=== PATIENT | male | born 1945 | race Caucasian/White ===

== ENCOUNTER → 2017-10-21 | Outpatient (CLI) | payer BC ==
[~2017-10-21] MED LIST: BUPR100T8 PO; CHOL1000 PO; CIPR-255 PO; MULT-506 PO
[2017-10-21 13:12] LABS: CHOLESTEROL/HDL RATIO 2.1
== END | disposition home or self-care (01) ==
LOC: C.LABPBG 09:06
DX: E78.5 Hyperlipidemia, unspecified (principal); R73.9 Hyperglycemia, unspecified

== ENCOUNTER 2025-07-09 19:57 | Observation (INO) ==
[2025-07-09 20:31] LABS: Hematocrit (blood only) 39.1 % (42.0-52.0); Hemoglobin 12.8 g/dl (14.0-18.0); Immature Granulocytes # (auto) 0.05 K/uL (0.01-0.20); Immature Granulocytes % (auto) 0.5 %; Mean Corpuscular Hemoglobin 27.5 pg (25.0-34.0); Mean Corpuscular Volume 83.9 fL (80.0-100.0); Platelet Count 288 K/uL (130-400); RDW Standard Deviation 43.9 fL (36.4-46.3); Red Blood Count 4.66 M/uL (4.70-6.10); White Blood Count 10.28 K/ul (4.8-10.8)
[2025-07-09 20:47] LABS: Alanine Aminotransferase 12.0 U/L (7-52); Albumin Globulin Ratio 1.1 (0.9-2); Alkaline Phosphatase 74.0 U/L (34-104); Anion Gap 8.0 (3-11); Bilirubin,Total 0.6 mg/dl (0.2-1.0); Blood Urea Nitrogen 21.0 mg/dl (6-23); Calcium 9.1 mg/dl (8.6-10.3); Carbon Dioxide 26.0 mmol/L (21-32); Chloride 105.0 mmol/L (98-107); Creatinine Clr Calc Pharmacy 82.6 ml/min; Globulin 2.9 gm/dl (2.5-4.0); Glucose 190.0 mg/dl (70-99(Fasting)); Magnesium 1.8 mg/dl (1.7-2.4); Potassium 4.5 mmol/L (3.5-5.1); Sodium 139.0 mmol/L (136-145); Total Protein 6.1 gm/dl (6.0-8.3)
[2025-07-09 22:01] LABS: Creatine Kinase 20.0 U/L (30-223)
[2025-07-09] MEDS: OPTIRAY 320 125ml IV ONE (22:04)
--- NOTE | 2025-07-09 23:06 | CT Scan Report ---
Exam(s): CT HEAD Without Contrast EXAM: CT Head Without Intravenous Contrast CLINICAL HISTORY: Reason for exam: syncope. TECHNIQUE: Axial computed tomography images of the head/brain without intravenous contrast. CTDI is 36.65 mGy and DLP is 702 mGy-cm. Automated exposure control was utilized for the study. A dose lowering technique was utilized adhering to the principles of ALARA. COMPARISON: No relevant prior studies available. FINDINGS: The study is limited secondary to motion artifact. Brain: Unremarkable. No hemorrhage. No significant white matter disease. No edema. Ventricles: Mild ventriculomegaly. Bones/joints: Unremarkable. No acute fracture. Soft tissues: Unremarkable. Sinuses: Unremarkable as visualized. No acute sinusitis. Mastoid air cells: Unremarkable as visualized. No mastoid effusion. IMPRESSION: No evidence of acute intracranial pathology. Electronically signed by: Fariba Peres MD 07/09/25 23:04 PM
--- NOTE | 2025-07-09 23:07 | CT Scan Report ---
Exam(s): CT C SPINE EXAM: CT Cervical Spine Without Intravenous Contrast CLINICAL HISTORY: Reason for exam: fall. TECHNIQUE: Axial computed tomography images of the cervical spine without intravenous contrast. CTDI is 24.57 mGy and DLP is 543 mGy-cm. Automated exposure control was utilized for the study. A dose lowering technique was utilized adhering to the principles of ALARA. COMPARISON: No relevant prior studies available. FINDINGS: Vertebrae: No acute fracture. There are hypertrophic degenerative changes. Discs/spinal canal/neural foramina: There are multilevel disc protrusions most pronounced at C2-3.. Soft tissues: Unremarkable. IMPRESSION: Hypertrophic degenerative changes. There are multilevel disc protrusions. If further evaluation is clinically necessary, consider correlation with MRI Electronically signed by: Chris Falcon MD 07/09/25 23:06 PM
--- NOTE | 2025-07-09 23:21 | CT Scan Report ---
Exam(s): CTA CHEST IV Amt: 118 cc opti 320 EXAM: CT Angiography Chest With Intravenous Contrast CLINICAL HISTORY: Reason for exam: PE. TECHNIQUE: Axial computed tomographic angiography images of the chest with intravenous contrast. CTDI is 20.8 mGy and DLP is 1108 mGy-cm. Automated exposure control was utilized for the study. A dose lowering technique was utilized adhering to the principles of ALARA. MIP reconstructed images were created and reviewed. COMPARISON: No relevant prior studies available. FINDINGS: Pulmonary arteries: No pulmonary embolism is seen. Aorta: There are atherosclerotic changes. There is a 4 cm aneurysm noted of the ascending aorta. No evidence of dissection.. Lungs: No mass. No consolidation. Pleural space: No significant effusion. No pneumothorax. Heart: Heart is normal in size.. Bones/joints: There are marked degenerative changes in the spine. Soft tissues: Unremarkable. Lymph nodes: No enlarged lymph nodes. IMPRESSION: No pulmonary embolism is seen. There is a 4 cm aneurysm noted of the ascending aorta. Electronically signed by: Chris Falcon MD 07/09/25 23:20 PM
--- NOTE | 2025-07-09 23:26 | CT Scan Report ---
Exam(s): CT ABDOMEN + PELVIS With Contrast IV Amt: 119cc opti 320 EXAM: CT Abdomen and Pelvis With Intravenous Contrast CLINICAL HISTORY: Reason for exam: syncope, right flank pain. TECHNIQUE: Axial computed tomography images of the abdomen and pelvis with intravenous contrast. CTDI is 21.57 mGy and DLP is 831.2 mGy-cm. Automated exposure control was utilized for the study. A dose lowering technique was utilized adhering to the principles of ALARA. CONTRAST: Patient received 119cc opti 320 of IV contrast COMPARISON: No relevant prior studies available. FINDINGS: ABDOMEN: Liver: No mass. Gallbladder and bile ducts: No calcified stones. No ductal dilation. Pancreas: No mass. No ductal dilation. Spleen: No splenomegaly. Adrenals: No mass. Kidneys and ureters: No hydronephrosis. There are rounded lucencies in both kidneys. Stomach and bowel: There is air and fluid within the stomach. There is air and stool noted in the colon. There are diverticula present on the colon. No inflammatory changes are noted. There appears to be thickening of the sigmoid colon wall. There are mildly distended loops of small bowel containing air and fluid.. PELVIS: Appendix: Unremarkable CT scan appearance noted the appendix.. Bladder: No calculi are noted within the bladder.. Reproductive: There are calcifications within the prostate gland.. ABDOMEN and PELVIS: Intraperitoneal space: No free air. No significant fluid collection. Bones/joints: There are degenerative changes in the spine and hips.. Soft tissues: Unremarkable. Vasculature: No abdominal aortic aneurysm. Lymph nodes: No enlarged lymph nodes. IMPRESSION: Diverticulosis. There appears to be thickening of the sigmoid colon wall. This may be due to under distention. Cannot exclude colitis. The overall bowel gas pattern may represent an ileus. There are possible bilateral renal cysts. Electronically signed by: Chris Falcon MD 07/09/25 23:25 PM
--- NOTE | 2025-07-09 23:41 | Emergency Department Note ---
History of Present Illness General Chief complaint: Syncope Stated complaint: SYNCOPE History of Present Illness Maximum Pain Intensity: 2 This 79-year-old male presents to the ER with his for evaluation of collapsing x 2 today. Patient states he was helping his with the door and just collapsed landing on his right flank. This happened again. Patient denies chest pain, dyspnea, headache, abdominal pain, numbness, tingling, localized weakness. He has had a chronic cough and congestion. He has been getting weaker and has difficulty with ambulation now. Home Medications Medication Instructions Recorded Confirmed Type quetiapine 25 mg tablet 25 mg PO HS 07/09/25 07/09/25 History Allergies Allergy/AdvReac Type Severity Reaction Status Date / Time prednisone AdvReac Intermediate DID NOT Verified 07/09/25 22:25 TOLERATE MED Past Med/Surg History Problem List (Updated 07/09/25 @ 23:41 by Kala Ospina PA-C) Weakness (Acute) Cough (Acute) Syncope (Acute) Neuropathy Gait disturbance Hyperlipidemia Renal calculi IGT (impaired glucose tolerance) Allergic rhinitis Dyspepsia Asthma RAD (reactive airway disease) Anxiety (Acute 12/11/12) Benign prostatic hyperplasia with urinary obstruction (Acute) Bladder calculus (Acute) Depression (Acute 12/11/12) Flank pain (Acute) Hematuria (Acute) Incontinence (Acute) Major depressive disorder (Acute 12/14/12) Skin cancer (melanoma) (Acute) UTI (urinary tract infection) (Acute) Surgical History S/P orchiopexy S/P TURP History of herniorrhaphy S/P colonoscopy Family History Family/Other Multiple sclerosis Anxiety Inflammatory bowel disease Social History Smoking Status: Never smoker Hx Alcohol Use: Yes Preferred Language: Chinese Feels Safe at Home: Yes Review of Systems A total of 10 systems reviewed and were otherwise negative Physical Exam Vital Signs Vital Signs - 24 hr 07/09/25 20:07 07/09/25 20:07 07/09/25 20:08 Temperature 36.6 C Temperature Source Oral Pulse Rate - Lying Pulse Rate - Sitting Pulse Rate - Standing Pulse Rate 81 Pulse Rhythm Regular Pulse Strength Normal Respiratory Rate 22 Respiratory Effort / Characteristics Non-Labored Spontaneous Respiratory Depth Normal Respiratory Pattern Regular Blood Pressure - Lying Blood Pressure - Sitting Blood Pressure- Standing Blood Pressure 116/77 Blood Pressure Mean 90 Blood Pressure Position Lying Pulse Oximetry 100 100 100 Oxygen Delivery Method Room Air Room Air Room Air Sepsis Recent Fever Within 48 Hours No Sepsis New/Unexplained Change in Mental Status No Sepsis Action Taken by Nursing No Action Required 07/09/25 20:08 07/09/25 21:30 07/09/25 21:32 Temperature Temperature Source Pulse Rate - Lying Pulse Rate - Sitting Pulse Rate - Standing Pulse Rate 77 78 Pulse Rhythm Pulse Strength Respiratory Rate 27 H Respiratory Effort / Characteristics Respiratory Depth Respiratory Pattern Blood Pressure - Lying Blood Pressure - Sitting Blood Pressure- Standing Blood Pressure 115/76 Blood Pressure Mean 90 Blood Pressure Position Pulse Oximetry 100 98 Oxygen Delivery Method Room Air Room Air Sepsis Recent Fever Within 48 Hours Sepsis New/Unexplained Change in Mental Status Sepsis Action Taken by Nursing 07/09/25 23:57 Temperature Temperature Source Pulse Rate - Lying 68 Pulse Rate - Sitting 80 Pulse Rate - Standing 91 H Pulse Rate Pulse Rhythm Pulse Strength Respiratory Rate Respiratory Effort / Characteristics Respiratory Depth Respiratory Pattern Blood Pressure - Lying 126/72 Blood Pressure - Sitting 125/73 Blood Pressure- Standing 110/74 Blood Pressure Blood Pressure Mean Blood Pressure Position Pulse Oximetry Oxygen Delivery Method Sepsis Recent Fever Within 48 Hours Sepsis New/Unexplained Change in Mental Status Sepsis Action Taken by Nursing VITALS: Vitals are noted on the nurse's note and reviewed by myself. Vital signs stable. GENERAL: Pleasant gentleman, in no acute distress, nondiaphoretic, well- developed well-nourished. SKIN: The skin was without rashes, erythema, edema, or bruising. There is no tenting of the skin. Capillary reflex less than 2 seconds. HEAD: Normocephalic atraumatic. EARS: External auditory canals clear EYES: Pupils equal round and reactive to light and accommodation. Conjunctivae without injection, sclerae without icterus. Extraocular movements intact. NOSE: Patent, no discharge. MOUTH: Mucous membranes moist. Pharynx without erythema or exudate. Uvula midline. Airway patent. Tongue does not deviate. NECK: Supple without nuchal rigidity. No lymphadenopathy. No thyromegaly. Cervical spine is nontender. No JVD. HEART: Regular rate and rhythm LUNGS: Clear to auscultation bilaterally without wheezes, rales or rhonchi. No retractions or accessory muscle use. ABDOMEN: Positive bowel sounds x 4. Normal tympanic percussion. Soft, nontender, without masses or organomegaly. Arora sign negative. No guarding or rebound tenderness. Right CVA tenderness MUSCULOSKELETAL: No muscle atrophy, erythema, or edema noted. No thoracic or lumbar tenderness. 5-5 strength throughout. NEURO: Patient was alert and oriented to person place and time. Normal sensation to light and sharp touch. No focal neurological deficits. Course Administered Medications Discontinued Medications Ioversol (Optiray 320 125ml) 118 ml IV ONCE ONE Stop: 07/09/25 22:05 Last Admin: 07/09/25 22:04 Dose: 118 ml Documented By: RAVIN Medical Decision Making Medical Records Attestation: I reviewed the patient's medical records. Home Medications Current Medication List: was personally reviewed by me Laboratory Data Attestation: I reviewed the patient's lab results. 07/09/25 20:10 07/09/25 20:10 Lab Results 07/09/25 Range/Units 20:10 WBC 10.28 (4.8-10.8) K/ul RBC 4.66 L (4.70-6.10) M/uL Hgb 12.8 L (14.0-18.0) g/dl Hct 39.1 L (42.0-52.0) % MCV 83.9 (80.0-100.0) fL MCH 27.5 (25.0-34.0) pg MCHC 32.7 (32.0-36.0) g/dL RDW Std Deviation 43.9 (36.4-46.3) fL RDW Coeff of Nii 14.5 (11.5-14.5) % Plt Count 288 (130-400) K/uL MPV 10.2 (9.4-12.4) fL Immature Gran % (Auto) 0.5 % Neut % (Auto) 72.1 % Lymph % (Auto) 16.2 % Sibley % (Auto) 9.8 % Eos % (Auto) 1.0 % Baso % (Auto) 0.4 % Neut # (Auto) 7.41 H (1.40-6.50) K/uL Lymph # (Auto) 1.67 (1.20-3.40) K/uL Sibley # (Auto) 1.01 H (0.11-0.59) K/uL Eos # (Auto) 0.10 (0.00-0.50) K/uL Baso # (Auto) 0.04 (0.00-0.20) K/uL Immature Gran # (Auto) 0.05 (0.01-0.20) K/uL Sodium 139 (136-145) mmol/L Potassium 4.5 (3.5-5.1) mmol/L Chloride 105 (98-107) mmol/L Carbon Dioxide 26 (21-32) mmol/L Anion Gap 8 (3-11) BUN 21 (6-23) mg/dl Creatinine 0.70 (0.6-1.4) mg/dl Est Cr Clr Drug Dosing 82.6 ml/min eGFR 94.90 BUN/Creatinine Ratio 30.0 H (10-20) Glucose 190 H (70-99(Fasting)) mg/dl Calcium 9.1 (8.6-10.3) mg/dl Magnesium 1.8 (1.7-2.4) mg/dl Total Bilirubin 0.6 (0.2-1.0) mg/dl AST 14 (13-39) U/L ALT 12 (7-52) U/L Alkaline Phosphatase 74 (34-104) U/L Total Creatine Kinase 20 L (30-223) U/L Troponin I High Sens 5.3 (0-20) pg/ml Total Protein 6.1 (6.0-8.3) gm/dl Albumin 3.2 L (3.4-5.0) gm/dl Globulin 2.9 (2.5-4.0) gm/dl Albumin/Globulin Ratio 1.1 (0.9-2) Imaging Data Attestation: I personally reviewed and interpreted this imaging study as follows: Radiologist's Impression: Abdomen/Pelvis CT 07/09/25 21:44 Exam(s): CT ABDOMEN + PELVIS With Contrast IV Amt: 119cc opti 320 EXAM: CT Abdomen and Pelvis With Intravenous Contrast CLINICAL HISTORY: Reason for exam: syncope, right flank pain. TECHNIQUE: Axial computed tomography images of the abdomen and pelvis with intravenous contrast. CTDI is 21.57 mGy and DLP is 831.2 mGy-cm. Automated exposure control was utilized for the study. A dose lowering technique was utilized adhering to the principles of ALARA. CONTRAST: Patient received 119cc opti 320 of IV contrast COMPARISON: No relevant prior studies available. FINDINGS: ABDOMEN: Liver: No mass. Gallbladder and bile ducts: No calcified stones. No ductal dilation. Pancreas: No mass. No ductal dilation. Spleen: No splenomegaly. Adrenals: No mass. Kidneys and ureters: No hydronephrosis. There are rounded lucencies in both kidneys. Stomach and bowel: There is air and fluid within the stomach. There is air and stool noted in the colon. There are diverticula present on the colon. No inflammatory changes are noted. There appears to be thickening of the sigmoid colon wall. There are mildly distended loops of small bowel containing air and fluid.. PELVIS: Appendix: Unremarkable CT scan appearance noted the appendix.. Bladder: No calculi are noted within the bladder.. Reproductive: There are calcifications within the prostate gland.. ABDOMEN and PELVIS: Intraperitoneal space: No free air. No significant fluid collection. Bones/joints: There are degenerative changes in the spine and hips.. Soft tissues: Unremarkable. Vasculature: No abdominal aortic aneurysm. Lymph nodes: No enlarged lymph nodes. IMPRESSION: Diverticulosis. There appears to be thickening of the sigmoid colon wall. This may be due to under distention. Cannot exclude colitis. The overall bowel gas pattern may represent an ileus. There are possible bilateral renal cysts. Electronically signed by: Chris Falcon MD 07/09/25 23:[address] 07/09/25 21:44 Exam(s): CT C SPINE EXAM: CT Cervical Spine Without Intravenous Contrast CLINICAL HISTORY: Reason for exam: fall. TECHNIQUE: Axial computed tomography images of the cervical spine without intravenous contrast. CTDI is 24.57 mGy and DLP is 543 mGy-cm. Automated exposure control was utilized for the study. A dose lowering technique was utilized adhering to the principles of ALARA. COMPARISON: No relevant prior studies available. FINDINGS: Vertebrae: No acute fracture. There are hypertrophic degenerative changes. Discs/spinal canal/neural foramina: There are multilevel disc protrusions most pronounced at C2-3.. Soft tissues: Unremarkable. IMPRESSION: Hypertrophic degenerative changes. There are multilevel disc protrusions. If further evaluation is clinically necessary, consider correlation with MRI Electronically signed by: Chris Falcon MD 07/09/25 23:06 PM Chest CTA 07/09/25 21:44 Exam(s): CTA CHEST IV Amt: 118 cc opti 320 EXAM: CT Angiography Chest With Intravenous Contrast CLINICAL HISTORY: Reason for exam: PE. TECHNIQUE: Axial computed tomographic angiography images of the chest with intravenous contrast. CTDI is 20.8 mGy and DLP is 1108 mGy-cm. Automated exposure control was utilized for the study. A dose lowering technique was utilized adhering to the principles of ALARA. MIP reconstructed images were created and reviewed. COMPARISON: No relevant prior studies available. FINDINGS: Pulmonary arteries: No pulmonary embolism is seen. Aorta: There are atherosclerotic changes. There is a 4 cm aneurysm noted of the ascending aorta. No evidence of dissection.. Lungs: No mass. No consolidation. Pleural space: No significant effusion. No pneumothorax. Heart: Heart is normal in size.. Bones/joints: There are marked degenerative changes in the spine. Soft tissues: Unremarkable. Lymph nodes: No enlarged lymph nodes. IMPRESSION: No pulmonary embolism is seen. There is a 4 cm aneurysm noted of the ascending aorta. Electronically signed by: Chris Falcon MD 07/09/25 23:[address] 07/09/25 21:44 Exam(s): CT HEAD Without Contrast EXAM: CT Head Without Intravenous Contrast CLINICAL HISTORY: Reason for exam: syncope. TECHNIQUE: Axial computed tomography images of the head/brain without intravenous contrast. CTDI is 36.65 mGy and DLP is 702 mGy-cm. Automated exposure control was utilized for the study. A dose lowering technique was utilized adhering to the principles of ALARA. COMPARISON: No relevant prior studies available. FINDINGS: The study is limited secondary to motion artifact. Brain: Unremarkable. No hemorrhage. No significant white matter disease. No edema. Ventricles: Mild ventriculomegaly. Bones/joints: Unremarkable. No acute fracture. Soft tissues: Unremarkable. Sinuses: Unremarkable as visualized. No acute sinusitis. Mastoid air cells: Unremarkable as visualized. No mastoid effusion. IMPRESSION: No evidence of acute intracranial pathology. Electronically signed by: Fariba Peres MD 07/09/25 23:04 PM [facility] Narrative Prior records/ancillary studies reviewed and summarized above. Nursing notes reviewed. Additional history obtained from family. The patient's history was concerning for syncope x 2 and increasing weakness. Differential diagnosis: Etiologies such as metabolic, infection, hypo/hyperglycemia, electrolyte abnormalities, cardiac sources, intracerebral event, toxicologic, neurologic, as well as others were entertained. Physical examination: As above. ER treatment provided: IV Lock An order was placed for continuous cardiac monitoring. The monitor shows a rate of 60-100 with a sinus rhythm per my interpretation. IV fluids were ordered On reassessment the patient felt better. Diagnostics interpretation by me: ECG: Ordered for syncope EKG: Normal sinus, no acute ST-T wave changes, poor baseline, rate of 75. Impression normal sinus rhythm poor baseline independently interpreted by myself The labs Independently Interpreted by myself revealed no worrisome leukocytosis, mild anemia Mild hyperglycemia that DKA. Negative troponin Imaging studies: Imaging has been reviewed and read by radiology Consultation: A consultation was placed with the hospitalist. The case was discussed and diagnostics were reviewed. The patient was evaluated in the ER for further treatment. Exam and history seem consistent with syncope x 2 with increasing weakness. Imaging with no traumatic injuries noted. Stable labs. Medicine was consulted case discussed. He will be evaluated for possible admission. Patient and are agreeable. By the evaluation outlined above emergent etiologies such as infection, electrolyte abnormalities, toxologic, abnormalities blood glucose, metabolic, as well as others were deemed relatively unlikely. The pt informed about the findings as listed above. All questions were answered and pleased with the treatment. The chart was completed utilizing [employer] Speech voice recognition software. Grammatical errors, random word insertions, pronoun errors, and incomplete sentences are an occassional consequence of this system due to software limitations, ambient noise, and hardware issues. Any formal questions or concerns about the content, text, or information contained within the body of this dictation should be directly addressed to the physician assistant to the ceo for clarification. Impression & Plan Syncope, Cough, Weakness Discharge Plan Visit Data Chief Complaint: Syncope Stated Complaint: SYNCOPE ED Provider: Mayi Bowles ED Midlevel Provider: Kala Ospina Discharge Problem: Syncope, Cough, Weakness Patient Disposition: Being Evaluated by Hospitalist Condition: Good Forms Stand Alone Forms: My [employer] Prescriptions Prescriptions: No Action quetiapine 25 mg tablet 25 mg PO HS Referrals Referrals: Nicolas Huang PA-C [Primary Care Provider] - Discharge Problem: Syncope Qualifiers: Syncope type: unspecified Qualified Code(s): R55 - Syncope and collapse
--- NOTE | 2025-07-09 23:45 | History & Physical Report ---
Date of Service July 09, 2025 Assessment & Plan (1) Syncope: (2) Weakness: (3) Abdominal aortic aneurysm: (4) Neuropathy: Plan Patient is a 79-year-old male with past medical history of HLD, BPH, depression, neuropathy. Presented via EMS after 2 syncopal episodes at home while trying to put up a 40 to 50 pound door with his . Diagnostic imaging negative for acute changes, laboratories WNL, troponin negative. He is being admitted for a syncopal workup. #Syncope/weakness - suspect vasovagal with exertion and poor fluid intake; [place] syncope risk score -3. Head CT, chest CTA, cervical spine CT, abdomen pelvis CT negative. Troponin 5.3, electrolytes stable, Hgb dropped from 14.0- 12.8 over 5 years. - patient reported poor PO intake today and then had pizza prior to episode, BSG 190 - repeat glucose ordered - EKG showed sinus rhythm with first-degree AV block however much artifact noted, repeat EKG ordered - continue Seroquel - can cause orthostatic hypotension, if becomes symptomatic again consider holding - UA ordered - LR @ 125 ml/hr x 1 L ordered - orthostatic vital signs ordered Echocardiogram ordered - PT/OT ordered Monitor on telemetry #Ascending aortic aneurysm 4 cm aneurysm of ascending aorta noted on chest CTA Follow-up in outpatient setting #Renal cyst AP CT noted concern for bilateral renal cysts. Renal function stable. Follow-up in outpatient setting #neuropathy - has BL hand procedure scheduled later this week, continue in outpatient setting. VTE ppx: SCDs, low risk Dispo: med/tele - anticipate dc home 07/10 Admission and Anticipated Discharge Date Admission Date: 07/09/25 History of Present Illness Chief Complaint: syncope Primary Care Provider: Nicolas Huang PA-C Patient is a 79-year-old male with past medical history of HLD, BPH, depression, neuropathy. Presented via EMS after 2 syncopal episodes at home while trying to put up a 40 to 50 pound door with his . Diagnostic imaging negative for acute changes, laboratories WNL, troponin negative. He is being admitted for a syncopal workup. Patient seen at bedside. He stated earlier today he felt lightheaded however did not recall exerting himself during this episode. He then was trying to put up a door with his that was approximately 45 to 50 pounds when he woke up on the floor, he denies any complete loss of consciousness or head strike. He then went to sit down and had a second episode. He felt short of breath on arrival however now denies any chest pain or shortness of breath. He did eat as usual today however feels as though he did not drink enough water. His only home medication is Seroquel which he takes at night before bed. He denies any current dizziness, lightheadedness, headaches, vision changes, chest pain, shortness of breath, abdominal pain. He denies nicotine or significant alcohol use. He denies any cardiac history. He wishes to be DNR/DNI. he also noted scratching his throat on pizza several months ago which has still been causing some discomfort, considering ENT in outpatient setting. Allergies Allergy/AdvReac Type Severity Reaction Status Date / Time prednisone AdvReac Intermediate DID NOT Verified 07/09/25 22:25 TOLERATE MED Home Medications Medication Instructions Recorded Confirmed Type quetiapine 25 mg tablet 25 mg PO HS 07/09/25 07/09/25 History Past Med/Surg History Problem List (Updated 07/10/25 @ 00:26 by Marissa Thomas PA-C) Abdominal aortic aneurysm Weakness (Acute) Cough (Acute) Syncope (Acute) Neuropathy Gait disturbance Hyperlipidemia Renal calculi IGT (impaired glucose tolerance) Allergic rhinitis Dyspepsia Asthma RAD (reactive airway disease) Anxiety (Acute 12/11/12) Benign prostatic hyperplasia with urinary obstruction (Acute) Bladder calculus (Acute) Depression (Acute 12/11/12) Flank pain (Acute) Hematuria (Acute) Incontinence (Acute) Major depressive disorder (Acute 12/14/12) Skin cancer (melanoma) (Acute) UTI (urinary tract infection) (Acute) Surgical History S/P orchiopexy S/P TURP History of herniorrhaphy S/P colonoscopy Family History Family/Other Multiple sclerosis Anxiety Inflammatory bowel disease Social History Smoking Status: Former smoker Second Hand Exposure: No; Do You Dip or Chew Tobacco: No; Hx Alcohol Use: No Hx Substance Use: No Preferred Language: Khmer Beliefs That Will Affect Care: None Current Living Situation: Spouse Other Information That Helps Us Care for You: No Feels Safe at Home: Yes Safety Concerns: Feels Safe At This Time Assistive Devices: Cane and Glasses Review of Systems Review of Systems: see HPI Physical Exam Physical Exam: The patient is awake, alert and oriented 3, well developed and well nourished, normocephalic and atraumatic, in no acute distress. Non-toxic appearing. HEENT- EOMI, mucous membranes moist. Hearing grossly intact. Heart-normal S1 and S2. No murmurs, rubs or gallops. Lungs-clear bilaterally, no respiratory distress, no accessory muscle use. Abdomen-normal bowel sounds and soft. No ascites noted. Non-tender. Extremities- no clubbing, cyanosis, or edema. Rheumatologic-normal range of motion. Psychiatric-normal affect. Results & Data Results & Data Vital Signs (Past 12 Hours) Vital Signs Temp Pulse Resp BP Pulse Ox O2 Del Method 07/09/25 21:32 78 07/09/25 21:30 77 27 H 115/76 98 Room Air 07/09/25 20:08 100 Room Air 07/09/25 20:08 100 Room Air 07/09/25 20:07 100 Room Air 07/09/25 20:07 36.6 C 81 22 116/77 100 Room Air Laboratory Results Lab Results 07/09/25 07/09/25 Range/Units 20:10 23:58 WBC 10.28 (4.8-10.8) K/ul RBC 4.66 L (4.70-6.10) M/uL Hgb 12.8 L (14.0-18.0) g/dl Hct 39.1 L (42.0-52.0) % MCV 83.9 (80.0-100.0) fL MCH 27.5 (25.0-34.0) pg MCHC 32.7 (32.0-36.0) g/dL RDW Std Deviation 43.9 (36.4-46.3) fL RDW Coeff of Nii 14.5 (11.5-14.5) % Plt Count 288 (130-400) K/uL MPV 10.2 (9.4-12.4) fL Immature Gran % (Auto) 0.5 % Neut % (Auto) 72.1 % Lymph % (Auto) 16.2 % [place] % (Auto) 9.8 % Eos % (Auto) 1.0 % Baso % (Auto) 0.4 % Neut # (Auto) 7.41 H (1.40-6.50) K/uL Lymph # (Auto) 1.67 (1.20-3.40) K/uL [place] # (Auto) 1.01 H (0.11-0.59) K/uL Eos # (Auto) 0.10 (0.00-0.50) K/uL Baso # (Auto) 0.04 (0.00-0.20) K/uL Immature Gran # (Auto) 0.05 (0.01-0.20) K/uL Sodium 139 (136-145) mmol/L Potassium 4.5 (3.5-5.1) mmol/L Chloride 105 (98-107) mmol/L Carbon Dioxide 26 (21-32) mmol/L Anion Gap 8 (3-11) BUN 21 (6-23) mg/dl Creatinine 0.70 (0.6-1.4) mg/dl Est Cr Clr Drug Dosing 82.6 ml/min eGFR 94.90 BUN/Creatinine Ratio 30.0 H (10-20) Glucose 190 H (70-99(Fasting)) mg/dl Calcium 9.1 (8.6-10.3) mg/dl Magnesium 1.8 (1.7-2.4) mg/dl Total Bilirubin 0.6 (0.2-1.0) mg/dl AST 14 (13-39) U/L ALT 12 (7-52) U/L Alkaline Phosphatase 74 (34-104) U/L Total Creatine Kinase 20 L (30-223) U/L Troponin I High Sens 5.3 (0-20) pg/ml Total Protein 6.1 (6.0-8.3) gm/dl Albumin 3.2 L (3.4-5.0) gm/dl Globulin 2.9 (2.5-4.0) gm/dl Albumin/Globulin Ratio 1.1 (0.9-2) Urine Color Yellow Urine Appearance Clear (Clear) Urine pH 8.5 H (4.5-7.5) Ur Specific [place] 1.015 (1.000-1.030) Urine Protein Negative (Negative) Urine Glucose (UA) Negative (Negative) Urine Ketones Negative (Negative) Urine Blood Trace-intact H (Negative) Urine Nitrite Positive A (Negative) Urine Bilirubin Negative (Negative) Urine Urobilinogen Negative (Negative) Ur Leukocyte Esterase Negative (Negative) Urine Comment Diagnostic Findings reviewed head CT, chest CTA, cervical spine CT, abdomen pelvis CT Medications Administered EDnone ECG Additional Comments: sinus rhythm with first-degree AV block however much artifact noted Rate 75 QTc 435 Repeat ordered Code Status & VTE Plan Code Status dnr/dni VTE Prophylaxis Plan VTE Prophylaxis will be ordered: Yes Supervising Physician Co-Signing Physician Notes Attending addendum: I have physically seen this patient, have supervised the BARTOLO's activities, and agree with the H&P unless as otherwise noted. Assessment and Plan: The patient is a 79-year-old male with past medical history including hyperlipidemia, BPH, depression, impaired glucose tolerance, asthma, neuropathy, and urinary tract infection. He presents to the emergency department via EMS after syncopal episodes x 2 while at home trying to put up a 50 pound door with his assisting. At the time of this examination, the patient primarily reports feeling generally weak. Syncope/weakness- Differential including but not limited to: vasovagal, carbohydrate dysregulation, overall poor caloric intake, decreased fluid intake, medication side effect Workup included negative CT of head, CT cervical spine, CT abdomen Duonebs every 4 hours while awake and every 2 hours when necessary.. CTA chest did show an ascending aortic aneurysm of 4 cm. Follow urine culture and sensitivity At least part of the symptoms may be secondary to postprandial hypoglycemia, after having not eaten all day, and then had 2 pieces of pizza this evening LR 125 mL/h x 1 L Orthostatic vital signs The patient will be admitted to telemetry for serial cardiac enzymes, serial EKG's, cardiac rhythm monitoring and a 2-D echocardiogram with Dopplers. Consult PT/OT Ascending aortic aneurysm- Noted to be 4 cm in diameter CTA chest Can be followed in the outpatient setting Bilateral upper extremity peripheral numbness- Reports she is to undergo a surgery initially on his right side, and to be followed by his left side, sometime later this week Major depressive disorder- Continue quetiapine, but is known to cause orthostasis PG Care Time/CCT Total # of Minutes Spent Total Time Spent with Patient: Total time spent is greater than 50% in coordination of care (as documented) at patient's floor/unit and/or counseling patient: Coding Level of Care Code 08546 INT INP/OBS CARE MIN Diagnoses Syncope R55 Syncope type: unspecified Weakness R53.1 Abdominal aortic aneurysm I71.40 Neuropathy G62.9 (1) Syncope Syncope type: unspecified Qualified Code(s): R55 - Syncope and collapse
[2025-07-10 00:11] LABS: Appearance Urine Clear (Clear); Glucose Urine UA Negative (Negative)
[2025-07-10] MEDS: LACTATED RINGER'S 1,000 ML IV SCH (00:12)
[2025-07-10 00:29] LABS: Cast Urine Automated 0-2 /lpf (0-2); Epithelial Cell Urine Auto 0-2 /hpf (0-2); RBC Urine Automated 0-2 /hpf (0-2); WBC Urine Automated 0-5 /hpf (0-5)
[2025-07-10 00:31] LABS: Bacteria Urine Automated 1+ (None Seen)
[2025-07-10] MEDS ORDERED: MELATONIN 3 MG TAB PO PRN (00:36)
[2025-07-10] MEDS ORDERED: ONDANSETRON INJ 2 MG/ML 2 ML VIAL IV PRN (00:36)
[2025-07-10] MEDS ORDERED: ACETAMINOPHEN 325 MG TAB PO PRN (00:36)
[2025-07-10] MEDS ORDERED: DOCUSATE SODIUM 100 MG CAP PO PRN (00:36)
[2025-07-10] MEDS ORDERED: Nursing to Pharmacy Communication SCH (01:15)
[2025-07-10 04:42] LABS: Hematocrit (blood only) 37.3 % (42.0-52.0); Hemoglobin 12.4 g/dl (14.0-18.0); Immature Granulocytes # (auto) 0.07 K/uL (0.01-0.20); Immature Granulocytes % (auto) 0.6 %; Mean Corpuscular Hemoglobin 27.4 pg (25.0-34.0); Mean Corpuscular Volume 82.3 fL (80.0-100.0); Platelet Count 277 K/uL (130-400); RDW Standard Deviation 42.2 fL (36.4-46.3); Red Blood Count 4.53 M/uL (4.70-6.10); White Blood Count 11.05 K/ul (4.8-10.8)
[2025-07-10 04:57] LABS: Anion Gap 9.0 (3-11); Blood Urea Nitrogen 18.0 mg/dl (6-23); Calcium 8.8 mg/dl (8.6-10.3); Carbon Dioxide 23.0 mmol/L (21-32); Chloride 107.0 mmol/L (98-107); Creatinine Clr Calc Pharmacy 124.5 ml/min; Glucose 116.0 mg/dl (70-99(Fasting)); Potassium 3.9 mmol/L (3.5-5.1); Sodium 139.0 mmol/L (136-145)
--- NOTE | 2025-07-10 09:49 | Electrocardiogram Report ---
Test Reason : Blood Pressure : */* mmHG Vent. Rate : 75 BPM Atrial Rate : 75 BPM P-R Int : 216 ms QRS Dur : 76 ms QT Int : 390 ms P-R-T Axes : 68 18 45 degrees QTcB Int : 435 ms Poor data quality, interpretation may be adversely affected Sinus rhythm with 1st degree A-V block with Premature supraventricular complexes Otherwise normal ECG When compared with ECG of 28-Sep-2020 12:38, Premature supraventricular complexes are now Present Confirmed by Abhi Morocho ([id number]) on 07/10/2025 9:49:28 AM Referred By: REFERRED SELF Confirmed By: Abhi Morocho
--- NOTE | 2025-07-10 13:25 | Hospitalist Progress Note ---
Date of Service July 10, 2025 Assessment & Plan (1) Cervical myelopathy: (2) Tongue lesion: (3) Syncope: (4) Weight loss, abnormal: Plan Patient is a 79-year-old male with past medical history of HLD, BPH, depression, neuropathy. Presented via EMS after 2 syncopal episodes vs drop attacks at home while trying to put up a 40 to 50 pound door with his . There was no prodrome and he was not lifting the door - his lifted it into place. He did not have arms overhead or swain his neck. Fell suddenly and unclear whether LOC or not, recurred when he was trying to get up. Similar fall recently in the kitchen. Additional history obtained: 50 pound weight loss x 6 mo, shoulders/arms/hands pain dysesthesia and weakness, LE weakness, 2 mo of throat pain. Decades of snuff use. On exam he has severe muscle atrophy and bilateral UE>LE weakness. Hands particularly atrophied and weak. There is a fungating lesion of the left side of base of tongue. Presentation very concerning for head and neck cancer, cervical myelopathy -discussed with ENT Dr. Thakkar - CT neck and will schedule office appointment on - much easier to eval/biopsy with office equipment. Greatly appreciate assistance. -MRI cspine to evaluate cervical myelopathy Other issues: #Syncopal episodes vs falls/drop attack - may be related to above, await further imaging EKG with 1st degree AV block, no arrhythmias on monitoring overnight I am not very suspicious of a cardiac syncope. Cont tele. CTA was negative for PE Check orthostatic VS #Ascending aortic aneurysm 4 cm aneurysm of ascending aorta noted on chest CTA Follow-up in outpatient setting #Renal cysts AP CT noted concern for bilateral renal cysts. Renal function stable. Follow-up in outpatient setting PT/OT consult DVT ppx: start enoxaparin Admission and Anticipated Discharge Date Admission Date: July 10, 2025 Subjective Feels better and was up OOB with nurse who noted significant weakness Has had unexplained 50 pound weight loss x 6 mo Last 2 mo has had uncomfortable sensation in throat he attrib to swallowing a hard piece of macaroni that poked his throat - it bled at the time, but "won't heal" No further blood. Hx using snuff from childhood until 6 mo ago when he quit Bilateral hand weakness and hands pain and weakness undergoing outpatient eval - seeing ortho surgeon for "carpal tunnel" He has had pain in shoulder area bilaterally as well and dysesthesia well above his wrists of bilateral UEs No neck pain other than the throat pain mentioned above Has had recent previous fall (similar to yesterday) which sounds like a drop attack without clearcut LOC Physical Exam 2 Physical Exam: Last 24h vitals reviewed GEN: no acute distress, sitting in bed HEENT: pupils equal, sclerae anicteric, moist MM. Fungating mass seen right posterior / base of tongue. Airway widely patent RESP: normal WOB, CTAB CV: reg no mrg ABD: soft/nt/nd +BT. Scaphoid : no jackson SKIN: warm and dry, no generalized rashes NEURO: AOx person, place, and situation. Face symmetric, speech normal, moves 4 ext spontaneously and equally. Significant sarcopenia x 4 ext. severe intraosseous wasting both hands. Severe bilateral mess attendant weakness. Shoulders and hip flexors symmetrically weak 3/5. biceps/triceps and knee flexors/extensors 4/5, dorsi and plantar flexion 5/5 Results & Data Results & Data Vital Signs (Past 12 Hours) Vital Signs Pulse Pulse Resp BP Pulse Ox O2 Del Method 07/10/25 11:38 61 20 119/69 96 Room Air 07/10/25 10:00 68 26 H 117/66 96 Room Air 07/10/25 07:09 64 07/10/25 07:00 62 20 122/72 97 Room Air 07/10/25 05:48 20 117/61 96 Room Air Laboratory Results 07/10/25 03:44 07/10/25 03:44 Diagnostic Findings CTA chest, CT head, CT abdomen/pelvis with contrast -no PE, 4 cm aneurysm of ascending aorta, prob bilateral renal cysts, diverticulosis, underdistended sigmoid colon CT cervical spine without contrast: FINDINGS: Vertebrae: No acute fracture. There are hypertrophic degenerative changes. Discs/spinal canal/neural foramina: There are multilevel disc protrusions most pronounced at C2-3.. Soft tissues: Unremarkable. IMPRESSION: Hypertrophic degenerative changes. There are multilevel disc protrusions. If further evaluation is clinically necessary, consider correlation with MRI PG Care Time/CCT Total # of Minutes Spent Total Time Spent with Patient: Total time spent is greater than 50% in coordination of care (as documented) at patient's floor/unit and/or counseling patient: Coding Level of Care Code 41751 SUB INP/OBS CARE 350MIN Diagnoses Cervical myelopathy G95.9 Tongue lesion K14.8 Syncope R55 Syncope type: unspecified Weight loss, abnormal R63.4 (3) Syncope Syncope type: unspecified Qualified Code(s): R55 - Syncope and collapse
[2025-07-10] MEDS: OPTIRAY 320 100ml IV ONE (14:38)
--- NOTE | 2025-07-10 15:08 | CT Scan Report ---
CT soft tissue neck w con HISTORY: 79 years-old Male suspect head/neck cancer, base of tongue lesion COMPARISON: CT cervical spine 07/09/2025 TECHNIQUE: Multiple axial CT images of the soft tissues of the neck were obtained with IV contrast. A dose lowering technique was used consistent with the principals of ALARA. FINDINGS: The imaged intracranial structures demonstrate no acute abnormality. Mild age-related involutional ch anges of the brain. There is a large heterogeneous and enhancing mass with ill-defined margins noted involving the base of the tongue, most pronounced in the central and left lateral margins with extens ion into the vallecula abutting without definitely invading the epiglottis. This lesion also appears to abut the adjacent uvula and overall measures approximately 4.7 x 3.4 x 4.8 cm (image 45 series 79 and image 205 series 3). The glottis and subglottic airway is patent. Unremarkable appearance of the thyroid, parotid and subm andibular glands. Lung apices appear clear. No pathologically enlarged lymph nodes. There is a centra lly hypodense 7 x 5 mm left cervical chain lymph node image 242 series 3. Multilevel degenerative severiano nges of the cervical spine. Ill-defined osseous lucent foci nonspecific and may be related to bone de mineralization. Unremarkable appearance of the vascular structures of the neck. Aberrant course of th e right subclavian artery. IMPRESSION: 1. Large enhancing mass involving the base of the tongue/oropharynx measures up to approximately 5 cm . Primary head and neck carcinoma is the primary differential consideration. 2. Patent oropharynx. 3. No pathologically enlarged lymph nodes. There is however a subcentimeter left cervical chain lymph node with possible central necrosis, equivocal for metastasis. ACT 112: Negative or not required by law. The above report was generated using voice recognition software. It may contain grammatical, syntax o r spelling errors. Electronically signed by: Shady Ricketts M.D. 07/10/2025 3:06 PM
--- NOTE | 2025-07-10 18:01 | Communication Note ---
Date of Service: July 10, [address] - large mass base of tongue headed to MRI and claustrophobic - lorazepam 0.5 mg IV I havent been able to discuss the neck CT findings with him yet.
--- NOTE | 2025-07-10 23:56 | Magnetic Resonance Report ---
Exam(s): MRI C SPINE EXAM: MR Cervical Spine Without Intravenous Contrast CLINICAL HISTORY: Reason for exam: susp malignancy, c-spine disease. TECHNIQUE: Magnetic resonance images of the cervical spine without intravenous contrast in multiple planes. COMPARISON: CT cervical spine from 07/09/2025 FINDINGS: Artifacts: Moderate motion artifact. Vertebrae: Diffusely heterogenous bone marrow signal. No acute fracture. Spinal cord: Unremarkable. Normal signal. Soft tissues: Unremarkable. DISCS/SPINAL CANAL/NEURAL FORAMINA: C2-C3: Mild degenerative disc disease. Disc dehydration and 3 mm broad-based posterior disc herniation narrowing the thecal sac to 8 mm. Probable moderate left neural foraminal narrowing, blurred by motion. C3-C4: Mild degenerative disc disease. Disc dehydration and broad- based posterior disc herniation measuring 3 mm narrowing of the thecal sac to 6 mm. Neural foramina are obscured by motion. C4-C5: Mild degenerative disc disease. Disc dehydration and broad- based posterior disc herniation measuring 2-3 mm narrowing of the thecal sac to 8 mm. Neural foramina are obscured. C5-C6: Moderate degenerative disc disease. 2 mm broad-based posterior disc herniation narrows the thecal sac to 9 mm. The neural foramina are obscured. C6-C7: Moderate degenerative disc disease. Disc dehydration and 2-3 mm broad-based posterior disc herniation narrowing of the thecal sac to 8- 9 mm. The neural foramina are obscured. C7-T1: Mild degenerative disc disease. Disc dehydration and broad- based posterior disc herniation measuring 4 mm combined with 3 mm grade 1 anterolisthesis due to degenerative facet arthrosis. The thecal sac is slightly narrowed measuring 9-10 mm. The neural foramina are partially obscured but appear to be patent. IMPRESSION: 1. Diffusely heterogenous bone marrow signal. Differential considerations include partial conversion to right marrow versus lymphoproliferative disorder such as multiple myeloma. 2. Multilevel degenerative disc disease throughout the cervical spine with individual levels as described above. Electronically signed by: Darwin Sears MD 07/10/25 23:55 PM
[2025-07-11 08:12] LABS: Hematocrit (blood only) 38.1 % (42.0-52.0); Hemoglobin 12.2 g/dl (14.0-18.0); Immature Granulocytes # (auto) 0.05 K/uL (0.01-0.20); Immature Granulocytes % (auto) 0.5 %; Mean Corpuscular Hemoglobin 27.1 pg (25.0-34.0); Mean Corpuscular Volume 84.7 fL (80.0-100.0); Platelet Count 254 K/uL (130-400); RDW Standard Deviation 45.1 fL (36.4-46.3); Red Blood Count 4.50 M/uL (4.70-6.10); White Blood Count 10.13 K/ul (4.8-10.8)
[2025-07-11 08:38] LABS: Anion Gap 7.0 (3-11); Blood Urea Nitrogen 17.0 mg/dl (6-23); Calcium 8.7 mg/dl (8.6-10.3); Carbon Dioxide 25.0 mmol/L (21-32); Chloride 104.0 mmol/L (98-107); Creatinine Clr Calc Pharmacy 114.1 ml/min; Glucose 89.0 mg/dl (70-99(Fasting)); Potassium 4.0 mmol/L (3.5-5.1); Sodium 136.0 mmol/L (136-145)
--- NOTE | 2025-07-11 14:01 | XCELERA ---
[id number]
--- NOTE | 2025-07-11 14:25 | Discharge Summary ---
Discharge Summary Date of Service July 11, 2025 Principal Dx & Hospital Course #1 = Principal Diagnosis (1) Tongue lesion: (2) Syncope: (3) Weight loss, abnormal: (4) Ascending aortic aneurysm: Plan Patient is a 79-year-old male with past medical history of HLD, BPH, depression, neuropathy. Presented via EMS after 2 syncopal episodes vs drop attacks at home while trying to put up a 40 to 50 pound door with his . There was no prodrome and he was not lifting the door - his lifted it into place. He did not have arms overhead or swain his neck. Fell suddenly and unclear whether LOC or not, recurred when he was trying to get up. Similar fall recently in the kitchen. Additional history obtained: 50 pound weight loss x 6 mo, shoulders/arms/hands pain dysesthesia and weakness, LE weakness, 2 mo of throat pain. Decades of snuff use. On exam he has severe muscle atrophy and bilateral UE>LE weakness. Hands particularly atrophied and weak. There is a fungating lesion of the left side of base of tongue. Presentation very concerning for head and neck cancer -discussed with ENT Dr. Thakkar - CT neck obtained - showed large base of tongue mass and a suspicious lymph note. Scheduled for ENT office appointment on for biopsy Weakness, diffuse muscle atrophy especially both hands Obtained MRI cspine to evaluate possible cervical myelopathy - no cord compression or severe foraminal stenoses to explain symptoms of weakness, muscle atrophy. Possible red marrow signal - ordered SPEP and kappa/lambda which are pending #Syncopal episodes vs falls/drop attack - EKG with 1st degree AV block, no arrhythmias on monitoring CTA was negative for PE dissection Echo - reassuring - only mild TR Orthostatics - asymptomatic and mild SBP drop of 15 points Could have been vasovagal or orthostatic but history not clearcut for either. Not on meds to provoke orthostasis. Arrhythmia unlikely with normal Echo but o rdered ambulatory satellite project site monitor #Ascending aortic aneurysm 4 cm aneurysm of ascending aorta noted on chest CTA, Echo Follow-up in outpatient setting #Renal cysts AP CT noted concern for bilateral renal cysts. Renal function stable. Follow-up in outpatient setting PT/OT consult - recommended home health and walker Notes For Next Care Provider Highly likely head and neck cancer, large base of tongue lesion Biopsy 07/[address] Thakkar ENT Syncope workup negative - ambulatory heart monitor ordered Admission HPI Per Admitting Provider Patient is a 79-year-old male with past medical history of HLD, BPH, depression, neuropathy. Presented via EMS after 2 syncopal episodes at home while trying to put up a 40 to 50 pound door with his . Diagnostic imaging negative for acute changes, laboratories WNL, troponin negative. He is being admitted for a syncopal workup. Patient seen at bedside. He stated earlier today he felt lightheaded however did not recall exerting himself during this episode. He then was trying to put up a door with his that was approximately 45 to 50 pounds when he woke up on the floor, he denies any complete loss of consciousness or head strike. He then went to sit down and had a second episode. He felt short of breath on arrival however now denies any chest pain or shortness of breath. He did eat as usual today however feels as though he did not drink enough water. His only home medication is Seroquel which he takes at night before bed. He denies any current dizziness, lightheadedness, headaches, vision changes, chest pain, shortness of breath, abdominal pain. He denies nicotine or significant alcohol use. He denies any cardiac history. He wishes to be DNR/DNI. he also noted scratching his throat on pizza several months ago which has still been causing some discomfort, considering ENT in outpatient setting. Discharge Exam Last 24h vitals reviewed GEN: no acute distress, sitting in bed HEENT: pupils equal, sclerae anicteric, moist MM. Yesterday exam: Fungating mass seen right posterior / base of tongue. Airway widely patent. No cervical SC LAD RESP: normal WOB CV: ABD: : no jackson SKIN: warm and dry, no generalized rashes NEURO: AOx person, place, and situation. Face symmetric, speech normal, moves 4 ext spontaneously and equally. Significant sarcopenia x 4 ext. severe intraosseous wasting both hands. Severe bilateral replanter weakness. Discharge Plan Discharge Items Patient Disposition: Home - Home Health Services Reason For Visit: SYNCOPE Discharge Diagnosis: Syncope, tongue mass Condition on Discharge: Fair Activity: Resume your previous activity Non-emergency contact: Primary Care Provider and Specialist Call non-emergency contact if: you have any medication questions and your symptoms worsen Follow-up/Referrals: Abhi Morocho MD [Physician] - (Please go directly to the cardiology office after d/c for your monitor to be applied.) Jona Thakkar MD [Physician] - 07/12/25 9:15 am Nicolas Huang PA-C [Primary Care Provider] - (Please call your primary care provider to schedule a hospital follow-up within 7-10 days) Diet: Regular Addtl Attending Provider Instructions: You were evaluated for syncope (passing out) We did not find a specific cause, which is often the case. The most common cause is vasovagal syncope - its a kind of exaggerated normal body reflex that can cause the heart rate and blood pressure to drop. Low standing BP is another common cause, but your standing BPs were normal in the hospital. Serious causes were ruled out with testing: CT of chest with no blood clots or tears in arteries, no evidence of heart attack or arrhythmia, no evidence of infection or bleeding. Echocardiogram (heart ultrasound) was pretty normal - normal heart squeeze, mildly leaky tricuspid valve - but this is too mild to cause any symptoms. You have mild dilation of your aorta that should intermediate teacher be followed with imaging to make sure it is not getting worse. We arranged an ambulatory heart monitor to make sure you're not having an undetected arrhythmia - pick this up in cardiology clinic before going home. They close at 4pm. Unfortunately we also found a mass at the base of your tongue. It is large on neck CT. Its very suspicious for tongue cancer. We have set up an appointment with an ENT specialist, Dr. Thakkar, to take a biopsy in the office tomorrow. It is much easier to do this biopsy with the office equipment, rather than trying to do it in the hospital where specialized equipment is not available. MRI of your cervical spine did not show any significant abnormalities which would explain your weakness and nerve pain. We advise home PT and OT and use of a walker to prevent falls. You've lost a lot of weight. You will benefit from a daily multivitamin and twice a day protein supplement (boost, ensure, whey shake or bar) It was a pleasure taking care of you in the hospital, Sofya Benites MD Pending Studies at Discharge: No Stand-Alone Forms: My [facility] [place], Smoking Cessation Medications and DC Order Prescriptions: Continued quetiapine 25 mg tablet 25 mg PO HS Admission Data Admit Date/Time: 07/10/25 00:00 Attending Provider: Sofya Benites Admit Provider: Lino Lawton Primary Care Provider: Nicolas Huang Other Providers: Lino Lawton Other Interventions: Discharge Summary Assessment (RN) Last Done: 07/11/25 17:24 Hospital Stay Data Consultations 07/09/25 23:37 ED Decision to Admit Stat Diagnostic Imagining Performed 07/09/25 21:44 CT Abd and Pelvis [CT abd pelvis IV con only] Stat CT angio chest PE protocol Stat CT cervical spine wo con Stat CT head/brain wo con Stat 07/10/25 13:00 MR cervical spine wo con Urgent 07/10/25 13:29 CT neck soft tissues [CT soft tissue neck w con] Urgent Pending Results Patient Have Any Pending Studies at Discharge: No Discharge Instructions Given to Patient (Per Discharging Provider) You were evaluated for syncope (passing out) We did not find a specific cause, which is often the case. The most common cause is vasovagal syncope - its a kind of exaggerated normal body reflex that can cause the heart rate and blood pressure to drop. Low standing BP is another common cause, but your standing BPs were normal in the hospital. Serious causes were ruled out with testing: CT of chest with no blood clots or tears in arteries, no evidence of heart attack or arrhythmia, no evidence of infection or bleeding. Echocardiogram (heart ultrasound) was pretty normal - normal heart squeeze, mildly leaky tricuspid valve - but this is too mild to cause any symptoms. You have mild dilation of your aorta that should intermediate teacher be followed with imaging to make sure it is not getting worse. We arranged an ambulatory heart monitor to make sure you're not having an undetected arrhythmia - pick this up in cardiology clinic before going home. They close at 4pm. Unfortunately we also found a mass at the base of your tongue. It is large on neck CT. Its very suspicious for tongue cancer. We have set up an appointment with an ENT specialist, Dr. Thakkar, to take a biopsy in the office tomorrow. It is much easier to do this biopsy with the office equipment, rather than trying to do it in the hospital where specialized equipment is not available. MRI of your cervical spine did not show any significant abnormalities which would explain your weakness and nerve pain. We advise home PT and OT and use of a walker to prevent falls. You've lost a lot of weight. You will benefit from a daily multivitamin and twice a day protein supplement (boost, ensure, whey shake or bar) It was a pleasure taking care of you in the hospital, Sofya Benites MD Total Time Total Time Spent Total Time Spent (In Minutes): I personally spent: 50 minutes today on clinical care activities including: reviewing chart notes and vital signs reviewing labs reviewing studies discussion with senior resident care director examining and counseling the patient writing orders discharge instructions documentation Coding Level of Care Code 83859 INP/OBS DISCH >30 MIN Diagnoses Tongue lesion K14.8 Syncope R55 Syncope type: unspecified Weight loss, abnormal R63.4 Ascending aortic aneurysm I71.21
[2025-07-11 15:32] VITALS: RESP 18; TEMP 98.1; O2SAT 94
[2025-07-11 17:26] VITALS: BP 131/75; PULSE 58
== END 2025-07-11 17:29 | disposition home health service (06) ==
LOC: EDINP 19:57 → ED 19:57 → SUATTDRO 07-10 → 2N 07-10 00:37

== ENCOUNTER 2025-10-13 14:52 | Inpatient (IN) ==
--- NOTE | 2025-10-13 15:06 | Emergency Department Note ---
Impression & Plan Syncope, Leukocytosis, Acute hypokalemia ED Provider Note NAME: TOM BROWN AGE: 80 SEX: M : 1945 ARRIVES VIA: Ambulance INFORMANT: Patient ED PROVIDER(S): Brandon Hunter DO CHIEF COMPLAINT: syncope HPI: Patient is a 80-year-old male with a known history of tongue cancer who presents to the ER for several episodes of passing out over the past 2 days. He believes this happened about 6 times. He notes he does not remember falling and will wake up on the ground. Denies any chest pain but admits to shortness of breath but does not believe that that has worsened recently. No belly pain. Admits to nausea but no vomiting. No dysuria, urgency or frequency. ADDITIONAL HISTORY OBTAINED: Per HPI Chronic Medical/Social Conditions Affecting Care: Per HPI PAST MEDICAL HISTORY:See Below PAST SURGICAL HISTORY:See Below FAMILY HISTORY:See Below SOCIAL HISTORY:See Below HOME MEDICATIONS:See Below ALLERGIES:See Below VITALS:See Below PHYSICAL EXAMINATION: GENERAL: Sitting up in bed, alert, chronically ill-appearing, disheveled EYE EXAM: normal conjunctiva. PERRL and EOM's grossly intact. OROPHARYNX:mucous membranes are dry NECK: supple, no nuchal rigidity, no adenopathy, non-tender LUNGS: Clear to auscultation. Normal chest wall mechanics HEART: no murmurs, S1 normal and S2 normal ABDOMEN: abdomen soft, non-tender, normo-active bowel sounds, no masses, no rebound or guarding. BACK: Back is symmetrical on inspection and there is no deformity, no midline tenderness, no CVA tenderness. SKIN: no rashes and no bruising UPPER EXTREMITIES: upper extremities are grossly normal. LOWER EXTREMITIES: No pitting edema. NEURO EXAM: Normal sensorium, cranial nerves II-XII intact, normal speech, no weakness of arms, no weakness of legs. MEDICAL DECISION MAKING: Patient is a 80-year-old male who presents ER with known history of throat cancer and PEG tube for 6 episodes of passing out today. He does admit to some nausea but no belly pain. IV was established and blood work was obtained. Labs show leukopenia at 3.8 thousand. Mild anemia 11.8. BMP with a hyponatremia 132 and hypokalemia 3.3. LFTs bilirubin and lipase is unremarkable. He has a benign belly. CT of the head and angio of the chest was negative. CT of the cervical spine was delayed in being read but upon my review I saw no obvious fracture. Discussed case with the hospitalist for further evaluation management treatment. He does not have any neck pain. Consults/Care Managements Discussions: Per [facility] Triage Nursing notes reviewed. Limited review of prior medical records performed Vital Signs: reviewed and remarkable for no significant abnormalities Differential diagnosis: Differential diagnosis includes etiologies such as vasovagal event, infection, hypoglycemia, electrolyte abnormalities, cardiac sources, intracerebral event, toxicologic, neurologic, as well as others were entertained. ER treatment provided: See below Diagnostics interpreted by me include EKG and cardiac monitoring as listed below: -Cardiac Monitoring: An order was placed for continuous cardiac monitoring. The monitor shows a rate of 82 with sinus rhythm. -ECG: Sinus rhythm rate 87 Left axis No PVCs QTc 447 -Laboratory studies:Interpreted by me as stated above in MDM and shown below. Imaging studies: Xrays: As interpreted by me: Portable AP upright 1 view of the chest shows no focal Lutrate CTs show: CT angio the chest and CT head was negative. CT of cervical spine was pending Procedures:none Critical Care: None Past Med/Surg History Problem List AAA (abdominal aortic aneurysm) Small bowel obstruction Acute hypokalemia (Acute) Leukocytosis (Acute) Syncope (Acute) PEG (percutaneous endoscopic gastrostomy) status (09/06/25) s Esophagogastroduodenoscopy with Percutaneous Endoscopic Gastrostomy Tube(Not Applicable) - Tanvir Rivera, p Insertion of Access Port With Fluoroscopy(Left) - Tanvir Rivera, Port-A-Cath in place (09/06/25) s Esophagogastroduodenoscopy with Percutaneous Endoscopic Gastrostomy Tube(Not Applicable) - Tanvir Rivera, p Insertion of Access Port With Fluoroscopy(Left) - Tanvir Rivera, DO 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) MGUS (monoclonal gammopathy of unknown significance) elevated IgA kappa monoclonal band 07/2025 Weight loss, abnormal Tongue lesion Weakness (Acute) Neuropathy Gait disturbance Renal calculi IGT (impaired glucose tolerance) Dyspepsia RAD (reactive airway disease) Bladder calculus (Acute) Flank pain (Acute) Hematuria (Acute) Incontinence (Acute) Major depressive disorder (Acute 12/14/12) Skin cancer (melanoma) (Acute) Medical History MGUS (monoclonal gammopathy of unknown significance) elevated IgA kappa monoclonal band 07/2025 Malignant tumor of base of tongue dx 07/18/25 - [facility] – [place] Heme/Oncology Dr Hall - [facility] [place] Radiation Oncology - first chemo 09/05/25 Weight loss, abnormal 50lbs as per patients - related to cancer dx Diverticulosis Nonmelanoma skin cancer Ascending aortic aneurysm 4.3 cm root dilatation Hyperlipidemia Allergic rhinitis Asthma per EMR since 2019, no inhalers Anxiety (12/11/12) Benign prostatic hyperplasia with urinary obstruction Depression (12/11/12) History of recent hospitalization (07/10/25) hospitalized at [place] for syncope and noted increased weakness 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 hands currently Surgical History History of surgery Direct Microlaryngoscopy with Biopsies History of tooth extraction History of tonsillectomy S/P orchiopexy S/P TURP History of herniorrhaphy Left S/P colonoscopy Family History Family/Other Anxiety Multiple sclerosis Inflammatory bowel disease Father , in his 60s Multiple sclerosis Mother , Medical history unknown Daughter No problems noted. Other No family history of adverse response to anesthesia Social History (Updated 08/27/25 @ 11:57 by Tanya Simms RN) Smoking Status: Never smoker Tobacco Type: Cigarettes and Smokeless Tobacco (Dip or Chew) Second Hand Exposure: No; Do You Dip or Chew Tobacco: No (quit 8 months ago); Tobacco Cessation Education Requested by Patient: No Hx Alcohol Use: No Hx Substance Use: No Preferred Language: Kazakh Communication Ability: Effective Visual Impairment: No Limitations Hearing Ability: Normal Implementation Advisor Required: No Beliefs That Will Affect Care: None marital status: Current Living Situation: Spouse current occupational status: retired 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 [employer] How many Children do You have: 2 Other Information That Helps Us Care for You: No Feels Safe at Home: Yes Safety Concerns: Feels Safe At This Time Diet: regular caffeine: No during the past year weight has: decreased > 10 lbs Assistive Devices: Cane and Walker Allergies Allergies Allergy/AdvReac Type Severity Reaction Status Date / Time prednisone AdvReac Intermediate Unable to Verified 10/08/25 15:27 Tolerate Home Meds Home Medications Medication Instructions Recorded Confirmed quetiapine 25 mg tablet (Seroquel) 25 mg PO HS 07/09/25 10/13/25 [id number]-[id number] tablet 1 tab PO QAM 07/12/25 10/13/25 diphenhydramine 25 2 tab PO HS PRN Sleep 07/18/25 10/13/25 mg-acetaminophen 500 mg tablet (Tylenol PM Extra Strength) olanzapine 2.5 mg tablet 2.5 mg PO DAILY PRN Chemo 08/29/25 10/13/25 ondansetron 8 mg disintegrating 8 mg translingual DAILY PRN Nausea 08/29/25 10/13/25 tablet And Vomiting prochlorperazine maleate 10 mg 10 mg PO DAILY PRN Nausea And 08/29/25 10/13/25 tablet Vomiting sucralfate 100 mg/mL oral 10 ml PO ACHS 10/01/25 10/13/25 suspension nystatin 100,000 unit/mL oral 5 ml PO QID PRN THRUSH 10/13/25 10/13/25 suspension Results & Data (ED) Vital Signs Vital Signs - 24 hr 10/13/25 15:01 10/13/25 15:05 10/13/25 15:07 Temperature 37 C Temperature Source Oral Pulse Rate 90 82 Pulse Rate from SpO2 Sensor Respiratory Rate 28 H Blood Pressure 126/76 Blood Pressure Mean 93 Pulse Oximetry 99 Oxygen Delivery Method Sepsis Recent Fever Within 48 Hours Sepsis New/Unexplained Change in Mental Status Sepsis Action Taken by Nursing 10/13/25 15:17 10/13/25 15:45 10/13/25 16:00 Temperature Temperature Source Pulse Rate 81 83 Pulse Rate from SpO2 Sensor 67 68 Respiratory Rate 32 H 2 L Blood Pressure 131/77 126/73 Blood Pressure Mean 95 90 Pulse Oximetry 100 96 Oxygen Delivery Method Sepsis Recent Fever Within 48 Hours No Sepsis New/Unexplained Change in Mental Status No Sepsis Action Taken by Nursing No Action Required 10/13/25 17:00 10/13/25 18:02 10/13/25 18:30 Temperature Temperature Source Pulse Rate 90 91 H Pulse Rate from SpO2 Sensor 77 77 Respiratory Rate 29 H 29 H Blood Pressure 125/88 121/63 121/63 Blood Pressure Mean 100 90 82 Pulse Oximetry 98 99 Oxygen Delivery Method Room Air Sepsis Recent Fever Within 48 Hours Sepsis New/Unexplained Change in Mental Status Sepsis Action Taken by Nursing 10/13/25 19:00 10/13/25 19:04 10/13/25 19:11 Temperature Temperature Source Pulse Rate 93 H 100 H 95 H Pulse Rate from SpO2 Sensor 77 Respiratory Rate 31 H 34 H Blood Pressure 141/82 H 141/82 H Blood Pressure Mean 101 100 Pulse Oximetry 96 94 Oxygen Delivery Method Room Air Room Air Sepsis Recent Fever Within 48 Hours Sepsis New/Unexplained Change in Mental Status Sepsis Action Taken by Nursing 10/13/25 20:00 10/13/25 20:30 10/13/25 21:01 Temperature Temperature Source Pulse Rate 86 88 Pulse Rate from SpO2 Sensor Respiratory Rate 23 23 Blood Pressure 122/80 122/80 120/75 Blood Pressure Mean 94 94 78 Pulse Oximetry Oxygen Delivery Method Sepsis Recent Fever Within 48 Hours Sepsis New/Unexplained Change in Mental Status Sepsis Action Taken by Nursing Laboratory Data 10/13/25 15:10 10/13/25 15:10 Lab Results 10/13/25 10/13/25 10/13/25 Range/Units 15:10 15:18 19:00 WBC 3.89 L (4.8-10.8) K/ul RBC 4.03 L (4.70-6.10) M/uL Hgb 11.8 L (14.0-18.0) g/dL POC Hgb 11.6 L (14.0-18.0) g/dl Hct 34.7 L (42.0-52.0) % POC Hct 34 L (42-52) % MCV 86.1 (80.0-100.0) fL MCH 29.3 (25.0-34.0) pg MCHC 34.0 (32.0-36.0) g/dL RDW Std Deviation 49.5 H (36.4-46.3) fL RDW Coeff of Nii 16.4 H (11.5-14.5) % Plt Count 277 (130-400) K/uL MPV 9.5 (9.4-12.4) fL Immature Gran % (Auto) 0.5 % Neut % (Auto) 78.2 % Lymph % (Auto) 5.1 % [place] % (Auto) 15.4 % Eos % (Auto) 0.5 % Baso % (Auto) 0.3 % Neut # (Auto) 3.04 (1.40-6.50) K/uL Lymph # (Auto) 0.20 L (1.20-3.40) K/uL [place] # (Auto) 0.60 H (0.11-0.59) K/uL Eos # (Auto) 0.02 (0.00-0.50) K/uL Baso # (Auto) 0.01 (0.00-0.20) K/uL Immature Gran # (Auto) 0.02 (0.01-0.20) K/uL POC Sodium 132 L (135-144) mmol/L Sodium 132 L (136-145) mmol/L POC Potassium 3.2 L (3.3-5.0) mmol/L Potassium 3.3 L (3.5-5.1) mmol/L POC Chloride 93 L (101-112) mmol/L Chloride 93 L (98-107) mmol/L Carbon Dioxide 26 (21-32) mmol/L POC Total CO2 25 (24-31) mmol/L Anion Gap 13 H (3-11) POC Anion Gap 18.0 (16-25) mmol/L POC BUN 20 H (7-18) mg/dl BUN 20 (6-23) mg/dl Creatinine 0.55 L (0.6-1.4) mg/dl POC Creatinine 0.6 (0.6-1.3) mg/dl Est Cr Clr Drug Dosing 76.7 ml/min eGFR 101.44 BUN/Creatinine Ratio 36.4 H (10-20) Glucose 147 H (70-99(Fasting)) mg/dl POC Glucose (other) 146 H (70-99) mg/dl Calcium 8.8 (8.6-10.3) mg/dl POC Ioniz Calcium Janneth 1.00 L (1.12-1.32) mmol/l Total Bilirubin 0.7 (0.2-1.0) mg/dl AST 14 (13-39) U/L ALT 8 (7-52) U/L Alkaline Phosphatase 73 (34-104) U/L Troponin I High Sens 6.2 5.9 (0-20) pg/ml Total Protein 6.0 (6.0-8.3) gm/dl Albumin 3.5 (3.4-5.0) gm/dl Globulin 2.5 (2.5-4.0) gm/dl Albumin/Globulin Ratio 1.4 (0.9-2) Lipase 8 L (11-82) U/L Administered Medications Lactated Ringer's (Lr) 1,000 mls @ 80 mls/hr IV .[id number] [facility] Stop: 10/16/25 21:57 Last Admin: 10/13/25 22:40 Dose: 80 mls/hr Documented By: TP Ondansetron HCl (Ondansetron Inj 2 Mg/Ml 2 Ml Vial) 4 mg IV Q6H PRN PRN Reason: Nausea Stop: 11/12/25 21:57 Last Admin: 10/13/25 22:40 Dose: 4 mg Documented By: TP Discontinued Medications Heparin Sodium (Porcine) (Heparin Sod 5,000 Unit/0.5 Ml Vial) 5,000 units SQ Q12 [facility] Stop: 11/12/25 20:59 Last Admin: 10/13/25 22:25 Dose: Not Given Documented By: TP Sodium Chloride (Nss) 1,000 mls @ 80 mls/hr IV .[id number] [facility] Stop: 10/16/25 18:29 Last Admin: 10/13/25 22:24 Dose: 80 mls/hr Documented By: TP Acetaminophen 735 mg/ EMPTY (BAG) 73.5 mls @ 294 mls/hr IV ONE ONE; Protocol Stop: 10/13/25 22:29 Last Infusion: 10/13/25 22:56 Dose: Infused Documented By: Admin: 10/13/25 22:41 Dose: 294 mls/hr Documented By: TP Ioversol (Optiray 320 125ml) 119 ml IV ONCE ONE Stop: 10/13/25 15:33 Last Admin: 10/13/25 15:33 Dose: 119 ml Documented By: PLW Ioversol (Optiray 320 100ml) 93 ml IV ONCE ONE Stop: 10/13/25 19:36 Last Admin: 10/13/25 19:35 Dose: 93 ml Documented By: PLW Ondansetron HCl (Ondansetron Inj 2 Mg/Ml 2 Ml Vial) 4 mg IV NOW STA Stop: 10/13/25 16:47 Last Admin: 10/13/25 16:51 Dose: 4 mg Documented By: MELCHOR Imaging Data Radiologist's Impression: Abdomen/Pelvis CT 10/13/25 19:23 CT ABDOMEN and PELVIS with INTRAVENOUS CONTRAST HISTORY: Abdominal pain TECHNIQUE: CT abdomen and pelvis with contrast. IV CONTRAST: 100 mL of OMNIPAQUE 300 ENTERIC CONTRAST: Not Given COMPARISON: FINDINGS: LOWER CHEST: LIVER: No focal lesion identified. Hepatic steatosis. GALLBLADDER/BILIARY: Unremarkable gallbladder. No abnormal biliary dilatation. SPLEEN: Enhancing lesion measuring 8 mm is probably hemangioma. PANCREAS: Scattered calcifications may represent sequela of prior pancreatitis. ADRENALS: Unremarkable. KIDNEYS: Cortical cysts. Excreted contrast limits evaluation for small stones. No hydronephrosis identified. PERITONEUM/RETROPERITONEUM. No lymphadenopathy by size criteria. No aortic aneurysm. Small ascites. GASTROINTESTINAL: There are multiple loops of small bowel moderately distended with gas and fluid with a transition point in the central abdomen (series 300, image 60; series 2, image 49). Normal appendix. Colonic diverticulosis without evidence of diverticulitis. There is a large stool ball resulting in impaction and inflammation of the rectum. Gastrostomy tube in situ. REPRODUCTIVE: Mild prostamegaly with coarse calcifications ABDOMINAL WALL: Small fat-containing inguinal hernias. BONES: No acute findings. IMPRESSION: Findings compatible with small bowel obstruction with transition point in the mid abdomen as above. Stercoral colitis. Electronically signed by Rylan Wilcox 10-13-2025 8:40 PM KUB X-Ray 10/13/25 20:27 Exam(s): XR KUB EXAM: XR Abdomen, 1 View CLINICAL HISTORY: Reason for exam: NG Tube. TECHNIQUE: Frontal supine view of the abdomen/pelvis. COMPARISON: None FINDINGS: Hardware: Enteric tube terminates in the region of the gastric fundus. Left-sided Port-A-Cath terminates near the junction of the left brachiocephalic vein and SVC. Abdomen: Dilated gas-filled small bowel loops in the left upper quadrant. No free air. Bones: Normal. Soft tissues: Normal. Lower chest: Normal. IMPRESSION: 1. Enteric tube terminates in the region of the gastric fundus. 2. Dilated gas-filled small bowel loops in the left upper quadrant. Electronically signed by: Vazquez Boggs M.D. 10/13/25 22:23 PM Discharge Plan Visit Data Chief Complaint: Syncope (Near Syncope) Stated Complaint: syncope ED Provider: Brandon Hunter Discharge Problem: Syncope, Leukocytosis, Acute hypokalemia Patient Disposition: Admitted As Inpatient Condition: Fair Discharge Instructions Interventions: ED Discharge Assessment Last Done: 10/13/25 21:29 Discharge Problem: Syncope Qualifiers: Syncope type: unspecified Qualified Code(s): R55 - Syncope and collapse Leukocytosis Qualifiers: Leukocytosis type: unspecified Qualified Code(s): D72.829 - Elevated white blood cell count, unspecified
[2025-10-13 15:29] LABS: Hematocrit (blood only) 34.7 % (42.0-52.0); Hemoglobin 11.8 g/dL (14.0-18.0); Immature Granulocytes # (auto) 0.02 K/uL (0.01-0.20); Immature Granulocytes % (auto) 0.5 %; Mean Corpuscular Hemoglobin 29.3 pg (25.0-34.0); Mean Corpuscular Volume 86.1 fL (80.0-100.0); Platelet Count 277 K/uL (130-400); RDW Standard Deviation 49.5 fL (36.4-46.3); Red Blood Count 4.03 M/uL (4.70-6.10); White Blood Count 3.89 K/ul (4.8-10.8)
[2025-10-13] MEDS: OPTIRAY 320 125ml IV ONE (15:33)
[2025-10-13 15:47] LABS: Alanine Aminotransferase 8.0 U/L (7-52); Albumin Globulin Ratio 1.4 (0.9-2); Albumin Level 3.5 gm/dl (3.4-5.0); Alkaline Phosphatase 73.0 U/L (34-104); Anion Gap 13.0 (3-11); Bilirubin,Total 0.7 mg/dl (0.2-1.0); Blood Urea Nitrogen 20.0 mg/dl (6-23); Calcium 8.8 mg/dl (8.6-10.3); Carbon Dioxide 26.0 mmol/L (21-32); Chloride 93.0 mmol/L (98-107); Creatinine Clr Calc Pharmacy 76.7 ml/min; Globulin 2.5 gm/dl (2.5-4.0); Glucose 147.0 mg/dl (70-99(Fasting)); Lipase 8.0 U/L (11-82); Potassium 3.3 mmol/L (3.5-5.1); Sodium 132.0 mmol/L (136-145); Total Protein 6.0 gm/dl (6.0-8.3)
--- NOTE | 2025-10-13 16:11 | XRay Report ---
Technique: A frontal view of the chest was obtained Comparison is made to the prior examination dated 09/06/2025 Findings: There are no confluent pulmonary infiltrates. The heart size is within normal limits. No pleural effusion or pneumothorax is seen. There is no definite pulmonary nodule. No fracture is noted. There is thoracic scoliosis and degenerative disc disease. There is a left chest wall port with its tip in the left brachiocephalic vein, unchanged Impression: No active disease Electronically signed by Sravan Ha 10-13-2025 4:11 PM
--- NOTE | 2025-10-13 16:14 | CT Scan Report ---
Technique: Axial computed tomography images were obtained of the chest after the administration of intravenous contrast according to the CT angiogram protocol Comparison is made to the prior chest CT dated 07/09/2025 Findings: There is no definite sign of pulmonary embolism. There is dependent subsegmental atelectasis in both lower lobes. There is an unchanged 4 mm peripheral nodule in the left lower lobe. There is no pleural effusion or pneumothorax. There is no sign of pulmonary fibrosis or other diffuse interstitial process. No endobronchial lesion is seen There is no mediastinal, hilar, or axillary adenopathy. The thoracic aorta appears unremarkable with no sign of aneurysm or dissection. There is an aberrant right subclavian artery, a congenital variant. There is no pericardial effusion There is a 2.2 cm left renal cyst. There is a small amount of ascites. No fracture is seen. No focal osseous lesion is evident Impression: 1. No definite sign of pulmonary embolism 2. Unchanged small left lower lobe nodule, most likely benign. A follow-up chest CT could be obtained in 6 months to ensure continued stability 3. Small amount of ascites 4. Left renal cyst Electronically signed by Sravan Ha 10-13-2025 4:13 PM
--- NOTE | 2025-10-13 16:15 | CT Scan Report ---
Technique: Axial computed tomography images were obtained of the brain without intravenous contrast. Findings: There is diffuse cerebral atrophy, within expected limits for the patient's age. Areas of decreased attenuation are seen within the periventricular white matter, likely representing chronic small vessel ischemic disease. There is no definite sign of acute or old infarction. No intracranial hemorrhage is evident. No definite mass lesion is seen on this noncontrast examination. There is no midline shift or other form of herniation. No hydrocephalus is seen. No fracture is identified. The orbits and the visualized paranasal sinuses appear unremarkable. The mastoid air cells appear clear. Impression: 1. Cerebral atrophy and chronic small vessel ischemic disease 2. Otherwise unremarkable noncontrast CT of the brain Electronically signed by Sravan Ha 10-13-2025 4:15 PM
[2025-10-13] MEDS: ONDANSETRON INJ 2 MG/ML 2 ML VIAL IV STA (16:51)
--- NOTE | 2025-10-13 17:06 | History & Physical Report ---
<Statement entered by Riki Silva MD - 10/14/25 14:44> I saw and evaluated the patient with the PA at the time of admission, agree with the documented care plan as above Date of Service October 13, 2025 Assessment & Plan (1) Small bowel obstruction: (2) PEG (percutaneous endoscopic gastrostomy) status: (3) Syncope: (4) Malignant tumor of base of tongue: (5) AAA (abdominal aortic aneurysm): Plan Pt is a 80y/o M with a PMHx significant for Tongue CA, MGUS, Neuropathy, Asthma, Anxiety, Depression who presented to the ED c/o Syncopal episodes. Pt's states that when the episodes occur, the pt often drops to floor and remains awake but unaware. She notes that his hands and feet will often have repetitive movements. states that episodes started in July 2025 durin last hospitalization but pt was dx with malignant tumor at base of tongue and syncopal episodes "pushed to the back burner" #SBO - Presenting with abdominal pain, 3 episodes of emesis in ED; Tender abdomen on exam, no peritoneal signs at present; NGT placed. Patient with PEG tube placement by surgery on 09/06/2025. - NPO & NOTHING PER PEG - Burp PEG as needed - CBC, CMP - CTAP SBO with transition point mid abdomen, stercoral colitis - KUB s/p NG tube placement pending - Pain management IV Tylenol - Zofran prn N/V - IVF w/ LR @ 80 mL/hr - Gen sx consulted- appreciate input + recs #Syncope | Palpitations - Prior history of syncope, admitted 07/09/2025 until 07/11/2025; Pt's notes weekly episodes following initial admission; 2 episodes within 4hrs on 10/13 per - Suspect Cardiogenic in nature - EKG in ED: Sinus w/ frequent PACs and atrial runs, discussed with Dr Dubois - CBC leukopenia 3.98, H&H 11.8/34.7, platelets stable; CMP sodium 132, potassium 3.3, chloride 93, AG 13, creatinine 0.55, ratio 36.4, glucose 147, trops x2 WNL - CXR no acute findings - Cervical spine CT no fracture - Chest CTA no PE, small LLL nodule likely benign and unchanged, small amount of ascites, L renal cyst - Head CT cerebral atrophy chronic small vessel ischemic disease, unremarkable otherwise - Orthostatics pending - Echo pending a.m. - IVF LRs as avobe #Neoplasm base of tongue - diagnosed 07/18/2025, stage II; Pt due for next round of Chemo 10/17 and next round of radiation 10/23 #AAA - H/o 4 cm ascending aorta aneurysm on chest CTA in the past, not mentioned on chest CTA at admission at 10/13/2025. #Depression | Anxiety - No acute concerns VTE Proph: SCDs, hold chemical prophylaxis until evaluated by surgical team Dispo: Admit PCU/Telemetry History of Present Illness Chief Complaint: Syncope Primary Care Provider: Nicolas Huang PA-C Pt is a 80y/o M with a PMHx significant for Tongue CA, MGUS, Neuropathy, Asthma, Anxiety, Depression who presented to the ED c/o Syncopal episodes. Pt's notes 5months [employer] where the pt would experience episodes where he would fall to the floor; she additionally notes that the patient would often be awake but be unable to recall the episodes after getting up. At that time, pt received a heart monitor that revealed some tachycardia, per pt. Pt notes that he then went to the hospital and it was discovered that he had tongue cancer, resulting in everything being placed on the back burner. Pts notes that the episodes continued for once a week but suddenly worsened today where he had 4 of these episodes in 2 hours. She notes that it is as if a "stun gun" hits him and then when he "comes out of it" that he is often confused and disoriented. She notes that his feet and hands will flick in a slow repetitive movement. Upon further evaluation patient admits to experiencing episodes of nausea and vomiting today especially after episodes of syncope. Patient's notes that patient has been constipated over the past few weeks and so 1 week [employer] she had given the patient a Fleet enema in which she had a large bowel movement. Patient has since had increasing abdominal pain. Pt endorses fatigued, insomnia, productive cough, palpitations, dyspnea, nausea & vomiting. Pt denies fever/chills, LUTS, H/A, changes in hearing and vision. Pt was admitted for further evaluation and care Allergies Allergy/AdvReac Type Severity Reaction Status Date / Time prednisone AdvReac Intermediate Unable to Verified 10/08/25 15:27 Tolerate Home Medications Medication Instructions Recorded Confirmed Type quetiapine 25 mg tablet (Seroquel) 25 mg PO HS 07/09/25 10/13/25 History rbkzylbywxwc-ofibqmxy-zhxypf tablet 1 tab PO QAM 07/12/25 10/13/25 History diphenhydramine 25 2 tab PO HS PRN Sleep 07/18/25 10/13/25 History mg-acetaminophen 500 mg tablet (Tylenol PM Extra Strength) olanzapine 2.5 mg tablet 2.5 mg PO DAILY PRN Chemo 08/29/25 10/13/25 History ondansetron 8 mg disintegrating 8 mg translingual DAILY PRN Nausea 08/29/25 10/13/25 History tablet And Vomiting prochlorperazine maleate 10 mg 10 mg PO DAILY PRN Nausea And 08/29/25 10/13/25 History tablet Vomiting sucralfate 100 mg/mL oral 10 ml PO ACHS 10/01/25 10/13/25 History suspension nystatin 100,000 unit/mL oral 5 ml PO QID PRN THRUSH 10/13/25 10/13/25 History suspension Past Med/Surg History Problem List (Updated 10/13/25 @ 22:05 by Angle Campoverde PA-C) AAA (abdominal aortic aneurysm) Small bowel obstruction Acute hypokalemia (Acute) Leukocytosis (Acute) Syncope (Acute) PEG (percutaneous endoscopic gastrostomy) status (09/06/25) s Esophagogastroduodenoscopy with Percutaneous Endoscopic Gastrostomy Tube(Not Applicable) - Tanvir Rivera, DO p Insertion of Access Port With Fluoroscopy(Left) - Tanvir Rivera, Port-A-Cath in place (09/06/25) s Esophagogastroduodenoscopy with Percutaneous Endoscopic Gastrostomy Tube(Not Applicable) - Tanvir Rivera, DO p Insertion of Access Port With Fluoroscopy(Left) - Tanvir Rivera, DO 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) MGUS (monoclonal gammopathy of unknown significance) elevated IgA kappa monoclonal band 07/2025 Weight loss, abnormal Tongue lesion Weakness (Acute) Neuropathy Gait disturbance Renal calculi IGT (impaired glucose tolerance) Dyspepsia RAD (reactive airway disease) Bladder calculus (Acute) Flank pain (Acute) Hematuria (Acute) Incontinence (Acute) Major depressive disorder (Acute 12/14/12) Skin cancer (melanoma) (Acute) Medical History (Updated 10/13/25 @ 22:05 by Angle Campoverde PA-C) MGUS (monoclonal gammopathy of unknown significance) elevated IgA kappa monoclonal band 07/2025 [place]ignant tumor of [place] [facility] [place] [facility] [place] - first chemo 09/05/25 Weight loss, abnormal 50lbs as per patients - related to cancer dx Diverticulosis Nonmelanoma skin cancer Ascending aortic aneurysm 4.3 cm root dilatation Hyperlipidemia Allergic rhinitis Asthma per EMR since 2019, no inhalers Anxiety (12/11/12) Benign prostatic hyperplasia with urinary obstruction Depression (12/11/12) History of recent hospitalization (07/10/25) hospitalized at [place] for syncope and noted increased weakness 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 hands currently Surgical History (Updated 10/01/25 @ 14:36 by Tanvir Rivera DO) History of surgery Direct Microlaryngoscopy with Biopsies History of tooth extraction History of tonsillectomy S/P orchiopexy S/P TURP History of herniorrhaphy Left S/P colonoscopy Family History (Updated 07/31/25 @ 13:34 by Taisha Priest RN) Family/Other Anxiety Multiple sclerosis Inflammatory bowel disease Father , in his 60s Multiple sclerosis Mother , Medical history unknown Daughter No problems noted. 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 VS: reviewed -unremarkable Skin: erythema surrounding patient's neck, likely due to radiation: Warm and dry; no lesions or ulcerations Respiratory: CTA bilat, no adventitious sounds noted. Chest expansion is full and symmetrical Cardio: Irregularly irregular no murmurs Abdomen: little to no bowel sounds, patient is extraordinarily tender to palpation MSK: FROM of extremities, no deformities Extremities: no edema Neuro: A&Ox4, cooperative Results & Data Results & Data Vital Signs (Past 12 Hours) Vital Signs Temp Pulse Resp BP Pulse Ox 10/13/25 15:07 82 10/13/25 15:05 98.6 F 10/13/25 15:01 90 28 H 126/76 99 Laboratory Results Reviewed: CBC, CMP, albumin, lipase, troponin, Diagnostic Findings Reviewed: chest x-ray, cervical spine CT, chest CTA, head CT, CTAP, KUB x-ray, PG Care Time/CCT Total # of Minutes Spent Total Time Spent with Patient: Total time spent is greater than 50% in coordination of care (as documented) at patient's floor/unit and/or counseling patient: Coding Level of Care Code 01878 INT INP/OBS CARE 3/75MIN Diagnoses Small bowel obstruction K56.609 PEG (percutaneous endoscopic gastrostomy) status Z93.1 Syncope R55 Syncope type: unspecified Malignant tumor of base of tongue C01 AAA (abdominal aortic aneurysm) I71.40 (3) Syncope Syncope type: unspecified Qualified Code(s): R55 - Syncope and collapse
--- NOTE | 2025-10-13 17:09 | CT Scan Report ---
CT CERVICAL SPINE WITHOUT CONTRAST: HISTORY: PAIN TECHNIQUE: Noncontrast CT examination of the cervical spine is performed. Coronal and sagittal reformats were created. COMPARISON: Cervical spine CT and MRI July 2025. FINDINGS: CERVICAL SPINE: There is no significant vertebral body height loss. No acute traumatic fracture identified. There is no significant spondylolisthesis. Diffusely heterogeneous osseous marrow is redemonstrated Multilevel degenerative changes characterized by disc osteophyte complex, bilateral facet and uncovertebral hypertrophy resulting and neural foraminal narrowing at multiple levels, worst at mid to lower spine Moderate secretion within the hypopharynx. Visualized lung apex is clear. IMPRESSION: No acute traumatic fracture of the cervical spine. Multilevel degenerative changes as above Electronically signed by Rylan Wilcox 10-13-2025 5:08 PM
[2025-10-13] MEDS ORDERED: ONDANSETRON INJ 2 MG/ML 2 ML VIAL IV PRN (18:22)
[2025-10-13] MEDS ORDERED: POLYETHYLENE (MIRALAX) 17 GM PACK PO PRN (18:22)
[2025-10-13] MEDS: OPTIRAY 320 100ml IV ONE (19:35)
--- NOTE | 2025-10-13 20:44 | CT Scan Report ---
CT ABDOMEN and PELVIS with INTRAVENOUS CONTRAST HISTORY: Abdominal pain TECHNIQUE: CT abdomen and pelvis with contrast. IV CONTRAST: 100 mL of OMNIPAQUE 300 ENTERIC CONTRAST: Not Given COMPARISON: FINDINGS: LOWER CHEST: LIVER: No focal lesion identified. Hepatic steatosis. GALLBLADDER/BILIARY: Unremarkable gallbladder. No abnormal biliary dilatation. SPLEEN: Enhancing lesion measuring 8 mm is probably hemangioma. PANCREAS: Scattered calcifications may represent sequela of prior pancreatitis. ADRENALS: Unremarkable. KIDNEYS: Cortical cysts. Excreted contrast limits evaluation for small stones. No hydronephrosis identified. PERITONEUM/RETROPERITONEUM. No lymphadenopathy by size criteria. No aortic aneurysm. Small ascites. GASTROINTESTINAL: There are multiple loops of small bowel moderately distended with gas and fluid with a transition point in the central abdomen (series 300, image 60; series 2, image 49). Normal appendix. Colonic diverticulosis without evidence of diverticulitis. There is a large stool ball resulting in impaction and inflammation of the rectum. Gastrostomy tube in situ. REPRODUCTIVE: Mild prostamegaly with coarse calcifications ABDOMINAL WALL: Small fat-containing inguinal hernias. BONES: No acute findings. IMPRESSION: Findings compatible with small bowel obstruction with transition point in the mid abdomen as above. Stercoral colitis. Electronically signed by Rylan Wilcox 10-13-2025 8:40 PM
[2025-10-13] MEDS ORDERED: POLYETHYLENE (MIRALAX) 17 GM PACK PEG PRN (20:48)
[2025-10-13] MEDS ORDERED: ACETAMINOPHEN 1,000 MG/100 ML VIAL IV PRN (21:54)
[2025-10-13] MEDS ORDERED: ACETAMINOPHEN 1,000 MG/100 ML VIAL IV STA (21:54)
[2025-10-13] MEDS: SODIUM CHLORIDE 0.9% 1,000 ML IV SCH (22:24)
--- NOTE | 2025-10-13 22:24 | XRay Report ---
Exam(s): XR KUB EXAM: XR Abdomen, 1 View CLINICAL HISTORY: Reason for exam: NG Tube. TECHNIQUE: Frontal supine view of the abdomen/pelvis. COMPARISON: None FINDINGS: Hardware: Enteric tube terminates in the region of the gastric fundus. Left-sided Port-A-Cath terminates near the junction of the left brachiocephalic vein and SVC. Abdomen: Dilated gas-filled small bowel loops in the left upper quadrant. No free air. Bones: Normal. Soft tissues: Normal. Lower chest: Normal. IMPRESSION: 1. Enteric tube terminates in the region of the gastric fundus. 2. Dilated gas-filled small bowel loops in the left upper quadrant. Electronically signed by: Vazquez Boggs M.D. 10/13/25 22:23 PM
[2025-10-13] MEDS: HEPARIN SOD 5,000 UNIT/0.5 ML VIAL SQ SCH (22:25)
[2025-10-13] MEDS: LACTATED RINGER'S 1,000 ML IV SCH (22:40)
[2025-10-13] MEDS: ONDANSETRON INJ 2 MG/ML 2 ML VIAL IV PRN (22:40)
[2025-10-13] MEDS: ACETAMINOPHEN IV ONE (22:41)
[2025-10-14 09:32] LABS: Hematocrit (blood only) 31.5 % (42.0-52.0); Hemoglobin 11.7 g/dL (14.0-18.0); Immature Granulocytes # (auto) 0.04 K/uL (0.01-0.20); Immature Granulocytes % (auto) 0.7 %; Mean Corpuscular Hemoglobin 31.6 pg (25.0-34.0); Mean Corpuscular Volume 85.1 fL (80.0-100.0); Platelet Count 274 K/uL (130-400); RDW Standard Deviation 48.5 fL (36.4-46.3); Red Blood Count 3.70 M/uL (4.70-6.10); White Blood Count 6.01 K/ul (4.8-10.8)
--- NOTE | 2025-10-14 09:36 | Surgery Consultation ---
Date of Consultation October 14, 2025 Assessment & Plan (1) Small bowel obstruction: 80-year-old gentleman with small bowel obstruction. He does have a G-tube in place. He is feeling better. He is passing small amount of flatus. We can remove the NG tube. The G-tube is to be vented to gravity. We will continue to monitor. N.p.o. and IV fluids for now. History of Present Illness Reason for Consultation: Small bowel obstruction Requesting Physician: Riki Silva MD Attending Physician: Riki Silva MD History of Present Illness 80-year-old gentleman with a history of tongue cancer and fairly recent gastrostomy tube placement presents with abdominal pain for the last few days. CT scan demonstrates what appears to be a small bowel obstruction. An NG tube has been placed in the ER. He states he is feeling a little better today. He is passing some flatus. No output in NG tube. Of note, the G-tube is clamped. Allergies Allergy/AdvReac Type Severity Reaction Status Date / Time prednisone AdvReac Intermediate Unable to Verified 10/08/25 15:27 Tolerate Home Medications Medication Instructions Recorded Confirmed Type quetiapine 25 mg tablet (Seroquel) 25 mg PO HS 07/09/25 10/13/25 History jyefqzkqytuq-zkcbonod-lkmolw tablet 1 tab PO QAM 07/12/25 10/13/25 History diphenhydramine 25 2 tab PO HS PRN Sleep 07/18/25 10/13/25 History mg-acetaminophen 500 mg tablet (Tylenol PM Extra Strength) olanzapine 2.5 mg tablet 2.5 mg PO DAILY PRN Chemo 08/29/25 10/13/25 History ondansetron 8 mg disintegrating 8 mg translingual DAILY PRN Nausea 08/29/25 10/13/25 History tablet And Vomiting prochlorperazine maleate 10 mg 10 mg PO DAILY PRN Nausea And 08/29/25 10/13/25 History tablet Vomiting sucralfate 100 mg/mL oral 10 ml PO ACHS 10/01/25 10/13/25 History suspension nystatin 100,000 unit/mL oral 5 ml PO QID PRN THRUSH 10/13/25 10/13/25 History suspension Patient History Medical History MGUS (monoclonal gammopathy of unknown significance) elevated IgA kappa monoclonal band 07/2025 Malignant tumor of base of tongue dx 07/18/25 - [facility] Heme/Oncology Dr Hall - [facility] Radiation Oncology - first chemo 09/05/25 Weight loss, abnormal 50lbs as per patients - related to cancer dx Diverticulosis Nonmelanoma skin cancer Ascending aortic aneurysm 4.3 cm root dilatation Hyperlipidemia Allergic rhinitis Asthma per EMR since 2019, no inhalers Anxiety (12/11/12) Benign prostatic hyperplasia with urinary obstruction Depression (12/11/12) History of recent hospitalization (07/10/25) hospitalized at OR for syncope and noted increased weakness 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 hands currently Surgical History History of surgery Direct Microlaryngoscopy with Biopsies History of tooth extraction History of tonsillectomy S/P orchiopexy S/P TURP History of herniorrhaphy Left S/P colonoscopy Family History Family/Other Anxiety Multiple sclerosis Inflammatory bowel disease Father , in his 60s Multiple sclerosis Mother , Medical history unknown Daughter No problems noted. 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 [employer] How many Children do You have: 2 Other Information That Helps Us Care for You: No Feels Safe at Home: Yes Safety Concerns: Feels Safe At This Time Diet: regular caffeine: No during the past year weight has: decreased > 10 lbs Assistive Devices: Cane and Walker Review of Systems Review of Systems: All systems reviewed & are unremarkable except as noted in HPI & below Physical Exam Constitutional: WD/WN, vitals as above Eyes: PERRL, conjunctivae normal, anicteric sclerae Respiratory: normal respiratory effort; no respiratory distress Cardiovascular: Rate/Rhythm: regular rate and regular rhythm Gastrointestinal (Abdomen): Inspection/Auscultation: abdomen normal to inspection; abdomen not distended Percussion/Palpation: + abdomen tender ( Diffusely) and abdomen soft; no guarding and abdomen not rigid Skin: no rashes, warm and dry Psychiatric: A+Ox3, euthymic affect Results & Data Vital Signs (Past 12 Hours) Vital Signs Temp Pulse Pulse Resp BP Pulse Ox O2 Del Method 10/14/25 08:16 36.8 C 62 20 146/75 H 96 Room Air 10/14/25 03:51 36.7 C 93 H 17 129/70 91 Room Air 10/13/25 22:02 36.6 C 87 18 134/67 96 Room Air 10/13/25 21:58 36.6 C 87 18 134/67 96 Room Air Laboratory Results 10/14/25 10/13/25 10/13/25 Range/Units 09:19 19:00 15:18 WBC 6.01 (4.8-10.8) K/ul RBC 3.70 L (4.70-6.10) M/uL Hgb 11.7 L (14.0-18.0) g/dL POC Hgb 11.6 L (14.0-18.0) g/dl Hct 31.5 L (42.0-52.0) % POC Hct 34 L (42-52) % MCV 85.1 (80.0-100.0) fL MCH 31.6 (25.0-34.0) pg MCHC 37.1 H (32.0-36.0) g/dL RDW Std Deviation 48.5 H (36.4-46.3) fL RDW Coeff of Nii 16.8 H (11.5-14.5) % Plt Count 274 (130-400) K/uL MPV 9.6 (9.4-12.4) fL Immature Gran % (Auto) 0.7 % Neut % (Auto) 86.9 % Lymph % (Auto) 2.8 % Turner % (Auto) 9.3 % Eos % (Auto) 0.0 % Baso % (Auto) 0.3 % Neut # (Auto) 5.22 (1.40-6.50) K/uL Lymph # (Auto) 0.17 L (1.20-3.40) K/uL Turner # (Auto) 0.56 (0.11-0.59) K/uL Eos # (Auto) 0.00 (0.00-0.50) K/uL Baso # (Auto) 0.02 (0.00-0.20) K/uL Immature Gran # (Auto) 0.04 (0.01-0.20) K/uL POC Sodium 132 L (135-144) mmol/L Sodium Pending (136-145) mmol/L POC Potassium 3.2 L (3.3-5.0) mmol/L Potassium Pending (3.5-5.1) mmol/L POC Chloride 93 L (101-112) mmol/L Chloride Pending (98-107) mmol/L Carbon Dioxide Pending (21-32) mmol/L POC Total CO2 25 (24-31) mmol/L Anion Gap Pending (3-11) POC Anion Gap 18.0 (16-25) mmol/L POC BUN 20 H (7-18) mg/dl BUN Pending (6-23) mg/dl Creatinine Pending (0.6-1.4) mg/dl POC Creatinine 0.6 (0.6-1.3) mg/dl Est Cr Clr Drug Dosing Pending ml/min eGFR Pending BUN/Creatinine Ratio Pending (10-20) Glucose Pending (70-99(Fasting)) mg/dl POC Glucose (other) 146 H (70-99) mg/dl Calcium Pending (8.6-10.3) mg/dl POC Ioniz Calcium Janneth 1.00 L (1.12-1.32) mmol/l Magnesium Pending Total Bilirubin Pending (0.2-1.0) mg/dl AST Pending (13-39) U/L ALT Pending (7-52) U/L Alkaline Phosphatase Pending (34-104) U/L Troponin I High Sens 5.9 (0-20) pg/ml C-Reactive Protein Pending B-Natriuretic Peptide Pending Total Protein Pending (6.0-8.3) gm/dl Albumin Pending (3.4-5.0) gm/dl Globulin Pending (2.5-4.0) gm/dl Albumin/Globulin Ratio Pending (0.9-2) Lipase (11-82) U/L Procalcitonin Pending 10/13/25 Range/Units 15:10 WBC 3.89 L (4.8-10.8) K/ul RBC 4.03 L (4.70-6.10) M/uL Hgb 11.8 L (14.0-18.0) g/dL POC Hgb (14.0-18.0) g/dl Hct 34.7 L (42.0-52.0) % POC Hct (42-52) % MCV 86.1 (80.0-100.0) fL MCH 29.3 (25.0-34.0) pg MCHC 34.0 (32.0-36.0) g/dL RDW Std Deviation 49.5 H (36.4-46.3) fL RDW Coeff of Nii 16.4 H (11.5-14.5) % Plt Count 277 (130-400) K/uL MPV 9.5 (9.4-12.4) fL Immature Gran % (Auto) 0.5 % Neut % (Auto) 78.2 % Lymph % (Auto) 5.1 % Turner % (Auto) 15.4 % Eos % (Auto) 0.5 % Baso % (Auto) 0.3 % Neut # (Auto) 3.04 (1.40-6.50) K/uL Lymph # (Auto) 0.20 L (1.20-3.40) K/uL Turner # (Auto) 0.60 H (0.11-0.59) K/uL Eos # (Auto) 0.02 (0.00-0.50) K/uL Baso # (Auto) 0.01 (0.00-0.20) K/uL Immature Gran # (Auto) 0.02 (0.01-0.20) K/uL POC Sodium (135-144) mmol/L Sodium 132 L (136-145) mmol/L POC Potassium (3.3-5.0) mmol/L Potassium 3.3 L (3.5-5.1) mmol/L POC Chloride (101-112) mmol/L Chloride 93 L (98-107) mmol/L Carbon Dioxide 26 (21-32) mmol/L POC Total CO2 (24-31) mmol/L Anion Gap 13 H (3-11) POC Anion Gap (16-25) mmol/L POC BUN (7-18) mg/dl BUN 20 (6-23) mg/dl Creatinine 0.55 L (0.6-1.4) mg/dl POC Creatinine (0.6-1.3) mg/dl Est Cr Clr Drug Dosing 76.7 ml/min eGFR 101.44 BUN/Creatinine Ratio 36.4 H (10-20) Glucose 147 H (70-99(Fasting)) mg/dl POC Glucose (other) (70-99) mg/dl Calcium 8.8 (8.6-10.3) mg/dl POC Ioniz Calcium Janneth (1.12-1.32) mmol/l Magnesium Total Bilirubin 0.7 (0.2-1.0) mg/dl AST 14 (13-39) U/L ALT 8 (7-52) U/L Alkaline Phosphatase 73 (34-104) U/L Troponin I High Sens 6.2 (0-20) pg/ml C-Reactive Protein B-Natriuretic Peptide Total Protein 6.0 (6.0-8.3) gm/dl Albumin 3.5 (3.4-5.0) gm/dl Globulin 2.5 (2.5-4.0) gm/dl Albumin/Globulin Ratio 1.4 (0.9-2) Lipase 8 L (11-82) U/L Procalcitonin Diagnostic Findings CT ABDOMEN and PELVIS with INTRAVENOUS CONTRAST HISTORY: Abdominal pain TECHNIQUE: CT abdomen and pelvis with contrast. IV CONTRAST: 100 mL of OMNIPAQUE 300 ENTERIC CONTRAST: Not Given COMPARISON: FINDINGS: LOWER CHEST: LIVER: No focal lesion identified. Hepatic steatosis. GALLBLADDER/BILIARY: Unremarkable gallbladder. No abnormal biliary dilatation. SPLEEN: Enhancing lesion measuring 8 mm is probably hemangioma. PANCREAS: Scattered calcifications may represent sequela of prior pancreatitis. ADRENALS: Unremarkable. KIDNEYS: Cortical cysts. Excreted contrast limits evaluation for small stones. No hydronephrosis identified. PERITONEUM/RETROPERITONEUM. No lymphadenopathy by size criteria. No aortic aneurysm. Small ascites. GASTROINTESTINAL: There are multiple loops of small bowel moderately distended with gas and fluid with a transition point in the central abdomen (series 300, image 60; series 2, image 49). Normal appendix. Colonic diverticulosis without evidence of diverticulitis. There is a large stool ball resulting in impaction and inflammation of the rectum. Gastrostomy tube in situ. REPRODUCTIVE: Mild prostamegaly with coarse calcifications ABDOMINAL WALL: Small fat-containing inguinal hernias. BONES: No acute findings. IMPRESSION: Findings compatible with small bowel obstruction with transition point in the mid abdomen as above. Stercoral colitis. Electronically signed by Rylan Wilcox 10-13-2025 8:40 PM Dictated: [id number] Transcribed:
[2025-10-14 09:50] LABS: Alanine Aminotransferase 11.0 U/L (7-52); Albumin Globulin Ratio 1.3 (0.9-2); Albumin Level 3.3 gm/dl (3.4-5.0); Alkaline Phosphatase 73.0 U/L (34-104); Anion Gap 9.0 (3-11); Bilirubin,Total 0.8 mg/dl (0.2-1.0); Blood Urea Nitrogen 25.0 mg/dl (6-23); Calcium 8.8 mg/dl (8.6-10.3); Carbon Dioxide 29.0 mmol/L (21-32); Chloride 94.0 mmol/L (98-107); Creatinine Clr Calc Pharmacy 86.2 ml/min; Globulin 2.5 gm/dl (2.5-4.0); Glucose 173.0 mg/dl (70-99(Fasting)); Magnesium 1.2 mg/dl (1.7-2.4); Potassium 3.7 mmol/L (3.5-5.1); Sodium 132.0 mmol/L (136-145); Total Protein 5.8 gm/dl (6.0-8.3)
[2025-10-14] MEDS: ACETAMINOPHEN IV PRN (12:41)
--- NOTE | 2025-10-14 13:10 | Hospitalist Progress Note ---
Date of Service October 14, 2025 Assessment & Plan (1) Small bowel obstruction: (2) PEG (percutaneous endoscopic gastrostomy) status: (3) Syncope: (4) Malignant tumor of base of tongue: (5) AAA (abdominal aortic aneurysm): Plan Pt is a 80y/o M with a PMHx significant for Tongue CA, MGUS, Neuropathy, Asthma, Anxiety, Depression who presented to the ED c/o Syncopal episodes. Pt's states that when the episodes occur, the pt often drops to floor and remains awake but unaware. She notes that his hands and feet will often have repetitive movements. states that episodes started in July 2025 durin last hospitalization but pt was dx with malignant tumor at base of tongue and syncopal episodes "pushed to the back burner" #SBO - Presenting with abdominal pain, 3 episodes of emesis in ED; Tender abdomen on exam, no peritoneal signs at present; NGT placed. Patient with PEG tube placement by surgery on 09/06/2025. - Appreciate surgery recs, bowel rest, supportive cares, LR at 80 cc/h - G-tube to gravity Vent - Clinically improving as of mid morning #Syncope | Palpitations - Prior history of syncope, admitted 07/09/2025 until 07/11/2025; Pt's notes weekly episodes following initial admission; 2 episodes within 4hrs on 10/13 per - Cardiogenic versus neurogenic, occurs with very little to no warning. Becoming more frequent, more severe per caregivers - Echo pending this morning -BNP troponin today # Hypomagnesemia - 1.2 this morning. 2 g replacement via IV ordered #Neoplasm base of tongue - diagnosed 07/18/2025, stage II; Pt due for next round of Chemo 10/17 and next round of radiation 10/23 #AAA - H/o 4 cm ascending aorta aneurysm on chest CTA in the past, not mentioned on chest CTA at admission at 10/13/2025. #Depression | Anxiety - No acute concerns VTE Proph: SCDs, hold chemical prophylaxis until evaluated by surgical team Dispo: Admit PCU/Telemetry Admission and Anticipated Discharge Date Admission Date: October 13, 2025 Subjective Doing a bit better this morning. Abdominal pain is improved but not completely resolved. Has had some nausea and vomiting but that is improved. NG tube was in place for a little bit had some decompression. Otherwise no new or different symptoms. Has not had any recurrence of the syncopal-like episodes but he states he has been up walking as at this time. No chest pain palpitations or shortness of breath. No PND or orthopnea. Physical Exam Physical Exam: General: Mild distress, significant improvement compared to yesterday Skin: erythema surrounding patient's neck, likely due to radiation: Warm and dry; no lesions or ulcerations Respiratory: CTA bilat, no adventitious sounds noted. Chest expansion is full and symmetrical Cardio: Irregularly irregular no murmurs Abdomen: little to no bowel sounds, patient is extraordinarily tender to palpation MSK: FROM of extremities, no deformities Extremities: no edema Neuro: A&Ox4, cooperative Results & Data Results & Data Vital Signs (Past 12 Hours) Vital Signs Temp Pulse Resp BP Pulse Ox O2 Del Method 10/14/25 11:25 37.6 C H 79 18 115/68 94 Room Air 10/14/25 08:16 36.8 C 62 20 146/75 H 96 Room Air 10/14/25 03:51 36.7 C 93 H 17 129/70 91 Room Air Laboratory Results 10/14/25 10/13/25 10/13/25 09:19 19:00 15:18 WBC 6.01 RBC 3.70 L Hgb 11.7 L POC Hgb 11.6 L Hct 31.5 L POC Hct 34 L MCV 85.1 MCH 31.6 MCHC 37.1 H RDW Std Deviation 48.5 H RDW Coeff of Nii 16.8 H Plt Count 274 MPV 9.6 Immature Gran % (Auto) 0.7 Neut % (Auto) 86.9 Lymph % (Auto) 2.8 [place] % (Auto) 9.3 Eos % (Auto) 0.0 Baso % (Auto) 0.3 Neut # (Auto) 5.22 Lymph # (Auto) 0.17 L [place] # (Auto) 0.56 Eos # (Auto) 0.00 Baso # (Auto) 0.02 Immature Gran # (Auto) 0.04 POC Sodium 132 L Sodium 132 L POC Potassium 3.2 L Potassium 3.7 POC Chloride 93 L Chloride 94 L Carbon Dioxide 29 POC Total CO2 25 Anion Gap 9 POC Anion Gap 18.0 POC BUN 20 H BUN 25 H Creatinine 0.67 POC Creatinine 0.6 Est Cr Clr Drug Dosing 86.2 eGFR 95.57 BUN/Creatinine Ratio 37.3 H Glucose 173 H POC Glucose (other) 146 H Calcium 8.8 POC Ioniz Calcium Janneth 1.00 L Magnesium 1.2 L Total Bilirubin 0.8 AST 14 ALT 11 Alkaline Phosphatase 73 Troponin I High Sens 5.9 C-Reactive Protein 10.22 H B-Natriuretic Peptide 88 Total Protein 5.8 L Albumin 3.3 L Globulin 2.5 Albumin/Globulin Ratio 1.3 Lipase Procalcitonin 0.22 10/13/25 15:10 WBC 3.89 L RBC 4.03 L Hgb 11.8 L POC Hgb Hct 34.7 L POC Hct MCV 86.1 MCH 29.3 MCHC 34.0 RDW Std Deviation 49.5 H RDW Coeff of Nii 16.4 H Plt Count 277 MPV 9.5 Immature Gran % (Auto) 0.5 Neut % (Auto) 78.2 Lymph % (Auto) 5.1 [place] % (Auto) 15.4 Eos % (Auto) 0.5 Baso % (Auto) 0.3 Neut # (Auto) 3.04 Lymph # (Auto) 0.20 L [place] # (Auto) 0.60 H Eos # (Auto) 0.02 Baso # (Auto) 0.01 Immature Gran # (Auto) 0.02 POC Sodium Sodium 132 L POC Potassium Potassium 3.3 L POC Chloride Chloride 93 L Carbon Dioxide 26 POC Total CO2 Anion Gap 13 H POC Anion Gap POC BUN BUN 20 Creatinine 0.55 L POC Creatinine Est Cr Clr Drug Dosing 76.7 eGFR 101.44 BUN/Creatinine Ratio 36.4 H Glucose 147 H POC Glucose (other) Calcium 8.8 POC Ioniz Calcium Janneth Magnesium Total Bilirubin 0.7 AST 14 ALT 8 Alkaline Phosphatase 73 Troponin I High Sens 6.2 C-Reactive Protein B-Natriuretic Peptide Total Protein 6.0 Albumin 3.5 Globulin 2.5 Albumin/Globulin Ratio 1.4 Lipase 8 L Procalcitonin PG Care Time/CCT Total # of Minutes Spent Total Time Spent with Patient: Total time spent is greater than 50% in coordination of care (as documented) at patient's floor/unit and/or counseling patient: Coding Level of Care Code 94487 SUB INP/OBS CARE 2/35MIN Diagnoses Small bowel obstruction K56.609 PEG (percutaneous endoscopic gastrostomy) status Z93.1 Syncope R55 Syncope type: unspecified Malignant tumor of base of tongue C01 AAA (abdominal aortic aneurysm) I71.40 (3) Syncope Syncope type: unspecified Qualified Code(s): R55 - Syncope and collapse
--- NOTE | 2025-10-14 14:35 | XCELERA ---
[id number] [email or web address]\[id number]
[2025-10-14] MEDS: MAGNESIUM SULFATE / D5W 1 GM/100 ML BAG IV SCH (15:21)
[2025-10-14] MEDS: KETOROLAC TROMETHAMINE 15 MG/ML VIAL IV ONE (22:54)
[2025-10-15 06:29] LABS: Hematocrit (blood only) 29.4 % (42.0-52.0); Hemoglobin 10.3 g/dL (14.0-18.0); Immature Granulocytes # (auto) 0.02 K/uL (0.01-0.20); Immature Granulocytes % (auto) 0.5 %; Mean Corpuscular Hemoglobin 30.1 pg (25.0-34.0); Mean Corpuscular Volume 86.0 fL (80.0-100.0); Platelet Count 266 K/uL (130-400); RDW Standard Deviation 49.6 fL (36.4-46.3); Red Blood Count 3.42 M/uL (4.70-6.10); White Blood Count 3.68 K/ul (4.8-10.8)
[2025-10-15 06:54] LABS: Alanine Aminotransferase 9.0 U/L (7-52); Albumin Globulin Ratio 1.2 (0.9-2); Albumin Level 3.1 gm/dl (3.4-5.0); Alkaline Phosphatase 66.0 U/L (34-104); Anion Gap 9.0 (3-11); Bilirubin,Total 0.5 mg/dl (0.2-1.0); Blood Urea Nitrogen 29.0 mg/dl (6-23); Calcium 8.6 mg/dl (8.6-10.3); Carbon Dioxide 33.0 mmol/L (21-32); Chloride 93.0 mmol/L (98-107); Creatinine Clr Calc Pharmacy 89.2 ml/min; Globulin 2.5 gm/dl (2.5-4.0); Glucose 111.0 mg/dl (70-99(Fasting)); Magnesium 1.9 mg/dl (1.7-2.4); Potassium 3.3 mmol/L (3.5-5.1); Sodium 135.0 mmol/L (136-145); Total Protein 5.6 gm/dl (6.0-8.3)
--- NOTE | 2025-10-15 09:32 | Surgery Progress Note ---
Date of Service October 15, 2025 Assessment & Plan (1) Small bowel obstruction: Plan: Patient here with SBO he is s/p PEG tube placement by Dr. Rivera on 09/06/2025 - Patient feeling much better this morning, abdomen soft, nondistended, denies any N/V. PEG remains to gravity at this time. - Can perform clamping trial of PEG tube, if patient is able to tolerate could consider restarting trickle feeds later this afternoon versus this evening Admission and Anticipated Discharge Date Admission Date: October 13, 2025 Supervising Physician Co-Signing Physician Notes Patient seen and examined, agree with above. Admitted with SBO, PEG tube [address] Rivera due to tongue cancer. He has been passing gas and having small liquid bowel movements. He did just receive a little bit of IV Tylenol for some pain. He is burping. On exam he is afebrile with stable vitals. His abdomen is soft, nontender, PEG tube site looks healthy. PEG tube was to gravity overnight, will do a clamp trial, if he can tolerate his secretions can potentially start trickle tube feeds this evening or tomorrow. Surgery will follow. Subjective Patient seen and evaluated this morning, states that he is feeling better than yesterday PEG remains on gravity Denies any nausea or vomiting and passing gas Physical Exam Constitutional: WD/WN, vitals as above Respiratory: normal respiratory effort, lungs clear to auscultation Cardiovascular: Rate/Rhythm: regular rate Gastrointestinal (Abdomen): Abdomen soft, nondistended, +mild TTP near PEG site however no rebound, guarding or signs of peritonitis Results & Data Vital Signs (Past 12 Hours) Vital Signs Temp Pulse Resp BP Pulse Ox Pulse Ox O2 Del Method 10/15/25 07:00 36.7 C 76 18 138/72 92 Room Air 10/15/25 02:32 36.6 C 68 18 115/60 94 Room Air 10/14/25 22:24 36.6 C 72 18 129/67 94 Room Air 10/14/25 21:58 95 O2 Del Method 10/15/25 07:00 10/15/25 02:32 10/14/25 22:24 10/14/25 21:58 Room Air PG Care Time/CCT Total # of Minutes Spent Total Time Spent with Patient: Total time spent is greater than 50% in coordination of care (as documented) at patient's floor/unit and/or counseling patient: [place] [address] SUB INP/OBS CARE 11/25MIN Patient Type Established Medical Decision Making Straight Forward Diagnoses Small bowel obstruction K56.609
[2025-10-15] MEDS: MAGNESIUM SULFATE / D5W 1 GM/100 ML BAG IV ONE (09:35)
[2025-10-15] MEDS: POTASSIUM CHLORIDE / WTR 10 MEQ/100 ML PLCT IV SCH (09:36)
--- NOTE | 2025-10-15 12:10 | Hospitalist Progress Note ---
Date of Service October 15, 2025 Assessment & Plan (1) Small bowel obstruction: (2) PEG (percutaneous endoscopic gastrostomy) status: (3) Syncope: (4) Malignant tumor of base of tongue: (5) AAA (abdominal aortic aneurysm): Plan Pt is a 80y/o M with a PMHx significant for Tongue CA, MGUS, Neuropathy, Asthma, Anxiety, Depression who presented to the ED c/o Syncopal episodes. Pt's states that when the episodes occur, the pt often drops to floor and remains awake but unaware. She notes that his hands and feet will often have repetitive movements. states that episodes started in July 2025 durin last hospitalization but pt was dx with malignant tumor at base of tongue and syncopal episodes "pushed to the back burner" #SBO - Presenting with abdominal pain, 3 episodes of emesis in ED; Tender abdomen on exam, no peritoneal signs at present; NGT placed. Patient with PEG tube placement by surgery on 09/06/2025. - Appreciate surgery recs - G-tube clamped by surgery, will continue on IV fluids #Syncope | Palpitations - Prior history of syncope, admitted 07/09/2025 until 07/11/2025; Pt's notes weekly episodes following initial admission; 2 episodes within 4hrs on 10/13 per - Cardiogenic versus neurogenic, occurs with very little to no warning. Becoming more frequent, more severe per caregivers - Echo unremarkable - Orthostatics in AM # Hypomagnesemia / hypokalemia - 1.9 this morning. Additional 1g ordered as it redistributes - 3.3, 20 meq KCl ordered #Neoplasm base of tongue - diagnosed 07/18/2025, stage II; Pt due for next round of Chemo 10/17 and next round of radiation 10/23. Patient declined radiation today #AAA - H/o 4 cm ascending aorta aneurysm on chest CTA in the past, not mentioned on chest CTA at admission at 10/13/2025. #Depression | Anxiety - No acute concerns VTE Proph: SCDs Dispo: continue on PCU/Telemetry Admission and Anticipated Discharge Date Admission Date: October 13, 2025 Subjective Seen by surgery this morning and PEG tube clamped. No abdominal pain, nausea or vomiting. No current dizziness while in bed. Physical Exam Respiratory: normal respiratory effort, lungs clear to auscultation Cardiovascular: RRR, no murmur, no edema Gastrointestinal (Abdomen): Inspection/Auscultation: abdomen normal to inspection; abdomen not distended Percussion/Palpation: abdomen soft; abdomen nontender Results & Data Results & Data Vital Signs (Past 12 Hours) Vital Signs Temp Pulse Pulse Resp BP Pulse Ox O2 Del Method 10/15/25 10:48 36.8 C 66 18 133/62 92 Room Air 10/15/25 09:00 Room Air 10/15/25 07:00 36.7 C 76 18 138/72 92 Room Air 10/15/25 02:32 36.6 C 68 18 115/60 94 Room Air PG Care Time/CCT Total # of Minutes Spent Total Time Spent with Patient: Total time spent is greater than 50% in coordination of care (as documented) at patient's floor/unit and/or counseling patient: Coding Level of Care Code 85480 SUB INP/OBS CARE 2/35MIN Diagnoses Small bowel obstruction K56.609 PEG (percutaneous endoscopic gastrostomy) status Z93.1 Syncope R55 Syncope type: unspecified Malignant tumor of base of tongue C01 AAA (abdominal aortic aneurysm) I71.40 (3) Syncope Syncope type: unspecified Qualified Code(s): R55 - Syncope and collapse
[2025-10-15] MEDS: ONDANSETRON INJ 2 MG/ML 2 ML VIAL IV STA (15:52)
[2025-10-15] MEDS: LORazepam 1 MG/1 ML SYR ED Inj Use IV STA (21:46)
[2025-10-15] MEDS: FAMOTIDINE 20MG IV PUSH 20 MG/5 ML SYR IV STA (22:12)
[2025-10-15] MEDS: KETOROLAC TROMETHAMINE 15 MG/ML VIAL IV ONE (23:49)
[2025-10-16] MEDS: MoRPHine SULFATE 2 MG/ML CARP IV STA ×2 (00:45→01:28)
--- NOTE | 2025-10-16 00:49 | Communication Note ---
Date of Service: October 16, 2025 This patient has a history of tongue cancer and has a previous history of PEG tube placement by Dr. Rivera physician of general surgery. Patient has been admitted to the hospital since 10/13/2025 and general surgery has been asked to see the patient secondary to small bowel obstruction. On rounds today the general surgical team noted that the patient was feeling somewhat better and he had his PEG tube placed to gravity. I received a call from the medical administrative technician at approximately 12:24 AM on 10/16/2025 t the was experiencing worsening abdominal pain. I reported the bedside within 5 minutes of receiving this call. The patient does report some generalized abdominal pain. I discussed with the nurse attending the patient and he has been afebrile and normotensive. He is not tachycardic. Patient says he does feel somewhat nauseous but has not had any episodes of emesis. He is uncertain if he is passing flatus and the nurse says he is only having smears of bowel movements. On physical exam the patient's abdomen is soft without distention. His abdomen is exquisitely tender in a generalized fashion. His PEG site tube looks clean. The medical administrative technician performed a KUB and I do not appreciate any free intraperitoneal air. Laboratories have been performed and a CBC reveals white blood cell count is 2.9, hemoglobin 11.1, hematocrit 32.0, and platelet count 337. All of these values are stable when compared to labs drawn earlier today. Chemistry profile showed sodium and potassium are 135 and 3.1. BUN and creatinine are 35 and 0.8. Mg level is 1.6. Lactic acid level is noted to be elevated at 3.4 As the patient had a small bowel obstruction noted at time of admission and he now has worsening abdominal pain with elevated lactic acid level, I feel it would be prudent to repeat a CT scan of his abdomen pelvis for further evaluation. Also for the present time we will place the patient's PEG tube to suction (was previously placed to gravity). Patient is already n.p.o. due to history of tongue cancer. Will continue intravenous fluids for hydration. Patient underwent a CT scan of the abdomen pelvis. The results of the scan showed the patient has no free intraperitoneal air. He had multiple dilated loops of small bowel suggestive of a small bowel obstruction which appears stable from his previous scan. A few of his bowel loops were thickened compared to prior scan. Patient was noted to have mild ascites with a slight increase from previous scan. He was also noted to have colonic fecal and gaseous di stention raising the possibility of sterile coral colitis which interpreting radiologist felt was stable. On my review of the scan I do feel as though the patient has a significant stool burden in the rectum. Due to the patient's CT scan findings as well as the above-noted laboratory values he was given a 500 cc bolus of normal saline solution and his maintenance fluids were increased 125 cc/h. Approximately 2 hours later repeat lactic acid level was obtained and has now normalized at 1.7. I revisited the patient at the bedside multiple times and the patient has had repeat vitals performed and he is noted to be normotensive without tachycardia or fever. My most recent visit with the patient was at approximately 3:00 AM. His abdomen remains soft and nondistended. His abdominal tenderness does appear to be somewhat improvedI did discuss with the nurses and he has only received 2 mg of intravenous morphine and 1 dose of intravenous Toradol for pain control. He has not had any nausea or vomiting. The patient verbally expresses that his abdominal pain has slightly improved. Due to the noted fecal load noted on CT scan I did suggest to the patient that we attempt manually disimpacting him at this time he declined to have this performed. I did discuss with him that this will need to be readdressed and potentially need to be done during dayshift's if he is not able to move his bowels on its own. He did expresses understanding. Will continue patient's hydration measures intravenous fluids, continue his PEG tube to low intermittent suction, and continue n.p.o. status (which he already was secondary to his oral cancer) Addendum (5:45 AM) I was notified by nursing staff the patient noted he was willing to try manual disimpaction. I therefore presented to bedside and gently performed a digital rectal exam with lubrication. Soft stool was able to be palpated in the rectum with some being able to be manually disimpacted. Patient tolerated this well with no pain or discomfort. Addendum (6:15 AM) Nursing staff assisted patient to bedside commode. Shortly thereafter the patient became less responsive and a code purple was called. Nursing staff noted the patient did not fall or injure himself. He was assisted back to bed by the staff. At this time the patient was noted to be hypotensive with systolic blood pressure in the 70s and tachycardic with heart rate in the 120 range. Twelve- lead EKG was performed that showed sinus tachycardia. There did not appear to be any acute ischemic changes. The patient's abdomen was examined again at this time and his abdomen remains soft without distention or rigidity. The patient did have some diffuse tenderness that was noted previously during his shift but appear to be somewhat improved. The patient was provided with a 500 cc bolus of intravenous fluids and shortly thereafter and his vitals were rechecked and his blood pressure had normalized to approximately 125/75 and his tachycardia resolved as well. Following this episode the patient was noted to be alert and oriented x 3. The hospitalist service was in attendance and they feel as though the patient likely had a vasovagal episode. Due to some of the bowel wall thickening noted on his previous CT scan they have elected to initiate antibiotics in the form of Zosyn. A.m. labs were drawn and are pending at this time. Will continue to monitor the patient clinically with plan as outlined above.
[2025-10-16 00:50] LABS: Hematocrit (blood only) 32.0 % (42.0-52.0); Hemoglobin 11.1 g/dL (14.0-18.0); Immature Granulocytes # (auto) 0.01 K/uL (0.01-0.20); Immature Granulocytes % (auto) 0.3 %; Mean Corpuscular Hemoglobin 29.6 pg (25.0-34.0); Mean Corpuscular Volume 85.3 fL (80.0-100.0); Platelet Count 337 K/uL (130-400); RDW Standard Deviation 48.4 fL (36.4-46.3); Red Blood Count 3.75 M/uL (4.70-6.10); White Blood Count 2.97 K/ul (4.8-10.8)
[2025-10-16] MEDS: OPTIRAY 320 100ml IV ONE ×2 (01:05→16:29)
[2025-10-16 01:19] LABS: Alanine Aminotransferase 13.0 U/L (7-52); Albumin Globulin Ratio 1.0 (0.9-2); Albumin Level 3.1 gm/dl (3.4-5.0); Alkaline Phosphatase 75.0 U/L (34-104); Anion Gap 19.0 (3-11); Bilirubin,Total 1.0 mg/dl (0.2-1.0); Blood Urea Nitrogen 35.0 mg/dl (6-23); Calcium 8.8 mg/dl (8.6-10.3); Carbon Dioxide 23.0 mmol/L (21-32); Chloride 93.0 mmol/L (98-107); Creatinine Clr Calc Pharmacy 69.5 ml/min; Globulin 3.0 gm/dl (2.5-4.0); Glucose 172.0 mg/dl (70-99(Fasting)); Magnesium 1.6 mg/dl (1.7-2.4); Potassium 3.1 mmol/L (3.5-5.1); Sodium 135.0 mmol/L (136-145); Total Protein 6.1 gm/dl (6.0-8.3)
[2025-10-16] MEDS: SODIUM CHLORIDE 0.9% 500 ML IV ONE ×3 (01:29→06:45)
[2025-10-16] MEDS: MAGNESIUM SULFATE / D5W 1 GM/100 ML BAG IV ONE ×2 (01:33→08:12)
[2025-10-16] MEDS: POTASSIUM CHLORIDE / WTR 10 MEQ/100 ML PLCT IV SCH (01:33)
--- NOTE | 2025-10-16 02:12 | CT Scan Report ---
EXAM: CT abd pelvis IV con only CLINICAL HISTORY: SBO/abd. pain TECHNIQUE: Contiguous axial images were obtained from the level of the diaphragm to the pubic symphysis with intravenous contrast. Coronal and sagittal reconstructions were likewise performed and indicated to increase the sensitivity for detecting clinically relevant pathology. If IV contrast material had not been administered, the likelihood of detecting abnormalities relevant to the patient's condition would have been substantially decreased. CT scan was performed according to ALARA (as low as reasonably achievable). COMPARISON: 18:42:00 FORMULA MIXER. FINDINGS: Few atelectatic bands are noted involving bilateral lung bases. The liver is normal in size and attenuation. No focal liver lesions are seen. There is no intra or extrahepatic biliary ductal dilatation. Hepatic vasculature is patent. The gallbladder is present. The spleen, pancreas, and adrenal glands are unremarkable. The kidneys are normal in size and attenuation. There is no hydronephrosis or perinephric fat stranding. No renal calculi or renal masses are identified. Pelvic viscera are unremarkable. No imaging evidence of appendicitis. Abdominal and pelvic vasculature is patent. No aggressive appearing osseous lesions are identified. Evidence of multiple dilated small bowel loops are noted involving mid and lower quadrant of abdomen with maximum diameter measures up to 4.2 cm.- suggestive of small bowel obstruction. Few bowel loops mildly thickened fischer as compared to prior scan. The left upper quadrant dilated bowel loops are noted anterior to the colon. Stable. Mild ascites noted. At present no obvious intraperitoneal free air. Colonic fecal and gaseous distension, predominantly sigmoid colon and rectum. Mild concentric wall thickening is noted involving sigmoid colon and rectum there is possibility of stercoral colitis changes. Multiple small uncomplicated colonic diverticulosis. IMPRESSION: 1. Evidence of multiple dilated small bowel loops are noted involving mid and lower quadrant of abdomen with maximum diameter measures up to 4.2 cm.- suggestive of small bowel obstruction.-stable. Few bowel loops mildly thickened fischer as compared to prior scan. 2. Mild ascites noted.-mild increase. 3. Colonic fecal and gaseous distension, predominantly sigmoid colon and rectum. Mild concentric wall thickening is noted involving sigmoid colon and rectum there is possibility of stercoral colitis changes.-stable. 4. Multiple small uncomplicated colonic diverticulosis.-stable. Electronically signed by Titi Constantino 10-16-2025 02:12 AM
[2025-10-16 06:26] LABS: Hematocrit (blood only) 34.9 % (42.0-52.0); Hemoglobin 11.8 g/dL (14.0-18.0); Mean Corpuscular Hemoglobin 29.5 pg (25.0-34.0); Mean Corpuscular Volume 87.3 fL (80.0-100.0); Platelet Count 382 K/uL (130-400); RDW Standard Deviation 50.4 fL (36.4-46.3); Red Blood Count 4.00 M/uL (4.70-6.10); White Blood Count 4.62 K/ul (4.8-10.8)
[2025-10-16] MEDS ORDERED: STAT IV Infusion **Titration per Protocol STA ×4 (06:42→20:27)
[2025-10-16] MEDS ORDERED: AMIODARONE IV BOLUS & DRIP IV STA (06:42)
[2025-10-16] MEDS ORDERED: 0.2 MICRON FILTER SET 1 EACH IV STA (06:42)
--- NOTE | 2025-10-16 06:42 | Communication Note ---
Date of Service: October 16, 2025 Notify by nursing overnight patient with worsening abdominal pain and nausea Seen in bedside. Abdomen soft and depressed, non distended. But very tender to palpation KUB ordered. Morphine 1 mg x2 given. Zofran and Pepcid Given. Labs ordered: Lactate 3.1, Anion Gap 19. Potassium 3.1 and Mag 1.6 Surgery PA made aware. CT ordered: showed consistent SBO. Mild concentric wall thickening Magnesium and Potassium replaced NSS Bolus 1L given Maintenance increase to 125 ml/hr ------ Hema corral was call around 6000 Patient was sitting on his bed, on his way to the bathroom when he had a syncope event Telemetry showed running of Vtac/ on and off 30 minutes before the syncope event BP was low at bedside. EKG sinus tachy. BSG 210. Sat 100% Patient symptoms resolved after bolus of 1L of NSS Zosynx1 started given new findings of wall thickening Labs ordered: Lactate, CMP, CBC, Magnesium, Phosphorus Patient had another run of Vtach after code. Asymptomatic Will start Amiodarone drip and bolus, given recent syncope. Reviewed Echocardiogram Cardiology had been consulted -------
[2025-10-16 06:54] LABS: Alanine Aminotransferase 10.0 U/L (7-52); Albumin Globulin Ratio 1.1 (0.9-2); Albumin Level 2.9 gm/dl (3.4-5.0); Alkaline Phosphatase 69.0 U/L (34-104); Anion Gap 19.0 (3-11); Bilirubin,Total 0.7 mg/dl (0.2-1.0); Blood Urea Nitrogen 37.0 mg/dl (6-23); Calcium 8.3 mg/dl (8.6-10.3); Carbon Dioxide 21.0 mmol/L (21-32); Chloride 96.0 mmol/L (98-107); Creatinine Clr Calc Pharmacy 58.8 ml/min; Globulin 2.6 gm/dl (2.5-4.0); Glucose 264.0 mg/dl (70-99(Fasting)); Magnesium 1.9 mg/dl (1.7-2.4); Potassium 3.4 mmol/L (3.5-5.1); Sodium 136.0 mmol/L (136-145); Total Protein 5.5 gm/dl (6.0-8.3)
[2025-10-16] MEDS: PIPERACILLIN/TAZOBACTAM 4.5 GM/100 ML BAG IV ONE (07:26)
[2025-10-16] MEDS: POTASSIUM CHLORIDE / WTR 10 MEQ/100 ML PLCT IV ONE (07:33)
[2025-10-16] MEDS: AMIODARONE / D5W 150 MG/100 ML BAG IV STA (07:35)
[2025-10-16] MEDS: AMIODARONE / D5W 360 MG/200 ML BAG IV ONE ×2 (07:49→14:30)
--- NOTE | 2025-10-16 08:00 | XRay Report ---
EXAM: XR KUB/Abdomen 1 view CLINICAL HISTORY: SBO TECHNIQUE: X-ray images of the abdomen and pelvis were obtained in supine positions. COMPARISON: A comparison with the previous CR study dated 10/13/[address] study dated 10/15/2025. FINDINGS: Gas Pattern: Regressive course of the previously noted dilated small bowel, mainly in the central zone. Still noted a distended large bowel noted mainly at the left hypochondrium region Still noted air loculi in the pelvis. Soft Tissues: Soft tissues of the abdomen appear normal without evidence of masses. Liver, spleen, and kidneys are of normal size and position. Multiple pelvic opaque phleboli are seen. IMPRESSION: - Regressive course of the previously noted dilated small bowel, mainly in the central zone. to be clinical assessments and close follow-up. - Still noted a distended large bowel noted mainly at the left hypochondrium region. Electronically signed by Sunny Landaverde 10-16-2025 07:54 AM
--- NOTE | 2025-10-16 08:17 | XRay Report ---
SINGLE VIEW CHEST CLINICAL HISTORY: Shock. FINDINGS: An AP, portable, upright chest radiograph is compared to chest x-ray and chest CT dated . A left subclavian central venous infusion port is unchanged in position. The heart is mildly enlarged noting atherosclerotic calcification of the thoracic aorta. The pulmonary vasculature is no ncongested. Chronic interstitial thickening is similar to previous. There is bibasilar scarring/atele ctasis. No airspace consolidation or large pleural effusion is identified. No pneumothorax is seen. T he skeletal structures are osteopenic. The bony thorax is grossly intact. Arthritic change is noted i n the shoulders. IMPRESSION: Cardiomegaly with no active disease in the chest. ACT 112: Negative or not required by law. Electronically signed by: Eliezer Galindo M.D. 10/16/2025 8:16 AM
[2025-10-16 09:23] LABS: INR 1.2 (0.9-1.1); Partial Thromboplastin Time 27 Seconds (21-31); Prothrombin Time 13.0 Seconds (9.0-12.0)
[2025-10-16] MEDS: ACETAMINOPHEN 1,000 MG/100 ML VIAL IV SCH (09:31)
[2025-10-16] MEDS: SOD PHOSPHATE/SOD BIPHOSPHATE ENEMA 132 ML BTL PR STA (10:20)
--- NOTE | 2025-10-16 10:27 | Surgery Progress Note ---
Date of Service October 16, 2025 Assessment & Plan (1) Small bowel obstruction: (2) PEG (percutaneous endoscopic gastrostomy) status: Plan Patient here with SBO he is s/p PEG tube placement by Dr. Rivera on 09/06/2025, but had an eventful night with worsening abdominal pain and a syncopal event while on the commode early this morning. CT scan reviewed and there are concerns that the PEG tube could have become dislodged. I have ordered a stat KUB with contrast via PEG to assess for this. The patient's lactic acidosis is concerning as well, so would continue with IV fluids and continue to trend lactate. The patient is requesting a fleets enema which I feel is appropriate, and he also is refusing IV narcotics, so I will order IV tylenol to provide him better pain control. remainder of his care per the primary medicine team, and surgery will continue to follow closely Admission and Anticipated Discharge Date Admission Date: October 13, 2025 Supervising Physician Co-Signing Physician Notes Patient seen and examined, agree with above. Admitted with SBO, PEG tube [address] Rivera due to tongue cancer. He continues to pass gas and have small smears of bowel movement. He did not tolerate clamping the PEG tube yesterday so was placed back to gravity and then later to suction. Overnight he had increased pain, CT showed stable partial small bowel obstruction with large stool burden in the rectum and colon with stercoral colitis. His lactate was slightly elevated but responded to IV fluids. This morning continues to complain of abdominal pain, however this feels like he has to have a bowel movement. He was disimpacted slightly at the bedside last night by our PA. KUB with Gastrografin through the PEG tube confirmed contrast in the stomach and good placement. He also had a syncopal episode overnight which he was having prior to this admission. He was seen by cardiology and has recurrent SVT and will likely need cardioversion as an outpatient. We will attempt fleets enemas, continue to monitor. His lactate was elevated again this morning, we will continue to trend. Recommend IV fluids. If no improvement may need exploration versus contrasted study. He appears to be quite high risk for surgical intervention given his multiple comorbidities. Subjective Patient currently states that he does not feel well, admits to significant amount of abdominal pain, generalized, constant, with no radiation and no obvious aggravating or relieving factors. Patient apparently was doing well yesterday, had minimal abdominal pain, however overnight acutely developed a significant amount of abdominal pain suddenly without any specific inciting event. He has remained n.p.o. and PEG tube has been on gravity with minimal bilious drainage noted, but due to his worsening abdominal pain and lactic acidosis of 3.4, a CT of the abd/pelvis was obtained that showed slightly worsening ascites and still with persistently dilated small bowel and significant stool burden in the colon. Digital disimpaction was attempted with minimal soft stool removed. He then had the urge to have a BM, but had a syncopal event while on the commode. He states that he passed out and fell, but did not hit the ground as nursing staff was there at the time and were able to assist him back to bed. The patient was hypotensive, but fluid responsive after fluid bolus, but was noted to have several runs of Vtac, so amiodarone drip was started and cardiology was consulted. Currently, the patient is complaining of moderate to severe generalized abdominal pain, still persistent and poorly responsive to IV morphine, but the patient states that he does not want any narcotic pain medications due to the potential risk of dependence. He denies any nausea or vomiting, denies flatus but did have a small BM Physical Exam Physical Exam: Gen: Awake and alert, resting comfortably in bed in NAD CV: RRR PULM: non-labored breathing Abd: Abd soft, non-distended, moderate diffuse tenderness to palpation. PEG tube to right side abd at approx 3.5cm at the skin, connected low intermittent suction with brownish bilious drainage noted. ext: no edema to bilateral lower ext, SCDs in place, non-tender, feet warm and well perfused Results & Data Vital Signs (Past 12 Hours) Vital Signs Temp Pulse Pulse Resp BP Pulse Ox O2 Del Method 10/16/25 08:00 36.5 C 130 H 20 120/92 98 Room Air 10/16/25 06:30 110 H 109/75 10/16/25 06:10 125/89 10/16/25 06:08 94 H 108/74 100 Room Air 10/16/25 06:05 131 H 73/56 L 100 Oxymask 10/16/25 02:02 36.4 C L 77 18 149/77 H 97 Room Air 10/16/25 01:56 Room Air 10/15/25 22:28 36.5 C 84 18 152/81 H 98 Room Air O2 Flow Rate 10/16/25 08:00 10/16/25 06:30 10/16/25 06:10 10/16/25 06:08 10/16/25 06:05 13 10/16/25 02:02 10/16/25 01:56 10/15/25 22:28 PG Care Time/CCT Total # of Minutes Spent Total Time Spent with Patient: Total time spent is greater than 50% in coordination of care (as documented) at patient's floor/unit and/or counseling patient: Coding [place] [address] SUB INP/OBS CARE 11/25MIN Patient Type Established Medical Decision Making Straight Forward Diagnoses Small bowel obstruction K56.609 PEG (percutaneous endoscopic gastrostomy) status Z93.1
--- NOTE | 2025-10-16 10:55 | Cardiology Consultation ---
Date of Consultation October 16, 2025 Assessment & Plan (1) SVT (supraventricular tachycardia): 2. Recurrent syncope 3. Small bowel obstruction 4. 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 Post PEG tube 6. Mildly dilated ascending aorta4.4 cm Patient seen today in the setting of recurrent sudden syncopal episodes concerning for arrhythmia Has had SVT on prior ambulatory monitoring and has had recurrent episodes of sustained SVT with heart rate in the 180s to 190s while admitted. SVT correlated with near syncopal event this morning. SVT seems most consistent with AVNRT, lower suspicion for atrial tachycardia less likely atrial flutter. Do not see evidence of atrial fibrillation. No clear VT. At worst brief episode of NSVT longest 10 beats. Likely increased SVT secondary to acute illness with SBO, dehydration. Long-term feel patient would benefit from SVT ablation when GI issues resolved and more clinically stable. He was started on IV amiodarone in the setting of initial question of VT. With amio his SVT/ectopy is reduced. Reasonable to continue amiodarone in the short- term during SBO management and while NPO. Do not feel he needs to be anticoagulated at this time. Eventually would transition to beta-abhishek or calcium channel abhishek. Continue to supplement electrolytes, goal K >4, mag >2 Continue to monitor on telemetry Will discuss with EP regarding possible SVT ablation at some point, likely as an outpatient. Will follow History of Present Illness Attending Physician: Gregory Gil MD History of Present Illness Mr. Mott is a 80-year-old man seen today due to SVT and recurrent syncope. He is currently admitted with syncopal episode and small bowel obstruction. He has a history of recently diagnosed squamous cell cancer of the base of his tongue being treated with chemoradiation, and is now post PEG tube 09/2025. He has been dealing with syncopal spells for months. Previously hospitalized 07/2025. Echo showed preserved LV function. Ambulatory monitoring showed periods of SVT with heart rates to the 180s. Scheduled to see cardiology in December. Readmitted 3 days ago after syncope at home. Endorsed abdominal pain and SBO noted on CT scan in ED. Initially had NG tube which is since been removed. Now with PEG tube to intermittent suction. Had worsening abdominal pain overnight. Repeat CT scan stable. Lactate rising to 3, 6 early this morning now 5.7. Around 6 AM this morning had code purple after had near syncopal episode while trying to use the bedside commode. Heart rate at that time intermittently into the 180s to 190s. Review of telemetry shows what appears to be SVT. Later this morning's had recurrent episodes of SVT and was started on amiodarone. Now back in sinus rhythm with decreased ectopy. At present reports diffuse abdominal pain. Denies any chest pain or significant shortness of breath. States that occasionally will have palpitations but usua lly episodes of syncope is had at home, without any warning. Had repeat echo on 10/13. Has preserved LV function with no significant valvular abnormalities. His aortic root/ascending aorta is stable at 4.3 cm. Allergies Allergy/AdvReac Type Severity Reaction Status Date / Time prednisone AdvReac Intermediate Unable to Verified 10/08/25 15:27 Tolerate Home Medications Medication Instructions Recorded Confirmed Type quetiapine 25 mg tablet (Seroquel) 25 mg PO HS 07/09/25 10/13/25 History porlllwyebpi-sqliludf-btisvh tablet 1 tab PO QAM 07/12/25 10/13/25 History diphenhydramine 25 2 tab PO HS PRN Sleep 07/18/25 10/13/25 History mg-acetaminophen 500 mg tablet (Tylenol PM Extra Strength) olanzapine 2.5 mg tablet 2.5 mg PO DAILY PRN Chemo 08/29/25 10/13/25 History ondansetron 8 mg disintegrating 8 mg translingual DAILY PRN Nausea 08/29/25 10/13/25 History tablet And Vomiting prochlorperazine maleate 10 mg 10 mg PO DAILY PRN Nausea And 08/29/25 10/13/25 History tablet Vomiting sucralfate 100 mg/mL oral 10 ml PO ACHS 10/01/25 10/13/25 History suspension nystatin 100,000 unit/mL oral 5 ml PO QID PRN THRUSH 10/13/25 10/13/25 History suspension Patient History Medical History (Updated 10/16/25 @ 18:06 by Franky Mckenzie MD) Syncope Small bowel obstruction AAA (abdominal aortic aneurysm) SVT (supraventricular tachycardia) Hypotension MGUS (monoclonal gammopathy of unknown significance) elevated IgA kappa monoclonal band 07/2025 Malignant tumor of base of tongue dx 07/18/25 - [facility] [place] Heme/Oncology Dr Hall - [facility] [place] Radiation Oncology - first chemo 09/05/25 Weight loss, abnormal 50lbs as per patients - related to cancer dx Diverticulosis Nonmelanoma skin cancer Ascending aortic aneurysm 4.3 cm root dilatation Hyperlipidemia Allergic rhinitis Asthma per EMR since 2019, no inhalers Anxiety (12/11/12) Benign prostatic hyperplasia with urinary obstruction Depression (12/11/12) History of recent hospitalization (07/10/25) hospitalized at [facility] for syncope and noted increased weakness 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 hands currently Surgical History PEG (percutaneous endoscopic gastrostomy) status (09/06/25) s Esophagogastroduodenoscopy with Percutaneous Endoscopic Gastrostomy Tube(Not Applicable) - Tanvir Rivera, p Insertion of Access Port With Fluoroscopy(Left) - Tanvir Rivera, DO History of surgery Direct Microlaryngoscopy with Biopsies History of tooth extraction History of tonsillectomy S/P orchiopexy S/P TURP History of herniorrhaphy Left S/P colonoscopy Family History Family/Other Anxiety Multiple sclerosis Inflammatory bowel disease Father , in his 60s Multiple sclerosis Mother , Medical history unknown Daughter No problems noted. 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 Vascular: 1+ radial pulses bilaterally Abdomen: Soft, diffuse tenderness worse in right upper quadrant, decreased bowel sound Extremities: Well perfused, no peripheral edema Neuro: Nonfocal Psych: Alert orient x3 Results & Data Vital Signs (Past 12 Hours) Vital Signs Temp Pulse Pulse Resp BP Pulse Ox O2 Del Method 10/16/25 08:00 97.7 F 130 H 20 120/92 98 Room Air 10/16/25 06:30 110 H 109/75 10/16/25 06:10 125/89 10/16/25 06:08 94 H 108/74 100 Room Air 10/16/25 06:05 131 H 73/56 L 100 Oxymask 10/16/25 02:02 97.5 F L 77 18 149/77 H 97 Room Air 10/16/25 01:56 Room Air O2 Flow Rate 10/16/25 08:00 10/16/25 06:30 10/16/25 06:10 10/16/25 06:08 10/16/25 06:05 13 10/16/25 02:02 10/16/25 01:56 PG Care Time/CCT Total # of Minutes Spent Total Time Spent with Patient: Total time spent is greater than 50% in coordination of care (as documented) at patient's floor/unit and/or counseling patient: Coding Level of Care Code 34049 INT INP/OBS CARE 2/55MIN Diagnoses SVT (supraventricular tachycardia) I47.10
--- NOTE | 2025-10-16 11:11 | XRay Report ---
KUB HISTORY: eval for PEG tube dislodgement COMPARISON: KUB 10/16/2025, CT abdomen and pelvis 10/16/2025 FINDINGS: PEG tube projects over the abdominal left upper quadrant. Enteric contrast is injected thro ugh the PEG tube, partially opacifying the stomach without extravasation. Moderate fecal retention in the rectum. Mild left hemidiaphragmatic elevation. No renal calculi. No ureteral calculi. No pneumo peritoneum or pneumatosis. No fracture. IMPRESSION: Satisfactory positioning of the PEG tube. ACT 112: Negative or not required by law. The above report was generated using voice recognition software. It may contain grammatical, syntax o r spelling errors. Electronically signed by: Shady Ricketts M.D. 10/16/2025 11:10 AM
[2025-10-16] MEDS: NOREPINEPHRINE/D5W 4 MG/250 ML PLCT IV SCH (11:32)
--- NOTE | 2025-10-16 12:29 | Procedure Note ---
Procedure Note Date of Service October 16, 2025 Coding Resident Activity Tracking Resident Involvement: Resident Care Provided Care Provided: Adult Hospital Medicine
--- NOTE | 2025-10-16 12:34 | Procedure Note ---
Procedure Note Date of Service October 16, 2025 Procedure:Arterial Line Placement Attending:Dr. Blair Resident: Dr. Claudia Gamez Indication:Monitoring on Pressors Anesthesia:Lidocaine 1% Consent was signed and placed on the chart prior to procedure. Indication, risks, and benefits were explained at length. A time-out was completed verifying correct patient, procedure, site, positioning , and implant(s) or special equipment if applicable. Allens test was performed to ensure adequate perfusion. Patients right wrist was prepped and draped in the usual sterile fashion. Ultrasound guidance was used to aid needle placement. A 20g Arrow arterial line was introduced into the radial artery. Catheter was threaded, and the needle was removed with appropriate blood return. Good waveform was observed. The patient tolerated the procedure well. Confirmation of placement with ultrasound. Images saved to medical record. Blood Loss: Minimal Complications: None Procedural Ultrasound Guidance: Procedure Date:10/16/2025 Indication:ultrasound guidance for arterial line placement Attending:Dr. Blair Resident:Dr. Claudia Gamez Artery Identified: YES Line confirmed in Artery with ultrasound:YES Complications:NONE Patient tolerated procedure:[facility] Procedure Codes (Charges) Tubes, Drains, and Vasc Access Procedure 1: Tubes, Drains, and Vasc Access: [id number] Arterial Cath/Cannulation Sampling/Monitoring/Transfusion Procedure 2: Tubes, Drains, and Vasc Access: [id number] Ultrasound Guidance For Vascular Coding CPT Codes Tubes, Drains, and Vasc Access - Tubes, Drains, and Vasc Access: [id number] Arterial Cath/Cannulation Sampling/Monitoring/Transfusion ([id number]) Tubes, Drains, and Vasc Access - Tubes, Drains, and Vasc Access: [id number] Ultrasound Guidance For Vascular ([id number]) Additional Codes Date of Service (PG.SURGERY) Resident Activity Tracking Resident Involvement: Resident Care Provided Care Provided: Adult [facility] Medicine
--- NOTE | 2025-10-16 13:07 | Critical Care Consultation ---
Date of Consultation October 16, 2025 Assessment & Plan (1) Hypotension: (2) PEG (percutaneous endoscopic gastrostomy) status: (3) MGUS (monoclonal gammopathy of unknown significance): (4) Neuropathy: (5) Major depressive disorder: (6) Syncope: Plan Neuro CAM-ICU: Negative --Patient awake alert oriented x 3 --Syncopal episodes with loss of consciousness Etiology is not clear CT head 10/13/2025 negative ? Seizures Cardiovascular Arterial line placed for access. Patient has a port for central access, so will not need central line. Levophed, Hydrocortisone, and Vasopressin started to maintain MAP >65. Shock related to possible sepsis secondary to GI etiology. Low suspicion for vasovagal etiology due to elevated HRs. Low suspicion for cardiogenic etiology. 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 Recommended SVT ablation outpatient post-discharge. Echo unremarkable. GI CT A/P showed SBO, he is s/p PEG 09/06. Anion gap lactic acidosis noted. He had enema done earlier this morning with golf-ball size stool. Continue IV fluids and trend lactate levels. Surgery following, low suspicion for acute abdomen at this time. Fecal occult ordered due to loose, darker stools - concern for melena. Protonix 40mg BID IV. Pulmonary No concerns, patient continues to deny SOB or other pulmonary sx at this time. O2 sats high 90s on room air. Renal Goal K>4, Mg>2. Supplement as needed. 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 Continue to trend CBC, leukopenia present with recent labs. Monitor for sepsis. Fungal culture ordered. Endo Glucose levels slightly elevated this morning in 260s - likely stress induced. Continue to monitor, consider insulin drip if additional elevated glucose readings. MSK No MSK concerns at this time. Supervising Physician Co-Signing Physician Notes Dr. Gamez was the resident-physician during care of patient. I separately evaluated patient for sneed portions of the history and the exam. I was present during the critical portion of medical decision making, and I discussed the case with the resident. I generally agree with the findings and plan except for any additions/exceptions noted. 80-year-old male recently diagnosed lung cancer, s/p radiation, then 4 chemo cycles, 1 more chemo cycle to go. Patient did have issues with syncopal episodes where he used to pass out and did not recall as to what happened. No tongue biting, no urinary or fecal incontinence at the time Presented to the hospital with complaints of abdominal pain. Was found to have SBO. Patient was on the floor when suddenly he had hypotensive episode where he was given fluids but he did not respond He was brought to the ICU for vasopressor support At the time of examination in the ICU initially patient responded to Levophed, he was given 2 more liters of bolus IV fluids He needed addition of vasopressin. He started to have bowel movements. He did complain of abdominal discomfort but it was better than how it was early in the morning as per the patient Denies any nausea or vomiting No shortness of breath He was saturating well on room air. Constitutional: In distress secondary to abdominal pain HEENT: EOMI, PERRLA Respiratory system: Good air entry bilaterally, no wheeze, no rhonchi, no crackles CVS: S1-S2 positive, no murmurs or gallops, tachycardia Abdomen: Soft, nontender, nondistended, positive bowel sounds x4, positive PEG Extremities: +2 pulses bilaterally radialis/ dorsalis pedis, no cyanosis, no edema Neuro: Awake alert oriented x3 Psych: Normal mood and affect G/U: Positive Montaño --Prophylaxis VTE: IPC GI: Pantoprazole Lines: Left-sided port, Montaño Diet: N.p.o. Plan: Strict in and out Patient has high anion gap, bicarb is only 21 If we calculate delta delta it is a combination of metabolic acidosis and alkalosis Acidosis is most likely from lactic acidosis. Alkalosis is probably from PEG tube being on suction. But the patient got hypotensive around 4:10 PM. I got a stat limited 2D echo which did not show any signs of pericardial effusion/tamponade. Patient does have abdominal ascites at least moderate in amount. CAT scan of the abdominal pelvis done around midnight 10/16/2025 did show ascites but did not seem to be significant. I am going to order a stat CT chest with contrast. I personally discussed the case with surgery on-call. I do not have a clear reason for syncopal episodes 2D echo negative for tamponade as stated above, the only differential I have is absence seizures with autonomic dysfunction Narcolepsy will be very unlikely at this age. For autonomic dysfunction vasopressin will be helpful, he is already on hydrocortisone 50 mcg Q6 as well. Case was discussed with patient's at bedside as well, all questions queries were answered in depth. I have personally spent 115 minutes of critical care time in the direct management of this patient. This is a life/limb threatening event. This includes time spent evaluating patient, direct bedside care, chart review, placing orders, interpretation of diagnostic studies, discussion with consultants, patient, and/or family members regarding treatment decisions, as well as other required patient management activities. This time is exclusive of all separately billable procedures, and teaching time and separate from and in addition to any other critical care service time. History of Present Illness Reason for Consultation: Hypotension Requesting Physician: Gregory Gil MD Attending Physician: Gregory Gil MD History of Present Illness 80 yo M with PMHx of tongue cancer, MGUS, neuropathy, asthma, depression, anxiety who presents to the ICU due to hypotension. Patient was originally admitted due to syncopal episodes with N/V. Last night, he had worsening abdominal pain. He went into bout of SVT around 6am with anion gap lactic acidosis with lactate of 6.1, 5.7. This morning, pressures started dropping down to 60/40s. He is able to converse. Denies CP, SOB, dizziness, LH. States his abdominal pain has considerably improved. He passed a golf-size ball of stool earlier today after his enema. Reports mild nausea, but no active vomiting episodes. No other acute concerns. Allergies Allergy/AdvReac Type Severity Reaction Status Date / Time prednisone AdvReac Intermediate Unable to Verified 10/08/25 15:27 Tolerate Home Medications Medication Instructions Recorded Confirmed Type quetiapine 25 mg tablet (Seroquel) 25 mg PO HS 07/09/25 10/13/25 History qszqqqenbtpz-vzvwvcpa-welpxx tablet 1 tab PO QAM 07/12/25 10/13/25 History diphenhydramine 25 2 tab PO HS PRN Sleep 07/18/25 10/13/25 History mg-acetaminophen 500 mg tablet (Tylenol PM Extra Strength) olanzapine 2.5 mg tablet 2.5 mg PO DAILY PRN Chemo 10/29/25 12/13/25 History ondansetron 8 mg disintegrating 8 mg translingual DAILY PRN Nausea 08/29/25 10/13/25 History tablet And Vomiting prochlorperazine maleate 10 mg 10 mg PO DAILY PRN Nausea And 08/29/25 10/13/25 History tablet Vomiting sucralfate 100 mg/mL oral 10 ml PO ACHS 10/01/25 10/13/25 History suspension nystatin 100,000 unit/mL oral 5 ml PO QID PRN THRUSH 10/13/25 10/13/25 History suspension Patient History Medical History MGUS (monoclonal gammopathy of unknown significance) elevated IgA kappa monoclonal band 07/2025 Malignant tumor of base of tongue dx 07/18/25 - [facility] [place] Heme/Oncology Dr Hall - [facility] [place] Radiation Oncology - first chemo 09/05/25 Weight loss, abnormal 50lbs as per patients - related to cancer dx Diverticulosis Nonmelanoma skin cancer Ascending aortic aneurysm 4.3 cm root dilatation Hyperlipidemia Allergic rhinitis Asthma per EMR since 2019, no inhalers Anxiety (12/11/12) Benign prostatic hyperplasia with urinary obstruction Depression (12/11/12) History of recent hospitalization (07/10/25) hospitalized at [facility] for syncope and noted increased weakness 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 hands currently Surgical History History of surgery Direct Microlaryngoscopy with Biopsies History of tooth extraction History of tonsillectomy S/P orchiopexy S/P TURP History of herniorrhaphy Left S/P colonoscopy Family History Family/Other Anxiety Multiple sclerosis Inflammatory bowel disease Father , in his 60s Multiple sclerosis Mother , Medical history unknown Daughter No problems noted. 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 [employer] How many Children do You have: 2 Feels Safe at Home: Yes Diet: regular caffeine: No during the past year weight has: decreased > 10 lbs Assistive Devices: Cane and Walker Review of Systems 2 Review of Systems: All systems reviewed & are unremarkable except as noted in HPI & below Physical Exam 2 Constitutional: no acute distress Respiratory: normal respiratory effort, lungs clear to auscultation Cardiovascular: RRR, no murmur, no edema Gastrointestinal (Abdomen): Inspection/Auscultation: abdomen normal to inspection and normal bowel sounds; abdomen not distended P ercussion/Palpation: + abdomen tender (mild diffuse tenderness in all quadrants) and abdomen soft; no hepatosplenomegaly Skin: no rashes, warm and dry Psychiatric: A+Ox3, euthymic affect Results & Data Results & Data Vital Signs (Past 12 Hours) Vital Signs Temp Pulse Pulse Resp BP Pulse Ox O2 Del Method 10/16/25 11:15 36.4 C L 112 H 20 70/42 L 97 Room Air 10/16/25 08:00 Room Air 10/16/25 08:00 36.5 C 130 H 20 120/92 98 Room Air 10/16/25 06:30 110 H 109/75 10/16/25 06:10 125/89 10/16/25 06:08 94 H 108/74 100 Room Air 10/16/25 06:05 131 H 73/56 L 100 Oxymask 10/16/25 02:02 36.4 C L 77 18 149/77 H 97 Room Air 10/16/25 01:56 Room Air O2 Flow Rate 10/16/25 11:15 10/16/25 08:00 10/16/25 08:00 10/16/25 06:30 10/16/25 06:10 10/16/25 06:08 10/16/25 06:05 13 10/16/25 02:02 10/16/25 01:56 Laboratory Results 10/16/25 14:14 10/16/25 14:14 Resident Activity Tracking Resident Involvement: Resident Care Provided Care Provided: Adult Hospital Medicine (6) Syncope Syncope type: unspecified Qualified Code(s): R55 - Syncope and collapse
[2025-10-16] MEDS: VASOPRESSIN 20 UNITS in SODIUM CHLORIDE 0.9% 100 ML IV SCH (13:22)
[2025-10-16] MEDS: PIPERACILLIN/TAZOBACTAM 4.5 GM/100 ML BAG IV SCH (13:45)
[2025-10-16] MEDS ORDERED: Nursing to Pharmacy Communication SCH (13:45)
[2025-10-16] MEDS: SODIUM CHLORIDE 0.9% 1,000 ML IV ONE (13:46)
[2025-10-16] MEDS: HYDROCORTISONE SOD 100 MG in SYRINGE 0 ML IV STA (13:51)
[2025-10-16] MEDS: POTASSIUM CHLORIDE / WTR 20 MEQ/100 ML PLCT IV ONE (13:51)
[2025-10-16] MEDS ORDERED: 0.2 MICRON FILTER SET 1 EACH IV ONE (14:14)
[2025-10-16] MEDS: HYDROCORTISONE SOD SUCCINATE 100 MG/2 ML VIAL IM STA (14:30)
[2025-10-16] MEDS: AMIODARONE / D5W 360 MG/200 ML BAG IV SCH (14:32)
[2025-10-16 14:40] LABS: Hematocrit (blood only) 33.8 % (42.0-52.0); Hemoglobin 11.9 g/dL (14.0-18.0); Mean Corpuscular Hemoglobin 30.1 pg (25.0-34.0); Mean Corpuscular Volume 85.4 fL (80.0-100.0); Platelet Count 367 K/uL (130-400); RDW Standard Deviation 49.0 fL (36.4-46.3); Red Blood Count 3.96 M/uL (4.70-6.10); White Blood Count 5.70 K/ul (4.8-10.8)
[2025-10-16 14:57] LABS: Alanine Aminotransferase 10.0 U/L (7-52); Albumin Globulin Ratio 1.0 (0.9-2); Albumin Level 2.4 gm/dl (3.4-5.0); Alkaline Phosphatase 65.0 U/L (34-104); Anion Gap 14.0 (3-11); Bilirubin,Total 0.5 mg/dl (0.2-1.0); Blood Urea Nitrogen 43.0 mg/dl (6-23); Calcium 7.8 mg/dl (8.6-10.3); Carbon Dioxide 19.0 mmol/L (21-32); Chloride 101.0 mmol/L (98-107); Creatinine Clr Calc Pharmacy 40.5 ml/min; Globulin 2.4 gm/dl (2.5-4.0); Glucose 268.0 mg/dl (70-99(Fasting)); Potassium 3.8 mmol/L (3.5-5.1); Sodium 134.0 mmol/L (136-145); Total Protein 4.8 gm/dl (6.0-8.3)
[2025-10-16 15:03] LABS: Acanthocytes 3+; Basophilic Stippling 1+; Immature Granulocytes # (auto) 0.04 K/uL (0.01-0.20); Immature Granulocytes % (auto) 0.7 %; Polychromasia 1+
--- NOTE | 2025-10-16 15:10 | XRay Report ---
Exam(s): XR KUB EXAM: XR Abdomen, 1 View CLINICAL HISTORY: SBO, worsening abdominal pain. TECHNIQUE: Frontal supine view of the abdomen/pelvis. COMPARISON: No relevant prior studies available. FINDINGS: Limitations: The examination is limited by exclusion of the superior abdomen and left lateral abdomen. Gastrointestinal tract: Limited evaluation of the right lower quadrant and pelvis demonstrates a nonspecific bowel gas pattern without evidence for dilation. Moderate stool noted only in the rectosigmoid in the central pelvis. Bones/joints: No significant abnormality. No acute fracture. IMPRESSION: The examination is limited by exclusion of the superior abdomen and left lateral abdomen. Previously noted small bowel gas pattern in the left upper quadrant is not included. No dilated small bowel gas in the right lower quadrant or pelvis. Electronically signed by: Tanvir Vidal MD 10/15/25 23:39 PM
--- NOTE | 2025-10-16 15:25 | Communication Note ---
Date of Service: October 16, 2025 Patient with tongue cancer status post PEG 1 month ago admitted with SBO and stercoral colitis. He became progressively more tachycardic and hypotensive throughout the day and was transferred to the ICU. He was started on low-dose pressors. He did have several bowel movements following his enema this morning and his abdominal pain is significantly improved. He is not having any nausea. Currently afebrile, heart rate 90s, maps adequate with low-dose pressors. Abdomen is soft, mildly tender to palpation in right lower quadrant, significantly improved from this morning. WBC normal with no left shift, lactate 4.3, downtrending, creatinine elevated. Will continue with resuscitation, do not feel he will require surgical intervention at this time. Surgery will continue to follow, call with questions or concerns.
[2025-10-16] MEDS ORDERED: PHARMACY GLYCEMIC MGMT CONSULT PRN (15:39)
[2025-10-16 15:52] LABS: Appearance Urine Clear (Clear); Glucose Urine UA Trace (Negative)
[2025-10-16 15:55] LABS: Cdiff Toxin B Gene (2yr or >) Negative Cdiff Gene (Neg)
[2025-10-16] MEDS ORDERED: GLUCOSE 40% GEL 15 GM TUBE PO PRN (16:00)
[2025-10-16] MEDS ORDERED: GLUCOSE 10 TAB/TUBE PO PRN (16:00)
[2025-10-16] MEDS ORDERED: DEXTROSE 50% 50 ML SYRINGE IV PRN (16:00)
[2025-10-16] MEDS ORDERED: CARBOHYDRATES FOR HYPOGLYCEMIA PO PRN (16:00)
[2025-10-16] MEDS ORDERED: GLUCAGON FOR INJ 1 MG VIAL SQ PRN (16:00)
[2025-10-16] MEDS: INSULIN REGULAR 250 UNITS in SODIUM CHLORIDE 0.9% 247.5 ML IV SCH (16:39)
[2025-10-16] MEDS: LACTATED RINGER'S 1,000 ML IV ONE (16:40)
[2025-10-16] MEDS: INSULIN PROTOCOL GOAL RANGE ONE (16:44)
[2025-10-16] MEDS: SEVERE STRESS LEVEL ONE (16:44)
[2025-10-16] MEDS: INSULIN ASPART PER UNIT CHARGE SC SCH (16:47)
--- NOTE | 2025-10-16 16:54 | Billing Data ---
Date of Service October 16, 2025 Coding Level of Care Code 77636 CRITICAL CARE 1ST 30-74M Time Spent (min) 115
[2025-10-16] MEDS: ALBUMIN 5% 500 ML IV ONE (17:03)
[2025-10-16] MEDS ORDERED: ONDANSETRON INJ 2 MG/ML 2 ML VIAL ONE (17:25)
[2025-10-16] MEDS ORDERED: LIDOCAINE 2% 2 ML VIAL/AMP(20MG/ML) INFIL ONE (17:25)
[2025-10-16] MEDS ORDERED: DEXAMETHASONE SOD INJ 4 MG/ML VIAL ONE (17:25)
[2025-10-16] MEDS ORDERED: PROPOFOL IV EMULSION 10 MG/ML 20 ML VIAL IV ONE (17:25)
[2025-10-16] MEDS ORDERED: SUCCINYLCHOLINE CHLORIDE 20 MG/ML 10 ML VIAL IV ONE (17:26)
[2025-10-16] MEDS ORDERED: ROCURONIUM BROMIDE 10 MG/ML 5 ML VIAL IV ONE ×2 (17:26→19:27)
[2025-10-16 17:28] LABS: Thyroid Stimulating Hormone 3.628 uIu/ml (0.300-4.500)
[2025-10-16] MEDS ORDERED: MIDAZOLAM HCL 1 MG/ML 2ML VIAL ONE ×2 (17:30→19:26)
--- NOTE | 2025-10-16 17:32 | CT Scan Report ---
Clinical History: Possible ischemic colitis Technique: Axial computed tomography images were obtained of the abdomen and pelvis after the administration of intravenous and oral contrast. Comparison is made to the prior CT obtained earlier today Findings: The liver is overall of normal size, attenuation, and contour with no sign of cirrhosis or significant fatty infiltration. No liver mass lesion is seen. The portal vein is patent. There is new high attenuation material within the gallbladder that could represent vicarious excretion of the previously administered contrast. No bile duct dilatation is noted. The spleen is of normal size. There is an unchanged 1.2 cm apparent homogeneously enhancing mass in the central spleen. The pancreas appears normal with no sign of acute or chronic pancreatitis and no mass lesion noted. The pancreatic duct is of normal caliber. The adrenal glands appear unremarkable. No definite renal or proximal ureteral calculi are seen on this contrast-enhanced study. There is no hydronephrosis or perinephric stranding. No renal mass lesion is identified. There is a 1.9 cm left renal cyst. There is a 9 mm right renal cyst The aorta is of normal caliber. No abdominal adenopathy is seen. There is an unchanged percutaneous gastrostomy tube. There is slightly worsened small bowel dilatation, consistent with small bowel obstruction at the level of the distal ileum. There is colonic diverticulosis without clear acute diverticulitis. There is apparent wall thickening of the proximal sigmoid colon. No clear pneumatosis is seen. There is constipation with possible rectal fecal impaction. No free intraperitoneal air is identified. There is an increased moderate amount of ascites. There is mesenteric fluid and edema No distal ureteral or bladder calculi are seen. The bladder is decompressed, containing a Montaño catheter. The iliac arteries are of normal caliber. No pelvic adenopathy is noted. There are small bilateral inguinal hernias containing fat There is mild bilateral lower lobe atelectasis. Lumbar degenerative disc disease is seen. There is right greater than left hip osteoarthritis. No fracture is identified. No focal osseous lesion is seen Impression: 1. High-grade small bowel obstruction at the level of the distal ileum, slightly worsened 2. Increased moderate amount of ascites 3. Wall thickening of the proximal sigmoid colon that is nonspecific in nature but could be due to inflammatory bowel disease or infectious colitis. Ischemic colitis is less likely but cannot be excluded. Diverticulitis is also less likely 4. No pneumatosis, portal venous gas, or free intraperitoneal air 5. Unchanged small splenic mass, indeterminate in nature but likely a benign hemangioma 6. Bilateral renal cysts 7. Small bilateral inguinal hernias containing only fat 8. Constipation with possible rectal fecal impaction ACT 112: Positive. There are findings on this exam that require communication between the performing entity and the patient following Patient Test Result Information Act ([place] ACT 112) guidelines. Electronically signed by Sravan Ha 10-16-2025 5:31 PM
[2025-10-16] MEDS ORDERED: VASOPRESSIN 20 UNIT/ML VIAL ONE (17:35)
--- NOTE | 2025-10-16 17:41 | Communication Note ---
Date of Service: October 16, 2025 General Surgery alerted that patient had another syncopal event and increased abdominal pain. Still requiring low-dose pressors, abdominal pain is mostly resolved. Afebrile with stable vitals. Abdomen is soft, tender to palpation, slightly more distended. Repeat CT scan personally viewed interpreted and agree with the assessment of increased dilation of the small bowel along with increased ascites. He still has a large stool ball despite the multiple bowel movements. Unclear etiology for his symptoms, but given his worsening lactate and recurrent symptoms along with his new CT findings, we recommend expiration in the operating room. Plan for exploratory laparotomy, possible bowel resection, possible open abdomen Risks of the procedure were discussed to include but not limited to bleeding, infection, ostomy, damage surrounding structures, need for future more extensive surgery, open abdomen, and the risk of anesthesia Further recommendations to follow surgery
--- NOTE | 2025-10-16 17:45 | XCELERA ---
[id number]
[2025-10-16] MEDS ORDERED: ETOMIDATE 2 MG/ML 20 ML VIAL IV ONE (17:59)
--- NOTE | 2025-10-16 18:07 | Anesthesiology Consultation ---
Date of Service October 16, 2025 Assessment & Plan (1) Encounter for pre-operative examination: Chart Review Chart Review: Acceptable Risk for Surgery and Patient NOT seen in Pre Admission Testing Consults Requested none History Surgery Operation Date: 10/16/25 17:20 Proposed Procedures p Exploratory Laparotomy - Wan Maria DO, FACS s Exploratory laparotomy, possible bowel resection, possible ostomy - Wan Maria DO, FACS Height/Weight Height: 5 ft 11 in Weight: 69.6 kg Allergies Allergy/AdvReac Type Severity Reaction Status Date / Time prednisone AdvReac Intermediate Unable to Verified 10/08/25 15:27 Tolerate Medications Home Medications Medication Instructions Recorded Confirmed Last Taken quetiapine 25 mg tablet (Seroquel) 25 mg PO HS 07/09/25 10/13/25 09/05/25 23:00 [id number] tablet 1 tab PO QAM 07/12/25 10/13/25 09/05/25 10:00 diphenhydramine 25 2 tab PO HS PRN Sleep 07/18/25 10/13/25 09/05/25 23:00 mg-acetaminophen 500 mg tablet (Tylenol PM Extra Strength) olanzapine 2.5 mg tablet 2.5 mg PO DAILY PRN Chemo 08/29/25 10/13/25 09/05/25 23:00 ondansetron 8 mg disintegrating 8 mg translingual DAILY PRN Nausea 08/29/25 10/13/25 Unknown tablet And Vomiting prochlorperazine maleate 10 mg 10 mg PO DAILY PRN Nausea And 08/29/25 10/13/25 Unknown tablet Vomiting sucralfate 100 mg/mL oral 10 ml PO ACHS 10/01/25 10/13/25 Unknown suspension nystatin 100,000 unit/mL oral 5 ml PO QID PRN THRUSH 10/13/25 10/13/25 Unknown suspension Active Medications Generic Name Dose Route Start Last Admin Trade Name Freq PRN Reason Stop Dose Admin Lactated Ringer's 1,000 mls @ 125 mls/hr 10/13/25 21:58 10/16/25 16:54 Lr IV 10/16/25 21:57 125 mls/hr .Q8H FARHAT Administration Amiodarone HCl/Dextrose 360 mg in 200 mls @ 16.667 mls/hr 10/16/25 12:45 10/16/25 14:32 Nexterone / D5w IV 11/15/25 12:44 0.5 mg/min .Q12H FARHAT 16.7 mls/hr Administration 0.5 MG/MIN Acetaminophen 1,000 mg in 100 mls @ 400 mls/hr 10/16/25 09:00 10/16/25 17:09 Ofirmev IV 10/19/25 08:59 Infused Q8@0000,0800,1600 FARHAT Infusion Norepinephrine Bitartrate 4 mg in 250 mls @ 31.32 mls/hr 10/16/25 11:15 10/16/25 17:42 Levophed/D5w IV 11/15/25 11:14 0.12 mcg/kg/min .Q7H59M FARHAT 31.3 mls/hr Administration Protocol 0.12 MCG/KG/MIN Vasopressin 20 units/ Sodium 101 mls @ 12.12 mls/hr 10/16/25 13:15 10/16/25 13:22 Chloride IV 11/15/25 13:14 0.04 unit/min .Q8H20M FARHAT 12.1 mls/hr Administration 0.04 UNIT/MIN Piperacillin Sod/Tazobactam Sod 4.5 gm in 100 mls @ 25 mls/hr 10/16/25 13:30 10/16/25 13:45 Zosyn IV 10/18/25 13:29 25 mls/hr Q8H FARHAT Administration Protocol Insulin Human Regular 250 250 mls @ 2.6 mls/hr 10/16/25 15:15 10/16/25 17:36 units/ Sodium Chloride IV 11/15/25 15:14 2.6 unit/hr .Q24H FARHAT 2.6 mls/hr Titration Protocol 2.6 UNIT/HR Insulin Aspart 0 units 10/16/25 16:30 10/16/25 16:47 Insulin Aspart Per Unit Charge SC 11/15/25 16:29 Not Given ACHS [facility] Ondansetron HCl 4 mg 10/13/25 21:58 10/15/25 21:46 Ondansetron Inj 2 Mg/Ml 2 Ml Vial IV 11/12/25 21:57 4 mg Q6H PRN Administration Nausea NPO Date Last Intake of Fluids: 10/13/25 Last Intake of Fluids Comment: 10/13/25 Past Medical History Medical History (Updated 10/16/25 @ 18:06 by Franky Mckenzie MD) Syncope Small bowel obstruction AAA (abdominal aortic aneurysm) SVT (supraventricular tachycardia) Hypotension MGUS (monoclonal gammopathy of unknown significance) elevated IgA kappa monoclonal band 07/2025 Malignant tumor of base of tongue dx 07/18/25 - [facility] – [place] Heme/Oncology Dr Hall - [facility] [place] Radiation Oncology - first chemo 09/05/25 Weight loss, abnormal 50lbs as per patients - related to cancer dx Diverticulosis Nonmelanoma skin cancer Ascending aortic aneurysm 4.3 cm root dilatation Hyperlipidemia Allergic rhinitis Asthma per EMR since 2019, no inhalers Anxiety (12/11/12) Benign prostatic hyperplasia with urinary obstruction Depression (12/11/12) History of recent hospitalization (07/10/25) hospitalized at [facility] for syncope and noted increased weakness 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 hands currently Past Family History Family History Family/Other Anxiety Multiple sclerosis Inflammatory bowel disease Father , in his 60s Multiple sclerosis Mother , Medical history unknown Daughter No problems noted. Other No family history of adverse response to anesthesia Past Surgical History Surgical History PEG (percutaneous endoscopic gastrostomy) status (09/06/25) s Esophagogastroduodenoscopy with Percutaneous Endoscopic Gastrostomy Tube(Not Applicable) - Tanvir Rivera DO p Insertion of Access Port With Fluoroscopy(Left) - Tanvir Rivera DO History of surgery Direct Microlaryngoscopy with Biopsies History of tooth extraction History of tonsillectomy S/P orchiopexy S/P TURP History of herniorrhaphy Left S/P colonoscopy Social History Smoking Status: Never smoker tobacco type: smokeless tobacco Do You Dip or Chew Tobacco: No (quit 8 months ago) Hx Alcohol Use: No Alcohol type: beer alcohol intake frequency: holidays/special occasions only Hx Substance Use: No substance use type: does not use Physical Exam Vital Signs Last Vital Signs Temp 36.4 C L 10/16/25 11:15 Pulse 85 10/16/25 16:45 Resp 18 10/16/25 16:45 BP 111/77 10/16/25 16:00 Pulse Ox 99 10/16/25 16:45 O2 Del Method Room Air 10/16/25 11:30 O2 Flow Rate 13 10/16/25 06:05 Testing Laboratory Results 10/16/25 14:14 10/16/25 14:14 PT 13.0 Seconds (9.0-12.0) H 10/16/25 08:25 INR 1.2 (0.9-1.1) H 10/16/25: APTT 27 Seconds (21-31) 10/16/25:25 Urine Color Yellow 10/16/25 15: Urine Appearance Clear (Clear) 10/16/25 15: Urine pH 5.0 (4.5-7.5) 10/16/25 15: Ur Specific [place] 1.015 (1.000-1.030) 10/16/25 15: Urine Protein 3+ (Negative) H 10/16/25 15:28 Urine Glucose (UA) Trace (Negative) H 10/16/25 15: Urine Ketones Trace (Negative) H 10/16/25 15: Urine Nitrite Negative (Negative) 10/16/25 15: Ur Leukocyte Esterase Negative (Negative) 10/16/25 15: Urine RBC 0-2 /hpf (0-2) 10/16/25 15:28 Urine WBC 6-10 /hpf (0-5) H 10/16/25 15:28 Ur Epithelial Cells 11-20 /hpf (0-2) H 10/16/25 15:28 10/16/25 10/16/25 17:30 07:32 POC Glucose 253 H POC Glucose (other) 244 H Electrocardiogram Date: 10/16/25 sinus tach. HR 109. otherwise normal ecg. Chest X-Ray Date: 10/16/25 SINGLE VIEW CHEST CLINICAL HISTORY: Shock. FINDINGS: An AP, portable, upright chest radiograph is compared to chest x-ray and chest CT dated 10/13/2025. A left subclavian central venous infusion port is unchanged in position. The heart is mildly enlarged noting atherosclerotic calcification of the thoracic aorta. The pulmonary vasculature is noncongested. Chronic interstitial thickening is similar to previous. There is bibasilar scarring/atelectasis. No airspace consolidation or large pleural effusion is identified. No pneumothorax is seen. The skeletal structures are osteopenic. The bony thorax is grossly intact. Arthritic change is noted in the shoulders. IMPRESSION: Cardiomegaly with no active disease in the chest. Other Testing abdomen CT scan: Impression: 1. High-grade small bowel obstruction at the level of the distal ileum, slightly worsened 2. Increased moderate amount of ascites 3. Wall thickening of the proximal sigmoid colon that is nonspecific in nature but could be due to inflammatory bowel disease or infectious colitis. Ischemic colitis is less likely but cannot be excluded. Diverticulitis is also less likely 4. No pneumatosis, portal venous gas, or free intraperitoneal air 5. Unchanged small splenic mass, indeterminate in nature but likely a benign hemangioma 6. Bilateral renal cysts 7. Small bilateral inguinal hernias containing only fat 8. Constipation with possible rectal fecal impaction
--- NOTE | 2025-10-16 19:17 | Hospitalist Progress Note ---
Date of Service October 16, 2025 Assessment & Plan (1) Small bowel obstruction: (2) PEG (percutaneous endoscopic gastrostomy) status: (3) Syncope: (4) Malignant tumor of base of tongue: (5) AAA (abdominal aortic aneurysm): (6) Shock: Plan Pt is a 80y/o M with a PMHx significant for Tongue CA, MGUS, Neuropathy, Asthma, Anxiety, Depression who presented to the ED c/o Syncopal episodes. Pt's states that when the episodes occur, the pt often drops to floor and remains awake but unaware. She notes that his hands and feet will often have repetitive movements. states that episodes started in July 2025 durin last hospitalization but pt was dx with malignant tumor at base of tongue and syncopal episodes "pushed to the back burner" #SBO - Presenting with abdominal pain, 3 episodes of emesis in ED; Tender abdomen on exam, no peritoneal signs at present; NGT placed. Patient with PEG tube placement by surgery on 09/06/2025. - worsening abdominal pain overnight, contacted general surgery to re-examine given concerning exam for bowel ischemia / peritonitis despite relatively unremarkable CT overnight, will defer repeat CT angiogram to ICU - continue PEG tube to low intermittent suction #Cardiogenic / Hypovolemic / Septic shock / syncope - Additional LR bolus, start levophed, discussed with ICU team and patient transferred to ICU - Zosyn given overnight, will defer ongoing antibiotics to ICU as less likely sepsis given normal WBC and lack of fever - cardiogenic shock while in SVT although this appears to have resolved with IV amiodarone - ongoing management per ICU team #KARRI No obstructive cause on imaging. UA pending. Suspected shock induced and likely creatinine will keep rising given lack of urine output #Syncope | Palpitations - Prior history of syncope, admitted 07/09/2025 until 07/11/2025; Pt's notes weekly episodes following initial admission; 2 episodes within 4hrs on 10/13 per - Cardiogenic versus neurogenic, occurs with very little to no warning. Becoming more frequent, more severe per caregivers - Echo unremarkable - concerning hypotensive episodes possibly related to this as above # Hypomagnesemia / hypokalemia - replacement per ICU protocol #Neoplasm base of tongue - diagnosed 07/18/2025, stage II; Pt due for next round of Chemo 10/17 and next round of radiation 10/23. Patient declined radiation today #AAA - H/o 4 cm ascending aorta aneurysm on chest CTA in the past, not mentioned on chest CTA at admission at 10/13/2025. #Depression | Anxiety - No acute concerns VTE Proph: SCDs, consider chemical prophyaxis depending on surgical plans Dispo: transfer to ICU Admission and Anticipated Discharge Date Admission Date: October 13, 2025 Subjective Patient seen in AM with worsening abdominal pain overnight. Contacted cardiology regarding narrow complex tachycardia from around 6am to 7am. Concerning exam for ischemic bowel - seen by surgery overnight with repeat CT A/P. Lactate increased this morning however this was after approximately hour of intermittent SVT. Seen by overnight team and started on amiodarone IV with no further episodes. Initially suspected increased lactate due to bowel ischemia vs. hypoperfusion while in SVT. 1.5L NSS bolus given overnight. Patient alert and orientated. However around 10am patient lactate not significantly improved. BP suddenly dropped to 60/40. Additional LR 1L bolus with Levophed ordered. Contacted ICU attending and patient transported to ICU. Contacted general surgery given frank oing concern for bowel ischemia with exquisitely tender abdomen. Of note blood pressure dropped shortly after phosphate enema given and then oral contrast past through PEG ?vagal. Montaño catheter placed due to concern for worsening renal function. Physical Exam Respiratory: normal respiratory effort, lungs clear to auscultation Cardiovascular: Rate/Rhythm: regular rhythm and + tachycardic Heart Sounds: no murmur Extremities: + abnormal capillary refill, no calf tenderness and no pedal edema Gastrointestinal (Abdomen): Inspection/Auscultation: + abnormal bowel sounds Percussion/Palpation: + abdomen tender (generalized), + guarding and + abdomen rigid; + abdomen not soft Skin: no rashes, warm and dry Neurologic: moves all extremities and awake; not confused Psychiatric: A+Ox3, euthymic affect Results & Data Results & Data Vital Signs (Past 12 Hours) Vital Signs Temp Pulse Pulse Resp BP BP Pulse Ox 10/16/25 18:00 86 20 92 10/16/25 17:57 90 16 98 10/16/25 17:51 88 22 100 10/16/25 17:45 96 H 21 99 10/16/25 17:42 90 24 100 10/16/25 17:36 89 21 98 10/16/25 17:30 93 H 19 91 10/16/25 17:27 87 20 100 10/16/25 17:21 89 20 100 10/16/25 17:15 87 21 100 10/16/25 17:12 88 20 100 10/16/25 17:06 90 24 98 10/16/25 17:00 90 17 99 10/16/25 17:00 36.4 C L 10/16/25 16:57 88 21 100 10/16/25 16:51 84 22 100 10/16/25 16:45 85 18 99 10/16/25 16:39 82 12 10/16/25 16:00 10/16/25 16:00 10/16/25 16:00 10/16/25 16:00 10/16/25 16:00 11110/16/25 16:00 86 25 H 97 10/16/25 15:45 93 H 30 H 10/16/25 15:30 101 H 20 97 10/16/25 15:15 91 H 21 97 10/16/25 15:01 11110/16/25 15:01 11110/16/25 15:01 111/10/16/25 15:01 111/10/16/25 15:00 97 H 22 73 L 10/16/25 14:45 97 H 15 97 10/16/25 14:42 94 H 18 98 10/16/25 14:36 95 H 15 100 10/16/25 14:30 105 H 30 H 89 L 10/16/25 14:27 94 H 20 97 10/16/25 14:21 90 22 97 10/16/25 14:15 88 21 97 10/16/25 14:12 86 25 H 98 10/16/25 14:06 85 20 100 10/16/25 14:00 105 H 28 H 77 L 10/16/25 13:57 98 H 30 H 90 10/16/25 13:51 85 24 99 10/16/25 13:45 88 29 H 94 10/16/25 13:42 89 16 95 10/16/25 13:36 94 H 23 99 10/16/25 13:30 85 15 91 10/16/25 13:27 92 H 19 97 10/16/25 13:21 89 10 L 94 10/16/25 13:15 92 H 18 95 10/16/25 13:13 91/72 L 10/16/25 13:13 91/72 L 10/16/25 13:13 91/72 L 10/16/25 13:12 95 H 24 97 10/16/25 13:06 114 H 25 H 94 10/16/25 13:05 56/41 L 10/16/25 13:03 112 H 22 85 L 10/16/25 13:00 111 H 32 H 89 L 10/16/25 12:57 101 H 19 94 10/16/25 12:51 100 H 13 97 10/16/25 12:45 113 H 18 98 10/16/25 12:42 116 H 21 98 10/16/25 12:31 84/69 L 10/16/25 12:31 84/69 L 10/16/25 12:30 99 H 21 10/16/25 12:21 105 H 17 98 10/16/25 12:20 100/65 10/16/25 12:20 100/65 10/16/25 12:18 97 H 22 97 10/16/25 12:12 99 H 22 96 10/16/25 12:10 92/68 L 10/16/25 12:09 97 H 21 97 10/16/25 12:03 100 H 19 95 10/16/25 12:02 77/55 L 10/16/25 12:00 107 H 22 93 10/16/25 11:54 103 H 13 95 10/16/25 11:46 80/53 L 10/16/25 11:45 98 H 26 H 78 L 10/16/25 11:42 100 H 29 H 96 10/16/25 11:42 100/64 10/16/25 11:33 114 H 22 10/16/25 11:32 70/50 L 10/16/25 11:30 36.8 C 10/16/25 11:30 10/16/25 11:24 103 H 5 L 10/16/25 11:15 101 H 0 L 10/16/25 11:15 36.4 C L 112 H 20 70/42 L 97 10/16/25 08:00 10/16/25 08:00 36.5 C 130 H 20 120/92 98 O2 Del Method 10/16/25 18:00 12/16/25 17:57 10/16/25 17:51 10/16/25 17:45 10/16/25 17:42 10/16/25 17:36 10/16/25 17:30 10/16/25 17:27 10/16/25 17:21 10/16/25 17:15 10/16/25 17:12 10/16/25 17:06 10/16/25 17:00 10/16/25 17:00 10/16/25 16:57 10/16/25 16:51 10/16/25 16:45 10/16/25 16:39 10/16/25 16:00 10/16/25 16:00 10/16/25 16:00 10/16/25 16:00 10/16/25 16:00 10/16/25 16:00 10/16/25 15:45 10/16/25 15:30 10/16/25 15:15 10/16/25 15:01 10/16/25 15:01 10/16/25 15:01 10/16/25 15:01 10/16/25 15:00 10/16/25 14:45 10/16/25 14:42 10/16/25 14:36 10/16/25 14:30 10/16/25 14:27 10/16/25 14:21 10/16/25 14:15 10/16/25 14:12 10/16/25 14:06 10/16/25 14:00 10/16/25 13:57 10/16/25 13:51 10/16/25 13:45 10/16/25 13:42 10/16/25 13:36 10/16/25 13:30 10/16/25 13:27 10/16/25 13:21 10/16/25 13:15 10/16/25 13:13 10/16/25 13:13 10/16/25 13:13 10/16/25 13:12 10/16/25 13:06 10/16/25 13:05 10/16/25 13:03 10/16/25 13:00 10/16/25 12:57 10/16/25 12:51 10/16/25 12:45 10/16/25 12:42 10/16/25 12:31 10/16/25 12:31 10/16/25 12:30 10/16/25 12:21 10/16/25 12:20 10/16/25 12:20 10/16/25 12:18 10/16/25 12:12 10/16/25 12:10 10/16/25 12:09 10/16/25 12:03 10/16/25 12:02 10/16/25 12:00 10/16/25 11:54 10/16/25 11:46 10/16/25 11:45 10/16/25 11:42 10/16/25 11:42 10/16/25 11:33 10/16/25 11:32 10/16/25 11:30 10/16/25 11:30 Room Air 10/16/25 11:24 10/16/25 11:15 10/16/25 11:15 Room Air 10/16/25 08:00 Room Air 10/16/25 08:00 Room Air PG Care Time/CCT Total # of Minutes Spent Total Time Spent with Patient: Total time spent is greater than 50% in coordination of care (as documented) at patient's floor/unit and/or counseling patient: Critical Care Time: Yes Total Critical Care Time: 50 Coding Level of Care Code 45757 SUB INP/OBS CARE 3/50MIN Diagnoses Small bowel obstruction K56.609 PEG (percutaneous endoscopic gastrostomy) status Z93.1 Syncope R55 Syncope type: unspecified Malignant tumor of base of tongue C01 AAA (abdominal aortic aneurysm) I71.40 Shock R57.9 Additional Codes Critical Care Time - Critical Care Time: Yes ([id number]) (3) Syncope Syncope type: unspecified Qualified Code(s): R55 - Syncope and collapse
[2025-10-16] MEDS: BUPIVACAINE LIPOSOME 1.3% 266 MG/20 ML VIAL ONE (19:33)
[2025-10-16] MEDS: BUPIVACAINE 0.5 % 5 MG/1 ML MPF 30ML VIAL ONE (19:33)
--- NOTE | 2025-10-16 19:54 | Operative Report ---
PG Post Operative Report Pre & Post Diagnosis Operation Date: 10/16/25 17:20 Pre-Op Diagnosis: Small bowel obstruction Post-Op Diagnosis: Bowel ischemia I identified the patient and participated in the time-out.: Yes Procedure Operation Date: 10/16/25 17:20 Actual Procedures p Exploratory Laparotomy, Small Bowel Resection, Temporary Abdominal Wound Closure with Abthera Wound Vac, Fecal Disimpaction(Not Applicable) - Wan Maria DO, FACS Surgeon Wan Maria DO, GREGORIO Branch Service Associate Salvatore Gutierrez Estimated Blood Loss 25 Findings Consistent with Post-Op Diagnosis 150 cm of ischemic small bowel, no obvious etiology. No obvious volvulus, no adhesions, no internal hernia. Palpable pulses proximally. Small bowel resection performed. Bowel left in discontinuity, temporary abdominal closure with ABThera wound VAC device. Fecal disimpaction performed. Specimens Peritoneal fluid cultures Ischemic small bowel Drains ABThera wound VAC Anesthesia Type General Complications none Disposition Accompanied Patient To Recovery: No Disposition: Recovery Room Indications 80-year-old male with tongue cancer, with PEG tube placement 1 month ago without complication, presented with small bowel obstruction and stercoral colitis. Over the past 12 to 24 hours he became progressively worse with tachycardia, hypotension, increased abdominal pain, syncopal episodes, and elevated lactate. Repeat CT scan showed worsening bowel distention with increased ascites. Plan for exploratory laparotomy, possible bowel resection, possible open abdomen. The risks of the procedure were discussed, all questions were answered, and the patient agreed to proceed with surgery as planned. Description of Procedure The patient was properly identified, consented, and taken to the operating room where he was placed in the supine position. General endotracheal anesthesia was induced. A jackson catheter, an NG tube, SCDs and a safety belt were placed. Preoperative antibiotics were administered. The patient's abdomen was prepped and draped in the standard sterile fashion. Surgical timeout was performed and all parties were in agreement that this was the correct patient and procedure to be performed and we continued as planned. A midline laparotomy incision was made with cautery and deepened down to the fascia with blunt dissection. The fascia was entered and there was hemorrhagic peritoneal fluid. There was also obvious ischemic bowel. The abdomen was explored. The small bowel was eviscerated. There was a large segment of ischemic small bowel. There were no obvious adhesions. There was no volvulus or internal hernia present. Along the proximal mesentery there appeared to be good blood flow and palpable pulses. Peritoneal fluid was sent for culture. About 2 L of peritoneal fluid was suctioned. The abdomen was then explored. I began at the ligament of Treitz and worked distally along the small bowel. There was approximately 120 cm of viable bowel from the ligament of Treitz working distally. This bowel was dilated. There was then 150 cm of clearly ischemic bowel. Distal to this there was approximately 90 cm of viable bowel, though proximally some of the bowel appeared threatened. The colon appeared normal but was full of stool. The NG tube was confirmed within the stomach. The prior PEG tube placement was intact. At this point we then performed the small bowel resection. The bowel was stapled using the JEET stapler both proximally and distally at the margins of ischemia. The small bowel mesentery was then divided utilizing the LigaSure device. A small bleeding vessel was controlled with a 3-0 silk [id number] suture. The small bowel was resected and measured 150 cm in size. This was passed off the table as specimen. The remainder of the bowel was inspected and appeared mostly viable. The mesentery resection line was inspected and hemostasis found to be excellent. Again there were palpable pulses within the mesentery. I then elected to leave the bowel in discontinuity. The abdomen was irrigated with 2 to 3 L of warm saline. An ABThera wound VAC device was then placed in the abdomen and hooked to suction with a good seal. Given the findings on the patient's CT scan of a large rectal stool burden, I then disimpacted the patient of firm claylike stool. The patient remained intubated and was taken to the ICU in critical condition. All sponge, instrument and needle counts were correct at the conclusion of the procedure. The patient tolerated the procedure well. We will plan for a second look laparotomy in the next 24 to 48 hours. The physicians school office assistant was present and scrubbed for the entirety of the case. He was critical in positioning the patient, prepping and draping, retraction and exposure, expiration of the abdomen, resection of the small bowel, placement of the ABThera wound VAC device. I attest to the content of the Intraoperative Record and any orders documented therein. Any exceptions are noted below.
--- NOTE | 2025-10-16 20:24 | Billing Data ---
Date of Service October 16, 2025 Coding Level of Care Code 19370 CRITICAL CARE
[2025-10-16] MEDS ORDERED: PROPOFOL BOLUS FROM BAG IV PRN (20:27)
[2025-10-16 20:58] LABS: Hematocrit (blood only) 26.4 % (42.0-52.0); Hemoglobin 9.3 g/dL (14.0-18.0); Mean Corpuscular Hemoglobin 30.3 pg (25.0-34.0); Mean Corpuscular Volume 86.0 fL (80.0-100.0); Platelet Count 246 K/uL (130-400); RDW Standard Deviation 49.8 fL (36.4-46.3); Red Blood Count 3.07 M/uL (4.70-6.10); White Blood Count 4.11 K/ul (4.8-10.8)
[2025-10-16] MEDS ORDERED: AMIODARONE / D5W 360 MG/200 ML BAG IV SCH (21:00)
--- NOTE | 2025-10-16 21:12 | Anesthesiology Progress Note ---
Date of Service October 16, 2025 Anesthesia Post Procedure Vital Signs Vital Signs: Temp Pulse Pulse Pulse Resp BP BP 10/16/25 20:12 35.3 C L 66 20 10/16/25 20:02 35.3 C L 62 20 10/16/25 19:52 35.3 C L 62 20 10/16/25 18:00 86 20 10/16/25 17:57 90 16 10/16/25 17:51 88 22 10/16/25 17:45 96 H 21 10/16/25 17:42 90 24 10/16/25 17:36 89 21 10/16/25 17:30 93 H 19 10/16/25 17:27 87 20 10/16/25 17:21 89 20 10/16/25 17:15 87 21 10/16/25 17:12 88 20 10/16/25 17:06 90 24 10/16/25 17:00 90 17 10/16/25 17:00 36.4 C L 10/16/25 16:57 88 21 10/16/25 16:51 84 22 10/16/25 16:45 85 18 10/16/25 16:39 82 12 10/16/25 16:00 10/16/25 16:00 10/16/25 16:00 10/16/25 16:00 10/16/25 16:00 10/16/25 16:00 86 25 H 10/16/25 15:45 93 H 30 H 10/16/25 15:30 101 H 20 10/16/25 15:15 91 H 21 10/16/25 15:01 10/16/25 15:01 10/16/25 15:01 10/16/25 15:01 10/16/25 15:00 97 H 22 10/16/25 14:45 97 H 15 10/16/25 14:42 94 H 18 10/16/25 14:36 95 H 15 10/16/25 14:30 105 H 30 H 10/16/25 14:27 94 H 20 10/16/25 14:21 90 22 10/16/25 14:15 88 21 10/16/25 14:12 86 25 H 10/16/25 14:06 85 20 10/16/25 14:00 105 H 28 H 10/16/25 13:57 98 H 30 H 10/16/25 13:51 85 24 10/16/25 13:45 88 29 H 10/16/25 13:42 89 16 10/16/25 13:36 94 H 23 10/16/25 13:30 85 15 10/16/25 13:27 92 H 19 10/16/25 13:21 89 10 L 10/16/25 13:15 92 H 18 10/16/25 13:13 91/72 L 10/16/25 13:13 91/72 L 10/16/25 13:13 91/72 L 10/16/25 13:12 95 H 24 10/16/25 13:06 114 H 25 H 10/16/25 13:05 56/41 L 10/16/25 13:03 112 H 22 10/16/25 13:00 111 H 32 H 10/16/25 12:57 101 H 19 10/16/25 12:51 100 H 13 10/16/25 12:45 113 H 18 10/16/25 12:42 116 H 21 10/16/25 12:31 84/69 L 10/16/25 12:31 84/69 L 10/16/25 12:30 99 H 21 10/16/25 12:21 105 H 17 10/16/25 12:20 100/65 10/16/25 12:20 100/65 10/16/25 12:18 97 H 22 10/16/25 12:12 99 H 22 10/16/25 12:10 92/68 L 10/16/25 12:09 97 H 21 10/16/25 12:03 100 H 19 10/16/25 12:02 77/55 L 10/16/25 12:00 107 H 22 10/16/25 11:54 103 H 13 10/16/25 11:46 80/53 L 10/16/25 11:45 98 H 26 H 10/16/25 11:42 100 H 29 H 10/16/25 11:42 100/64 10/16/25 11:33 114 H 22 10/16/25 11:32 70/50 L 10/16/25 11:30 36.8 C 10/16/25 11:30 10/16/25 11:24 103 H 5 L 10/16/25 11:15 101 H 0 L 10/16/25 11:15 36.4 C L 112 H 20 70/42 L 10/16/25 08:00 10/16/25 08:00 36.5 C 130 H 20 120/92 10/16/25 06:30 110 H 109/75 10/16/25 06:10 125/89 10/16/25 06:08 94 H 108/74 10/16/25 06:05 131 H 73/56 L 10/16/25 02:02 36.4 C L 77 18 149/77 H 10/16/25 01:56 10/15/25 22:28 36.5 C 84 18 152/81 H 10/15/25 22:17 83 BP Pulse Ox O2 Del Method O2 Flow Rate FiO2 10/16/25 20:12 131/76 100 Mechanical Vent 40 10/16/25 20:02 129/70 100 Mechanical Vent 40 10/16/25 19:52 126/72 100 Mechanical Vent 40 10/16/25 18:00 92 10/16/25 17:57 98 10/16/25 17:51 100 10/16/25 17:45 99 10/16/25 17:42 100 10/16/25 17:36 98 10/16/25 17:30 91 10/16/25 17:27 100 10/16/25 17:21 100 10/16/25 17:15 100 10/16/25 17:12 100 10/16/25 17:06 98 10/16/25 17:00 99 10/16/25 17:00 10/16/25 16:57 100 10/16/25 16:51 100 10/16/25 16:45 99 10/16/25 16:39 10/16/25 16:00 10/16/25 16:00 10/16/25 16:00 10/16/25 16:00 10/16/25 16:00 10/16/25 16:00 97 10/16/25 15:45 10/16/25 15:30 97 10/16/25 15:15 97 10/16/25 15:01 10/16/25 15:01 10/16/25 15:01 10/16/25 15:01 10/16/25 15:00 73 L 10/16/25 14:45 97 10/16/25 14:42 98 10/16/25 14:36 100 10/16/25 14:30 89 L 10/16/25 14:27 97 10/16/25 14:21 97 10/16/25 14:15 97 10/16/25 14:12 98 10/16/25 14:06 100 10/16/25 14:00 77 L 10/16/25 13:57 90 10/16/25 13:51 99 10/16/25 13:45 94 10/16/25 13:42 95 10/16/25 13:36 99 10/16/25 13:30 91 10/16/25 13:27 97 10/16/25 13:21 94 10/16/25 13:15 95 10/16/25 13:13 10/16/25 13:13 10/16/25 13:13 10/16/25 13:12 97 10/16/25 13:06 94 10/16/25 13:05 10/16/25 13:03 85 L 10/16/25 13:00 89 L 10/16/25 12:57 94 10/16/25 12:51 97 10/16/25 12:45 98 10/16/25 12:42 98 10/16/25 12:31 10/16/25 12:31 10/16/25 12:30 10/16/25 12:21 98 10/16/25 12:20 10/16/25 12:20 10/16/25 12:18 97 10/16/25 12:12 96 10/16/25 12:10 10/16/25 12:09 97 10/16/25 12:03 95 10/16/25 12:02 10/16/25 12:00 93 10/16/25 11:54 95 10/16/25 11:46 10/16/25 11:45 78 L 10/16/25 11:42 96 10/16/25 11:42 10/16/25 11:33 10/16/25 11:32 10/16/25 11:30 10/16/25 11:30 Room Air 10/16/25 11:24 10/16/25 11:15 10/16/25 11:15 97 Room Air 10/16/25 08:00 Room Air 10/16/25 08:00 98 Room Air 10/16/25 06:30 10/16/25 06:10 10/16/25 06:08 100 Room Air 10/16/25 06:05 100 Oxymask 13 10/16/25 02:02 97 Room Air 10/16/25 01:56 Room Air 10/15/25 22:28 98 Room Air 10/15/25 22:17 Transfer of Care Handoff Completed per policy Notes Mental Status: see notes below Patient Amnestic to Procedure: Yes Nausea / Vomiting: adequately controlled Pain: adequately controlled Airway Patency, RR, SpO2: see Notes below BP & HR: stable & adequate Hydration State: stable & adequate Anesthetic Complications: no major complications apparent Notes: patient brought back to ICU intubated and sedated as he had an open abdomen with vac.
[2025-10-16 21:16] LABS: Albumin Level 2.9 gm/dl (3.4-5.0); Anion Gap 11.0 (3-11); Bilirubin,Total 0.5 mg/dl (0.2-1.0); Calcium 7.1 mg/dl (8.6-10.3); Carbon Dioxide 21.0 mmol/L (21-32); Chloride 102.0 mmol/L (98-107); Magnesium 2.0 mg/dl (1.7-2.4); Potassium 4.0 mmol/L (3.5-5.1); Sodium 134.0 mmol/L (136-145)
[2025-10-16 21:22] LABS: Alanine Aminotransferase 8.0 U/L (7-52); Albumin Globulin Ratio 1.8 (0.9-2); Alkaline Phosphatase 54.0 U/L (34-104); Blood Urea Nitrogen 43.0 mg/dl (6-23); Creatinine Clr Calc Pharmacy 37.5 ml/min; Globulin 1.6 gm/dl (2.5-4.0); Glucose 155.0 mg/dl (70-99(Fasting)); Total Protein 4.5 gm/dl (6.0-8.3)
--- NOTE | 2025-10-16 22:00 | XRay Report ---
Exam(s): XR CXR 1 VIEW EXAM: XR Chest, 1 View CLINICAL HISTORY: ET tube/NGT placement. TECHNIQUE: Frontal view of the chest. COMPARISON: 0750 hours FINDINGS: Lungs: Curvilinear changes involving both lower lobes, slightly increased from the previous examination. No radiographic evidence for florid CHF. Pleural space: No significant abnormality. No pneumothorax. No large pleural effusion. Heart: No significant abnormality. No cardiomegaly. Mediastinum: No significant abnormality identified. The trachea is midline. Bones/joints: No significant abnormality. No acute fracture. Tubes, lines and devices: The endotracheal tube is approximately 4.8 cm from the nilson. Nasogastric tube tip in the stomach. A left subclavian port a catheter is noted with the tip stable in position, presumed in the left brachiocephalic vein. IMPRESSION: 1. The endotracheal tube is approximately 4.8 cm from the nilson. The nasogastric tube terminates in the left upper quadrant, presumably in the proximal to mid stomach. 2. Curvilinear changes involving both lower lobes, slightly increased from the previous examination. Favor atelectasis over developing infection. No radiographic evidence for florid CHF. Electronically signed by: Tanvir Vidal MD 10/16/25 21:59 PM
[2025-10-16 22:02] LABS: iSTAT Art Bld Gas Base Excess -5.0 mmol/L (-9-1.8); iSTAT Art Bld Gas pCO2 Correct 29 mmHg (35-46); iSTAT Art Bld Gas pH Corrected 7.437 (7.35-7.45); iSTAT Arterial Blood Gas pO2 C 186
[2025-10-16] MEDS: HYDROCORTISONE SOD 50 MG in SYRINGE 0 ML IV SCH (22:20)
[2025-10-16] MEDS: fentaNYL citrate 2,500 MCG/250 ML BAG IV SCH (22:22)
[2025-10-16] MEDS: PANTOprazole 40 MG/10 ML SYR IV SCH (22:23)
[2025-10-16 22:26] LABS: Acanthocytes 1+; Basophilic Stippling 1+; Dohle Bodies 1+; Immature Granulocytes # (auto) 0.04 K/uL (0.01-0.20); Immature Granulocytes % (auto) 1.0 %; Polychromasia 1+; Toxic Granulation 1+
--- NOTE | 2025-10-16 22:56 | Communication Note ---
Date of Service: October 16, 2025 The patient is a 80-year-old male who presented to the Emergency Department on 10/13/2025 with recurrent syncope, reporting approximately six episodes of loss of consciousness over the prior two days, associated with amnesia for the falls, shortness of breath, nausea without vomiting, and no chest or abdominal pain. 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 Emergency Department Course (10/13/2025): On arrival, the patient was chronically ill-appearing but alert. Vitals showed mild tachypnea and intermittent tachycardia. Laboratory studies showed leukopenia (WBC 3.89 K/L), mild anemia, hyponatremia, hypokalemia, and a slightly elevated anion gap. Imaging included a CT abdomen/pelvis (10/13/2025 19:23) demonstrating small bowel obstruction (SBO) with a transition point in the mid-abdomen, stercoral colitis with a large rectal stool ball, and small volume ascites. Chest X-ray and CT head were negative for acute findings. The patient was started on IV fluids, antiemetics, and NGT decompression. History & Physical (10/13/2025): The patient and spouse reported weekly syncopal episodes over the preceding five months, with recent increased frequency. Associated symptoms included palpitations, fatigue, insomnia, nausea, and progressive constipation. Exam revealed underweight status, neck erythema (from radiation), clear lungs, irregularly irregular cardiac rhythm, and a tender, hypoactive abdomen. Hospitalist Progress Note (10/16/2025): The patient developed worsening abdominal pain overnight, raising concern for bowel ischemia or peritonitis. Exam showed generalized abdominal tenderness with guarding and rigidity, abnormal bowel sounds, and delayed capillary refill. The patient experienced an SVT episode in the morning hours, which resolved after IV amiodarone. There was also increase in Lactate level (6.1, then 5.7). After a phosphate enema and oral contrast via PEG, the patient developed acute hypotension (BP 60/40 mmHg), treated with additional fluids and norepinephrine, and was transferred to the ICU. Montaño catheter was placed, and general surgery was re-consulted for possible ischemic bowel. CT Abdomen/Pelvis (10/16/2025, service date): Contrast-enhanced CT demonstrated high-grade distal ileal SBO, slightly worsened compared to earlier imaging, with increased moderate ascites, proximal sigmoid colon wall thickening (nonspecific), and possible rectal fecal impaction. No pneumatosis, portal venous gas, or free intraperitoneal air was seen. Critical Care Consultation (10/16/2025): The patient was managed with norepinephrine, vasopressin, and hydrocortisone for shock, and started on empiric piperacillin-tazobactam. Amiodarone was continued for SVT. Bedside echocardiogram showed no pericardial effusion. CT abdomen/pelvis (around midnight 10/16/2025) confirmed SBO and moderate ascites. The patient remained NPO, with PEG to suction, and was monitored for ongoing sepsis and GI bleeding. Cardiology Consultation (10/16/2025): Cardiology recommended continued amiodarone, telemetry, and electrolyte repletion, with plans for outpatient EP evaluation once stable. Anesthesiology Consultation (10/16/2025: Consent was obtained for exploratory laparotomy with possible bowel resection and ostomy. General Surgery Communication Notes (10/16/2025): Due to worsening lactate, recurrent symptoms, and new imaging findings, the surgical team recommended operative exploration. Echocardiogram (10/16/2025, study date 20:35, signed 17:44): Transthoracic echocardiogram showed normal LV ejection fraction, with no regional wall motion abnormalities reported in the visible portion of the report. Operative Report (10/16/2025): The patient underwent exploratory laparotomy with small bowel resection, temporary abdominal closure with ABThera wound VAC, and fecal disimpaction. Intraoperatively, approximately 150 cm of ischemic small bowel was resected; no volvulus, adhesions, or internal hernia was identified. There was 2 L of hemorrhagic peritoneal fluid. The colon was full of stool, and the PEG tube was intact. The bowel was left in discontinuity, and the patient was transferred to the ICU intubated and in critical condition, with plans for a second-look laparotomy in 24-48 hours. ICU note evening of 10/16/2025: The patient was transferred to the ICU intubated on IV Norepinephrine and Vasopressin. I discontinued Vasopressin because of concern about potential for contribution to bowel-ischemia. Amiodarone had been off, so I kept it off. I reviewed vent settings and continued the patient on Volume-Control, 20/450/40%/+5. I reviewed CXR, and ETT was in good position, and the tip of the NG tube and side-port were below the diaphragm. I added Propofol and Fenatnyl. I ordered restraints." Neuro/Psych Currently sedated on mechanical ventilation; Recurrent syncope, weekly episodes, amnesia, post-event confusion; Unable to assess at this time; Cardio Ascending aortic aneurysm (root 4.3 cm); Norepinephrine, vasopressin infusions; Shock requiring vasopressors; SVT (supraventricular tachycardia), likely AVNRT; Resp Mechanical ventilation while still intubated for planned repeat laparotomy; GI/Nutr Bowel ischemia; Bowel left in discontinuity, open abdomen; CT: Hepatic steatosis; CT: Small splenic mass, likely hemangioma; Fecal disimpaction performed; High-grade small bowel obstruction (distal ileum); Intra-op: 150 cm ischemic small bowel resected; Intra-op: 2 L hemorrhagic peritoneal fluid/ascites evacuated; NG tube to low intermittent suction; PEG to low intermittent suction; Plan: second-look laparotomy in 24-48 hours; Stercoral colitis; /Lytes Creatinine elevated (1.48 up from 0.67); [KARRI secondary to hypoperfusion] High anion gap metabolic acidosis with mixed disorder; Endocrine Hydrocortisone stress-dose; Hyperglycemia (glucose 146-253 mg/dL); Heme/Onc Malignant tumor of base of tongue (HPV-related SCC); MGUS (elevated IgA kappa band 07/2025); Mild normocytic anemia (Hgb 11.8 g/dL); Port-a-cath insertion (left) 09/06/25; Progressive fatigue, cachexia, severe weight loss; Weight loss 50 lb; Infectious Elevated lactate (up to 6.1, 5.7); Possible contribution from bowel-ischemia; [Septic shock] Leukopenia (WBC 3.89-3.98 K/L); UA: Protein 3+, WBC 6-10/hpf, Epithelial cells 11-20/hpf; Possible cystitis, unlikely etiology of septic shock, but can't be rule out; A- Feed/Fluids: NPO; maintenance LR 125 mL/hr; strict I&O B- Analgesia: Fentanyl C- Sedation: Propofol D- DVT proph: SCDs placed; chemical prophylaxis held for planned surgery E- Head-up: 30 Degrees while intubated F- Ulcer Proph: Pantoprazole 40 mg IV BID G- Glucose Control: Per ICU protocol H- Spontaneous Breathing Trial: Not applicable immediately post-op; patient remained intubated, open abdomen I- Bowel Care: Not applicable at this time. NPO. Disimpacted intra-op J- Indwelling Catheter: Montaño catheter for accurate I/O; ABThera wound VAC; NG tube to suction; PEG to suction; ETT post-op; left-sided chemo-port; arterial line placed K- Antibiotics/De-escalation: Empiric Zosyn L- Code-Status: DNR/DNI M- Disposition: ICU, intubated, critical condition; planned second-[id number] laparotomy in 24-48 hours; surgery, cardiology, and critical care following I have personally spent 65 minutes of critical care time in the direct management of this patient. This is a life/limb threatening event. This includes time spent evaluating the patient, direct bedside care, chart review, placing orders, interpreting diagnostic studies, communicating with consultants, attending providers, patient, and family members, as well as required patient management activities. This time is exclusive of all separately-billable procedures and teaching time, and separate from and in addition to any other critical care service time. Coding Level of Care Code 47697 CRITICAL CARE 1ST 30-74M Time Spent (min) 65 Comment See end of "Communication Note" above.
[2025-10-16] MEDS ORDERED: SODIUM CHLORIDE 0.9% 100 ML IV PRN (23:04)
[2025-10-16 23:21] LABS: Hematocrit (blood only) 22.7 % (42.0-52.0); Hemoglobin 7.9 g/dL (14.0-18.0); Mean Corpuscular Hemoglobin 29.9 pg (25.0-34.0); Mean Corpuscular Volume 86.0 fL (80.0-100.0); Platelet Count 251 K/uL (130-400); RDW Standard Deviation 49.7 fL (36.4-46.3); Red Blood Count 2.64 M/uL (4.70-6.10); White Blood Count 4.71 K/ul (4.8-10.8)
[2025-10-16 23:40] LABS: INR 1.4 (0.9-1.1); Partial Thromboplastin Time 64 Seconds (21-31)
[2025-10-16 23:46] LABS: Acanthocytes 1+; Dohle Bodies 1+; Immature Granulocytes # (auto) 0.02 K/uL (0.01-0.20); Immature Granulocytes % (auto) 0.4 %; Polychromasia 1+; Toxic Granulation 1+
[2025-10-16 23:57] LABS: iSTAT Art Bld Gas Base Excess -4.0 mmol/L (-9-1.8); iSTAT Art Bld Gas pCO2 Correct 33 mmHg (35-46); iSTAT Art Bld Gas pH Corrected 7.408 (7.35-7.45); iSTAT Arterial Blood Gas pO2 C 103
[2025-10-17 00:01] LABS: Prothrombin Time 14.7 Seconds (9.0-12.0)
[2025-10-17 00:09] LABS: Fibrinogen 256 mg/dl (184-400)
[2025-10-17] MEDS ORDERED: SODIUM CHLORIDE 0.9% 100 ML IV PRN ×7 (00:14→14:31)
--- NOTE | 2025-10-17 00:29 | Communication Note ---
Date of Service: October 17, 2025 I was called by nursing staff at approximately 11:00 PM and there is concern that patient was hemorrhaging from his abdomen. I reported the bedside im mediately. This patient is well-known to me as we performed exploratory laparotomy earlier this evening. Patient has a wound VAC on his abdomen with a 600 cc canister. The first canister had to be emptied for 600 cc of bloody drainage. Canister #2 filled to approximately 300 cc and then suction on the back failed to work. I was able to successfully change the outer covering of the wound VAC and obtain better suction. Canister #3 has since filled up with approximately 300 and additional cc of bloody drainage. During these events patient had repeat labs drawn. His hemoglobin and hematocr it are 7.9 and 22.7, down from 9.3 and 26.4 immediately after surgery. Platelet count is stable at 251,000. An INR was checked and is 1.4 and a PTT is 64. D- dimer is elevated at 1910. Fibrinogen level is normal at a level of 256. Patient does have a lactic acid level of 2.6 which is elevated, and this is the same level immediately after surgery. An ABG was also checked revealing a pH of 7.39, pCO2 of 34, pO2 of 109 and a bicarb level of 20. During these events nursing also relayed to me that patient has been hypotensive with great difficulty obtaining a systolic blood pressure of 100. Patient was initially on Levophed at 0.12 and this had to be increased to 0.2, again even with this modality it was difficult to maintain a blood pressure of greater than 100 systolic. Of note, the patient did not exhibit tachycardia. Over the course of approximately 1.5 hours the patient was reexamined multiple times and his wound VAC again failed to hold suction as the patient had a large amount of sanguinous fluid collecting between the occlusive dressing and VAC sponge. I suspect that the patient has intra-abdominal hemorrhage. I discussed the situation with the patient's via phone explaining the critical nature of this problem. I had outlined possible options with her which include taking patient back to the operating room for exploratory laparotomy and control of hemorrhage versus merely transfusing the patient with blood products or even pursuing comfort measures. At this point in time she wishes to pursue all measures and wishes us to take patient back to the operating room for exploratory laparotomy and therefore the operating room team has been called and we will proceed with this modality. Phone consent has been obtained from the and has been witnessed by myself and the patient's nurse who was present at bedside and present for the conversation with the patient's . In the interim 2 units of packed red blood cells have been ordered to be transfused we are currently awaiting blood bank to send these products to the bedside. The above situation and plan was discussed with my attending physician Dr. Maria. Patient seen and examined, labs reviewed, discussed with BARTOLO, agree with above. Recent laparotomy with temporary abdominal closure for ischemic small bowel status post laparotomy with small bowel resection left in discontinuity with ABThera wound VAC closure. Initially was doing well in the ICU, however became hypothermic, and increased output from his wound VAC, and hypotensive. He required increasing doses of pressors. His wound VAC had decreased output and appeared to have clotted blood. Repeat labs showed a downtrending H&H from his initial postop levels. 2 units of PRBCs were ordered. Plan for exploratory laparotomy and washout, temporary abdominal closure Risks of the procedure were discussed with the and his daughter to include but not limited to bleeding, infection, damage to surrounding structures, need for future more extensive surgery, the risk of anesthesia Will give TXA in the operating room Very guarded prognosis
[2025-10-17] MEDS ORDERED: MIDAZOLAM HCL 1 MG/ML 2ML VIAL ONE (00:52)
[2025-10-17] MEDS ORDERED: VASOPRESSIN 20 UNIT/ML VIAL ONE (00:52)
[2025-10-17] MEDS ORDERED: PHENYLEPHRINE 100MCG/ML 5ML SYR ONE (00:52)
[2025-10-17] MEDS ORDERED: ROCURONIUM BROMIDE 10 MG/ML 5 ML VIAL IV ONE (00:52)
[2025-10-17] MEDS ORDERED: ePHEDrine sulfate 50 MG/5 ML SYR ONE (00:52)
--- NOTE | 2025-10-17 02:21 | Operative Report ---
PG Post Operative Report Pre & Post Diagnosis Operation Date: 10/17/25 01:30 Pre-Op Diagnosis: Hypotension, recent laparotomy, concern for bleeding Post-Op Diagnosis: No significant bleeding, ischemic bowel I identified the patient and participated in the time-out.: Yes Procedure Operation Date: 10/17/25 01:30 Actual Procedures p opening of recent laparotomy, exploratory Laparotomy, Small Bowel Resection, washout, temporary Abdominal Wound Closure with Abthera Wound Vac - Wan Maria DO, FACS Surgeon Wan Maria DO, GREGORIO Staple Shear Operator Salvatore Gutierrez Estimated Blood Loss 5 Findings Consistent with Post-Op Diagnosis ABThera wound VAC device removed. Small amount of ascites identified, no blood clots or significant hemorrhage. Abdomen explored, no significant bleeding along divided mesentery. No hemorrhage within the abdomen. Threatened area of distal small bowel appeared ischemic, 10 cm segment was resected with a JEET stapler and LigaSure was used to divide the mesentery. Good hemostasis. Irrigated with 2 L saline, ABThera wound VAC reapplied. Specimens Small bowel Anesthesia Type General Complications none Disposition Accompanied Patient To Recovery: No Disposition: Recovery Room Indications 80-year-old male status post exploratory laparotomy on the afternoon of 16 October 2025 with resection of 150 cm of ischemic bowel, left in discontinuity with ABThera wound VAC device. At the time of surgery there was minimal bleeding. During his postoperative course he became progressively hypothermic, hypotensive, and his wound VAC had high output and appeared to have some clotted blood. His hemoglobin dropped 2 points from his postoperative labs. After discussion with the ICU and with the family, elected for exploratory laparotomy, possible bowel resection, possible open abdomen. The risks of the procedure were discussed, all questions were answered, and the patient agreed to proceed with surgery as planned. Description of Procedure The patient was properly identified, his family was consented over the phone, and taken to the operating room where he was placed in the supine position. General endotracheal anesthesia was continued. A jackson catheter, an NG tube, SCDs were already in place, and a safety belt was placed. The patient received TXA en route to the operating room. The patient was already on antibiotics. The ABThera wound VAC device was removed. The patient's abdomen was prepped and draped in the standard sterile fashion. Surgical timeout was performed and all parties were in agreement that this was the correct patient and procedure to be performed and we continued as planned. The inner portion of the ABThera wound VAC device was removed. There was minimal reactive ascites within the abdomen. There was no significant blood clot or hemorrhage present. The abdomen was re-explored. I began at the ligament of Treitz and worked distally along the small bowel. The bowel was dilated but healthy. The mesentery had no evidence of bleeding. I then identified the distal small bowel which had a 10 cm segment of threatened bowel that appeared to be more dusky than on the initial surgery. This was resected with a JEET stapler and the LigaSure was used to divide the mesentery. Hemostasis was good. This was sent to pathology as specimen. The colon appeared normal but was full of stool. The NG tube was confirmed within the stomach. The prior PEG tube placement was intact. The mesentery resection line was again inspected and hemostasis found to be excellent. Again there were palpable pulses within the mesentery. I then elected to leave the bowel in discontinuity. The abdomen was irrigated with 2 to 3 L of warm saline. An [facility] era wound VAC device was then placed in the abdomen and hooked to suction with a good seal. The patient remained intubated and was taken to the ICU in critical condition. All sponge, instrument and needle counts were correct at the conclusion of the procedure. The patient tolerated the procedure well. We will plan for a second look laparotomy in the next 24 to 48 hours. The physicians computer lab assistant was present and scrubbed for the entirety of the case. He was critical in positioning the patient, prepping and draping, retraction and exposure, exploration of the abdomen, resection of the small bowel, placement of the ABThera wound VAC device. I attest to the content of the Intraoperative Record and any orders documented therein. Any exceptions are noted below.
--- NOTE | 2025-10-17 02:50 | Anesthesiology Progress Note ---
Date of Service October 17, 2025 Anesthesia Post Procedure Vital Signs Vital Signs: Temp Pulse Pulse Resp BP BP BP 10/17/25 00:48 35.9 C L 69 16 90/46 L 10/17/25 00:45 35.9 C L 68 16 10/17/25 00:30 35.9 C L 68 17 10/17/25 00:15 35.9 C L 68 17 10/17/25 00:00 35.9 C L 68 17 10/17/25 00:00 87/61 L 10/17/25 00:00 87/61 L 10/17/25 00:00 87/61 L 10/17/25 00:00 87/61 L 10/17/25 00:00 87/61 L 10/17/25 00:00 95/51 L 10/16/25 23:45 35.9 C L 69 18 10/16/25 23:30 35.9 C L 69 17 10/16/25 23:20 71 16 10/16/25 23:15 35.9 C L 70 18 10/16/25 23:00 35.8 C L 76 20 10/16/25 23:00 83/60 L 10/16/25 23:00 83/60 L 10/16/25 23:00 83/60 L 10/16/25 23:00 83/60 L 10/16/25 23:00 83/60 L 10/16/25 22:45 35.8 C L 76 19 10/16/25 22:35 83/54 L 10/16/25 22:35 83/54 L 10/16/25 22:35 83/54 L 10/16/25 22:35 83/54 L 10/16/25 22:35 83/54 L 10/16/25 22:33 35.7 C L 84 18 10/16/25 22:30 35.6 C L 83 17 10/16/25 22:15 35.5 C L 90 22 10/16/25 22:00 35.4 C L 76 16 10/16/25 22:00 90/67 L 10/16/25 22:00 90/67 L 10/16/25 22:00 90/67 L 10/16/25 22:00 90/67 L 10/16/25 22:00 90/67 L 10/16/25 21:46 16 12/16/25 21:45 35.3 C L 72 20 10/16/25 21:30 35.2 C L 69 20 10/16/25 21:15 35.1 C L 68 20 10/16/25 21:00 109/77 10/16/25 21:00 109/77 10/16/25 21:00 109/77 10/16/25 21:00 109/77 10/16/25 21:00 109/77 10/16/25 21:00 35.1 C L 64 20 10/16/25 21:00 10/16/25 20:45 35.1 C L 65 20 10/16/25 20:37 119/73 10/16/25 20:37 119/73 10/16/25 20:37 119/73 10/16/25 20:37 119/73 10/16/25 20:37 119/73 10/16/25 20:36 35.2 C L 61 19 10/16/25 20:33 35.2 C L 61 19 10/16/25 20:27 10/16/25 20:12 35.3 C L 66 20 131/76 10/16/25 20:02 35.3 C L 62 20 129/70 10/16/25 19:52 35.3 C L 62 20 126/72 10/16/25 19:50 60 20 10/16/25 18:00 86 20 10/16/25 17:57 90 16 10/16/25 17:51 88 22 10/16/25 17:45 96 H 21 10/16/25 17:42 90 24 10/16/25 17:36 89 21 10/16/25 17:30 93 H 19 10/16/25 17:27 87 20 10/16/25 17:21 89 20 10/16/25 17:15 87 21 10/16/25 17:12 88 20 10/16/25 17:06 90 24 10/16/25 17:00 90 17 10/16/25 17:00 36.4 C L 10/16/25 16:57 88 21 10/16/25 16:51 84 22 10/16/25 16:45 85 18 10/16/25 16:39 82 12 10/16/25 16:00 111/77 10/16/25 16:00 111/10/16/25 16:00 10/16/25 16:00 10/16/25 16:00 /10/16/25 16:00 86 25 H 10/16/25 15:45 93 H 30 H 10/16/25 15:30 101 H 20 10/16/25 15:15 91 H 21 10/16/25 15:01 10/16/25 15:01 10/16/25 15:01 10/16/25 15:01 10/16/25 15:00 97 H 22 10/16/25 14:45 97 H 15 10/16/25 14:42 94 H 18 10/16/25 14:36 95 H 15 10/16/25 14:30 105 H 30 H 10/16/25 14:27 94 H 20 10/16/25 14:21 90 22 10/16/25 14:15 88 21 10/16/25 14:12 86 25 H 10/16/25 14:06 85 20 10/16/25 14:00 105 H 28 H 10/16/25 13:57 98 H 30 H 10/16/25 13:51 85 24 10/16/25 13:45 88 29 H 10/16/25 13:42 89 16 10/16/25 13:36 94 H 23 10/16/25 13:30 85 15 10/16/25 13:27 92 H 19 10/16/25 13:21 89 10 L 10/16/25 13:15 92 H 18 10/16/25 13:13 91/72 L 10/16/25 13:13 91/72 L 10/16/25 13:13 91/72 L 10/16/25 13:12 95 H 24 10/16/25 13:06 114 H 25 H 10/16/25 13:05 56/41 L 10/16/25 13:03 112 H 22 10/16/25 13:00 111 H 32 H 10/16/25 12:57 101 H 19 10/16/25 12:51 100 H 13 10/16/25 12:45 113 H 18 10/16/25 12:42 116 H 21 10/16/25 12:31 84/69 L 10/16/25 12:31 84/69 L 10/16/25 12:30 99 H 21 10/16/25 12:21 105 H 17 10/16/25 12:20 100/65 10/16/25 12:20 100/65 10/16/25 12:18 97 H 22 10/16/25 12:12 99 H 22 10/16/25 12:10 92/68 L 10/16/25 12:09 97 H 21 10/16/25 12:03 100 H 19 10/16/25 12:02 77/55 L 10/16/25 12:00 107 H 22 10/16/25 11:54 103 H 13 10/16/25 11:46 80/53 L 10/16/25 11:45 98 H 26 H 10/16/25 11:42 100 H 29 H 10/16/25 11:42 100/64 10/16/25 11:33 114 H 22 10/16/25 11:32 70/50 L 10/16/25 11:30 36.8 C 10/16/25 11:30 10/16/25 11:24 103 H 5 L 10/16/25 11:15 101 H 0 L 10/16/25 11:15 36.4 C L 112 H 20 70/42 L 10/16/25 08:00 10/16/25 08:00 36.5 C 130 H 20 120/92 10/16/25 06:30 110 H 109/75 10/16/25 06:10 125/89 10/16/25 06:08 94 H 108/74 10/16/25 06:05 131 H 73/56 L Pulse Ox Pulse Ox O2 Del Method O2 Del Method O2 Flow Rate FiO2 10/17/25 00:48 100 10/17/25 00:45 100 10/17/25 00:30 100 10/17/25 00:15 100 10/17/25 00:00 100 10/17/25 00:00 10/17/25 00:00 10/17/25 00:00 10/17/25 00:00 10/17/25 00:00 10/17/25 00:00 10/16/25 23:45 100 10/16/25 23:30 100 10/16/25 23:20 100 30 10/16/25 23:15 99 10/16/25 23:00 100 10/16/25 23:00 10/16/25 23:00 10/16/25 23:00 10/16/25 23:00 10/16/25 23:00 10/16/25 22:45 100 10/16/25 22:35 10/16/25 22:35 10/16/25 22:35 10/16/25 22:35 10/16/25 22:35 10/16/25 22:33 100 10/16/25 22:30 100 10/16/25 22:15 100 10/16/25 22:00 100 10/16/25 22:00 10/16/25 22:00 10/16/25 22:00 10/16/25 22:00 10/16/25 22:00 10/16/25 21:46 30 10/16/25 21:45 100 10/16/25 21:30 100 10/16/25 21:15 100 10/16/25 21:00 10/16/25 21:00 10/16/25 21:00 10/16/25 21:00 10/16/25 21:00 10/16/25 21:00 100 10/16/25 21:00 100 Mechanical Vent 10/16/25 20:45 100 10/16/25 20:37 10/16/25 20:37 10/16/25 20:37 10/16/25 20:37 10/16/25 20:37 10/16/25 20:36 100 10/16/25 20:33 100 10/16/25 20:27 Mechanical Vent 40 10/16/25 20:12 100 Mechanical Vent 40 10/16/25 20:02 100 Mechanical Vent 40 10/16/25 19:52 100 Mechanical Vent 40 10/16/25 19:50 100 40 10/16/25 18:00 92 10/16/25 17:57 98 10/16/25 17:51 100 10/16/25 17:45 99 10/16/25 17:42 100 10/16/25 17:36 98 10/16/25 17:30 91 10/16/25 17:27 100 10/16/25 17:21 100 10/16/25 17:15 100 10/16/25 17:12 100 10/16/25 17:06 98 10/16/25 17:00 99 10/16/25 17:00 10/16/25 16:57 100 10/16/25 16:51 100 10/16/25 16:45 99 10/16/25 16:39 10/16/25 16:00 10/16/25 16:00 10/16/25 16:00 10/16/25 16:00 10/16/25 16:00 10/16/25 16:00 97 10/16/25 15:45 10/16/25 15:30 97 10/16/25 15:15 97 10/16/25 15:01 10/16/25 15:01 10/16/25 15:01 10/16/25 15:01 10/16/25 15:00 73 L 10/16/25 14:45 97 10/16/25 14:42 98 10/16/25 14:36 100 10/16/25 14:30 89 L 10/16/25 14:27 97 10/16/25 14:21 97 10/16/25 14:15 97 10/16/25 14:12 98 10/16/25 14:06 100 10/16/25 14:00 77 L 10/16/25 13:57 90 10/16/25 13:51 99 10/16/25 13:45 94 10/16/25 13:42 95 10/16/25 13:36 99 10/16/25 13:30 91 10/16/25 13:27 97 10/16/25 13:21 94 10/16/25 13:15 95 10/16/25 13:13 10/16/25 13:13 10/16/25 13:13 10/16/25 13:12 97 10/16/25 13:06 94 10/16/25 13:05 10/16/25 13:03 85 L 10/16/25 13:00 89 L 10/16/25 12:57 94 10/16/25 12:51 97 10/16/25 12:45 98 10/16/25 12:42 98 10/16/25 12:31 10/16/25 12:31 10/16/25 12:30 10/16/25 12:21 98 10/16/25 12:20 10/16/25 12:20 10/16/25 12:18 97 12/16/25 12:12 96 10/16/25 12:10 10/16/25 12:09 97 10/16/25 12:03 95 10/16/25 12:02 10/16/25 12:00 93 10/16/25 11:54 95 10/16/25 11:46 10/16/25 11:45 78 L 10/16/25 11:42 96 10/16/25 11:42 10/16/25 11:33 10/16/25 11:32 10/16/25 11:30 10/16/25 11:30 Room Air 10/16/25 11:24 10/16/25 11:15 10/16/25 11:15 97 Room Air 10/16/25 08:00 Room Air 10/16/25 08:00 98 Room Air 10/16/25 06:30 10/16/25 06:10 10/16/25 06:08 100 Room Air 10/16/25 06:05 100 Oxymask 13 Transfer of Care Handoff Completed per policy Notes Mental Status: see notes below Patient Amnestic to Procedure: Yes Nausea / Vomiting: adequately controlled Pain: adequately controlled Airway Patency, RR, SpO2: see Notes below BP & HR: stable & adequate Hydration State: stable & adequate Anesthetic Complications: no major complications apparent Notes: patient brought back emergently with concern for bleeding. pt received 2 units prbcs and 1 gram txa. no bleeding source found. brought back to icu intubated as abdomen remains open. vss. consnet had been obtained from patients via phone prior to second procedure.
[2025-10-17 03:01] LABS: iSTAT Art Bld Gas Base Excess -5.0 mmol/L (-9-1.8); iSTAT Art Bld Gas pCO2 Correct 32 mmHg (35-46); iSTAT Art Bld Gas pH Corrected 7.405 (7.35-7.45); iSTAT Arterial Blood Gas pO2 C 121
[2025-10-17 03:04] LABS: Hematocrit (blood only) 25.8 % (42.0-52.0); Hemoglobin 9.0 g/dL (14.0-18.0); Mean Corpuscular Hemoglobin 29.8 pg (25.0-34.0); Mean Corpuscular Volume 85.4 fL (80.0-100.0); Platelet Count 180 K/uL (130-400); RDW Standard Deviation 45.4 fL (36.4-46.3); Red Blood Count 3.02 M/uL (4.70-6.10); White Blood Count 4.62 K/ul (4.8-10.8)
[2025-10-17 03:20] LABS: Anion Gap 8.0 (3-11); Blood Urea Nitrogen 43.0 mg/dl (6-23); Calcium 6.4 mg/dl (8.6-10.3); Carbon Dioxide 21.0 mmol/L (21-32); Chloride 105.0 mmol/L (98-107); Creatinine Clr Calc Pharmacy 38.2 ml/min; Glucose 151.0 mg/dl (70-99(Fasting)); Magnesium 1.8 mg/dl (1.7-2.4); Potassium 4.6 mmol/L (3.5-5.1); Sodium 134.0 mmol/L (136-145)
[2025-10-17 03:24] LABS: Alanine Aminotransferase 7.0 U/L (7-52); Albumin Globulin Ratio 1.8 (0.9-2); Albumin Level 2.1 gm/dl (3.4-5.0); Alkaline Phosphatase 42.0 U/L (34-104); Anion Gap 8.0 (3-11); Bilirubin,Total 0.9 mg/dl (0.2-1.0); Blood Urea Nitrogen 43.0 mg/dl (6-23); Calcium 6.4 mg/dl (8.6-10.3); Carbon Dioxide 21.0 mmol/L (21-32); Chloride 105.0 mmol/L (98-107); Creatinine Clr Calc Pharmacy 38.2 ml/min; Globulin 1.2 gm/dl (2.5-4.0); Glucose 150.0 mg/dl (70-99(Fasting)); Magnesium 1.7 mg/dl (1.7-2.4); Potassium 4.6 mmol/L (3.5-5.1); Sodium 134.0 mmol/L (136-145); Total Protein 3.3 gm/dl (6.0-8.3)
[2025-10-17 03:30] LABS: Acanthocytes 1+; Dohle Bodies 1+; Immature Granulocytes # (auto) 0.05 K/uL (0.01-0.20); Immature Granulocytes % (auto) 1.1 %; Polychromasia 1+; Toxic Granulation 1+
[2025-10-17 03:35] LABS: INR 1.4 (0.9-1.1); Partial Thromboplastin Time 69 Seconds (21-31); Prothrombin Time 14.9 Seconds (9.0-12.0)
[2025-10-17] MEDS: TRANEXAMIC ACID / 0.7% NACL 1000MG/100ML BAG IV ONE (04:18)
--- NOTE | 2025-10-17 05:40 | Communication Note ---
Date of Service: October 17, 2025 Patient was taken back to the operating room on 10/17/2025 secondary to suspected intra-abdominal bleeding. Upon reexploration no active source of blee ding was found and patient's wound VAC was reapplied. Initially postoperatively the patient was doing well and his postoperative labs revealed a CBC where hemoglobin and hematocrit had risen to 9.0 and 25.8. His platelet count was noted to be 180,000. Chemistry profile showed sodium is 134 with a normal potassium. BUN and creatinine were 43 and 1.5 and lactic acid level had normalized to 1.1. His magnesium level was also normal at 1.8. An arterial blood gas showed a pH of 7.38. It is also noteworthy that his INR at that time was noted to be 1.4. Nursing staff noted patient had worsening hypotension requiring again increasing doses of Levophed at approximately 5:00 AM and his wound VAC became saturated with blood not functioning as what was noted previously before the patient's takeback to the operating room. I am unsure of what would be causing this issue with patient's wound VAC as again no active source of bleeding was noted at time of reexploration in the operating room. Will begin by checking repeat laboratories and providing blood products as needed. Nursing staff is discussing with [employer] sales manager to see if additional vasopressors are needed. Will continue to follow the patient closely Addendum (6:00 AM) Patient's most recent CBC from this morning now shows hemoglobin and hematocrit of 9.6 and 27.1. Lactic acid level was noted to be 1.6 I discussed with the [employer] sales manager. He is planning on adding Paco-Synephrine for blood pressure support. Will await remaining labs to determine if patient will require any additional blood products.
[2025-10-17] MEDS ORDERED: STAT IV Infusion **Titration per Protocol STA ×2 (05:51→07:30)
[2025-10-17 05:56] LABS: Hematocrit (blood only) 27.1 % (42.0-52.0); Hemoglobin 9.6 g/dL (14.0-18.0); Mean Corpuscular Hemoglobin 30.0 pg (25.0-34.0); Mean Corpuscular Volume 84.7 fL (80.0-100.0); Platelet Count 216 K/uL (130-400); RDW Standard Deviation 43.8 fL (36.4-46.3); Red Blood Count 3.20 M/uL (4.70-6.10); White Blood Count 5.01 K/ul (4.8-10.8)
[2025-10-17] MEDS: PHENYLEPHRINE/NSS 25 MG/250 ML BAG IV SCH (06:07)
[2025-10-17 06:13] LABS: Anion Gap 12.0 (3-11); Blood Urea Nitrogen 45.0 mg/dl (6-23); Calcium 6.6 mg/dl (8.6-10.3); Carbon Dioxide 18.0 mmol/L (21-32); Chloride 103.0 mmol/L (98-107); Creatinine Clr Calc Pharmacy 34.2 ml/min; Glucose 202.0 mg/dl (70-99(Fasting)); Potassium 4.7 mmol/L (3.5-5.1); Sodium 133.0 mmol/L (136-145)
[2025-10-17 06:16] LABS: iSTAT Art Bld Gas Base Excess -7.0 mmol/L (-9-1.8); iSTAT Art Bld Gas pCO2 Correct 29 mmHg (35-46); iSTAT Art Bld Gas pH Corrected 7.388 (7.35-7.45); iSTAT Arterial Blood Gas pO2 C 132
[2025-10-17 06:27] LABS: INR 1.3 (0.9-1.1); Prothrombin Time 14.0 Seconds (9.0-12.0)
[2025-10-17 06:51] LABS: Partial Thromboplastin Time 64 Seconds (21-31)
--- NOTE | 2025-10-17 06:53 | Communication Note ---
Date of Service: October 17, 2025 The patient was taken back to OR because of significant bleeding that was noted at the open-AB VAC sponge. No significant source of bleeding was identified; however, further 10 cm, of what appeared to be threatened bowel, were resected. Bowel kept in discontinuation. Patient transferred back to the ICU intubated and sedated. Hgb at 05:45 9.6 g/dL. Continues to require high-dose Norepinephrine. Will add Neosynephrine. Will try to avoid Vasopressin. Will give Will give 500 cc of 5% Albumin. Will consider Plasmalyte. PTT and D-Dimer elevated. Cannot rule out DIC. Will check Fibrinogen level and consider supplementation with Fibrinogen or Cryoprecipitate depending on availability. Creatinine continues to climb, 1.75 mg/dL at 05:45. Significant reduction in Total Calcium as well as moderate reduction in Albumin. Will check ionized Calcium. Will give 1 gram of Calcium chloride. I have personally spent 55 minutes of critical care time in the direct management of this patient. This is a life/limb threatening event. This includes time spent evaluating the patient, direct bedside care, chart review, placing orders, interpreting diagnostic studies, communicating with consultants, attending providers, patient, and family members, as well as required patient management activities. This time is exclusive of all separately-billable procedures and teaching time, and separate from and in addition to any other critical care service time. Coding Level of Care Code 17440 CRITICAL CARE 1ST 30-74M Time Spent (min) 55
[2025-10-17 06:54] LABS: Immature Granulocytes # (auto) 0.03 K/uL (0.01-0.20); Immature Granulocytes % (auto) 0.6 %; Polychromasia 1+
[2025-10-17] MEDS: CALCIUM CHLORIDE 10% 1,000 MG in DEXTROSE 5% 50 ML IV STA ×2 (06:54→07:37)
[2025-10-17 07:15] LABS: Fibrinogen 251 mg/dl (184-400)
[2025-10-17 07:23] LABS: Hemoglobin A1C 6.0 % (4.5-5.6)
--- NOTE | 2025-10-17 07:24 | Hospitalist Progress Note ---
Date of Service October 17, 2025 Assessment & Plan (1) Port-A-Cath in place: (2) Malignant tumor of base of tongue: (3) MGUS (monoclonal gammopathy of unknown significance): (4) Small bowel ischemia: (5) Shock: Plan In summary this is a 80-year-old male who was initially admitted for recurrent syncopal episodes, found to have a small bowel obstruction subsequently developing ischemic small bowel requiring surgical resection. #Ischemic small bowel s/p resection // Acute blood loss anemia // Hypocalcemic Patient initially presented and found to have small bowel obstruction with acute progression of symptoms found to have frankly ischemic small bowel in the afternoon on 10/16 requiring surgical intervention with a repeat operative intervention in the glass crusher of 10/17 due to concern of post operative bleeding which was not found at that time; patient does have a progressive acute anemia after 2 units of packed red blood cell transfusion he does have a downtrending hemoglobin to 8.0 with most recent measure; with regard to the patient's coagulation, he has a very mildly elevated INR of 1.4, vitamin K replacement was ordered by the silver holloware assembler; patient's diminished calcium could also be playing a role in their coagulability, at this time there is no indication for platelet, cryoprecipitate, or fresh frozen plasma transfusion Maintain NG tube to intermittent suction Absolutely no use of the patient's PEG tube Maintain wound VAC Reassessment of patient's hemoglobin and hematocrit ordered by silver holloware assembler at 1200 hrs. Calcium chloride 1 g IV ordered General Surgery and silver holloware assembler consulted #Multifactorial Shock In the postoperative period the patient has remained in a persistent state of shock most likely related to hypovolemic causes in the setting of iatrogenic fluid losses with a abdominal intervention, wound VAC in place and large volume output since surgical intervention; at this time there is no sincere evidence for an infectious component however the patient is being empirically treated with Zosyn; the patient does have diminished albumin which, per silver holloware assembler interpretation, is a significant component and loss of intravascular volume and contributing to the patient's third spacing of fluid into the abdomen leading to their large output through their wound VAC of which I agree; fluid resuscitation at this time is being guided primarily by silver holloware assembler with preference for albumin and avoiding crystalloids to reduce third spacing of fluids until adequate albumin supplementation/replacement has been achieved Fluid resuscitation guided by silver holloware assembler; would recommend intravenous fluids at a maintenance rate of 125 mL/h based on the patient's weight in addition to their recommended albumin boluses Continue vasopressor support, guided by silver holloware assembler - Continue empiric antibiotic therapy with Zosyn 4.5 mg IV every 6 hours #Mechanical ventilation Remains mechanically ventilated and sedated for anticipated surgical intervention in the next 24 to 48 hours #Acute kidney injury // Prerenal and insensible fluid losses Baseline normal renal function with progressive kidney injury in the past 24 hours; currently oliguric; without significant electrolyte abnormalities related to acute kidney injury; suspect this is prerenal in the setting of acute blood loss anemia, intravascular volume loss, and insensible losses related to their surgical intervention - Maintain Montaño catheter - Intake and output measures every shift Continue management with fluid resuscitation detailed above under multifactorial shock #Syncopal episodes, 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 "syncope"; previously has been seen to have episodes of supraventricular tachycardia which has been observed during his current hospitalization and correlated with a witnessed presyncopal event; based on cardiology 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 which they suspect is worsened given the patient's acute illness even prior to the events that it began on 10/16 TTE without significant change from previous assessment Maintain serum potassium greater than 4, magnesium greater than 2 No indication for systemic anticoagulation with respect to this condition at this time Long-term consideration for ablation per cardiology recommendations, at this time to continue amiodarone IV for short-term resolution of symptoms #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 due to recurrent episodes of altered consciousness in addition to recurrent episodes of abdominal pain. In the late afternoon on 10/06 the patient developed worsening abdominal pain with clinical findings concerning for an acute surgical complication, leading to operative intervention. They were found to have a 140 cm segment of ischemic small bowel which was resected without intraoperative complication, left discontinuous, and the abdomen temporarily closed with ABThera wound vac placed. Subsequently, the patient's wound vac had significant serosanguineous output with oozing around the surgical site accompanied by hemodynamic instability and evidence of acute blood loss anemia by down trending hemoglobin. The patient was taken back to the operative suite in the glass crusher on 10/17, without any found evidence of source regarding this blood loss. There was, however, noted to be an additional 10 cm segment of the distal small bowel that appeared dusky compared to earlier evaluation, and so was resected. There were no intraoperative complications noted. The patient continued to have larger than expected serosanguineous output from their abdominal wound vac, with further discussion of this in the assessment and plan below. At the time of my initial evaluation, the patient is intubated, mechanically ventilated, and sedated. Review of Systems Review of Systems: Unobtainable due to endotracheal tube Physical Exam Physical Exam: General: Elderly male, intubated, mechanically ventilated, and sedated Vital Signs: Reviewed; goal mean arterial pressure has been maintained on 3 separate vasopressor therapies HEENT: Intubated, without evidence of posterior oropharyngeal trauma; several areas of chronic gingivitis without evidence of gingival injury or acute infection; NG tube in place with brown gastrointestinal secretions without evidence of coffee-ground substance, blood, or bilious output Neck: Trachea midline Pulmonary: Clear to auscultation bilaterally; mechanically ventilated Cardiovascular: Regular rate and rhythm without murmur, rub, or gallop; S1 and S2 normal; left radial pulse and bilateral posterior tibial pulse 2+ with brisk capillary refill; no notable lower extremity edema Gastrointestinal: Midline abdominal incision without evidence of oozing or dehiscence with abdominal wound VAC in place with approximately 250 mL of serosanguineous output; infrequent bowel sounds with normal pitch; nondistended abdomen without rigidity Genitourinary: Montaño catheter in place with little to no urinary output since start of morning shift at 0700 hrs. Results & Data Results & Data Vital Signs (Past 12 Hours) Vital Signs Temp Pulse Pulse Resp BP BP Pulse Ox 10/17/25 06:45 36.8 C 104 H 23 96 10/17/25 06:39 75/53 L 10/17/25 06:39 75/53 L 10/17/25 06:39 75/53 L 10/17/25 06:39 75/53 L 10/17/25 06:39 75/53 L 10/17/25 06:39 36.8 C 107 H 25 H 100 10/17/25 06:30 36.7 C 97 H 22 100 10/17/25 06:26 81/57 L 10/17/25 06:26 81/57 L 10/17/25 06:26 81/57 L 10/17/25 06:26 81/57 L 10/17/25 06:26 81/57 L 10/17/25 06:24 36.7 C 89 19 100 10/17/25 06:15 36.6 C 88 21 100 10/17/25 06:00 36.5 C 90 20 100 10/17/25 06:00 94/63 L 10/17/25 06:00 94/63 L 10/17/25 06:00 94/63 L 10/17/25 06:00 94/63 L 10/17/25 06:00 94/63 L 10/17/25 05:45 36.4 C L 91 H 18 100 10/17/25 05:33 36.2 C L 93 H 20 100 10/17/25 05:17 36.1 C L 92 H 20 96 10/17/25 05:02 35.9 C L 86 18 100 10/17/25 05:00 83/63 L 10/17/25 05:00 83/63 L 10/17/25 05:00 83/63 L 10/17/25 05:00 83/63 L 10/17/25 05:00 83/63 L 10/17/25 04:59 35.9 C L 86 19 100 10/17/25 04:45 35.7 C L 86 18 100 10/17/25 04:30 35.6 C L 82 18 100 10/17/25 04:15 35.5 C L 77 16 100 10/17/25 04:00 35.4 C L 74 16 100 10/17/25 04:00 96/62 L 10/17/25 04:00 96/62 L 10/17/25 04:00 96/62 L 10/17/25 04:00 96/62 L 10/17/25 04:00 96/62 L 10/17/25 04:00 90/48 L 10/17/25 03:45 35.3 C L 75 16 100 10/17/25 03:30 35.3 C L 72 16 100 10/17/25 03:15 35.3 C L 72 16 100 10/17/25 03:00 35.3 C L 71 18 100 10/17/25 03:00 107/70 10/17/25 03:00 107/70 10/17/25 03:00 107/70 10/17/25 03:00 107/70 10/17/25 03:00 107/70 10/17/25 02:52 35.4 C L 67 18 125/76 100 10/17/25 02:50 125/76 10/17/25 02:50 125/76 10/17/25 02:50 125/76 10/17/25 02:50 125/76 10/17/25 02:50 125/76 10/17/25 02:48 35.4 C L 66 18 100 10/17/25 02:45 35.4 C L 19 100 10/17/25 02:42 35.4 C L 61 19 126/70 100 10/17/25 02:32 35.5 C L 60 19 139/67 100 10/17/25 02:30 59 L 13 100 10/17/25 02:30 69 19 100 10/17/25 02:15 60 8 L 100 10/17/25 02:00 67 8 L 99 10/17/25 01:45 66 8 L 100 10/17/25 01:30 77 8 L 100 10/17/25 01:21 78 0 L 10/17/25 01:03 65 16 100 10/17/25 01:00 97/61 L 10/17/25 01:00 97/61 L 10/17/25 00:48 35.9 C L 69 16 90/46 L 100 10/17/25 00:45 35.9 C L 68 16 100 10/17/25 00:30 35.9 C L 68 17 100 10/17/25 00:15 35.9 C L 68 17 100 10/17/25 00:00 35.9 C L 68 17 100 10/17/25 00:00 87/61 L 10/17/25 00:00 87/61 L 10/17/25 00:00 87/61 L 10/17/25 00:00 87/61 L 10/17/25 00:00 87/61 L 10/17/25 00:00 95/51 L 10/16/25 23:45 35.9 C L 69 18 100 10/16/25 23:30 35.9 C L 69 17 100 10/16/25 23:20 71 16 100 10/16/25 23:15 35.9 C L 70 18 99 10/16/25 23:00 35.8 C L 76 20 100 10/16/25 23:00 83/60 L 10/16/25 23:00 83/60 L 10/16/25 23:00 83/60 L 10/16/25 23:00 83/60 L 10/16/25 23:00 83/60 L 10/16/25 22:45 35.8 C L 76 19 100 10/16/25 22:35 83/54 L 10/16/25 22:35 83/54 L 10/16/25 22:35 83/54 L 10/16/25 22:35 83/54 L 10/16/25 22:35 83/54 L 10/16/25 22:33 35.7 C L 84 18 100 10/16/25 22:30 35.6 C L 83 17 100 10/16/25 22:15 35.5 C L 90 22 100 10/16/25 22:00 35.4 C L 76 16 100 10/16/25 22:00 90/67 L 10/16/25 22:00 90/67 L 10/16/25 22:00 90/67 L 10/16/25 22:00 90/67 L 10/16/25 22:00 90/67 L 10/16/25 21:46 16 10/16/25 21:45 35.3 C L 72 20 100 10/16/25 21:30 35.2 C L 69 20 100 10/16/25 21:15 35.1 C L 68 20 100 10/16/25 21:00 109/77 10/16/25 21:00 109/77 10/16/25 21:00 109/77 10/16/25 21:00 109/77 10/16/25 21:00 109/77 10/16/25 21:00 35.1 C L 64 20 100 10/16/25 21:00 10/16/25 20:45 35.1 C L 65 20 100 10/16/25 20:37 119/73 10/16/25 20:37 119/73 10/16/25 20:37 119/73 10/16/25 20:37 119/73 10/16/25 20:37 119/73 10/16/25 20:36 35.2 C L 61 19 100 10/16/25 20:33 35.2 C L 61 19 100 10/16/25 20:27 10/16/25 20:12 35.3 C L 66 20 131/76 100 10/16/25 20:02 35.3 C L 62 20 129/70 100 10/16/25 19:52 35.3 C L 62 20 126/72 100 10/16/25 19:50 60 20 100 Pulse Ox O2 Del Method O2 Del Method FiO2 10/17/25 06:45 10/17/25 06:39 10/17/25 06:39 10/17/25 06:39 10/17/25 06:39 10/17/25 06:39 10/17/25 06:39 10/17/25 06:30 10/17/25 06:26 10/17/25 06:26 10/17/25 06:26 10/17/25 06:26 10/17/25 06:26 10/17/25 06:24 10/17/25 06:15 10/17/25 06:00 10/17/25 06:00 10/17/25 06:00 10/17/25 06:00 10/17/25 06:00 10/17/25 06:00 10/17/25 05:45 10/17/25 05:33 10/17/25 05:17 10/17/25 05:02 10/17/25 05:00 10/17/25 05:00 10/17/25 05:00 10/17/25 05:00 10/17/25 05:00 10/17/25 04:59 10/17/25 04:45 10/17/25 04:30 10/17/25 04:15 10/17/25 04:00 10/17/25 04:00 10/17/25 04:00 10/17/25 04:00 10/17/25 04:00 10/17/25 04:00 10/17/25 04:00 10/17/25 03:45 10/17/25 03:30 10/17/25 03:15 10/17/25 03:00 10/17/25 03:00 10/17/25 03:00 10/17/25 03:00 10/17/25 03:00 10/17/25 03:00 10/17/25 02:52 Mechanical Vent 30 10/17/25 02:50 10/17/25 02:50 10/17/25 02:50 10/17/25 02:50 10/17/25 02:50 10/17/25 02:48 10/17/25 02:45 10/17/25 02:42 Mechanical Vent 30 10/17/25 02:32 Mechanical Vent 30 10/17/25 02:30 10/17/25 02:30 30 10/17/25 02:15 10/17/25 02:00 10/17/25 01:45 10/17/25 01:30 10/17/25 01:21 10/17/25 01:03 10/17/25 01:00 10/17/25 01:00 10/17/25 00:48 10/17/25 00:45 10/17/25 00:30 10/17/25 00:15 10/17/25 00:00 10/17/25 00:00 10/17/25 00:00 10/17/25 00:00 10/17/25 00:00 10/17/25 00:00 10/17/25 00:00 10/16/25 23:45 10/16/25 23:30 10/16/25 23:20 30 10/16/25 23:15 10/16/25 23:00 10/16/25 23:00 10/16/25 23:00 10/16/25 23:00 10/16/25 23:00 10/16/25 23:00 10/16/25 22:45 10/16/25 22:35 10/16/25 22:35 10/16/25 22:35 10/16/25 22:35 10/16/25 22:35 10/16/25 22:33 10/16/25 22:30 10/16/25 22:15 10/16/25 22:00 10/16/25 22:00 10/16/25 22:00 10/16/25 22:00 10/16/25 22:00 10/16/25 22:00 10/16/25 21:46 30 10/16/25 21:45 10/16/25 21:30 10/16/25 21:15 10/16/25 21:00 10/16/25 21:00 10/16/25 21:00 10/16/25 21:00 10/16/25 21:00 10/16/25 21:00 10/16/25 21:00 100 Mechanical Vent 10/16/25 20:45 10/16/25 20:37 10/16/25 20:37 10/16/25 20:37 10/16/25 20:37 10/16/25 20:37 10/16/25 20:36 10/16/25 20:33 10/16/25 20:27 Mechanical Vent 40 10/16/25 20:12 Mechanical Vent 40 10/16/25 20:02 Mechanical Vent 40 10/16/25 19:52 Mechanical Vent 40 10/16/25 19:50 40 Laboratory Results Hemoglobin trend 6.8, 8.2, 8.8, 8.0 MCV and MCHC remain normal Platelet count stable INR remains mildly elevated in the range of 1.2-1.4; fibrinogen 251 and steady with reassessment Most recent ABG at 0600 hrs. on 10/17 as follows 7.38/ Serum creatinine trend 1.02, 1.48, 1.60, 1.57, 1.75 Calcium 6.6 with ionized calcium 0.99 PG Care Time/CCT Total # of Minutes Spent Total Time Spent with Patient: Total time spent is greater than 50% in coordination of care (as documented) at patient's floor/unit and/or counseling patient: Coding Level of Care Code 64815 SUB INP/OBS CARE 3/50MIN Diagnoses Port-A-Cath in place Z95.828 Malignant tumor of base of tongue C01 MGUS (monoclonal gammopathy of unknown significance) D47.2 Small bowel ischemia K55.9 Shock R57.9
[2025-10-17] MEDS: ALBUMIN 5% 250 ML IV ONE (07:25)
[2025-10-17] MEDS: PLASMA-LYTE A 1,000 ML IV ONE (07:34)
--- NOTE | 2025-10-17 07:35 | Critical Care Progress Note ---
Date of Service October 17, 2025 Assessment & Plan (1) Small bowel obstruction: (2) PEG (percutaneous endoscopic gastrostomy) status: (3) Hypotension: (4) MGUS (monoclonal gammopathy of unknown significance): (5) Neuropathy: (6) Major depressive disorder: (7) Syncope: Plan Neuro Per , hx of 35-40 syncopal episodes with loss of consciousness in past few months. Etiology unclear. Considering possibility of absence seizures with autonomic dysfunction - started Keppra. CT head 10/13/2025 negative. Patient is on ventilator this morning post procedure. Fentanyl and midazolam for sedation Episodes of bradycardia could be from propofol which has been stopped Cardiovascular Patient currently on Levophed and Phenylephrine to maintain MAP >65. We will wean off phenylephrine and restart Vasopressin this morning. He is on Hydrocortisone q6 as well. Shock likely related to GI etiology, ischemic bowel. Low suspicion for vasovagal etiology due to absence of bradycardia. Low suspicion for cardiogenic etiology. 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 Recommended SVT ablation outpatient post-discharge. 2D ECHO 10/16 unremarkable. --Bradycardia Likely from propofol, amiodarone drip has been stopped Give midazolam as needed GI Patient s/p exploratory laparotomy and small bowel resection yesterday 10/16. Patient taken twice to the OR due to suspected intra-abdominal bleeding, however upon reexploration, no active bleeding was found. Of note, he is s/p PEG 09/06. Anion gap lactic acidosis previously noted. Most recent lactate normalized to 1.6. Continue albumin supplementation and trend lactate levels. Fecal occult blood positive. Protonix 40mg BID IV. Pulmonary Patient currently on ventilator post-procedure. O2 sats high 90s. Renal Acute KARRI with uptrending creatinine secondary to hypoperfusion due to hypotension. Urine output low, hold crystalloids and resuscitate with albumin. Goal K>4, Mg>2. Supplement as needed. 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 Hx of normocytic anemia, continue to monitor H&H. Patient has received 1 L crystalloid, albumin, and 2 units of blood. Rpt H&H and BMP at noon. Infectious Disease Patient on Zosyn for empiric coverage. Continue to trend CBC, leukopenia present with recent labs, possibly secondary to current chemotherapy and radiation treatments. Monitor for sepsis. Fungal smear shows no fungal growth, culture pending. Endo Elevated glucose levels upon admission - likely stress induced. Anticipate will increase further due to steroid dose. Patient was on insulin drip. Currently on sliding scale insulin. Continue to monitor. Thyroid labs wnl. MSK No MSK concerns at this time. Remainder per attending attestation Admission and Anticipated Discharge Date Admission Date: October 13, 2025 Supervising Physician Co-Signing Physician Notes Dr. Gamez was the resident-physician during care of patient. I separately evaluated patient for sneed portions of the history and the exam. I was present during the critical portion of medical decision making, and I discussed the case with the resident. I generally agree with the findings and plan except for any additions/exceptions noted. Patient seen and examined at bedside. Patient went to the OR twice. When he went for the second time there was no active signs of bleeding Patient was on 0.6 of Levophed, 0.04 of vasopressin and 0.3 of phenylephrine at time of examination His heart rate was in the 90s, systolic blood pressure in the 120s. Sedated on propofol and fentanyl Constitutional: No acute distress HEENT: EOMI, PERRLA Respiratory system: Good air entry bilaterally, no wheeze, no rhonchi, no crackles CVS: S1-S2 positive, no murmurs or gallops Abdomen: Soft, nondistended, positive bowel sounds x4, positive PEG, wound VAC in place Extremities: +2 pulses bilaterally radialis/ dorsalis pedis, no cyanosis, no edema Neuro: Sedated, breathing with the vent Psych: Unable to assess G/U: Positive Montaño --Prophylaxis VTE: IPC GI: Pantoprazole Lines: Left-sided port, right radial, Montaño Diet: N.p.o. Plan: In/out: Positive 6.6 L, urine output 485, wound VAC drainage 1500 mL Wound VAC drainage seems to be serosanguineous. Surgical thought process was to rule out embolic event given the history of bowel, patient had two 2D echo was done which did not show any thrombus Pulmonary emboli is very low in differential especially given saturation is 30% on room air and no right heart strain on the echo Patient did get 2 units of blood overnight. His hemoglobin is trending down, will give another 2 units of PRBC Surgery is made aware. Fibrinogen and platelets are within normal limit, does not seem to be in DIC Repeat Fibrinogen later Unfortunately patient's kidney function is getting worse He is oliguric New onset bradycardia, could be related to propofol. Will discontinue propofol and give midazolam as needed For autonomic dysfunction vasopressin will be helpful, continue with hydrocortisone 50 mcg Q6 as well. Overall prognosis is guarded. If there is no improvement in patient's clinical status then comfort measures should be pursued I have personally spent 62 minutes of critical care time in the direct management of this patient. This is a life/limb threatening event. This includes time spent evaluating patient, direct bedside care, chart review, placing orders, interpretation of diagnostic studies, discussion with consultants, patient, and/or family members regarding treatment decisions, as well as other required patient management activities. This time is exclusive of all separately billable procedures, and teaching time and separate from and in addition to any other critical care service time. Subjective Patient is intubated on ventilator. Not able to gather a history. Based on chart review, patient was taken back to the OR last night with findings of ischemic bowel which was resected. He again had to be taken back to the OR due to increased bleeding and an additional 10cm of ischemic bowel was resected. Patient is on phenylephrine and NE this morning. Oxygen sats well in the high 90s. Review of Systems 2 Review of Systems: All systems reviewed & are unremarkable except as noted in HPI & below Physical Exam 2 Constitutional: on ventilator, intubated Respiratory: normal respiratory effort, lungs clear to auscultation Cardiovascular: RRR, no murmur, no edema Gastrointestinal (Abdomen): Inspection/Auscultation: abdomen normal to inspection and normal bowel sounds; abdomen not distended wound vac present Skin: no rashes, warm and dry Results & Data Results & Data Vital Signs (Past 12 Hours) Vital Signs Temp Pulse Pulse Resp BP BP Pulse Ox 10/17/25 06:45 36.8 C 104 H 23 96 10/17/25 06:39 75/53 L 10/17/25 06:39 75/53 L 10/17/25 06:39 75/53 L 10/17/25 06:39 75/53 L 10/17/25 06:39 75/53 L 10/17/25 06:39 36.8 C 107 H 25 H 100 10/17/25 06:30 36.7 C 97 H 22 100 10/17/25 06:26 81/57 L 10/17/25 06:26 81/57 L 10/17/25 06:26 81/57 L 10/17/25 06:26 81/57 L 10/17/25 06:26 81/57 L 10/17/25 06:24 36.7 C 89 19 100 10/17/25 06:15 36.6 C 88 21 100 10/17/25 06:00 36.5 C 90 20 100 10/17/25 06:00 94/63 L 10/17/25 06:00 94/63 L 10/17/25 06:00 94/63 L 10/17/25 06:00 94/63 L 10/17/25 06:00 94/63 L 10/17/25 05:45 36.4 C L 91 H 18 100 10/17/25 05:33 36.2 C L 93 H 20 100 10/17/25 05:17 36.1 C L 92 H 20 96 10/17/25 05:02 35.9 C L 86 18 100 10/17/25 05:00 83/63 L 10/17/25 05:00 83/63 L 10/17/25 05:00 83/63 L 10/17/25 05:00 83/63 L 10/17/25 05:00 83/63 L 10/17/25 04:59 35.9 C L 86 19 100 10/17/25 04:45 35.7 C L 86 18 100 10/17/25 04:30 35.6 C L 82 18 100 10/17/25 04:15 35.5 C L 77 16 100 10/17/25 04:00 35.4 C L 74 16 100 10/17/25 04:00 96/62 L 10/17/25 04:00 96/62 L 10/17/25 04:00 96/62 L 10/17/25 04:00 96/62 L 10/17/25 04:00 96/62 L 10/17/25 04:00 90/48 L 10/17/25 03:45 35.3 C L 75 16 100 10/17/25 03:30 35.3 C L 72 16 100 10/17/25 03:15 35.3 C L 72 16 100 10/17/25 03:00 35.3 C L 71 18 100 10/17/25 03:00 107/70 10/17/25 03:00 107/70 10/17/25 03:00 107/70 10/17/25 03:00 107/70 10/17/25 03:00 107/70 10/17/25 02:52 35.4 C L 67 18 125/76 100 10/17/25 02:50 125/76 10/17/25 02:50 125/76 10/17/25 02:50 125/76 10/17/25 02:50 125/76 10/17/25 02:50 125/76 10/17/25 02:48 35.4 C L 66 18 100 10/17/25 02:45 35.4 C L 19 100 10/17/25 02:42 35.4 C L 61 19 126/70 100 10/17/25 02:32 35.5 C L 60 19 139/67 100 10/17/25 02:30 59 L 13 100 10/17/25 02:30 69 19 100 10/17/25 02:15 60 8 L 100 10/17/25 02:00 67 8 L 99 10/17/25 01:45 66 8 L 100 10/17/25 01:30 77 8 L 100 10/17/25 01:21 78 0 L 10/17/25 01:03 65 16 100 10/17/25 01:00 97/61 L 10/17/25 01:00 97/61 L 10/17/25 00:48 35.9 C L 69 16 90/46 L 100 10/17/25 00:45 35.9 C L 68 16 100 10/17/25 00:30 35.9 C L 68 17 100 10/17/25 00:15 35.9 C L 68 17 100 10/17/25 00:00 35.9 C L 68 17 100 10/17/25 00:00 87/61 L 10/17/25 00:00 87/61 L 10/17/25 00:00 87/61 L 10/17/25 00:00 87/61 L 10/17/25 00:00 87/61 L 10/17/25 00:00 95/51 L 10/16/25 23:45 35.9 C L 69 18 100 10/16/25 23:30 35.9 C L 69 17 100 10/16/25 23:20 71 16 100 10/16/25 23:15 35.9 C L 70 18 99 10/16/25 23:00 35.8 C L 76 20 100 10/16/25 23:00 83/60 L 10/16/25 23:00 83/60 L 10/16/25 23:00 83/60 L 10/16/25 23:00 83/60 L 10/16/25 23:00 83/60 L 10/16/25 22:45 35.8 C L 76 19 100 10/16/25 22:35 83/54 L 10/16/25 22:35 83/54 L 10/16/25 22:35 83/54 L 10/16/25 22:35 83/54 L 10/16/25 22:35 83/54 L 10/16/25 22:33 35.7 C L 84 18 100 10/16/25 22:30 35.6 C L 83 17 100 10/16/25 22:15 35.5 C L 90 22 100 10/16/25 22:00 35.4 C L 76 16 100 10/16/25 22:00 90/67 L 10/16/25 22:00 90/67 L 10/16/25 22:00 90/67 L 10/16/25 22:00 90/67 L 10/16/25 22:00 90/67 L 10/16/25 21:46 16 10/16/25 21:45 35.3 C L 72 20 100 10/16/25 21:30 35.2 C L 69 20 100 10/16/25 21:15 35.1 C L 68 20 100 10/16/25 21:00 109/77 10/16/25 21:00 109/77 10/16/25 21:00 109/77 10/16/25 21:00 109/77 10/16/25 21:00 109/77 10/16/25 21:00 35.1 C L 64 20 100 10/16/25 21:00 10/16/25 20:45 35.1 C L 65 20 100 10/16/25 20:37 119/73 10/16/25 20:37 119/73 10/16/25 20:37 119/73 10/16/25 20:37 119/73 10/16/25 20:37 119/73 10/16/25 20:36 35.2 C L 61 19 100 10/16/25 20:33 35.2 C L 61 19 100 10/16/25 20:27 10/16/25 20:12 35.3 C L 66 20 131/76 100 10/16/25 20:02 35.3 C L 62 20 129/70 100 10/16/25 19:52 35.3 C L 62 20 126/72 100 10/16/25 19:50 60 20 100 Pulse Ox O2 Del Method O2 Del Method FiO2 10/17/25 06:45 10/17/25 06:39 10/17/25 06:39 10/17/25 06:39 10/17/25 06:39 10/17/25 06:39 10/17/25 06:39 10/17/25 06:30 10/17/25 06:26 10/17/25 06:26 10/17/25 06:26 10/17/25 06:26 10/17/25 06:26 10/17/25 06:24 10/17/25 06:15 10/17/25 06:00 10/17/25 06:00 10/17/25 06:00 10/17/25 06:00 10/17/25 06:00 10/17/25 06:00 10/17/25 05:45 10/17/25 05:33 10/17/25 05:17 10/17/25 05:02 10/17/25 05:00 10/17/25 05:00 10/17/25 05:00 10/17/25 05:00 10/17/25 05:00 10/17/25 04:59 10/17/25 04:45 10/17/25 04:30 10/17/25 04:15 10/17/25 04:00 10/17/25 04:00 10/17/25 04:00 10/17/25 04:00 10/17/25 04:00 10/17/25 04:00 10/17/25 04:00 10/17/25 03:45 10/17/25 03:30 10/17/25 03:15 10/17/25 03:00 10/17/25 03:00 10/17/25 03:00 10/17/25 03:00 10/17/25 03:00 10/17/25 03:00 10/17/25 02:52 Mechanical Vent 30 10/17/25 02:50 10/17/25 02:50 10/17/25 02:50 10/17/25 02:50 10/17/25 02:50 10/17/25 02:48 10/17/25 02:45 10/17/25 02:42 Mechanical Vent 30 10/17/25 02:32 Mechanical Vent 30 10/17/25 02:30 10/17/25 02:30 30 10/17/25 02:15 10/17/25 02:00 10/17/25 01:45 10/17/25 01:30 10/17/25 01:21 10/17/25 01:03 10/17/25 01:00 10/17/25 01:00 10/17/25 00:48 10/17/25 00:45 10/17/25 00:30 10/17/25 00:15 10/17/25 00:00 10/17/25 00:00 10/17/25 00:00 10/17/25 00:00 10/17/25 00:00 10/17/25 00:00 10/17/25 00:00 10/16/25 23:45 10/16/25 23:30 10/16/25 23:20 30 10/16/25 23:15 10/16/25 23:00 10/16/25 23:00 10/16/25 23:00 10/16/25 23:00 10/16/25 23:00 10/16/25 23:00 10/16/25 22:45 10/16/25 22:35 10/16/25 22:35 10/16/25 22:35 10/16/25 22:35 10/16/25 22:35 10/16/25 22:33 10/16/25 22:30 10/16/25 22:15 10/16/25 22:00 10/16/25 22:00 10/16/25 22:00 10/16/25 22:00 10/16/25 22:00 10/16/25 22:00 10/16/25 21:46 30 10/16/25 21:45 10/16/25 21:30 10/16/25 21:15 10/16/25 21:00 10/16/25 21:00 10/16/25 21:00 10/16/25 21:00 10/16/25 21:00 10/16/25 21:00 10/16/25 21:00 100 Mechanical Vent 10/16/25 20:45 10/16/25 20:37 10/16/25 20:37 10/16/25 20:37 10/16/25 20:37 10/16/25 20:37 10/16/25 20:36 10/16/25 20:33 10/16/25 20:27 Mechanical Vent 40 10/16/25 20:12 Mechanical Vent 40 10/16/25 20:02 Mechanical Vent 40 10/16/25 19:52 Mechanical Vent 40 10/16/25 19:50 40 Laboratory Results 10/17/25 12:44 10/17/25 12:02 Resident Activity Tracking Resident Involvement: Resident Care Provided Care Provided: Adult Hospital Medicine (7) Syncope Syncope type: unspecified Qualified Code(s): R55 - Syncope and collapse
[2025-10-17] MEDS: VASOPRESSIN 20 UNITS in SODIUM CHLORIDE 0.9% 100 ML IV SCH (07:42)
[2025-10-17] MEDS: PHYTONADIONE 2.5 MG in DEXTROSE 5% 50 ML IV ONE (07:44)
[2025-10-17] MEDS ORDERED: SILVER NITR/POTASSIUM NITRATE APPLICATOR EXT PRN (07:46)
[2025-10-17 08:28] LABS: Hematocrit (blood only) 22.4 % (42.0-52.0); Hemoglobin 8.0 g/dL (14.0-18.0); Mean Corpuscular Hemoglobin 30.4 pg (25.0-34.0); Mean Corpuscular Volume 85.2 fL (80.0-100.0); Platelet Count 201 K/uL (130-400); RDW Standard Deviation 45.0 fL (36.4-46.3); Red Blood Count 2.63 M/uL (4.70-6.10); White Blood Count 5.58 K/ul (4.8-10.8)
[2025-10-17] MEDS: INSULIN ASPART PER UNIT CHARGE SC SCH ×2 (08:30→16:14)
[2025-10-17] MEDS: LACTATED RINGER'S 1,000 ML IV SCH (08:31)
[2025-10-17] MEDS ORDERED: ALBUMIN 5% 500 ML IV ONE (08:37)
--- NOTE | 2025-10-17 08:49 | Surgery Progress Note ---
Date of Service October 17, 2025 Assessment & Plan (1) Small bowel ischemia: (2) Small bowel obstruction: (3) Hypotension: (4) SVT (supraventricular tachycardia): (5) Shock: Plan Patient is a 80-year-old male who was admitted to [facility] on October 13, 2025 due to acute abdominal pain and syncope, found to have a small bowel obstruction, but became hypotensive, tachycardic, and had worsening findings on repeat CT of the abdomen pelvis, so proceed to the operating room on October 16, 2025 for an exploratory laparotomy with small bowel resection due to bowel ischemia and left in discontinuity with an ABThera in place. Unfortunately, had a return to the OR that same night due to bleeding, however no active bleeding was found. Patient remains critically ill, intubated and sedated, on pressors. We will plan on proceeding back to the operating room tomorrow, October 18, 2025, for a planned relook laparotomy and possible further bowel resection. Unclear etiology for the patient's bowel ischemia, could be low-flow state versus embolic or thrombotic disease. For now, would recommend an aggressive fluid resuscitation with both crystalloid and colloid, wean down pressors as tolerated, and trend H&H's and consider further blood transfusions. Discussed with intensive care unit provider, appreciate the recommendations and we will continue to follow closely. Admission and Anticipated Discharge Date Admission Date: October 13, 2025 Supervising Physician Co-Signing Physician Notes Patient seen and examined, labs and imaging reviewed, agree with above. POD #1 ex lap for ischemic bowel left in discontinuity with open abdomen, status post takeback over concern for bleeding early this morning with no bleeding evident and replacement of their wound VAC. This morning his wound VAC again filled fluid and malfunctioned. The outer dressing and sponge were removed and there was a bleeding skin edge that was treated with silver nitrate and a stitch. This appeared resolved. The ABThera was replaced. Still requiring pressors, H&H slight drop from postop. Continues to be critically ill. Lactate has improved. Continue resuscitation per ICU. Will plan for potential reexploration and possible anastomosis and abdominal closure tomorrow morning in the operating room, but this depends on his status. I hope that he will be able to wean off pressors and remained stable otherwise. Continue antibiotics. Condition remains critical. Appreciate ICU assistance with this patient. Subjective Patient had an eventful evening, briefly, he proceeded to the operating room emergently due to hemodynamic instability and worsening CT findings, please see dictated operative note for detailed description of the procedure. Briefly, patient had evidence of ischemic small bowel and so this was resected, approximately 150 cm. An ABThera wound VAC was applied with plans to proceed back to the operating room in 1 to 2 days for relook and possible further resection. Unfortunately, the ABThera wound VAC device was not maintaining suction and was clogged and noted to have significant blood clots within the blue foam and wound VAC tubing. He was then brought back to the OR for reexploration, however no active source of bleeding was noted and so the ABThera wound VAC device was reapplied. Patient did continue to be hypotensive, maxed out on pressors, and did show evidence of acute blood loss anemia and required 2 units of packed red blood cells with an initial appropriate response. He remained intubated on propofol and fentanyl for sedation and continues to be on Levophed and phenylephrine, but phenylephrine was transition to vasopressin this morning, but continued to be hypotensive with systolic blood pressures in the 70s. He has remained n.p.o. with minimal output from his PEG tube, and this morning again the wound VAC was clotted and nonfunctioning. This was changed at the bedside and a superficial skin vessel that was actively bleeding so we applied silver nitrate which was unsuccessful and then suture ligate the vessel and achieved hemostasis. The ABThera wound VAC was then reapplied with good suction. Overnight, the patient had borderline low urine output, his renal function has worsened, but electrolytes have been stable. H&H was appropriate this morning at 9.6/27.1, however repeat this morning at 8 AM had dropped to 8.0/22.4. Physical Exam Physical Exam: Gen: Intubated and sedated, resting comfortably in bed in NAD CV: RRR PULM: Mechanical breath sounds, equal bilaterally Abd: Abd soft, non-tender, non-distended, ABThera to midline abdominal incision, maintaining adequate suction, seal intact, no surrounding erythema, warmth, swelling, or increased tenderness to palpation ext: no edema to bilateral lower ext, SCDs in place, non-tender, feet warm and well perfused Results & Data Vital Signs (Past 12 Hours) Vital Signs Temp Pulse Pulse Resp BP BP Pulse Ox 10/17/25 06:45 36.8 C 104 H 23 96 10/17/25 06:39 75/53 L 10/17/25 06:39 75/53 L 10/17/25 06:39 75/53 L 10/17/25 06:39 75/53 L 10/17/25 06:39 75/53 L 10/17/25 06:39 36.8 C 107 H 25 H 100 10/17/25 06:30 36.7 C 97 H 22 100 10/17/25 06:26 81/57 L 10/17/25 06:26 81/57 L 10/17/25 06:26 81/57 L 10/17/25 06:26 81/57 L 10/17/25 06:26 81/57 L 10/17/25 06:24 36.7 C 89 19 100 10/17/25 06:15 36.6 C 88 21 100 10/17/25 06:00 36.5 C 90 20 100 10/17/25 06:00 94/63 L 10/17/25 06:00 94/63 L 10/17/25 06:00 94/63 L 10/17/25 06:00 94/63 L 10/17/25 06:00 94/63 L 10/17/25 05:45 36.4 C L 91 H 18 100 10/17/25 05:33 36.2 C L 93 H 20 100 10/17/25 05:17 36.1 C L 92 H 20 96 10/17/25 05:02 35.9 C L 86 18 100 10/17/25 05:00 83/63 L 10/17/25 05:00 83/63 L 10/17/25 05:00 83/63 L 10/17/25 05:00 83/63 L 10/17/25 05:00 83/63 L 10/17/25 04:59 35.9 C L 86 19 100 10/17/25 04:45 35.7 C L 86 18 100 10/17/25 04:30 35.6 C L 82 18 100 10/17/25 04:15 35.5 C L 77 16 100 10/17/25 04:00 35.4 C L 74 16 100 10/17/25 04:00 96/62 L 10/17/25 04:00 96/62 L 10/17/25 04:00 96/62 L 10/17/25 04:00 96/62 L 10/17/25 04:00 96/62 L 10/17/25 04:00 90/48 L 10/17/25 03:45 35.3 C L 75 16 100 10/17/25 03:30 35.3 C L 72 16 100 10/17/25 03:15 35.3 C L 72 16 100 10/17/25 03:00 35.3 C L 71 18 100 10/17/25 03:00 107/70 10/17/25 03:00 107/70 10/17/25 03:00 107/70 10/17/25 03:00 107/70 10/17/25 03:00 107/70 10/17/25 02:52 35.4 C L 67 18 125/76 100 10/17/25 02:50 125/76 10/17/25 02:50 125/76 10/17/25 02:50 125/76 10/17/25 02:50 125/76 10/17/25 02:50 125/76 10/17/25 02:48 35.4 C L 66 18 100 10/17/25 02:45 35.4 C L 19 100 10/17/25 02:42 35.4 C L 61 19 126/70 100 10/17/25 02:32 35.5 C L 60 19 139/67 100 10/17/25 02:30 59 L 13 100 10/17/25 02:30 69 19 100 10/17/25 02:15 60 8 L 100 10/17/25 02:00 67 8 L 99 10/17/25 01:45 66 8 L 100 10/17/25 01:30 77 8 L 100 10/17/25 01:21 78 0 L 10/17/25 01:03 65 16 100 10/17/25 01:00 97/61 L 10/17/25 01:00 97/61 L 10/17/25 00:48 35.9 C L 69 16 90/46 L 100 10/17/25 00:45 35.9 C L 68 16 100 10/17/25 00:30 35.9 C L 68 17 100 10/17/25 00:15 35.9 C L 68 17 100 10/17/25 00:00 35.9 C L 68 17 100 10/17/25 00:00 87/61 L 10/17/25 00:00 87/61 L 10/17/25 00:00 87/61 L 10/17/25 00:00 87/61 L 10/17/25 00:00 87/61 L 10/17/25 00:00 95/51 L 10/16/25 23:45 35.9 C L 69 18 100 10/16/25 23:30 35.9 C L 69 17 100 10/16/25 23:20 71 16 100 10/16/25 23:15 35.9 C L 70 18 99 10/16/25 23:00 35.8 C L 76 20 100 10/16/25 23:00 83/60 L 10/16/25 23:00 83/60 L 10/16/25 23:00 83/60 L 10/16/25 23:00 83/60 L 10/16/25 23:00 83/60 L 10/16/25 22:45 35.8 C L 76 19 100 10/16/25 22:35 83/54 L 10/16/25 22:35 83/54 L 10/16/25 22:35 83/54 L 10/16/25 22:35 83/54 L 10/16/25 22:35 83/54 L 10/16/25 22:33 35.7 C L 84 18 100 10/16/25 22:30 35.6 C L 83 17 100 10/16/25 22:15 35.5 C L 90 22 100 10/16/25 22:00 35.4 C L 76 16 100 10/16/25 22:00 90/67 L 10/16/25 22:00 90/67 L 10/16/25 22:00 90/67 L 10/16/25 22:00 90/67 L 10/16/25 22:00 90/67 L 10/16/25 21:46 16 10/16/25 21:45 35.3 C L 72 20 100 10/16/25 21:30 35.2 C L 69 20 100 10/16/25 21:15 35.1 C L 68 20 100 10/16/25 21:00 109/77 10/16/25 21:00 109/77 10/16/25 21:00 109/77 10/16/25 21:00 109/77 10/16/25 21:00 109/77 10/16/25 21:00 35.1 C L 64 20 100 10/16/25 21:00 10/16/25 20:45 35.1 C L 65 20 100 Pulse Ox O2 Del Method O2 Del Method FiO2 10/17/25 06:45 10/17/25 06:39 10/17/25 06:39 10/17/25 06:39 10/17/25 06:39 10/17/25 06:39 10/17/25 06:39 10/17/25 06:30 10/17/25 06:26 10/17/25 06:26 10/17/25 06:26 10/17/25 06:26 10/17/25 06:26 10/17/25 06:24 10/17/25 06:15 10/17/25 06:00 10/17/25 06:00 10/17/25 06:00 10/17/25 06:00 10/17/25 06:00 10/17/25 06:00 10/17/25 05:45 10/17/25 05:33 10/17/25 05:17 10/17/25 05:02 10/17/25 05:00 10/17/25 05:00 10/17/25 05:00 10/17/25 05:00 10/17/25 05:00 10/17/25 04:59 10/17/25 04:45 10/17/25 04:30 10/17/25 04:15 10/17/25 04:00 10/17/25 04:00 10/17/25 04:00 10/17/25 04:00 10/17/25 04:00 10/17/25 04:00 10/17/25 04:00 10/17/25 03:45 10/17/25 03:30 10/17/25 03:15 10/17/25 03:00 10/17/25 03:00 10/17/25 03:00 10/17/25 03:00 10/17/25 03:00 10/17/25 03:00 10/17/25 02:52 Mechanical Vent 30 10/17/25 02:50 10/17/25 02:50 10/17/25 02:50 10/17/25 02:50 10/17/25 02:50 10/17/25 02:48 10/17/25 02:45 10/17/25 02:42 Mechanical Vent 30 10/17/25 02:32 Mechanical Vent 30 10/17/25 02:30 10/17/25 02:30 30 10/17/25 02:15 10/17/25 02:00 10/17/25 01:45 10/17/25 01:30 10/17/25 01:21 10/17/25 01:03 10/17/25 01:00 10/17/25 01:00 10/17/25 00:48 10/17/25 00:45 10/17/25 00:30 10/17/25 00:15 10/17/25 00:00 10/17/25 00:00 10/17/25 00:00 10/17/25 00:00 10/17/25 00:00 10/17/25 00:00 10/17/25 00:00 10/16/25 23:45 10/16/25 23:30 10/16/25 23:20 30 10/16/25 23:15 10/16/25 23:00 10/16/25 23:00 10/16/25 23:00 10/16/25 23:00 10/16/25 23:00 10/16/25 23:00 10/16/25 22:45 10/16/25 22:35 10/16/25 22:35 10/16/25 22:35 10/16/25 22:35 10/16/25 22:35 10/16/25 22:33 10/16/25 22:30 10/16/25 22:15 10/16/25 22:00 10/16/25 22:00 10/16/25 22:00 10/16/25 22:00 10/16/25 22:00 10/16/25 22:00 10/16/25 21:46 30 10/16/25 21:45 10/16/25 21:30 10/16/25 21:15 10/16/25 21:00 10/16/25 21:00 10/16/25 21:00 10/16/25 21:00 10/16/25 21:00 10/16/25 21:00 10/16/25 21:00 100 Mechanical Vent 10/16/25 20:45 PG Care Time/CCT Total # of Minutes Spent Total Time Spent with Patient: Total time spent is greater than 50% in coordination of care (as documented) at patient's floor/unit and/or counseling patient: Coding [place] [address] SUB INP/OBS CARE 11/25MIN Patient Type Established Medical Decision Making Straight Forward Diagnoses Small bowel ischemia K55.9 Small bowel obstruction K56.609 Hypotension I95.9 SVT (supraventricular tachycardia) I47.10 Shock R57.9
[2025-10-17 08:56] LABS: Acanthocytes 2+; Dohle Bodies 1+; Immature Granulocytes # (auto) 0.05 K/uL (0.01-0.20); Immature Granulocytes % (auto) 0.9 %; Polychromasia 1+
[2025-10-17] MEDS: ALBUMIN 5% 250 ML IV SCH (09:12)
[2025-10-17] MEDS ORDERED: CALCIUM CHLORIDE 10% 1,000 MG in DEXTROSE 5% 50 ML IV STA (09:37)
--- NOTE | 2025-10-17 12:04 | Communication Note ---
Date of Service: October 17, 2025 Patient's spouse was updated via telephone; current course summarized, anticipated outcomes reviewed, and questions answered in full.
[2025-10-17 12:27] LABS: Hematocrit (blood only) 19.5 % (42.0-52.0); Hemoglobin 7.0 g/dL (14.0-18.0)
[2025-10-17 12:37] LABS: Anion Gap 9.0 (3-11); Blood Urea Nitrogen 47.0 mg/dl (6-23); Calcium 7.3 mg/dl (8.6-10.3); Carbon Dioxide 20.0 mmol/L (21-32); Chloride 101.0 mmol/L (98-107); Creatinine Clr Calc Pharmacy 30.4 ml/min; Glucose 253.0 mg/dl (70-99(Fasting)); Potassium 4.7 mmol/L (3.5-5.1); Sodium 130.0 mmol/L (136-145)
[2025-10-17 13:12] LABS: Hematocrit (blood only) 18.7 % (42.0-52.0); Hemoglobin 6.8 g/dL (14.0-18.0)
[2025-10-17] MEDS: INSULIN ASPART PER UNIT CHARGE SC STA (13:18)
--- NOTE | 2025-10-17 13:59 | Pharmacy Report ---
Pharmacy Glycemic Short Note 2 - Date of Service October 17, 2025 - Glycemic Short BSG Results (Last 24 hours): 10/16/25 10/16/25 10/16/25 14:14 15:49 17:30 Glucose 268 H POC Glucose POC Glucose (other) 308 H 244 H 10/16/25 10/16/25 10/16/25 18:36 20:48 22:44 Glucose 155 H POC Glucose POC Glucose (other) 201 H 115 H 10/17/25 10/17/25 10/17/25 00:03 02:52 02:52 Glucose 150 H 151 H POC Glucose POC Glucose (other) 88 10/17/25 10/17/25 10/17/25 05:45 08:13 12:02 Glucose 202 H 253 H POC Glucose 240 H POC Glucose (other) 10/17/25 12:07 Glucose POC Glucose POC Glucose (other) 233 H OUTPATIENT ANTIDIABETIC REGIMEN: * None * HbA1c: 6.0% (10/17/2025) ASSESSMENT: * Neil is a 80 year old male who presents to the hospital on 10/13/25 with SBO * Overnight 10/17, he was taken to OR emergently for ex-lap due to suspected intra-abdominal hemorrhage * Bowel left in discontinuity, will need to return to OR likely within the next few days per surgery for abdomen closure * Patient expected to be NPO for prolonged period of time * BSGs have ranged up to from 172-268 over past 24 hours * Was initiated on insulin drip 10/16 at 2.6 units/hr from 1600 until ~2200 * Glucose of 88 around 0000, appears it was turned off at that time * Insulin drip order discontinued this AM around 0600 by mill crane operator * BSGs likely elevated secondary to critical illness, steroid use * Steroids: dexamethasone 8mg x1 (10/16 @1700), hydrocortisone 100mg (10/16 @1340), hydrocortisone 50mg Q6H (ongoing stress dose steroids) * Patient on multiple pressors: norepinephrine and vasopressin * Insulin aspart sliding scale coverage this AM at stress level 2 did not have much of an effect on his BSG * Increase sliding scale coverage to stress level of 3 * Gave an additional 4 units of insulin aspart with lunch for glucose of 233 * Increase frequency of glucose checks from Q6H to Q4H for better control * Goal BSG <180 in ICU * SCr increasing - with worsening kidney function, insulin has slower clearance * Will need to monitor his requirements once his BSGs more under control and adjust accordingly PLAN FOR INPATIENT GLYCEMIC CONTROL: * Basal insulin * None * Bolus insulin * NovoLog per scale ACHS or Q6hrs while NPO * Goal Range: Low 120 mg/dL - High 160 mg/dL * Correction Factor: 25 mg/dL/unit * Nutritional / Prandial insulin per carb ratio of 1 unit per -- grams CHO consumed
--- NOTE | 2025-10-17 16:01 | Billing Data ---
Date of Service October 17, 2025 Coding Level of Care Code 80226 CRITICAL CARE 1ST 30-74M Time Spent (min) 62
[2025-10-17] MEDS: MIDAZOLAM HCL 1 MG/ML 2ML VIAL IV PRN (16:06)
[2025-10-17] MEDS: MIDAZOLAM HCL 1 MG/ML 2ML VIAL ONE (16:07)
--- NOTE | 2025-10-17 17:48 | Communication Note ---
Date of Service: October 17, 2025 Patient received being his second unit of blood. Slowly decreasing pressor requirement. Making some urine. Sedation decreased due to bradycardia. Spoke with the we will plan for washout and possible anastomosis tomorrow. Plan for exploratory laparotomy, possible bowel resection, possible anastomosis, possible abdominal closure, possible open abdomen Risks discussed to include but not limited to bleeding, infection, leak, abscess, damage surrounding structures, need for future more extensive surgery, and open abdomen, and the risk of anesthesia Verbal consent obtained over the phone, CRISTIANA french Reassess in the a.m., hopefully if his pressor requirement is decreasing or stable we may be able to return bowel continuity and close the abdomen.
[2025-10-17 19:06] LABS: Fibrinogen 240 mg/dl (184-400)
[2025-10-18 05:04] LABS: Alanine Aminotransferase 9.0 U/L (7-52); Albumin Globulin Ratio 1.9 (0.9-2); Albumin Level 2.7 gm/dl (3.4-5.0); Alkaline Phosphatase 48.0 U/L (34-104); Anion Gap 11.0 (3-11); Bilirubin,Total 0.9 mg/dl (0.2-1.0); Blood Urea Nitrogen 50.0 mg/dl (6-23); Calcium 7.4 mg/dl (8.6-10.3); Carbon Dioxide 19.0 mmol/L (21-32); Chloride 100.0 mmol/L (98-107); Creatinine Clr Calc Pharmacy 31.0 ml/min; Globulin 1.4 gm/dl (2.5-4.0); Glucose 169.0 mg/dl (70-99(Fasting)); Magnesium 1.8 mg/dl (1.7-2.4); Potassium 4.0 mmol/L (3.5-5.1); Sodium 130.0 mmol/L (136-145); Total Protein 4.1 gm/dl (6.0-8.3)
[2025-10-18 05:14] LABS: INR 1.1 (0.9-1.1); Partial Thromboplastin Time 57 Seconds (21-31); Prothrombin Time 11.2 Seconds (9.0-12.0)
[2025-10-18 05:49] LABS: Fibrinogen 260 mg/dl (184-400)
[2025-10-18 05:51] LABS: Hematocrit (blood only) 23.4 % (42.0-52.0); Hemoglobin 8.3 g/dL (14.0-18.0); Mean Corpuscular Hemoglobin 30.1 pg (25.0-34.0); Mean Corpuscular Volume 84.8 fL (80.0-100.0); Platelet Count 166 K/uL (130-400); RDW Standard Deviation 44.8 fL (36.4-46.3); Red Blood Count 2.76 M/uL (4.70-6.10); White Blood Count 5.87 K/ul (4.8-10.8)
[2025-10-18] MEDS ORDERED: ONDANSETRON INJ 2 MG/ML 2 ML VIAL ONE (06:30)
[2025-10-18] MEDS ORDERED: ROCURONIUM BROMIDE 10 MG/ML 5 ML VIAL IV ONE ×2 (06:30→09:02)
[2025-10-18] MEDS ORDERED: PROPOFOL IV EMULSION 10 MG/ML 20 ML VIAL IV ONE (06:30)
[2025-10-18] MEDS ORDERED: MIDAZOLAM HCL 1 MG/ML 2ML VIAL ONE ×2 (06:30→09:01)
[2025-10-18] MEDS ORDERED: MAG SULFATE 50% 1GM/2ML VIAL IV ONE (06:32)
--- NOTE | 2025-10-18 07:14 | Hospitalist Progress Note ---
Date of Service October 18, 2025 Assessment & Plan (1) Port-A-Cath in place: (2) Malignant tumor of base of tongue: (3) MGUS (monoclonal gammopathy of unknown significance): (4) Small bowel ischemia: (5) Shock: Plan In summary this is a 80-year-old male who was initially admitted for recurrent syncopal episodes, found to have a small bowel obstruction subsequently developing ischemic small bowel requiring surgical resection. #Ischemic small bowel s/p resection // Acute blood loss anemia // Hypocalcemic Patient initially presented and found to have small bowel obstruction with acute progression of symptoms found to have frankly ischemic small bowel in the afternoon on 10/16 requiring surgical intervention with a repeat operative intervention in the punch card operator of 10/17 due to concern of post operative bleeding which was not found at that time; hemoglobin continued to downtrend into the afternoon on 10/17, requiring an additional 2 U PRBC for total 4 U transfused in the past 48 hours; post-transfusion H&H was ordered but not obtained, morning assessment on 10/18 hemoglobin measure 8.3; INR has improved with Vitamin K supplementation by program therapist, and calcium has also improved; platelet count remains stable; anticipated to return to the operative suite on 10/18, anticipate reassessment of H&H after surgery Maintain NG tube to intermittent suction Absolutely no use of the patient's PEG tube Maintain wound VAC General Surgery and program therapist consulted #Multifactorial Shock Remains in shock most likely related to hypovolemic losses in the setting of iatrogenic fluid losses with an abdominal intervention, wound VAC in place with large volume output since surgical intervention; at this time there is no sincere evidence for an infectious component however the patient is being empirically treated with Zosyn; the patient does have diminished albumin which, per program therapist interpretation, is a significant component and loss of intravascular volume and contributing to the patient's third spacing of fluid into the abdomen leading to their large output through their wound VAC of which I agree; fluid resuscitation at this time is being guided primarily by program therapist with preference for albumin and avoiding crystalloids to reduce third spacing of fluids until adequate albumin supplementation/replacement has been achieved Fluid resuscitation guided by program therapist; would recommend intravenous fluids at a maintenance rate of 125 mL/h based on the patient's weight in addition to their recommended albumin boluses Continue vasopressor support, guided by program therapist; currently requiring L evophed and vasopressin - Continue empiric antibiotic therapy with Zosyn 4.5 mg IV every 6 hours - Continue stress dose hydrocortisone #Mechanical ventilation Remains mechanically ventilated and sedated for anticipated return to operative suite on 10/18; propofol was discontinued due to the development of persistent bradycardia, now on intermittent doses of midazolam #Acute kidney injury // Prerenal and insensible fluid losses Baseline normal renal function with progressive kidney injury in the past 24 hours; currently oliguric; without significant electrolyte abnormalities related to acute kidney injury; suspect this is prerenal in the setting of acute blood loss anemia, intravascular volume loss, and insensible losses related to their s urgical intervention - Maintain Montaño catheter - Intake and output measures every shift Continue management with fluid resuscitation detailed above under multifactorial shock #Syncopal episodes, 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 "syncope"; previously has been seen to have episodes of supraventricular tachycardia which has been observed during his current hospitalization and correlated with a witnessed presyncopal event; based on cardiology 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 which they suspect is worsened given the patient's acute illness even prior to the events that it began on 10/16 TTE without significant change from previous assessment Maintain serum potassium greater than 4, magnesium greater than 2 No indication for systemic anticoagulation with respect to this condition at this time Long-term consideration for ablation per cardiology recommendations, at this time to continue amiodarone IV for short-term resolution of symptoms #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 No acute overnight events; taken to the operative suite this morning for planned staged surgical procedure. At the time of my evaluation, the patient is intubated, mechanically ventilated, and mildly sedated. Review of Systems Review of Systems: Unobtainable due to endotracheal tube Physical Exam Physical Exam: General: Elderly male, intubated, mechanically ventilated, and sedated Vital Signs: Reviewed; remains on dual vasopressor therapy to maintain goal MAP, remains below goal UOP HEENT: Intubated, without evidence of posterior oropharyngeal trauma; several areas of chronic gingivitis without evidence of gingival injury or acute infection; NG tube in place with brown gastrointestinal secretions without evidence of coffee-ground substance, blood, or bilious output Neck: Trachea midline Pulmonary: Clear to auscultation bilaterally; mechanically ventilated Cardiovascular: Regular rate and rhythm without murmur, rub, or gallop; S1 and S2 normal; left radial pulse and bilateral posterior tibial pulse 2+ with brisk capillary refill; no notable lower extremity edema Gastrointestinal: Midline abdominal incision without evidence of oozing or dehiscence with abdominal wound VAC in place; infrequent bowel sounds with normal pitch; nondistended abdomen without rigidity Genitourinary: Montaño catheter in place, recently drained Results & Data Results & Data Vital Signs (Past 12 Hours) Vital Signs Temp Pulse Resp BP Pulse Ox Pulse Ox O2 Del Method 10/18/25 06:00 36.9 C 65 18 100 10/18/25 06:00 99/53 L 10/18/25 06:00 99/53 L 10/18/25 06:00 99/53 L 10/18/25 06:00 99/53 L 10/18/25 06:00 99/53 L 10/18/25 05:00 36.9 C 61 18 100 10/18/25 05:00 90/46 L 10/18/25 05:00 90/46 L 10/18/25 05:00 90/46 L 10/18/25 05:00 90/46 L 10/18/25 05:00 90/46 L 10/18/25 04:00 104/57 L 10/18/25 04:00 104/57 L 10/18/25 04:00 104/57 L 10/18/25 04:00 104/57 L 10/18/25 04:00 104/57 L 10/18/25 04:00 36.8 C 59 L 18 100 10/18/25 04:00 108/42 L 10/18/25 03:00 91/48 L 10/18/25 03:00 91/48 L 10/18/25 03:00 91/48 L 10/18/25 03:00 91/48 L 10/18/25 03:00 91/48 L 10/18/25 03:00 36.9 C 53 L 18 100 10/18/25 02:45 62 18 100 10/18/25 02:00 36.8 C 53 L 18 100 10/18/25 02:00 95/52 L 10/18/25 02:00 95/52 L 10/18/25 02:00 95/52 L 10/18/25 02:00 95/52 L 10/18/25 02:00 95/52 L 10/18/25 01:00 36.9 C 49 L 18 100 10/18/25 01:00 92/50 L 10/18/25 01:00 92/50 L 10/18/25 01:00 92/50 L 10/18/25 01:00 92/50 L 10/18/25 01:00 92/50 L 10/18/25 00:30 36.9 C 58 L 18 100 10/18/25 00:01 123/52 L 10/18/25 00:01 123/52 L 10/18/25 00:01 123/52 L 10/18/25 00:01 123/52 L 10/18/25 00:01 123/52 L 10/18/25 00:00 37.0 C 64 18 100 10/18/25 00:00 132/41 L 10/17/25 23:30 37.1 C 59 L 18 100 10/17/25 23:08 52 L 18 100 10/17/25 23:00 95/53 L 10/17/25 23:00 95/53 L 10/17/25 23:00 95/53 L 10/17/25 23:00 95/53 L 10/17/25 23:00 95/53 L 10/17/25 23:00 37.1 C 51 L 19 100 10/17/25 22:30 37.1 C 53 L 17 100 10/17/25 22:00 91/52 L 10/17/25 22:00 91/52 L 10/17/25 22:00 91/52 L 10/17/25 22:00 91/52 L 10/17/25 22:00 91/52 L 10/17/25 22:00 37.1 C 53 L 18 100 10/17/25 21:30 37.1 C 62 18 100 10/17/25 21:00 37.1 C 61 17 100 10/17/25 21:00 99/52 L 10/17/25 21:00 99/52 L 10/17/25 21:00 99/52 L 10/17/25 21:00 99/52 L 10/17/25 21:00 99/52 L 10/17/25 21:00 100 10/17/25 20:30 37.1 C 57 L 18 100 10/17/25 20:15 56 L 18 100 10/17/25 20:05 116/59 L 10/17/25 20:05 116/59 L 10/17/25 20:05 116/59 L 10/17/25 20:05 116/59 L 10/17/25 20:05 116/59 L 10/17/25 20:03 37.1 C 60 18 100 10/17/25 20:00 37.1 C 51 L 18 100 10/17/25 20:00 Mechanical Vent 10/17/25 20:00 132/46 L 10/17/25 19:45 107/58 L 10/17/25 19:45 107/58 L 10/17/25 19:45 107/58 L 10/17/25 19:45 107/58 L 10/17/25 19:45 107/58 L 10/17/25 19:45 37.1 C 52 L 17 100 10/17/25 19:30 37.1 C 52 L 22 100 10/17/25 19:15 37.1 C 54 L 18 100 O2 Del Method FiO2 10/18/25 06:00 10/18/25 06:00 10/18/25 06:00 10/18/25 06:00 10/18/25 06:00 10/18/25 06:00 10/18/25 05:00 10/18/25 05:00 10/18/25 05:00 10/18/25 05:00 10/18/25 05:00 10/18/25 05:00 10/18/25 04:00 10/18/25 04:00 10/18/25 04:00 10/18/25 04:00 10/18/25 04:00 10/18/25 04:00 10/18/25 04:00 10/18/25 03:00 10/18/25 03:00 10/18/25 03:00 10/18/25 03:00 10/18/25 03:00 10/18/25 03:00 10/18/25 02:45 30 10/18/25 02:00 10/18/25 02:00 10/18/25 02:00 10/18/25 02:00 10/18/25 02:00 10/18/25 02:00 10/18/25 01:00 10/18/25 01:00 10/18/25 01:00 10/18/25 01:00 10/18/25 01:00 10/18/25 01:00 10/18/25 00:30 10/18/25 00:01 10/18/25 00:01 10/18/25 00:01 10/18/25 00:01 10/18/25 00:01 10/18/25 00:00 10/18/25 00:00 10/17/25 23:30 10/17/25 23:08 30 10/17/25 23:00 10/17/25 23:00 10/17/25 23:00 10/17/25 23:00 10/17/25 23:00 10/17/25 23:00 10/17/25 22:30 10/17/25 22:00 10/17/25 22:00 10/17/25 22:00 10/17/25 22:00 10/17/25 22:00 10/17/25 22:00 10/17/25 21:30 10/17/25 21:00 10/17/25 21:00 10/17/25 21:00 10/17/25 21:00 10/17/25 21:00 10/17/25 21:00 10/17/25 21:00 Mechanical Vent 10/17/25 20:30 10/17/25 20:15 30 10/17/25 20:05 10/17/25 20:05 10/17/25 20:05 10/17/25 20:05 10/17/25 20:05 10/17/25 20:03 10/17/25 20:00 10/17/25 20:00 10/17/25 20:00 10/17/25 19:45 10/17/25 19:45 10/17/25 19:45 10/17/25 19:45 10/17/25 19:45 10/17/25 19:45 10/17/25 19:30 10/17/25 19:15 Laboratory Results Hemoglobin trend 6.8 to 8.3 s/p 2 U PRBC Calcium trend 6.6 to 7.4 s/p Calcium chloride 1 g IV Diagnostic Findings Portable chest film obtained in the evening 10/17; no acute changes, ETT and NG appear in appropriate positions PG Care Time/CCT Total # of Minutes Spent Total Time Spent with Patient: Total time spent is greater than 50% in coordination of care (as documented) at patient's floor/unit and/or counseling patient: Coding Level of Care Code 42377 SUB INP/OBS CARE 3/50MIN Diagnoses Port-A-Cath in place Z95.828 Malignant tumor of base of tongue C01 MGUS (monoclonal gammopathy of unknown significance) D47.2 Small bowel ischemia K55.9 Shock R57.9
[2025-10-18] MEDS: MAGNESIUM SULFATE / D5W 1 GM/100 ML BAG IV SCH (07:21)
[2025-10-18] MEDS ORDERED: KETAMINE HCL 10MG/ML SYR ONE (07:27)
--- NOTE | 2025-10-18 07:30 | History & Physical Bridge Note ---
Date of Service October 18, 2025 History & Physical Bridge Note I have examined the patient, reviewed the History & Physical and in the interval since the performance of the History & Physical I have noted the following changes of clinical significance: no changes noted
--- NOTE | 2025-10-18 07:39 | Surgery Progress Note ---
Date of Service October 18, 2025 Assessment & Plan (1) History of resection of small bowel: Plan: History of laparotomy with small bowel resection for ischemic bowel left in discontinuity, plan for or today Plan for exploratory laparotomy, possible bowel resection, possible anastomosis, possible abdominal closure, possible open abdomen Risks discussed to include but not limited to bleeding, infection, leak, abscess, damage surrounding structures, need for future more extensive surgery, and open abdomen, and the risk of anesthesia Verbal consent obtained over the phone yesterday evening, CRISTIANA Toth witnessed Continue IV antibiotics, resuscitation efforts Appreciate ICU care of this patient (2) Small bowel ischemia: (3) Malignant tumor of base of tongue: Admission and Anticipated Discharge Date Admission Date: October 13, 2025 Subjective Recent history of tongue cancer diagnosis, status post small bowel resection and temporary abdominal closure for ischemic small bowel of unknown etiology. Completed 2 units of PRBCs yesterday afternoon. Slowly weaning Levophed, still on vasopressin. Increased urine output. Physical Exam Constitutional: + mechanically ventilated Intubated, minimal sedation Gastrointestinal (Abdomen): ABThera wound VAC in place, good seal. PEG tube in place. Results & Data Vital Signs (Past 12 Hours) Vital Signs Temp Pulse Resp BP Pulse Ox Pulse Ox O2 Del Method 10/18/25 06:00 36.9 C 65 18 100 10/18/25 06:00 99/53 L 10/18/25 06:00 99/53 L 10/18/25 06:00 99/53 L 10/18/25 06:00 99/53 L 10/18/25 06:00 99/53 L 10/18/25 05:00 36.9 C 61 18 100 10/18/25 05:00 90/46 L 10/18/25 05:00 90/46 L 10/18/25 05:00 90/46 L 10/18/25 05:00 90/46 L 10/18/25 05:00 90/46 L 10/18/25 04:00 104/57 L 10/18/25 04:00 104/57 L 10/18/25 04:00 104/57 L 10/18/25 04:00 104/57 L 10/18/25 04:00 104/57 L 10/18/25 04:00 36.8 C 59 L 18 100 10/18/25 04:00 108/42 L 10/18/25 03:00 91/48 L 10/18/25 03:00 91/48 L 10/18/25 03:00 91/48 L 10/18/25 03:00 91/48 L 10/18/25 03:00 91/48 L 10/18/25 03:00 36.9 C 53 L 18 100 10/18/25 02:45 62 18 100 10/18/25 02:00 36.8 C 53 L 18 100 10/18/25 02:00 95/52 L 10/18/25 02:00 95/52 L 10/18/25 02:00 95/52 L 10/18/25 02:00 95/52 L 10/18/25 02:00 95/52 L 10/18/25 01:00 36.9 C 49 L 18 100 10/18/25 01:00 92/50 L 10/18/25 01:00 92/50 L 10/18/25 01:00 92/50 L 10/18/25 01:00 92/50 L 10/18/25 01:00 92/50 L 10/18/25 00:30 36.9 C 58 L 18 100 10/18/25 00:01 123/52 L 10/18/25 00:01 123/52 L 10/18/25 00:01 123/52 L 10/18/25 00:01 123/52 L 10/18/25 00:01 123/52 L 10/18/25 00:00 37.0 C 64 18 100 10/18/25 00:00 132/41 L 10/17/25 23:30 37.1 C 59 L 18 100 10/17/25 23:08 52 L 18 100 10/17/25 23:00 95/53 L 10/17/25 23:00 95/53 L 10/17/25 23:00 95/53 L 10/17/25 23:00 95/53 L 10/17/25 23:00 95/53 L 10/17/25 23:00 37.1 C 51 L 19 100 10/17/25 22:30 37.1 C 53 L 17 100 10/17/25 22:00 91/52 L 10/17/25 22:00 91/52 L 10/17/25 22:00 91/52 L 10/17/25 22:00 91/52 L 10/17/25 22:00 91/52 L 10/17/25 22:00 37.1 C 53 L 18 100 10/17/25 21:30 37.1 C 62 18 100 10/17/25 21:00 37.1 C 61 17 100 10/17/25 21:00 99/52 L 10/17/25 21:00 99/52 L 10/17/25 21:00 99/52 L 10/17/25 21:00 99/52 L 10/17/25 21:00 99/52 L 10/17/25 21:00 100 10/17/25 20:30 37.1 C 57 L 18 100 10/17/25 20:15 56 L 18 100 10/17/25 20:05 116/59 L 10/17/25 20:05 116/59 L 10/17/25 20:05 116/59 L 10/17/25 20:05 116/59 L 10/17/25 20:05 116/59 L 10/17/25 20:03 37.1 C 60 18 100 10/17/25 20:00 37.1 C 51 L 18 100 10/17/25 20:00 Mechanical Vent 10/17/25 20:00 132/46 L 10/17/25 19:45 107/58 L 10/17/25 19:45 107/58 L 10/17/25 19:45 107/58 L 10/17/25 19:45 107/58 L 10/17/25 19:45 107/58 L 10/17/25 19:45 37.1 C 52 L 17 100 O2 Del Method FiO2 10/18/25 06:00 10/18/25 06:00 10/18/25 06:00 10/18/25 06:00 10/18/25 06:00 10/18/25 06:00 10/18/25 05:00 10/18/25 05:00 10/18/25 05:00 10/18/25 05:00 10/18/25 05:00 10/18/25 05:00 10/18/25 04:00 10/18/25 04:00 10/18/25 04:00 10/18/25 04:00 10/18/25 04:00 10/18/25 04:00 10/18/25 04:00 10/18/25 03:00 10/18/25 03:00 10/18/25 03:00 10/18/25 03:00 10/18/25 03:00 10/18/25 03:00 10/18/25 02:45 30 10/18/25 02:00 10/18/25 02:00 10/18/25 02:00 10/18/25 02:00 10/18/25 02:00 10/18/25 02:00 10/18/25 01:00 10/18/25 01:00 10/18/25 01:00 10/18/25 01:00 10/18/25 01:00 10/18/25 01:00 10/18/25 00:30 10/18/25 00:01 10/18/25 00:01 10/18/25 00:01 10/18/25 00:01 10/18/25 00:01 10/18/25 00:00 10/18/25 00:00 10/17/25 23:30 10/17/25 23:08 30 10/17/25 23:00 10/17/25 23:00 10/17/25 23:00 10/17/25 23:00 10/17/25 23:00 10/17/25 23:00 10/17/25 22:30 10/17/25 22:00 10/17/25 22:00 10/17/25 22:00 10/17/25 22:00 10/17/25 22:00 10/17/25 22:00 10/17/25 21:30 10/17/25 21:00 10/17/25 21:00 10/17/25 21:00 10/17/25 21:00 10/17/25 21:00 10/17/25 21:00 10/17/25 21:00 Mechanical Vent 10/17/25 20:30 10/17/25 20:15 30 10/17/25 20:05 10/17/25 20:05 10/17/25 20:05 10/17/25 20:05 10/17/25 20:05 10/17/25 20:03 10/17/25 20:00 10/17/25 20:00 10/17/25 20:00 10/17/25 19:45 10/17/25 19:45 10/17/25 19:45 10/17/25 19:45 10/17/25 19:45 10/17/25 19:45 Laboratory Results Laboratory Results - last 24 hr 10/16/25 10/16/25 10/17/25 15:49 18:34 08:13 WBC RBC Hgb Hct MCV MCH MCHC RDW Std Deviation RDW Coeff of Nii Plt Count MPV Immature Gran % (Auto) Neut % (Auto) Lymph % (Auto) Boundary % (Auto) Eos % (Auto) Baso % (Auto) Neut # (Auto) Lymph # (Auto) Boundary # (Auto) Eos # (Auto) Baso # (Auto) Immature Gran # (Auto) Dohle Bodies Polychromasia Acanthocytes (Spur) PT INR APTT PTT Ratio Fibrinogen Sodium Potassium Chloride Carbon Dioxide Anion Gap BUN Creatinine Est Cr Clr Drug Dosing eGFR BUN/Creatinine Ratio Glucose POC Glucose 240 H POC Glucose (other) 308 H Calcium Ionized Calcium Phosphorus Magnesium Total Bilirubin AST ALT Alkaline Phosphatase Total Protein Albumin Globulin Albumin/Globulin Ratio Blood Type A Positive Antibody Screen NEGATIVE Crossmatch See Detail 10/17/25 10/17/25 10/17/25 08:17 12:02 12:07 WBC 5.58 RBC 2.63 L Hgb 8.0 L 7.0 L Hct 22.4 L 19.5 L* MCV 85.2 MCH 30.4 MCHC 35.7 RDW Std Deviation 45.0 RDW Coeff of Nii 15.6 H Plt Count 201 MPV 9.7 Immature Gran % (Auto) 0.9 Neut % (Auto) 78.5 Lymph % (Auto) 5.4 Boundary % (Auto) 14.7 Eos % (Auto) 0.0 Baso % (Auto) 0.5 Neut # (Auto) 4.38 Lymph # (Auto) 0.30 L Boundary # (Auto) 0.82 H Eos # (Auto) 0.00 Baso # (Auto) 0.03 Immature Gran # (Auto) 0.05 Dohle Bodies 1+ Polychromasia 1+ Acanthocytes (Spur) 2+ PT INR APTT PTT Ratio Fibrinogen Sodium 130 L Potassium 4.7 Chloride 101 Carbon Dioxide 20 L Anion Gap 9 BUN 47 H Creatinine 1.98 H Est Cr Clr Drug Dosing 30.4 eGFR 33.94 BUN/Creatinine Ratio 23.7 H Glucose 253 H POC Glucose POC Glucose (other) 233 H Calcium 7.3 L Ionized Calcium Phosphorus Magnesium Total Bilirubin AST ALT Alkaline Phosphatase Total Protein Albumin Globulin Albumin/Globulin Ratio Blood Type Antibody Screen Crossmatch 10/17/25 10/17/25 10/17/25 12:44 17:50 20:16 WBC RBC Hgb 6.8 L* Hct 18.7 L* MCV MCH MCHC RDW Std Deviation RDW Coeff of Nii Plt Count MPV Immature Gran % (Auto) Neut % (Auto) Lymph % (Auto) Boundary % (Auto) Eos % (Auto) Baso % (Auto) Neut # (Auto) Lymph # (Auto) Boundary # (Auto) Eos # (Auto) Baso # (Auto) Immature Gran # (Auto) Dohle Bodies Polychromasia Acanthocytes (Spur) PT INR APTT PTT Ratio Fibrinogen 240 Sodium Potassium Chloride Carbon Dioxide Anion Gap BUN Creatinine Est Cr Clr Drug Dosing eGFR BUN/Creatinine Ratio Glucose POC Glucose POC Glucose (other) 166 H Calcium Ionized Calcium Phosphorus Magnesium Total Bilirubin AST ALT Alkaline Phosphatase Total Protein Albumin Globulin Albumin/Globulin Ratio Blood Type Antibody Screen Crossmatch 10/18/25 10/18/25 10/18/25 00:01 04:28 04:33 WBC 5.87 RBC 2.76 L Hgb 8.3 L Hct 23.4 L MCV 84.8 MCH 30.1 MCHC 35.5 RDW Std Deviation 44.8 RDW Coeff of Nii 15.1 H Plt Count 166 MPV 10.2 Immature Gran % (Auto) Neut % (Auto) Lymph % (Auto) Boundary % (Auto) Eos % (Auto) Baso % (Auto) Neut # (Auto) Lymph # (Auto) Boundary # (Auto) Eos # (Auto) Baso # (Auto) Immature Gran # (Auto) Dohle Bodies Polychromasia Acanthocytes (Spur) PT 11.2 INR 1.1 APTT 57 H PTT Ratio 2.1 Fibrinogen 260 Sodium 130 L Potassium 4.0 Chloride 100 Carbon Dioxide 19 L Anion Gap 11 BUN 50 H Creatinine 1.94 H Est Cr Clr Drug Dosing 31.0 eGFR 34.78 BUN/Creatinine Ratio 25.8 H Glucose 169 H POC Glucose POC Glucose (other) 160 H Calcium 7.4 L Ionized Calcium Phosphorus 5.1 H Magnesium 1.8 Total Bilirubin 0.9 AST 11 L ALT 9 Alkaline Phosphatase 48 Total Protein 4.1 L Albumin 2.7 L Globulin 1.4 L Albumin/Globulin Ratio 1.9 Blood Type Antibody Screen Crossmatch 10/18/25 10/18/25 04:54 06:50 WBC RBC Hgb Hct MCV MCH MCHC RDW Std Deviation RDW Coeff of Nii Plt Count MPV Immature Gran % (Auto) Neut % (Auto) Lymph % (Auto) Boundary % (Auto) Eos % (Auto) Baso % (Auto) Neut # (Auto) Lymph # (Auto) Boundary # (Auto) Eos # (Auto) Baso # (Auto) Immature Gran # (Auto) Dohle Bodies Polychromasia Acanthocytes (Spur) PT INR APTT PTT Ratio Fibrinogen Sodium Potassium Chloride Carbon Dioxide Anion Gap BUN Creatinine Est Cr Clr Drug Dosing eGFR BUN/Creatinine Ratio Glucose POC Glucose POC Glucose (other) 162 H Calcium Ionized Calcium 1.10 L Phosphorus Magnesium Total Bilirubin AST ALT Alkaline Phosphatase Total Protein Albumin Globulin Albumin/Globulin Ratio Blood Type Antibody Screen Crossmatch PG Care Time/CCT Total # of Minutes Spent Total Time Spent with Patient: Total time spent is greater than 50% in coordination of care (as documented) at patient's floor/unit and/or counseling patient: Coding Level of Care Code None Diagnoses History of resection of small bowel Z90.49 Small bowel ischemia K55.9 Malignant tumor of base of tongue C01
--- NOTE | 2025-10-18 07:40 | Anesthesiology Consultation ---
Date of Service October 18, 2025 Assessment & Plan (1) Encounter for pre-operative examination: Chart Review Chart Review: Acceptable Risk for Surgery and Patient NOT seen in Pre Admission Testing Consults Requested none History Surgery Operation Date: 10/16/25 17:20 Proposed Procedures p Exploratory Laparotomy - Wan Maria DO, FACS s Exploratory laparotomy, possible bowel resection, possible ostomy - Wan Maria DO, FACS Operation Date: 10/17/25 01:30 Proposed Procedures p Exploratory Laparotomy - Wan Maria DO, FACS s Bowel Resection - Wan Maria DO, FACS Operation Date: 10/18/25 07:30 Proposed Procedures p Abdominal Washout, Small Bowel Anastomosis and Closure, Surgery As Needed - Wan Maria DO, FACS Height/Weight Height: 5 ft 11 in Weight: 69.9 kg Allergies Allergy/AdvReac Type Severity Reaction Status Date / Time prednisone AdvReac Intermediate Unable to Verified 10/08/25 15:27 Tolerate Medications Home Medications Medication Instructions Recorded Confirmed Last Taken quetiapine 25 mg tablet (Seroquel) 25 mg PO HS 07/09/25 10/13/25 09/05/25 23:00 [id number] tablet 1 tab PO QAM 07/12/25 10/13/25 09/05/25 10:00 diphenhydramine 25 2 tab PO HS PRN Sleep 07/18/25 10/13/25 09/05/25 23:00 mg-acetaminophen 500 mg tablet (Tylenol PM Extra Strength) olanzapine 2.5 mg tablet 2.5 mg PO DAILY PRN Chemo 08/29/25 10/13/25 09/05/25 23:00 ondansetron 8 mg disintegrating 8 mg translingual DAILY PRN Nausea 08/29/25 10/13/25 Unknown tablet And Vomiting prochlorperazine maleate 10 mg 10 mg PO DAILY PRN Nausea And 08/29/25 10/13/25 Unknown tablet Vomiting sucralfate 100 mg/mL oral 10 ml PO ACHS 10/01/25 10/13/25 Unknown suspension nystatin 100,000 unit/mL oral 5 ml PO QID PRN THRUSH 10/13/25 10/13/25 Unknown suspension Active Medications Generic Name Dose Route Start Last Admin Trade Name Freq PRN Reason Stop Dose Admin Acetaminophen 1,000 mg in 100 mls @ 400 mls/hr 10/16/25 09:00 10/18/25 07:36 Ofirmev IV 10/19/25 08:59 Infused Q8@0000,0800,1600 FARHAT Infusion Norepinephrine Bitartrate 4 mg in 250 mls @ 31.32 mls/hr 10/16/25 11:15 10/18/25 07:32 Levophed/D5w IV 11/15/25 11:14 0.14 mcg/kg/min .[id number] FARHAT 36.5 mls/hr Titration Protocol 0.12 MCG/KG/MIN Hydrocortisone Sodium 1 mls @ 4 mls/min 10/16/25 20:00 10/18/25 07:22 Succinate 50 mg/ Syringe IV 11/15/25 19:59 4 mls/min Q6H FARHAT Administration Piperacillin Sod/Tazobactam Sod 4.5 gm in 100 mls @ 25 mls/hr 10/16/25 13:30 10/18/25 05:02 Zosyn IV 10/18/25 13:29 25 mls/hr Q8H FARHAT Administration Protocol Pantoprazole Sodium 40 mg in 10 mls @ 5 mls/min 10/16/25 21:00 10/18/25 07:22 Protonix IV 11/15/25 20:59 5 mls/min BID FARHAT Administration Fentanyl Citrate 2,500 mcg in 250 mls @ 7.5 mls/hr 10/16/25 20:30 10/18/25 07:02 Fentanyl Citrate IV 10/30/25 20:29 75 mcg/hr .[id number] FARHAT 7.5 mls/hr Titration Protocol 75 MCG/HR Vasopressin 20 units/ Sodium 101 mls @ 12.12 mls/hr 10/17/25 07:30 10/18/25 07:25 Chloride IV 11/16/25 07:29 0.04 unit/min .Q8H20M FARHAT 12.1 mls/hr Administration 0.04 UNIT/MIN Magnesium Sulfate/Dextrose 1 gm in 100 mls @ 50 mls/hr 10/18/25 06:45 10/18/25 07:37 Magnesium Sulfate / D5w IV 10/18/25 10:44 0 mls/hr Q2H FARHAT Infusion Insulin Aspart 0 units 10/17/25 16:00 10/18/25 07:36 Insulin Aspart Per Unit Charge SC 11/16/25 07:29 Not Given Q4 FARHAT Levetiracetam 1,000 mg 10/16/25 21:00 10/18/25 07:37 Levetiracetam 500 Mg/5 Ml Vial IV 11/15/25 20:59 Not Given Q12H FARHAT Midazolam HCl 2 mg 10/17/25 15:59 10/18/25 06:23 Midazolam Hcl 1 Mg/Ml 2ml Vial IV 11/16/25 15:58 2 mg Q2H PRN Administration Agitation Ondansetron HCl 4 mg 10/13/25 21:58 10/15/25 21:46 Ondansetron Inj 2 Mg/Ml 2 Ml Vial IV 11/12/25 21:57 4 mg Q6H PRN Administration Nausea NPO Date Last Intake of Fluids: 10/13/25 Time Last Intake of Fluids: 20:00 Last Intake of Fluids Comment: 10/13/25 Date Last Intake of Solids: 10/13/25 Time Last Intake of Solids: 20:00 Past Medical History Medical History Syncope Small bowel obstruction AAA (abdominal aortic aneurysm) SVT (supraventricular tachycardia) Hypotension MGUS (monoclonal gammopathy of unknown significance) elevated IgA kappa monoclonal band 07/2025 Malignant tumor of base of tongue [place]18[place] [facility] [place] [facility] [place] [facility] [place] - first chemo 09/05/25 Weight loss, abnormal 50lbs as per patients - related to cancer dx Diverticulosis Nonmelanoma skin cancer Ascending aortic aneurysm 4.3 cm root dilatation Hyperlipidemia Allergic rhinitis Asthma per EMR since 2019, no inhalers Anxiety (12/11/12) Benign prostatic hyperplasia with urinary obstruction Depression (12/11/12) History of recent hospitalization (07/10/25) hospitalized at [facility] for syncope and noted increased weakness 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 hands currently Past Family History Family History Family/Other Anxiety Multiple sclerosis Inflammatory bowel disease Father , in his 60s Multiple sclerosis Mother , Medical history unknown Daughter No problems noted. Other No family history of adverse response to anesthesia Past Surgical History Surgical History History of laparotomy (10/17/25) opening of recent laparotomy, exploratory Laparotomy, Small Bowel Resection, washout, temporary Abdominal Wound Closure with Abthera Wound Vac - Wan Maria DO, FACS History of resection of small bowel (10/16/25) Exploratory Laparotomy, Small Bowel Resection, Temporary Abdominal Wound Closure with Abthera Wound Vac, Fecal Disimpaction(Not Applicable) - Wan Maria DO, GREGORIO PEG (percutaneous endoscopic gastrostomy) status (09/06/25) s Esophagogastroduodenoscopy with Percutaneous Endoscopic Gastrostomy Tube(Not Applicable) - Tanvir Rivera DO p Insertion of Access Port With Fluoroscopy(Left) - Tanvir Rivera DO History of surgery Direct Microlaryngoscopy with Biopsies History of tooth extraction History of tonsillectomy S/P orchiopexy S/P TURP History of herniorrhaphy Left S/P colonoscopy Social History Smoking Status: Never smoker tobacco type: smokeless tobacco Do You Dip or Chew Tobacco: No (quit 8 months ago) Hx Alcohol Use: No Alcohol type: beer alcohol intake frequency: holidays/special occasions only Hx Substance Use: No substance use type: does not use Physical Exam Vital Signs Last Vital Signs Temp 36.9 C 10/18/25 06:00 Pulse 65 10/18/25 06:00 Resp 18 10/18/25 06:00 BP 99/53 L 10/18/25 06:00 Pulse Ox 100 10/18/25 06:00 O2 Del Method Mechanical Vent 10/17/25 21:00 O2 Flow Rate 13 10/16/25 06:05 FiO2 30 10/18/25 02:45 Testing Laboratory Results 10/18/25 04:33 10/18/25 04:28 PT 11.2 Seconds (9.0-12.0) 10/18/25 04:28 INR 1.1 (0.9-1.1) 10/18/25 04:28 APTT 57 Seconds (21-31) H 10/18/25 04:28 Hemoglobin A1c 6.0 % (4.5-5.6) H 10/17/25 02:52 Urine Color Yellow 10/16/25 15:28 Urine Appearance Clear (Clear) 10/16/25 15: Urine pH 5.0 (4.5-7.5) 10/16/25 15: Ur Specific [place] 1.015 (1.000-1.030) 10/16/25 15: Urine Protein 3+ (Negative) H 10/16/25 15:28 Urine Glucose (UA) Trace (Negative) H 10/16/25 15: Urine Ketones Trace (Negative) H 10/16/25 15: Urine Nitrite Negative (Negative) 10/16/25 15: Ur Leukocyte Esterase Negative (Negative) 10/16/25 15: Urine RBC 0-2 /hpf (0-2) 10/16/25 15: Urine WBC 6-10 /hpf (0-5) H 10/16/25 15: Ur Epithelial Cells 11-20 /hpf (0-2) H 10/16/25 15:28 Blood Type A Positive 10/16/25 18:34 Antibody Screen NEGATIVE 10/16/25 18:34 10/16/25 Unknown Gram Stain - Final Peritoneal Fluid Aerobic and Anaerobic Culture - Preliminary No growth to date. 10/16/25 15: Urine Culture - Preliminary Urine,Clean Catch No growth - Less than 1,000 colonies/mL, Final report to follow. 10/16/25 14:14 Fungal Smear - Final Blood 10/18/25 10/18/25 10/18/25 07:33 04:54 00:01 POC Glucose 183 H POC Glucose (other) 162 H 160 H 10/17/25 20:16 POC Glucose POC Glucose (other) 166 H Electrocardiogram Date: 10/16/25 sinus tach. HR 109. otherwise normal ecg. Chest X-Ray Date: 10/16/25 SINGLE VIEW CHEST CLINICAL HISTORY: Shock. FINDINGS: An AP, portable, upright chest radiograph is compared to chest x-ray and chest CT dated 10/13/2025. A left subclavian central venous infusion port is unchanged in position. The heart is mildly enlarged noting atherosclerotic calcification of the thoracic aorta. The pulmonary vasculature is noncongested. Chronic interstitial thickening is similar to previous. There is bibasilar scarring/atelectasis. No airspace consolidation or large pleural effusion is identified. No pneumothorax is seen. The skeletal structures are osteopenic. The bony thorax is grossly intact. Arthritic change is noted in the shoulders. IMPRESSION: Cardiomegaly with no active disease in the chest. Other Testing abdomen CT scan: Impression: 1. High-grade small bowel obstruction at the level of the distal ileum, slightly worsened 2. Increased moderate amount of ascites 3. Wall thickening of the proximal sigmoid colon that is nonspecific in nature but could be due to inflammatory bowel disease or infectious colitis. Ischemic colitis is less likely but cannot be excluded. Diverticulitis is also less likely 4. No pneumatosis, portal venous gas, or free intraperitoneal air 5. Unchanged small splenic mass, indeterminate in nature but likely a benign hemangioma 6. Bilateral renal cysts 7. Small bilateral inguinal hernias containing only fat 8. Constipation with possible rectal fecal impaction
[2025-10-18] MEDS ORDERED: PROPOFOL IV EMULSION 10 MG/ML 100 ML VIAL IV ONE (07:58)
--- NOTE | 2025-10-18 08:17 | Critical Care Progress Note ---
Date of Service October 18, 2025 Assessment & Plan (1) Small bowel obstruction: (2) PEG (percutaneous endoscopic gastrostomy) status: Plan Neuro [facility]-ICU unable to assess, patient is on ventilator and sedated, plan to attempt extubation tomorrow Fentanyl for sedation Midazolam as needed, propofol being held for bradycardia #Syncope - Per , hx of 35-40 syncopal episodes with loss of consciousness in past few months - Etiology unclear. Considering possibility of absence seizures with autonomic dysfunction - on Keppra. - CT head 10/13/2025 negative Cardiovascular #Hypotension/Shock - Levophed + Vasopressin, maintain MAP >65. - Hydrocortisone 50mcg q6 - Shock likely related to GI etiology, ischemic bowel - Low suspicion for cardiogenic etiology. 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 On the same day patient taken twice to the OR due to suspected intra-abdominal bleeding, however upon reexploration, no active bleeding was found. - Taken back to OR today 10/18 for anastomosis, closed abdomen - Protonix 40mg BID IV #Anion Gap Lactic Acidosis - Anion gap lactic acidosis previously noted with elevated lactate values ~6 - Most recent lactate normalized to 1.6 - Continue trending lactate levels Pulmonary # Ventilator dependent - On mechanical ventilator post-surgical procedure, sedated - O2 sats high 90s Renal #Acute KARRI - Likely secondary to hypotension and decreased perfusion - Creatinine plateau today, continue to monitor labs - Previously oliguric but produced 1.1 L urine in past 24 hrs, good progress, continue to monitor Is and Os - Goal K>4, Mg>2. Supplement as needed. 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 - Pt refused surgery - On chemo and radiation therapy #Normocytic anemia - Continue to monitor H&H, stable - Transfuse prn, received total 4 units of blood # New onset thrombocytopenia Etiology could be consumption related from multiple surgeries and bleeding Continue to trend Infectious Disease #Shock - No suspicion for infectious etiology at this time, Zosyn for empiric coverage, 4.5 mg q6h - Continue to trend CBC #Leukopenia - Upon admission - Possibly secondary to cancer tx - Monitor for sepsis - Fungal smear shows no fungal growth, culture pending Endo #Elevated glucose - Upon admission - likely stress induced, anticipate will increase further due to steroid dosing - Patient previously on insulin drip, however glucose levels dropped to 80s overnight 10/17 - Currently on sliding scale insulin, continue to monitor Thyroid labs wnl. MSK No MSK concerns at this time. Psych #MDD/Anxiety - on Quetiapine and Olanzapine at home Remainder per attending attestation Admission and Anticipated Discharge Date Admission Date: October 13, 2025 Supervising Physician Co-Signing Physician Notes Dr. Gamez was the resident-physician during care of patient. I separately evaluated patient for sneed portions of the history and the exam. I was present during the critical portion of medical decision making, and I discussed the case with the resident. I generally agree with the findings and plan except for any additions/exceptions noted. Patient seen and examined at bedside. No acute distress, no adverse events overnight He was saturating 99% on 30% FiO2 He was on 0.14 of Levophed, vasopressin 0.04, fentanyl 75 He was breathing with the vent He was taken to the OR again today for closure of the incision He was still under paralytics. Did have drop in hemoglobin yesterday for which she got 2 units of PRBC Constitutional: No acute distress HEENT: EOMI, PERRLA Respiratory system: Good air entry bilaterally, no wheeze, no rhonchi, no crackles CVS: S1-S2 positive, no murmurs or gallops Abdomen: Soft, nondistended, positive bowel sounds x4, positive PEG Extremities: +2 pulses bilaterally radialis/ dorsalis pedis, no cyanosis, no edema Neuro: Sedated, breathing with the vent Psych: Unable to assess G/U: Positive Jackson --Prophylaxis VTE: IPC GI: Pantoprazole Lines: Left-sided port, right radial, Jackson Diet: N.p.o. Plan: In/out: +3.3 L, urine output 1160, total 11 L positive since coming to the hospital Continue to trend H&H, transfuse for hemoglobin less than 7.5 given that the patient is hemodynamically unstable Patient is at high risk for going into DIC given the multiple surgeries, antibiotics. Continue to monitor fibrinogen as well as PT/INR and PTT Patient's kidney function seems to be improving. Continue to monitor Continue with hydrocortisone 50 mcg Q6, we will go down on the dose as of tomorrow Overall prognosis is guarded. If there is no improvement in patient's clinical status then comfort measures should be pursued I have personally spent 46 minutes of critical care time in the direct management of this patient. This is a life/limb threatening event. This includes time spent evaluating patient, direct bedside care, chart review, placing orders, interpretation of diagnostic studies, discussion with consultants, patient, and/or family members regarding treatment decisions, as well as other required patient management activities. This time is exclusive of all separately billable procedures, and teaching time and separate from and in addition to any other critical care service time. Subjective Pt is on mechanical ventilator this morning - not able to provide history. Overall, he is opening his eyes more and seems slightly more aware of surroundings. Schedule to go to OR again this morning. Review of Systems 2 Review of Systems: All systems reviewed & are unremarkable except as noted in HPI & below Physical Exam 2 Constitutional: no acute distress Respiratory: normal respiratory effort, lungs clear to auscultation Cardiovascular: RRR, no murmur, no edema Gastrointestinal (Abdomen): Inspection/Auscultation: abdomen normal to inspection (wound vac in place); abdomen not distended Percussion/Palpation: abdomen soft; no hepatosplenomegaly Skin: no rashes, warm and dry Psychiatric: sedated, on ventilator, cannot assess Genitourinary: jackson in place Results & Data Results & Data Vital Signs (Past 12 Hours) Vital Signs Temp Pulse Resp BP Pulse Ox Pulse Ox O2 Del Method 10/18/25 07:30 36.8 C 71 18 100 10/18/25 07:13 86/47 L 10/18/25 07:12 36.9 C 64 18 100 10/18/25 07:00 36.9 C 57 L 18 100 10/18/25 07:00 78/44 L 10/18/25 06:00 36.9 C 65 18 100 10/18/25 06:00 99/53 L 10/18/25 06:00 99/53 L 10/18/25 06:00 99/53 L 10/18/25 06:00 99/53 L 10/18/25 06:00 99/53 L 10/18/25 05:00 36.9 C 61 18 100 10/18/25 05:00 90/46 L 10/18/25 05:00 90/46 L 10/18/25 05:00 90/46 L 10/18/25 05:00 90/46 L 10/18/25 05:00 90/46 L 10/18/25 04:00 104/57 L 10/18/25 04:00 104/57 L 10/18/25 04:00 104/57 L 10/18/25 04:00 104/57 L 10/18/25 04:00 104/57 L 10/18/25 04:00 36.8 C 59 L 18 100 10/18/25 04:00 108/42 L 10/18/25 03:00 91/48 L 10/18/25 03:00 91/48 L 10/18/25 03:00 91/48 L 10/18/25 03:00 91/48 L 10/18/25 03:00 91/48 L 10/18/25 03:00 36.9 C 53 L 18 100 10/18/25 02:45 62 18 100 10/18/25 02:00 36.8 C 53 L 18 100 10/18/25 02:00 95/52 L 10/18/25 02:00 95/52 L 10/18/25 02:00 95/52 L 10/18/25 02:00 95/52 L 10/18/25 02:00 95/52 L 10/18/25 01:00 36.9 C 49 L 18 100 10/18/25 01:00 92/50 L 10/18/25 01:00 92/50 L 10/18/25 01:00 92/50 L 10/18/25 01:00 92/50 L 10/18/25 01:00 92/50 L 10/18/25 00:30 36.9 C 58 L 18 100 10/18/25 00:01 123/52 L 10/18/25 00:01 123/52 L 10/18/25 00:01 123/52 L 10/18/25 00:01 123/52 L 10/18/25 00:01 123/52 L 10/18/25 00:00 37.0 C 64 18 100 10/18/25 00:00 132/41 L 10/17/25 23:30 37.1 C 59 L 18 100 10/17/25 23:08 52 L 18 100 10/17/25 23:00 95/53 L 10/17/25 23:00 95/53 L 10/17/25 23:00 95/53 L 10/17/25 23:00 95/53 L 10/17/25 23:00 95/53 L 10/17/25 23:00 37.1 C 51 L 19 100 10/17/25 22:30 37.1 C 53 L 17 100 10/17/25 22:00 91/52 L 10/17/25 22:00 91/52 L 10/17/25 22:00 91/52 L 10/17/25 22:00 91/52 L 10/17/25 22:00 91/52 L 10/17/25 22:00 37.1 C 53 L 18 100 10/17/25 21:30 37.1 C 62 18 100 10/17/25 21:00 37.1 C 61 17 100 10/17/25 21:00 99/52 L 10/17/25 21:00 99/52 L 10/17/25 21:00 99/52 L 10/17/25 21:00 99/52 L 10/17/25 21:00 99/52 L 10/17/25 21:00 100 Mechanical Vent 10/17/25 20:30 37.1 C 57 L 18 100 10/17/25 20:15 56 L 18 100 10/17/25 20:05 116/59 L 10/17/25 20:05 116/59 L 10/17/25 20:05 116/59 L 10/17/25 20:05 116/59 L 10/17/25 20:05 116/59 L FiO2 10/18/25 07:30 10/18/25 07:13 10/18/25 07:12 10/18/25 07:00 10/18/25 07:00 10/18/25 06:00 10/18/25 06:00 10/18/25 06:00 10/18/25 06:00 10/18/25 06:00 10/18/25 06:00 10/18/25 05:00 10/18/25 05:00 10/18/25 05:00 10/18/25 05:00 10/18/25 05:00 10/18/25 05:00 10/18/25 04:00 10/18/25 04:00 10/18/25 04:00 10/18/25 04:00 10/18/25 04:00 10/18/25 04:00 10/18/25 04:00 10/18/25 03:00 10/18/25 03:00 10/18/25 03:00 10/18/25 03:00 10/18/25 03:00 10/18/25 03:00 10/18/25 02:45 30 10/18/25 02:00 10/18/25 02:00 10/18/25 02:00 10/18/25 02:00 10/18/25 02:00 10/18/25 02:00 10/18/25 01:00 10/18/25 01:00 10/18/25 01:00 10/18/25 01:00 10/18/25 01:00 10/18/25 01:00 10/18/25 00:30 10/18/25 00:01 10/18/25 00:01 10/18/25 00:01 10/18/25 00:01 10/18/25 00:01 10/18/25 00:00 10/18/25 00:00 10/17/25 23:30 10/17/25 23:08 30 10/17/25 23:00 10/17/25 23:00 10/17/25 23:00 10/17/25 23:00 10/17/25 23:00 10/17/25 23:00 10/17/25 22:30 10/17/25 22:00 10/17/25 22:00 10/17/25 22:00 10/17/25 22:00 10/17/25 22:00 10/17/25 22:00 10/17/25 21:30 10/17/25 21:00 10/17/25 21:00 10/17/25 21:00 10/17/25 21:00 10/17/25 21:00 10/17/25 21:00 10/17/25 21:00 10/17/25 20:30 10/17/25 20:15 30 10/17/25 20:05 10/17/25 20:05 10/17/25 20:05 10/17/25 20:05 10/17/25 20:05 Laboratory Results 10/18/25 14:05 10/18/25 14:05 Resident Activity Tracking Resident Involvement: Resident Care Provided Care Provided: Adult [facility] Medicine
[2025-10-18] MEDS ORDERED: GLYCOPYRROLATE 0.2 MG/ML VIAL ONE (08:30)
[2025-10-18] MEDS: BUPIVACAINE LIPOSOME 1.3% 266 MG/20 ML VIAL ONE (09:35)
[2025-10-18] MEDS: BUPIVACAINE 0.5 % 5 MG/1 ML MPF 30ML VIAL ONE (09:35)
--- NOTE | 2025-10-18 09:52 | Operative Report ---
PG Post Operative Report Pre & Post Diagnosis Operation Date: 10/18/25 07:30 Pre-Op Diagnosis: History of Small Bowel Resection, Ischemia Post-Op Diagnosis: History of Small Bowel Resection, Ischemia I identified the patient and participated in the time-out.: Yes Procedure Operation Date: 10/18/25 07:30 Actual Procedures p Abdominal Washout, Small Bowel Anastomosis and Closure(Not Applicable) - Wan Maria DO, GREGORIO Surgeon Wan Maria DO, GREGORIO Sales Training Representative Gregorio Ospina Estimated Blood Loss 25 Findings Consistent with Post-Op Diagnosis Of their wound VAC removed, abdominal washout performed. Small amount of bleeding from the mesenteric controlled. Bowel viable both proximally and distally. [id number] functional end and small bowel anastomosis performed. Mesenteric defect closed. Abdomen irrigated with 3 L of saline. Exparel injected. Fascia and skin closed. Specimens None Anesthesia Type General Complications none Disposition Accompanied Patient To Recovery: No Disposition: Recovery Room Indications 80-year-old male status post exploratory laparotomy with small bowel resection for small bowel ischemia left in discontinuity with temporary abdominal closure, plan for exploratory laparotomy, possible anastomosis, possible abdominal closure. The risks of the procedure were discussed, all questions were answered, and the patient agreed to proceed with surgery as planned. Description of Procedure The patient was intubated and sedated and his gave consent. The patient was properly identified, and taken to the operating room where he was placed in the supine position. General endotracheal anesthesia was induced. A jackson catheter, an NG tube, SCDs were in place, and a safety belt was placed. Preoperative antibiotics were administered. The external portion of the ABThera wound VAC and sponge were removed. The patient's abdomen was prepped and draped in the standard sterile fashion. Surgical timeout was performed and all parties were in agreement that this was the correct patient and procedure to be performed and we continued as planned. The ABThera wound VAC was removed. The abdomen was explored. The proximal small bowel and distal small bowel both appeared to be viable. The PEG tube was in place and looked good. The NG tube was confirmed in the stomach. The colon was examined and had a moderate stool burden but appeared healthy. There was a small amount of bleeding from the mesentery and some old blood clot. This was controlled with a [id number] 3-0 silk suture. The patient had a decreasing pressor requirement and the bowel appeared viable, therefore we decided to perform an anastomosis. A [id number] functional end-to-end enteroenteric anastomosis was performed. Enterotomies were made in the antimesenteric portion of the small bowel and a 80 mm JEET stapler was used to create the anastomosis. The prior staple lines and common enterotomy were then excised with a JEET stapler. The staple line was then reinforced with interrupted 3-0 silk Lembert sutures. The anastomosis was palpated and appeared patent. There was no evidence of a leak. The bowel appeared viable and healthy. The mesenteric defect was then closed with a running 2-0 Vicryl suture. The anastomosis was allowed to drop back into the abdomen. The remainder of the abdomen was again inspected and hemostasis appeared excellent. The abdomen was irrigated with 3 L of warm saline. Exparel mixed with 0.5% Marcaine was injected into the fascia. The fascia was closed with a #1 looped PDS. The wound was irrigated. The skin was closed with magaly. A sterile dressing was placed over the wound. The patient remained intubated and was taken to the ICU in stable but critical condition. All sponge, instrument and needle counts were correct at the conclusion of the procedure. The patient tolerated the procedure well. The physicians assistant manager was present and scrubbed for the entirety of the case. He was critical in positioning the patient, prepping and draping, retraction and exposure, creation of the small bowel anastomosis, closure of the fascia and incisions, and placement of the dressings. I attest to the content of the Intraoperative Record and any orders documented therein. Any exceptions are noted below.
--- NOTE | 2025-10-18 13:47 | Pharmacy Report ---
Pharmacy Glycemic Short Note 2 - Date of Service October 18, 2025 - Glycemic Short BSG Results (Last 24 hours): 10/17/25 10/17/25 10/18/25 15:46 20:16 00:01 Glucose POC Glucose POC Glucose (other) 218 H 166 H 160 H 10/18/25 10/18/25 10/18/25 04:28 04:54 07:33 Glucose 169 H POC Glucose 183 H POC Glucose (other) 162 H 10/18/25 11:34 Glucose POC Glucose POC Glucose (other) 173 H OUTPATIENT ANTIDIABETIC REGIMEN: * None * HbA1c: 6.0% (10/17/2025) ASSESSMENT: 10/18: * Patient returned to OR 10/18 AM for abdominal washout, anastomosis of bowel, and abdominal closure * Still remains NPO for now * Remains on stress dose steroids and 2 pressors * Blood glucose values have ranged from 160-253 in past 24 hours * Adjustment to CF of 25 and additional lunch insulin seemed to help bring glucose back within range yesterday evening * 183 value this AM was not treated with insulin due to patient being in OR * Given the overnight BSGs are within range and only one BSG >180 this AM not able to be treated, will continue current regimen of sliding scale insulin only * Continue to monitor PO status and overall clinical status, adjust as needed 10/17: * Neil is a 80 year old male who presents to the hospital on 10/13/25 with SBO * Overnight 10/17, he was taken to OR emergently for ex-lap due to suspected intra-abdominal hemorrhage * Bowel left in discontinuity, will need to return to OR likely within the next few days per surgery for abdomen closure * Patient expected to be NPO for prolonged period of time * BSGs have ranged up to from 172-268 over past 24 hours * Was initiated on insulin drip 10/16 at 2.6 units/hr from 1600 until ~2200 * Glucose of 88 around 0000, appears it was turned off at that time * Insulin drip order discontinued this AM around 0600 by carton maker * BSGs likely elevated secondary to critical illness, steroid use * Steroids: dexamethasone 8mg x1 (10/16 @1700), hydrocortisone 100mg (10/16 @1340), hydrocortisone 50mg Q6H (ongoing stress dose steroids) * Patient on multiple pressors: norepinephrine and vasopressin * Insulin aspart sliding scale coverage this AM at stress level 2 did not have much of an effect on his BSG * Increase sliding scale coverage to stress level of 3 * Gave an additional 4 units of insulin aspart with lunch for glucose of 233 * Increase frequency of glucose checks from Q6H to Q4H for better control * Goal BSG <180 in ICU * SCr increasing - with worsening kidney function, insulin has slower clearance * Will need to monitor his requirements once his BSGs more under control and adjust accordingly PLAN FOR INPATIENT GLYCEMIC CONTROL: * Basal insulin * None * Bolus insulin * NovoLog per scale ACHS or Q6hrs while NPO * Goal Range: Low 120 mg/dL - High 160 mg/dL * Correction Factor: 25 mg/dL/unit * Nutritional / Prandial insulin per carb ratio of 1 unit per -- grams CHO consumed
--- NOTE | 2025-10-18 14:11 | Anesthesiology Progress Note ---
Date of Service October 18, 2025 Anesthesia Post Procedure Vital Signs Vital Signs: Temp Pulse Resp BP BP Pulse Ox Pulse Ox 10/18/25 13:00 36.0 C L 65 17 99 10/18/25 13:00 90/47 L 10/18/25 12:00 35.8 C L 69 19 97 10/18/25 12:00 96/50 L 10/18/25 11:12 92/49 L 10/18/25 11:12 35.6 C L 70 18 97 10/18/25 11:10 92/54 L 10/18/25 11:09 35.6 C L 66 18 97 10/18/25 11:05 93/55 L 10/18/25 11:03 35.6 C L 67 19 97 10/18/25 11:00 35.6 C L 68 18 97 10/18/25 11:00 92/55 L 10/18/25 10:55 94/55 L 10/18/25 10:54 35.6 C L 71 18 97 10/18/25 10:50 95/53 L 10/18/25 10:48 35.6 C L 68 18 97 10/18/25 10:45 94/52 L 10/18/25 10:38 72 18 97 10/18/25 10:26 129/47 L 10/18/25 10:21 35.6 C L 72 18 97 10/18/25 10:20 92/54 L 10/18/25 10:20 92/54 L 10/18/25 10:20 92/54 L 10/18/25 10:20 92/54 L 10/18/25 10:20 92/54 L 10/18/25 10:18 35.6 C L 75 18 97 10/18/25 10:15 93/55 L 10/18/25 10:15 93/55 L 10/18/25 10:15 93/55 L 10/18/25 10:15 93/55 L 10/18/25 10:15 93/55 L 10/18/25 10:15 35.6 C L 74 18 94 10/18/25 10:12 35.6 C L 75 18 94 10/18/25 10:10 96/56 L 10/18/25 10:10 96/56 L 10/18/25 10:10 96/56 L 10/18/25 10:10 96/56 L 10/18/25 10:10 96/56 L 10/18/25 10:09 35.6 C L 74 18 95 10/18/25 10:06 35.7 C L 77 18 96 10/18/25 10:05 93/57 L 10/18/25 10:05 93/57 L 10/18/25 10:03 35.7 C L 80 18 10/18/25 10:02 84/52 L 10/18/25 10:02 84/52 L 10/18/25 10:02 84/52 L 10/18/25 10:00 35.7 C L 79 18 10/18/25 09:57 35.8 C L 80 18 98 10/18/25 09:45 77 10 L 98 10/18/25 09:42 78 10 L 10/18/25 09:36 79 10 L 99 10/18/25 09:30 84 10 L 100 10/18/25 09:27 84 10 L 99 10/18/25 09:21 86 10 L 100 10/18/25 09:15 87 10 L 100 10/18/25 09:12 78 10 L 100 10/18/25 09:06 77 10 L 100 10/18/25 09:00 88 10 L 100 10/18/25 08:57 77 10 L 100 10/18/25 08:51 83 10 L 100 10/18/25 08:45 83 10 L 100 10/18/25 08:42 81 10 L 100 10/18/25 08:36 74 7 L 100 10/18/25 08:30 64 10 L 100 10/18/25 08:27 75 4 L 98 10/18/25 08:24 71 10 L 100 10/18/25 08:15 75 16 99 10/18/25 08:12 36.8 C 67 18 99 10/18/25 08:06 36.8 C 69 18 99 10/18/25 08:00 110/54 L 10/18/25 08:00 110/54 L 10/18/25 08:00 110/54 L 10/18/25 08:00 110/54 L 10/18/25 08:00 110/54 L 10/18/25 08:00 36.8 C 60 18 100 10/18/25 08:00 10/18/25 07:57 36.8 C 69 18 100 10/18/25 07:51 36.8 C 64 18 100 10/18/25 07:45 36.8 C 57 L 18 99 10/18/25 07:42 36.7 C 69 18 100 10/18/25 07:36 36.8 C 76 18 100 10/18/25 07:30 36.8 C 71 18 100 10/18/25 07:13 86/47 L 10/18/25 07:12 36.9 C 64 18 100 10/18/25 07:00 76 18 99 10/18/25 07:00 36.9 C 57 L 18 100 10/18/25 07:00 78/44 L 10/18/25 06:00 36.9 C 65 18 100 10/18/25 06:00 99/53 L 10/18/25 06:00 99/53 L 10/18/25 06:00 99/53 L 10/18/25 06:00 99/53 L 10/18/25 06:00 99/53 L 10/18/25 05:00 36.9 C 61 18 100 10/18/25 05:00 90/46 L 10/18/25 05:00 90/46 L 10/18/25 05:00 90/46 L 10/18/25 05:00 90/46 L 10/18/25 05:00 90/46 L 10/18/25 04:00 104/57 L 10/18/25 04:00 104/57 L 10/18/25 04:00 104/57 L 10/18/25 04:00 104/57 L 10/18/25 04:00 104/57 L 10/18/25 04:00 36.8 C 59 L 18 100 10/18/25 04:00 108/42 L 10/18/25 03:00 91/48 L 10/18/25 03:00 91/48 L 10/18/25 03:00 91/48 L 10/18/25 03:00 91/48 L 10/18/25 03:00 91/48 L 10/18/25 03:00 36.9 C 53 L 18 100 10/18/25 02:45 62 18 100 10/18/25 02:00 36.8 C 53 L 18 100 10/18/25 02:00 95/52 L 10/18/25 02:00 95/52 L 10/18/25 02:00 95/52 L 10/18/25 02:00 95/52 L 10/18/25 02:00 95/52 L 10/18/25 01:00 36.9 C 49 L 18 100 10/18/25 01:00 92/50 L 10/18/25 01:00 92/50 L 10/18/25 01:00 92/50 L 10/18/25 01:00 92/50 L 10/18/25 01:00 92/50 L 10/18/25 00:30 36.9 C 58 L 18 100 10/18/25 00:01 123/52 L 10/18/25 00:01 123/52 L 10/18/25 00:01 123/52 L 10/18/25 00:01 123/52 L 10/18/25 00:01 123/52 L 10/18/25 00:00 37.0 C 64 18 100 10/18/25 00:00 132/41 L 10/17/25 23:30 37.1 C 59 L 18 100 10/17/25 23:08 52 L 18 100 10/17/25 23:00 95/53 L 10/17/25 23:00 95/53 L 10/17/25 23:00 95/53 L 10/17/25 23:00 95/53 L 10/17/25 23:00 95/53 L 10/17/25 23:00 37.1 C 51 L 19 100 10/17/25 22:30 37.1 C 53 L 17 100 10/17/25 22:00 91/52 L 10/17/25 22:00 91/52 L 10/17/25 22:00 91/52 L 10/17/25 22:00 91/52 L 10/17/25 22:00 91/52 L 10/17/25 22:00 37.1 C 53 L 18 100 10/17/25 21:30 37.1 C 62 18 100 10/17/25 21:00 37.1 C 61 17 100 10/17/25 21:00 99/52 L 10/17/25 21:00 99/52 L 10/17/25 21:00 99/52 L 10/17/25 21:00 99/52 L 10/17/25 21:00 99/52 L 10/17/25 21:00 100 10/17/25 20:30 37.1 C 57 L 18 100 10/17/25 20:15 56 L 18 100 10/17/25 20:05 116/59 L 10/17/25 20:05 116/59 L 10/17/25 20:05 116/59 L 10/17/25 20:05 116/59 L 10/17/25 20:05 116/59 L 10/17/25 20:03 37.1 C 60 18 100 10/17/25 20:00 37.1 C 51 L 18 100 10/17/25 20:00 10/17/25 20:00 132/46 L 10/17/25 19:45 107/58 L 10/17/25 19:45 107/58 L 10/17/25 19:45 107/58 L 10/17/25 19:45 107/58 L 10/17/25 19:45 107/58 L 10/17/25 19:45 37.1 C 52 L 17 100 10/17/25 19:30 37.1 C 52 L 22 100 10/17/25 19:15 37.1 C 54 L 18 100 10/17/25 19:00 37.1 C 57 L 16 100 10/17/25 17:46 37.5 C 57 L 18 143/57 H 100 10/17/25 16:54 37.4 C 56 L 18 126/47 L 100 10/17/25 16:24 37.5 C 54 L 19 125/48 L 100 10/17/25 16:09 37.4 C 63 21 130/50 L 100 10/17/25 16:00 63 130/50 L 10/17/25 15:53 37.5 C 56 L 18 163/60 H 100 10/17/25 15:50 37.4 C 59 L 22 152/52 H 99 10/17/25 15:49 37.5 C 51 L 19 125/59 L 100 10/17/25 15:34 37.5 C 50 L 20 125/59 L 100 10/17/25 15:00 80 17 94 10/17/25 14:34 37.5 C 57 L 18 120/67 100 O2 Del Method O2 Del Method FiO2 10/18/25 13:00 10/18/25 13:00 10/18/25 12:00 10/18/25 12:00 10/18/25 11:12 10/18/25 11:12 10/18/25 11:10 10/18/25 11:09 10/18/25 11:05 10/18/25 11:03 10/18/25 11:00 10/18/25 11:00 10/18/25 10:55 10/18/25 10:54 10/18/25 10:50 10/18/25 10:48 10/18/25 10:45 10/18/25 10:38 30 10/18/25 10:26 10/18/25 10:21 10/18/25 10:20 10/18/25 10:20 10/18/25 10:20 10/18/25 10:20 10/18/25 10:20 10/18/25 10:18 10/18/25 10:15 10/18/25 10:15 10/18/25 10:15 10/18/25 10:15 10/18/25 10:15 10/18/25 10:15 10/18/25 10:12 10/18/25 10:10 10/18/25 10:10 10/18/25 10:10 10/18/25 10:10 10/18/25 10:10 10/18/25 10:09 10/18/25 10:06 10/18/25 10:05 10/18/25 10:05 10/18/25 10:03 10/18/25 10:02 10/18/25 10:02 10/18/25 10:02 10/18/25 10:00 10/18/25 09:57 10/18/25 09:45 10/18/25 09:42 10/18/25 09:36 10/18/25 09:30 10/18/25 09:27 10/18/25 09:21 10/18/25 09:15 10/18/25 09:12 10/18/25 09:06 10/18/25 09:00 10/18/25 08:57 10/18/25 08:51 10/18/25 08:45 10/18/25 08:42 10/18/25 08:36 10/18/25 08:30 10/18/25 08:27 10/18/25 08:24 10/18/25 08:15 10/18/25 08:12 10/18/25 08:06 10/18/25 08:00 10/18/25 08:00 10/18/25 08:00 10/18/25 08:00 10/18/25 08:00 10/18/25 08:00 10/18/25 08:00 Mechanical Vent 30 10/18/25 07:57 10/18/25 07:51 10/18/25 07:45 10/18/25 07:42 10/18/25 07:36 10/18/25 07:30 10/18/25 07:13 10/18/25 07:12 10/18/25 07:00 30 10/18/25 07:00 10/18/25 07:00 10/18/25 06:00 10/18/25 06:00 10/18/25 06:00 10/18/25 06:00 10/18/25 06:00 10/18/25 06:00 10/18/25 05:00 10/18/25 05:00 10/18/25 05:00 10/18/25 05:00 10/18/25 05:00 10/18/25 05:00 10/18/25 04:00 10/18/25 04:00 10/18/25 04:00 10/18/25 04:00 10/18/25 04:00 10/18/25 04:00 10/18/25 04:00 10/18/25 03:00 10/18/25 03:00 10/18/25 03:00 10/18/25 03:00 10/18/25 03:00 10/18/25 03:00 10/18/25 02:45 30 10/18/25 02:00 10/18/25 02:00 10/18/25 02:00 10/18/25 02:00 10/18/25 02:00 10/18/25 02:00 10/18/25 01:00 10/18/25 01:00 10/18/25 01:00 10/18/25 01:00 10/18/25 01:00 10/18/25 01:00 10/18/25 00:30 10/18/25 00:01 10/18/25 00:01 10/18/25 00:01 10/18/25 00:01 10/18/25 00:01 10/18/25 00:00 10/18/25 00:00 10/17/25 23:30 10/17/25 23:08 30 10/17/25 23:00 10/17/25 23:00 10/17/25 23:00 10/17/25 23:00 10/17/25 23:00 10/17/25 23:00 10/17/25 22:30 10/17/25 22:00 10/17/25 22:00 10/17/25 22:00 10/17/25 22:00 10/17/25 22:00 10/17/25 22:00 10/17/25 21:30 10/17/25 21:00 10/17/25 21:00 10/17/25 21:00 10/17/25 21:00 10/17/25 21:00 10/17/25 21:00 10/17/25 21:00 Mechanical Vent 10/17/25 20:30 10/17/25 20:15 30 10/17/25 20:05 10/17/25 20:05 10/17/25 20:05 10/17/25 20:05 10/17/25 20:05 10/17/25 20:03 10/17/25 20:00 10/17/25 20:00 Mechanical Vent 10/17/25 20:00 10/17/25 19:45 10/17/25 19:45 10/17/25 19:45 10/17/25 19:45 10/17/25 19:45 10/17/25 19:45 10/17/25 19:30 10/17/25 19:15 10/17/25 19:00 10/17/25 17:46 10/17/25 16:54 10/17/25 16:24 10/17/25 16:09 10/17/25 16:00 10/17/25 15:53 10/17/25 15:50 10/17/25 15:49 10/17/25 15:34 10/17/25 15:00 30 10/17/25 14:34 Transfer of Care Handoff Completed per policy Notes Mental Status: see notes below Patient Amnestic to Procedure: Yes Nausea / Vomiting: adequately controlled Pain: adequately controlled Airway Patency, RR, SpO2: stable & adequate BP & HR: stable & adequate Hydration State: stable & adequate Anesthetic Complications: no major complications apparent Notes: Patient remained intubated post-procedure. Maintained on pressor support.
[2025-10-18 14:21] LABS: Hematocrit (blood only) 21.1 % (42.0-52.0); Hemoglobin 7.5 g/dL (14.0-18.0); Mean Corpuscular Hemoglobin 30.5 pg (25.0-34.0); Mean Corpuscular Volume 85.8 fL (80.0-100.0); Platelet Count 124 K/uL (130-400); RDW Standard Deviation 45.4 fL (36.4-46.3); Red Blood Count 2.46 M/uL (4.70-6.10); White Blood Count 4.77 K/ul (4.8-10.8)
[2025-10-18 14:39] LABS: Alanine Aminotransferase 8.0 U/L (7-52); Albumin Globulin Ratio 1.7 (0.9-2); Albumin Level 2.4 gm/dl (3.4-5.0); Alkaline Phosphatase 47.0 U/L (34-104); Anion Gap 9.0 (3-11); Bilirubin,Total 0.7 mg/dl (0.2-1.0); Blood Urea Nitrogen 46.0 mg/dl (6-23); Calcium 7.5 mg/dl (8.6-10.3); Carbon Dioxide 19.0 mmol/L (21-32); Chloride 102.0 mmol/L (98-107); Creatinine Clr Calc Pharmacy 38.1 ml/min; Globulin 1.4 gm/dl (2.5-4.0); Glucose 186.0 mg/dl (70-99(Fasting)); Magnesium 2.1 mg/dl (1.7-2.4); Potassium 3.4 mmol/L (3.5-5.1); Sodium 130.0 mmol/L (136-145); Total Protein 3.8 gm/dl (6.0-8.3)
[2025-10-18] MEDS ORDERED: SODIUM CHLORIDE 0.9% 100 ML IV PRN ×2 (14:44→14:46)
--- NOTE | 2025-10-18 15:08 | Billing Data ---
Date of Service October 18, 2025 Coding Level of Care Code 62657 CRITICAL CARE 1ST 30-74M Time Spent (min) 46
[2025-10-18] MEDS: POTASSIUM CHLORIDE / WTR 20 MEQ/100 ML PLCT IV SCH (15:24)
[2025-10-18 17:01] LABS: Fibrinogen 233 mg/dl (184-400)
[2025-10-18 17:03] LABS: INR 1.0 (0.9-1.1); Partial Thromboplastin Time 44 Seconds (21-31); Prothrombin Time 10.6 Seconds (9.0-12.0)
--- NOTE | 2025-10-19 05:45 | Electrocardiogram Report ---
Test Reason : Blood Pressure : */* mmHG Vent. Rate : 87 BPM Atrial Rate : 87 BPM P-R Int : 200 ms QRS Dur : 88 ms QT Int : 372 ms P-R-T Axes : * -3 66 degrees QTcB Int : 447 ms Sinus rhythm with Premature atrial complexes Otherwise normal ECG When compared with ECG of 09-Jul-2025 20:08, No significant change was found Confirmed by Jaquan Dubois ([id number]) on 10/19/2025 5:45:40 AM Referred By: REFERRED SELF Confirmed By: Jaquan Dubois
--- NOTE | 2025-10-19 05:48 | Electrocardiogram Report ---
Test Reason : Blood Pressure : */* mmHG Vent. Rate : 106 BPM Atrial Rate : * BPM P-R Int : 182 ms QRS Dur : 84 ms QT Int : 346 ms P-R-T Axes : * -11 75 degrees QTcB Int : 459 ms Sinus rhythm with frequent Premature atrial complexes and PVCs Abnormal ECG When compared with ECG of 13-Oct-2025 14:59, Premature ventricular complexes are now Present Confirmed by Jaquan Dubois ([id number]) on 10/19/2025 5:48:18 AM Referred By: REFERRED SELF Confirmed By: Jaquan Dubois
--- NOTE | 2025-10-19 05:49 | Electrocardiogram Report ---
Test Reason : Blood Pressure : */* mmHG Vent. Rate : 86 BPM Atrial Rate : 86 BPM P-R Int : 174 ms QRS Dur : 86 ms QT Int : 392 ms P-R-T Axes : 27 -8 54 degrees QTcB Int : 469 ms Sinus rhythm with Premature supraventricular complexes Inferior infarct Abnormal ECG When compared with ECG of 13-Oct-2025 18:25, Premature ventricular complexes are no longer Present Confirmed by Jaquan Dubois ([id number]) on 10/19/2025 5:49:00 AM Referred By: REFERRED SELF Confirmed By: Jaquan Dubois
[2025-10-19 05:53] LABS: Hematocrit (blood only) 23.1 % (42.0-52.0); Hemoglobin 8.1 g/dL (14.0-18.0); Mean Corpuscular Hemoglobin 30.5 pg (25.0-34.0); Mean Corpuscular Volume 86.8 fL (80.0-100.0); Platelet Count 117 K/uL (130-400); RDW Standard Deviation 44.7 fL (36.4-46.3); Red Blood Count 2.66 M/uL (4.70-6.10); White Blood Count 3.91 K/ul (4.8-10.8)
--- NOTE | 2025-10-19 05:56 | Electrocardiogram Report ---
Test Reason : Blood Pressure : */* mmHG Vent. Rate : 98 BPM Atrial Rate : 98 BPM P-R Int : 144 ms QRS Dur : 80 ms QT Int : 344 ms P-R-T Axes : 26 -20 61 degrees QTcB Int : 439 ms Sinus rhythm with Premature atrial complexes Low voltage QRS Borderline ECG When compared with ECG of 13-Oct-2025 18:40, No significant change Confirmed by Jaquan Dubois ([id number]) on 10/19/2025 5:56:01 AM Referred By: REFERRED SELF Confirmed By: Jaquan Dubois
--- NOTE | 2025-10-19 05:57 | Electrocardiogram Report ---
Test Reason : Blood Pressure : */* mmHG Vent. Rate : 109 BPM Atrial Rate : 109 BPM P-R Int : 148 ms QRS Dur : 80 ms QT Int : 346 ms P-R-T Axes : 34 -13 66 degrees QTcB Int : 465 ms Sinus tachycardia Premature atrial complexes Otherwise normal ECG When compared with ECG of 13-Oct-2025 18:40, No significant change Confirmed by Jaquan Dubois ([id number]) on 10/19/2025 5:56:37 AM Referred By: REFERRED SELF Confirmed By: Jaquan Dubois
[2025-10-19 06:11] LABS: Anion Gap 7.0 (3-11); Blood Urea Nitrogen 41.0 mg/dl (6-23); Calcium 7.7 mg/dl (8.6-10.3); Carbon Dioxide 20.0 mmol/L (21-32); Chloride 104.0 mmol/L (98-107); Creatinine Clr Calc Pharmacy 52.3 ml/min; Glucose 162.0 mg/dl (70-99(Fasting)); Magnesium 1.9 mg/dl (1.7-2.4); Potassium 3.8 mmol/L (3.5-5.1); Sodium 131.0 mmol/L (136-145)
--- NOTE | 2025-10-19 07:09 | Hospitalist Progress Note ---
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 #Ischemic small bowel s/p resection // Acute blood loss anemia // Hypocalcemic Patient initially presented and found to have small bowel obstruction with acute progression of symptoms found to have frankly ischemic small bowel in the afternoon on 10/16 requiring surgical intervention with a repeat operative intervention in the hospital chief financial officer of 10/17 due to concern of post operative bleeding which was not found at that time; In total required 4 units PRBC from 10/16 through 10/17; Hemoglobin trend 8.1 from 7.5; INR has improved with Vitamin K supplementation by operations mgr, and calcium has also improved; platelet count decreased over the past 48 hours however remains at an appropriate level; returned to the operative suite on 10/18 for abdominal washout, small bowel anastomosis and closure Maintain NG tube to intermittent suction PEG to gravity Maintain wound VAC General Surgery and operations mgr consulted #Multifactorial Shock Remains in shock most likely related to hypovolemic losses in the setting of iatrogenic fluid losses with an abdominal intervention, wound VAC in place with large volume output since surgical intervention; at this time there is no sincere evidence for an infectious component however the patient is being empirically treated with Zosyn; the patient does have diminished albumin which, per operations mgr interpretation, is a significant component and loss of intravascular volume and contributing to the patient's third spacing of fluid into the abdomen leading to their large output through their wound VAC of which I agree; fluid resuscitation at this time is being guided primarily by operations mgr with preference for albumin and avoiding crystalloids to reduce third spacing of fluids until adequate albumin supplementation/replacement has been achieved Remains volume depleted, would recommend reinstitution of intravenous fluids given the patient's improved hemodynamics and surgical resolution Continue vasopressor support, guided by operations mgr; Levophed discontinued at 0300 hrs. on 10/19; vasopressin held at approximately 0730 hrs. - Empiric antibiotic therapy with Zosyn discontinued on 10/18 postoperatively by operations mgr - Continue stress dose hydrocortisone #Mechanical ventilation Remains mechanically ventilated; propofol was discontinued due to the development of persistent bradycardia, now on intermittent doses of midazolam; anticipated continued SBTs throughout morning #Acute kidney injury // Prerenal and insensible fluid losses Baseline normal renal function; With improved hemodynamic stability, the patient's urine output has improved, remains adequate, and renal function has returned towards the patient's baseline; without significant electrolyte abnormalities related to acute kidney injury; suspect this is prerenal in the setting of acute blood loss anemia, intravascular volume loss, and insensible losses related to their surgical intervention - Maintain Montaño catheter - Intake and output measures every shift #Hypovolemic hyponatremia Normal serum sodium at initial presentation with progressive decrease measured in the past 72 hours; hypovolemic on exam -Follow daily RFP and Magnesium -Would recommend again resuming previous intravenous fluid resuscitation at maintenance rate of 125 mL/h #Syncopal episodes, 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 "syncope"; previously has been seen to have episodes of supraventricular tachycardia which has been observed during his current hospitalization and correlated with a witnessed presyncopal event; based on cardiology 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 which they suspect is worsened given the patient's acute illness even prior to the events that it began on 10/16 TTE without significant change from previous assessment Maintain serum potassium greater than 4, magnesium greater than 2 No indication for systemic anticoagulation with respect to this condition at this time Long-term consideration for ablation per cardiology recommendations, at this time to continue amiodarone IV for short-term resolution of symptoms #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 No acute overnight events; failed SBT this morning, but had received Versed within an hour of trial which likely contributed to failure. Review of Systems Review of Systems: Unobtainable due to endotracheal tube Physical Exam Physical Exam: General: Elderly male, intubated, mechanically ventilated, mildly sedated Vital Signs: Reviewed; maintaining MAP without vasopressor support, UOP improved HEENT: Intubated, without evidence of posterior oropharyngeal trauma; several areas of chronic gingivitis without evidence of gingival injury or acute infection; NG tube in place with brown gastrointestinal secretions without evidence of coffee-ground substance, blood, or bilious output Neck: Trachea midline Pulmonary: Clear to auscultation bilaterally; mechanically ventilated Cardiovascular: Regular rate and rhythm without murmur, rub, or gallop; S1 and S2 normal; left radial pulse and bilateral posterior tibial pulse 2+ with brisk capillary refill; no notable lower extremity edema Gastrointestinal: Midline abdominal incision without evidence of oozing or dehiscence; infrequent bowel sounds with normal pitch; nondistended abdomen without rigidity Genitourinary: Montaño catheter in place, recently drained Results & Data Results & Data Vital Signs (Past 12 Hours) Vital Signs Temp Pulse Resp BP Pulse Ox O2 Del Method O2 Del Method 10/19/25 06:00 37.2 C 59 L 22 96 10/19/25 06:00 98/51 L 10/19/25 06:00 98/51 L 10/19/25 06:00 98/51 L 10/19/25 06:00 98/51 L 10/19/25 06:00 98/51 L 10/19/25 05:29 105/55 L 10/19/25 05:29 105/55 L 10/19/25 05:29 105/55 L 10/19/25 05:29 105/55 L 10/19/25 05:29 105/55 L 10/19/25 05:27 37.2 C 54 L 19 96 10/19/25 05:00 37.1 C 63 19 94 10/19/25 05:00 87/50 L 10/19/25 05:00 87/50 L 10/19/25 05:00 87/50 L 10/19/25 05:00 87/50 L 10/19/25 05:00 87/50 L 10/19/25 04:00 37.4 C 18 97 10/19/25 04:00 107/54 L 10/19/25 04:00 107/54 L 10/19/25 04:00 107/54 L 10/19/25 04:00 107/54 L 10/19/25 04:00 107/54 L 10/19/25 04:00 105/40 L 10/19/25 03:30 37.5 C 58 L 18 97 10/19/25 03:30 95/52 L 10/19/25 03:30 95/52 L 10/19/25 03:30 95/52 L 10/19/25 03:30 95/52 L 10/19/25 03:30 95/52 L 10/19/25 03:00 97/52 L 10/19/25 03:00 97/52 L 10/19/25 03:00 97/52 L 10/19/25 03:00 97/52 L 10/19/25 03:00 97/52 L 10/19/25 03:00 97/52 L 10/19/25 03:00 97/52 L 10/19/25 03:00 97/52 L 10/19/25 03:00 97/52 L 10/19/25 03:00 37.5 C 59 L 18 97 10/19/25 02:46 57 L 18 99 10/19/25 02:30 37.5 C 54 L 18 97 10/19/25 02:30 96/55 L 10/19/25 02:30 96/55 L 10/19/25 02:30 96/55 L 10/19/25 02:30 96/55 L 10/19/25 02:30 96/55 L 10/19/25 02:00 100/54 L 10/19/25 02:00 100/54 L 10/19/25 02:00 100/54 L 10/19/25 02:00 100/54 L 10/19/25 02:00 100/54 L 10/19/25 02:00 37.6 C H 58 L 18 97 10/19/25 01:30 37.6 C H 55 L 18 96 10/19/25 01:30 101/53 L 10/19/25 01:30 101/53 L 10/19/25 01:30 101/53 L 10/19/25 01:30 101/53 L 10/19/25 01:30 101/53 L 10/19/25 01:00 102/53 L 10/19/25 01:00 102/53 L 10/19/25 01:00 102/53 L 10/19/25 01:00 102/53 L 10/19/25 01:00 102/53 L 10/19/25 01:00 37.6 C H 53 L 18 97 10/19/25 00:30 97/54 L 10/19/25 00:30 97/54 L 10/19/25 00:30 97/54 L 10/19/25 00:30 97/54 L 10/19/25 00:30 97/54 L 10/19/25 00:30 37.6 C H 53 L 17 98 10/19/25 00:00 37.7 C H 53 L 17 98 10/19/25 00:00 100/53 L 10/19/25 00:00 100/53 L 10/19/25 00:00 100/53 L 10/19/25 00:00 100/53 L 10/19/25 00:00 100/53 L 10/19/25 00:00 Mechanical Vent 10/19/25 00:00 110/39 L 10/18/25 23:30 37.7 C H 53 L 18 98 10/18/25 23:30 102/55 L 10/18/25 23:30 102/55 L 10/18/25 23:30 102/55 L 10/18/25 23:30 102/55 L 10/18/25 23:30 102/55 L 10/18/25 23:00 101/55 L 10/18/25 23:00 101/55 L 10/18/25 22:55 56 L 19 98 10/18/25 21:00 Mechanical Vent 10/18/25 20:10 57 L 18 97 10/18/25 20:00 Mechanical Vent 10/18/25 20:00 111/40 L FiO2 10/19/25 06:00 10/19/25 06:00 10/19/25 06:00 10/19/25 06:00 10/19/25 06:00 10/19/25 06:00 10/19/25 05:29 10/19/25 05:29 10/19/25 05:29 10/19/25 05:29 10/19/25 05:29 10/19/25 05:27 10/19/25 05:00 10/19/25 05:00 10/19/25 05:00 10/19/25 05:00 10/19/25 05:00 10/19/25 05:00 10/19/25 04:00 10/19/25 04:00 10/19/25 04:00 10/19/25 04:00 10/19/25 04:00 10/19/25 04:00 10/19/25 04:00 10/19/25 03:30 10/19/25 03:30 10/19/25 03:30 10/19/25 03:30 10/19/25 03:30 10/19/25 03:30 10/19/25 03:00 10/19/25 03:00 10/19/25 03:00 10/19/25 03:00 10/19/25 03:00 10/19/25 03:00 10/19/25 03:00 10/19/25 03:00 10/19/25 03:00 10/19/25 03:00 10/19/25 02:46 30 10/19/25 02:30 10/19/25 02:30 10/19/25 02:30 10/19/25 02:30 10/19/25 02:30 10/19/25 02:30 10/19/25 02:00 10/19/25 02:00 10/19/25 02:00 10/19/25 02:00 10/19/25 02:00 10/19/25 02:00 10/19/25 01:30 10/19/25 01:30 10/19/25 01:30 10/19/25 01:30 10/19/25 01:30 10/19/25 01:30 10/19/25 01:00 10/19/25 01:00 10/19/25 01:00 10/19/25 01:00 10/19/25 01:00 10/19/25 01:00 10/19/25 00:30 10/19/25 00:30 10/19/25 00:30 10/19/25 00:30 10/19/25 00:30 10/19/25 00:30 10/19/25 00:00 10/19/25 00:00 10/19/25 00:00 10/19/25 00:00 10/19/25 00:00 10/19/25 00:00 10/19/25 00:00 10/19/25 00:00 10/18/25 23:30 10/18/25 23:30 10/18/25 23:30 10/18/25 23:30 10/18/25 23:30 10/18/25 23:30 10/18/25 23:00 10/18/25 23:00 10/18/25 22:55 30 10/18/25 21:00 10/18/25 20:10 30 10/18/25 20:00 10/18/25 20:00 Laboratory Results Hemoglobin 8.1 (7.5); platelets 117 (124) Leukopenic at 3.91 (4.77) Serum creatinine 1.15; hyponatremic at 131 (130) PG Care Time/CCT Total # of Minutes Spent Total Time Spent with Patient: Total time spent is greater than 50% in coordination of care (as documented) at patient's floor/unit and/or counseling patient: Coding Level of Care Code 10187 SUB INP/OBS CARE 3/50MIN Diagnoses Port-A-Cath in place Z95.828 Malignant tumor of base of tongue C01 MGUS (monoclonal gammopathy of unknown significance) D47.2 Small bowel ischemia K55.9 Shock R57.9
[2025-10-19] MEDS: MAGNESIUM SULFATE / D5W 1 GM/100 ML BAG IV SCH (07:37)
[2025-10-19] MEDS: POTASSIUM CHLORIDE / WTR 20 MEQ/100 ML PLCT IV ONE (07:49)
--- NOTE | 2025-10-19 08:23 | Critical Care Progress Note ---
Date of Service October 19, 2025 Assessment & Plan (1) Small bowel obstruction: (2) PEG (percutaneous endoscopic gastrostomy) status: Plan Neuro [facility]-ICU patient was on ventilator and sedated, extubated this morning --ICU delirium Consider haloperidol, QTc 465 on 02/14/2025 #Syncope - Per , hx of 35-40 syncopal episodes with loss of consciousness in past few months - Etiology unclear. Considering possibility of absence seizures with autonomic dysfunction - continue Keppra - CT head 10/13/2025 negative Cardiovascular # S/p hypotension/Shock - Previously on Levophed + Vasopressin to maintain MAP >65, patient is now off all pressors, hold Levophed and discontinue if patient does not need it by 1200 - Hydrocortisone 50mcg q8, will change to q12 tomorrow - Shock likely related to GI etiology, ischemic bowel - Low suspicion for cardiogenic etiology. 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 Patient taken twice on the same day to the OR due to suspected intra-abdominal bleeding, however upon reexploration, no active bleeding was found. - Taken back to OR 10/18 for anastomosis, closed abdomen - Tylenol IV 1g q8 prn pain - Protonix 40mg BID IV #Anion Gap Lactic Acidosis - Anion gap lactic acidosis previously noted with elevated lactate values ~6 - Most recent lactate from 10/17 normalized to 1.6 Pulmonary #Previously ventilator dependent/Extubated - Previously sedated and on mechanical ventilator post-surgical procedure, patient was extubated today - Currently on oxy mask 6L, O2 sats mid 90s Renal #Acute KARRI --> improving - Likely secondary to hypotension and decreased perfusion - Creatinine plateau on 10/18, continuing to downtrend, continue to monitor labs - Previously oliguric but produced 1.4 L urine in past 24 hrs, good progress, continue to monitor Is and Os - Goal K>4, Mg>2. Supplement as needed. 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 - Pt refused surgery - On chemo and radiation therapy #Normocytic anemia - Continue to monitor H&H, stable - Transfuse prn, received total 5 units of blood this admission #New Onset Thrombocytopenia - Etiology could be consumption related from multiple surgeries and bleeding - Continue to trend Infectious Disease #Shock - No suspicion for infectious etiology at this time, continue Zosyn for empiric coverage, 4.5 mg q8h - Continue to trend CBC #Leukopenia - Upon admission - Possibly secondary to cancer tx - Monitor for sepsis - Fungal smear shows no fungal growth, culture pending Endo #Elevated glucose levels - Upon admission - likely stress induced, anticipate will increase further due to steroid dosing - Patient previously on insulin drip, however glucose levels dropped to 80s overnight 10/17 - Currently on sliding scale insulin, continue to monitor Thyroid labs wnl. MSK No MSK concerns at this time. Psych #MDD/Anxiety - on Quetiapine and Olanzapine at home, held Remainder per attending attestation Admission and Anticipated Discharge Date Admission Date: October 13, 2025 Supervising Physician Co-Signing Physician Notes Dr. Gamez was the resident-physician during care of patient. I separately evaluated patient for sneed portions of the history and the exam. I was present during the critical portion of medical decision making, and I discussed the case with the resident. I generally agree with the findings and plan except for any additions/exceptions noted. Patient seen and examined at bedside. No acute distress, no adverse events overnight Vasopressors have been turned off. His MAP was in the high 60s to low 70s. Has been afebrile Is making good amount of urine The NG tube as well as the PEG tube is draining bilious fluid Constitutional: No acute distress HEENT: EOMI, PERRLA Respiratory system: Good air entry bilaterally, no wheeze, no rhonchi, no crackles CVS: S1-S2 positive, no murmurs or gallops Abdomen: Soft, nondistended, positive bowel sounds x4, positive PEG Extremities: +2 pulses bilaterally radialis/ dorsalis pedis, no cyanosis, no walker ma Neuro: RASS -1, following commands, on SBT Psych: Unable to assess G/U: Positive Montaño --Prophylaxis VTE: IPC GI: Pantoprazole Lines: Left-sided port, right radial, Montaño Diet: N.p.o. Plan: In/out: +630, urine output 1225, total 11 L positive since coming to the hospital H&H has been stable Potassium and magnesium being replaced Creatinine is improving Trial of SBT to extubation today. Continue with Zosyn for total of 5 more days. Decrease hydrocortisone to every 12 as of tomorrow. Fibrinogen within normal limits Later during the day patient has been being more delirious. I will repeat an EKG and if QTc is acceptable then I will give him haloperidol Will put mittens on I have personally spent 38 minutes of critical care time in the direct management of this patient. This is a life/limb threatening event. This includes time spent evaluating patient, direct bedside care, chart review, placing orders, interpretation of diagnostic studies, discussion with consultants, patient, and/or family members regarding treatment decisions, as well as other required patient management activities. This time is exclusive of all separately billable procedures, and teaching time and separate from and in addition to any other critical care service time. Subjective Patient is on mechanical ventilator this morning. He is able to respond to verbal commands, but is still slightly sleepy. Oxygenating appropriately in mid- high 90s. Review of Systems Review of Systems: All systems reviewed & are unremarkable except as noted in HPI & below Physical Exam Constitutional: no acute distress Respiratory: normal respiratory effort, lungs clear to auscultation Cardiovascular: RRR, no murmur, no edema Gastrointestinal (Abdomen): Inspection/Auscultation: abdomen normal to inspection and normal bowel sounds; abdomen not distended Percussion/Palpation: abdomen soft; no hepatosplenomegaly Skin: no rashes, warm and dry Results & Data Results & Data Vital Signs (Past 12 Hours) Vital Signs Temp Pulse Resp BP Pulse Ox O2 Del Method O2 Del Method 10/19/25 08:06 37.3 C 71 18 96 10/19/25 08:00 37.4 C 72 18 96 10/19/25 08:00 118/62 10/19/25 08:00 118/62 10/19/25 08:00 118/62 10/19/25 08:00 118/62 10/19/25 08:00 118/62 10/19/25 08:00 74 10/19/25 07:57 37.3 C 73 18 96 10/19/25 07:51 37.4 C 67 18 95 10/19/25 07:45 37.3 C 73 18 96 10/19/25 07:42 37.3 C 83 17 98 10/19/25 07:36 37.4 C 66 18 96 10/19/25 07:30 37.3 C 75 18 97 10/19/25 07:27 37.3 C 69 18 97 10/19/25 07:21 37.3 C 72 18 96 10/19/25 07:20 74 21 97 10/19/25 07:15 37.3 C 74 18 96 10/19/25 07:12 37.3 C 72 18 96 10/19/25 07:06 37.3 C 72 18 96 10/19/25 07:00 37.3 C 70 18 96 Mechanical Vent 10/19/25 07:00 110/58 L 10/19/25 07:00 110/58 L 10/19/25 07:00 110/58 L 10/19/25 07:00 110/58 L 10/19/25 07:00 110/58 L 10/19/25 06:45 37.2 C 88 17 98 10/19/25 06:00 37.2 C 59 L 22 96 10/19/25 06:00 98/51 L 10/19/25 06:00 98/51 L 10/19/25 06:00 98/51 L 10/19/25 06:00 98/51 L 10/19/25 06:00 98/51 L 10/19/25 05:29 105/55 L 10/19/25 05:29 105/55 L 10/19/25 05:29 105/55 L 10/19/25 05:29 105/55 L 10/19/25 05:29 105/55 L 10/19/25 05:27 37.2 C 54 L 19 96 10/19/25 05:00 37.1 C 63 19 94 10/19/25 05:00 87/50 L 10/19/25 05:00 87/50 L 10/19/25 05:00 87/50 L 10/19/25 05:00 87/50 L 10/19/25 05:00 87/50 L 10/19/25 04:00 37.4 C 18 97 10/19/25 04:00 107/54 L 10/19/25 04:00 107/54 L 10/19/25 04:00 107/54 L 10/19/25 04:00 107/54 L 10/19/25 04:00 107/54 L 10/19/25 04:00 105/40 L 10/19/25 03:30 37.5 C 58 L 18 97 10/19/25 03:30 95/52 L 10/19/25 03:30 95/52 L 10/19/25 03:30 95/52 L 10/19/25 03:30 95/52 L 10/19/25 03:30 95/52 L 10/19/25 03:00 97/52 L 10/19/25 03:00 97/52 L 10/19/25 03:00 97/52 L 10/19/25 03:00 97/52 L 10/19/25 03:00 97/52 L 10/19/25 03:00 97/52 L 10/19/25 03:00 97/52 L 10/19/25 03:00 97/52 L 10/19/25 03:00 97/52 L 10/19/25 03:00 37.5 C 59 L 18 97 10/19/25 02:46 57 L 18 99 10/19/25 02:30 37.5 C 54 L 18 97 10/19/25 02:30 96/55 L 10/19/25 02:30 96/55 L 10/19/25 02:30 96/55 L 10/19/25 02:30 96/55 L 10/19/25 02:30 96/55 L 10/19/25 02:00 100/54 L 10/19/25 02:00 100/54 L 10/19/25 02:00 100/54 L 10/19/25 02:00 100/54 L 10/19/25 02:00 100/54 L 10/19/25 02:00 37.6 C H 58 L 18 97 10/19/25 01:30 37.6 C H 55 L 18 96 10/19/25 01:30 101/53 L 10/19/25 01:30 101/53 L 10/19/25 01:30 101/53 L 10/19/25 01:30 101/53 L 10/19/25 01:30 101/53 L 10/19/25 01:00 102/53 L 10/19/25 01:00 102/53 L 10/19/25 01:00 102/53 L 10/19/25 01:00 102/53 L 10/19/25 01:00 102/53 L 10/19/25 01:00 37.6 C H 53 L 18 97 10/19/25 00:30 97/54 L 10/19/25 00:30 97/54 L 10/19/25 00:30 97/54 L 10/19/25 00:30 97/54 L 10/19/25 00:30 97/54 L 10/19/25 00:30 37.6 C H 53 L 17 98 10/19/25 00:00 37.7 C H 53 L 17 98 10/19/25 00:00 100/53 L 10/19/25 00:00 100/53 L 10/19/25 00:00 100/53 L 10/19/25 00:00 100/53 L 10/19/25 00:00 100/53 L 10/19/25 00:00 Mechanical Vent 10/19/25 00:00 110/39 L 10/18/25 23:30 37.7 C H 53 L 18 98 10/18/25 23:30 102/55 L 10/18/25 23:30 102/55 L 10/18/25 23:30 102/55 L 10/18/25 23:30 102/55 L 10/18/25 23:30 102/55 L 10/18/25 23:00 101/55 L 10/18/25 23:00 101/55 L 10/18/25 22:55 56 L 19 98 10/18/25 21:00 Mechanical Vent FiO2 10/19/25 08:06 10/19/25 08:00 10/19/25 08:00 10/19/25 08:00 10/19/25 08:00 10/19/25 08:00 10/19/25 08:00 10/19/25 08:00 10/19/25 07:57 10/19/25 07:51 10/19/25 07:45 10/19/25 07:42 10/19/25 07:36 10/19/25 07:30 10/19/25 07:27 10/19/25 07:21 10/19/25 07:20 30 10/19/25 07:15 10/19/25 07:12 10/19/25 07:06 10/19/25 07:00 30 10/19/25 07:00 10/19/25 07:00 10/19/25 07:00 10/19/25 07:00 10/19/25 07:00 10/19/25 06:45 10/19/25 06:00 10/19/25 06:00 10/19/25 06:00 10/19/25 06:00 10/19/25 06:00 10/19/25 06:00 10/19/25 05:29 10/19/25 05:29 10/19/25 05:29 10/19/25 05:29 10/19/25 05:29 10/19/25 05:27 10/19/25 05:00 10/19/25 05:00 10/19/25 05:00 10/19/25 05:00 10/19/25 05:00 10/19/25 05:00 10/19/25 04:00 10/19/25 04:00 10/19/25 04:00 10/19/25 04:00 10/19/25 04:00 10/19/25 04:00 10/19/25 04:00 10/19/25 03:30 10/19/25 03:30 10/19/25 03:30 10/19/25 03:30 10/19/25 03:30 10/19/25 03:30 10/19/25 03:00 10/19/25 03:00 10/19/25 03:00 10/19/25 03:00 10/19/25 03:00 10/19/25 03:00 10/19/25 03:00 10/19/25 03:00 10/19/25 03:00 10/19/25 03:00 10/19/25 02:46 30 10/19/25 02:30 10/19/25 02:30 10/19/25 02:30 10/19/25 02:30 10/19/25 02:30 10/19/25 02:30 10/19/25 02:00 10/19/25 02:00 10/19/25 02:00 10/19/25 02:00 10/19/25 02:00 10/19/25 02:00 10/19/25 01:30 10/19/25 01:30 10/19/25 01:30 10/19/25 01:30 10/19/25 01:30 10/19/25 01:30 10/19/25 01:00 10/19/25 01:00 10/19/25 01:00 10/19/25 01:00 10/19/25 01:00 10/19/25 01:00 10/19/25 00:30 10/19/25 00:30 10/19/25 00:30 10/19/25 00:30 10/19/25 00:30 10/19/25 00:30 10/19/25 00:00 10/19/25 00:00 10/19/25 00:00 10/19/25 00:00 10/19/25 00:00 10/19/25 00:00 10/19/25 00:00 10/19/25 00:00 10/18/25 23:30 10/18/25 23:30 10/18/25 23:30 10/18/25 23:30 10/18/25 23:30 10/18/25 23:30 10/18/25 23:00 10/18/25 23:00 10/18/25 22:55 30 10/18/25 21:00 Resident Activity Tracking Resident Involvement: Resident Care Provided Care Provided: Adult Hospital Medicine
[2025-10-19] MEDS ORDERED: Nursing to Pharmacy Communication SCH (09:30)
[2025-10-19] MEDS: PIPERACILLIN/TAZOBACTAM 4.5 GM/100 ML BAG IV SCH (11:14)
--- NOTE | 2025-10-19 11:47 | Surgery Progress Note ---
Date of Service October 19, 2025 Assessment & Plan (1) H/O abdominal surgery: Plan: Status post laparotomy with small bowel resection left in discontinuity with temporary abdominal closure, POD #1 washout with small bowel anastomosis and abdominal closure. Extubated and off pressors. Continue NG tube to low intermittent wall suction Await return of bowel function, he has had multiple bowel movements even while in discontinuity after being disimpacted in the OR, so bowel movements may not be a reliable indication of full return of bowel function Continue antibiotics Recommend PPN. Would hesitate to use TPN through his port due to increased risk of fungal infections Appreciate medicine and ICU care of this patient Dr. Araya covering over the weekend (2) History of resection of small bowel: Admission and Anticipated Discharge Date Admission Date: October 13, 2025 Subjective POD #3 laparotomy with small bowel resection left in discontinuity with ABThera wound closure for ischemic small bowel, POD #3 takeback for questionable bleeding with washout and ABThera wound VAC placement, POD #1 washout with small bowel anastomosis and abdominal closure. He was extubated this morning and is off pressors. He is still groggy but responsive. Physical Exam Constitutional: WD/WN, vitals as above Gastrointestinal (Abdomen): Inspection/Auscultation: + abdominal surgical incision (Dressing in place, clean dry and intact) Percussion/Palpation: + abdomen tender (Minimal tenderness palpation) and abdomen soft; no guarding and abdomen not rigid NG tube with minimal drainage, PEG tube in place Results & Data Vital Signs (Past 12 Hours) Vital Signs Temp Pulse Resp BP Pulse Ox O2 Del Method FiO2 10/19/25 08:16 Mechanical Vent 10/19/25 08:06 37.3 C 71 18 96 10/19/25 08:00 37.4 C 72 18 96 10/19/25 08:00 118/62 10/19/25 08:00 118/62 10/19/25 08:00 118/62 10/19/25 08:00 118/62 10/19/25 08:00 118/62 10/19/25 08:00 74 10/19/25 07:57 37.3 C 73 18 96 10/19/25 07:51 37.4 C 67 18 95 10/19/25 07:45 37.3 C 73 18 96 10/19/25 07:42 37.3 C 83 17 98 10/19/25 07:36 37.4 C 66 18 96 10/19/25 07:30 37.3 C 75 18 97 10/19/25 07:27 37.3 C 69 18 97 10/19/25 07:21 37.3 C 72 18 96 10/19/25 07:20 74 21 97 30 10/19/25 07:15 37.3 C 74 18 96 10/19/25 07:12 37.3 C 72 18 96 10/19/25 07:06 37.3 C 72 18 96 10/19/25 07:00 37.3 C 70 18 96 Mechanical Vent 30 10/19/25 07:00 110/58 L 10/19/25 07:00 110/58 L 10/19/25 07:00 110/58 L 10/19/25 07:00 110/58 L 10/19/25 07:00 110/58 L 10/19/25 06:45 37.2 C 88 17 98 10/19/25 06:00 37.2 C 59 L 22 96 10/19/25 06:00 98/51 L 10/19/25 06:00 98/51 L 10/19/25 06:00 98/51 L 10/19/25 06:00 98/51 L 10/19/25 06:00 98/51 L 10/19/25 05:29 105/55 L 10/19/25 05:29 105/55 L 10/19/25 05:29 105/55 L 10/19/25 05:29 105/55 L 10/19/25 05:29 105/55 L 10/19/25 05:27 37.2 C 54 L 19 96 10/19/25 05:00 37.1 C 63 19 94 10/19/25 05:00 87/50 L 10/19/25 05:00 87/50 L 10/19/25 05:00 87/50 L 10/19/25 05:00 87/50 L 10/19/25 05:00 87/50 L 10/19/25 04:00 37.4 C 18 97 10/19/25 04:00 107/54 L 10/19/25 04:00 107/54 L 10/19/25 04:00 107/54 L 10/19/25 04:00 107/54 L 10/19/25 04:00 107/54 L 10/19/25 04:00 105/40 L 10/19/25 03:30 37.5 C 58 L 18 97 10/19/25 03:30 95/52 L 10/19/25 03:30 95/52 L 10/19/25 03:30 95/52 L 10/19/25 03:30 95/52 L 10/19/25 03:30 95/52 L 10/19/25 03:00 97/52 L 10/19/25 03:00 97/52 L 10/19/25 03:00 97/52 L 10/19/25 03:00 97/52 L 10/19/25 03:00 97/52 L 10/19/25 03:00 97/52 L 10/19/25 03:00 97/52 L 10/19/25 03:00 97/52 L 10/19/25 03:00 97/52 L 10/19/25 03:00 37.5 C 59 L 18 97 10/19/25 02:46 57 L 18 99 30 10/19/25 02:30 37.5 C 54 L 18 97 10/19/25 02:30 96/55 L 10/19/25 02:30 96/55 L 10/19/25 02:30 96/55 L 10/19/25 02:30 96/55 L 10/19/25 02:30 96/55 L 10/19/25 02:00 100/54 L 10/19/25 02:00 100/54 L 10/19/25 02:00 100/54 L 10/19/25 02:00 100/54 L 10/19/25 02:00 100/54 L 10/19/25 02:00 37.6 C H 58 L 18 97 10/19/25 01:30 37.6 C H 55 L 18 96 10/19/25 01:30 101/53 L 10/19/25 01:30 101/53 L 10/19/25 01:30 101/53 L 10/19/25 01:30 101/53 L 10/19/25 01:30 101/53 L 10/19/25 01:00 102/53 L 10/19/25 01:00 102/53 L 10/19/25 01:00 102/53 L 10/19/25 01:00 102/53 L 10/19/25 01:00 102/53 L 10/19/25 01:00 37.6 C H 53 L 18 97 10/19/25 00:30 97/54 L 10/19/25 00:30 97/54 L 10/19/25 00:30 97/54 L 10/19/25 00:30 97/54 L 10/19/25 00:30 97/54 L 10/19/25 00:30 37.6 C H 53 L 17 98 10/19/25 00:00 37.7 C H 53 L 17 98 10/19/25 00:00 100/53 L 10/19/25 00:00 100/53 L 10/19/25 00:00 100/53 L 10/19/25 00:00 100/53 L 10/19/25 00:00 100/53 L 10/19/25 00:00 Mechanical Vent 10/19/25 00:00 110/39 L Laboratory Results Laboratory Results - last 24 hr 10/16/25 10/18/25 10/18/25 18:34 11:34 14:05 WBC 4.77 L RBC 2.46 L Hgb 7.5 L Hct 21.1 L MCV 85.8 MCH 30.5 MCHC 35.5 RDW Std Deviation 45.4 RDW Coeff of Nii 15.3 H Plt Count 124 L MPV 9.8 PT INR APTT PTT Ratio Fibrinogen Sodium 130 L Potassium 3.4 L Chloride 102 Carbon Dioxide 19 L Anion Gap 9 BUN 46 H Creatinine 1.58 H D Est Cr Clr Drug Dosing 38.1 eGFR 44.49 BUN/Creatinine Ratio 29.1 H Glucose 186 H POC Glucose POC Glucose (other) 173 H Calcium 7.5 L Phosphorus 4.2 Magnesium 2.1 Total Bilirubin 0.7 AST 11 L ALT 8 Alkaline Phosphatase 47 Total Protein 3.8 L Albumin 2.4 L Globulin 1.4 L Albumin/Globulin Ratio 1.7 Blood Type A Positive Antibody Screen NEGATIVE Crossmatch See Detail 10/18/25 10/18/25 10/18/25 15:53 16:19 20:32 WBC RBC Hgb Hct MCV MCH MCHC RDW Std Deviation RDW Coeff of Nii Plt Count MPV PT 10.6 INR 1.0 APTT 44 H PTT Ratio 1.6 Fibrinogen 233 Sodium Potassium Chloride Carbon Dioxide Anion Gap BUN Creatinine Est Cr Clr Drug Dosing eGFR BUN/Creatinine Ratio Glucose POC Glucose POC Glucose (other) 176 H 166 H Calcium Phosphorus Magnesium Total Bilirubin AST ALT Alkaline Phosphatase Total Protein Albumin Globulin Albumin/Globulin Ratio Blood Type Antibody Screen Crossmatch 10/19/25 10/19/25 10/19/25 00:07 04:36 04:56 WBC 3.91 L RBC 2.66 L Hgb 8.1 L Hct 23.1 L MCV 86.8 MCH 30.5 MCHC 35.1 RDW Std Deviation 44.7 RDW Coeff of Nii 14.8 H Plt Count 117 L MPV 10.0 PT INR APTT PTT Ratio Fibrinogen Sodium 131 L Potassium 3.8 Chloride 104 Carbon Dioxide 20 L Anion Gap 7 BUN 41 H Creatinine 1.15 D Est Cr Clr Drug Dosing 52.3 eGFR 65.14 BUN/Creatinine Ratio 35.7 H Glucose 162 H POC Glucose POC Glucose (other) 156 H 151 H Calcium 7.7 L Phosphorus 2.7 D Magnesium 1.9 Total Bilirubin AST ALT Alkaline Phosphatase Total Protein Albumin Globulin Albumin/Globulin Ratio Blood Type Antibody Screen Crossmatch 10/19/25 08:45 WBC RBC Hgb Hct MCV MCH MCHC RDW Std Deviation RDW Coeff of Nii Plt Count MPV PT INR APTT PTT Ratio Fibrinogen Sodium Potassium Chloride Carbon Dioxide Anion Gap BUN Creatinine Est Cr Clr Drug Dosing eGFR BUN/Creatinine Ratio Glucose POC Glucose 172 H POC Glucose (other) Calcium Phosphorus Magnesium Total Bilirubin AST ALT Alkaline Phosphatase Total Protein Albumin Globulin Albumin/Globulin Ratio Blood Type Antibody Screen Crossmatch PG Care Time/CCT Total # of Minutes Spent Total Time Spent with Patient: Total time spent is greater than 50% in coordination of care (as documented) at patient's floor/unit and/or counseling patient: Coding Level of Care Code None Diagnoses H/O abdominal surgery Z98.890 History of resection of small bowel Z90.49
[2025-10-19] MEDS: INSULIN ASPART PER UNIT CHARGE SC SCH (12:57)
[2025-10-19] MEDS: ACETAMINOPHEN 1000 MG/100 ML IV IV ONE (12:57)
[2025-10-19] MEDS ORDERED: TPN/PPN CONSULT PHARMACY STA (13:34)
[2025-10-19] MEDS ORDERED: DEXTROSE 10% 1,000 ML IV PRN (13:34)
[2025-10-19] MEDS ORDERED: TPN/PPN CONSULT PHARMACY PRN (13:53)
[2025-10-19] MEDS: HYDROCORTISONE SOD 50 MG in SYRINGE 0 ML IV SCH (13:57)
--- NOTE | 2025-10-19 14:09 | Pharmacy Report ---
Pharmacy Glycemic Short Note 2 - Date of Service October 19, 2025 - Glycemic Short BSG Results (Last 24 hours): 10/18/25 10/18/25 10/18/25 14:05 15:53 20:32 Glucose 186 H POC Glucose POC Glucose (other) 176 H 166 H 10/19/25 10/19/25 10/19/25 00:07 04:36 04:56 Glucose 162 H POC Glucose POC Glucose (other) 156 H 151 H 10/19/25 10/19/25 08:45 12:49 Glucose POC Glucose 172 H 148 H POC Glucose (other) OUTPATIENT ANTIDIABETIC REGIMEN: * None * HbA1c: 6.0% (10/17/2025) ASSESSMENT: 10/19 * Patient extubated, steroids tapering to q8h today then q12h tomorrow, vasopressin discontinued. TPN starting 10/20. * Will switch Novolog from q4h to q6h. Will slightly loosen correction factor. * Regimen may need to be adjusted when TPN starts - will monitor and adjust over the weekend prn 10/18: * Patient returned to OR 10/18 AM for abdominal washout, anastomosis of bowel, and abdominal closure * Still remains NPO for now * Remains on stress dose steroids and 2 pressors * Blood glucose values have ranged from 160-253 in past 24 hours * Adjustment to CF of 25 and additional lunch insulin seemed to help bring glucose back within range yesterday evening * 183 value this AM was not treated with insulin due to patient being in OR * Given the overnight BSGs are within range and only one BSG >180 this AM not able to be treated, will continue current regimen of sliding scale insulin only * Continue to monitor PO status and overall clinical status, adjust as needed 10/17: * Neil is a 80 year old male who presents to the hospital on 10/13/25 with SBO * Overnight 10/17, he was taken to OR emergently for ex-lap due to suspected intra-abdominal hemorrhage * Bowel left in discontinuity, will need to return to OR likely within the next few days per surgery for abdomen closure * Patient expected to be NPO for prolonged period of time * BSGs have ranged up to from 172-268 over past 24 hours * Was initiated on insulin drip 10/16 at 2.6 units/hr from 1600 until ~2200 * Glucose of 88 around 0000, appears it was turned off at that time * Insulin drip order discontinued this AM around 0600 by certified registered nurse anesthetist * BSGs likely elevated secondary to critical illness, steroid use * Steroids: dexamethasone 8mg x1 (10/16 @1700), hydrocortisone 100mg (10/16 @1340), hydrocortisone 50mg Q6H (ongoing stress dose steroids) * Patient on multiple pressors: norepinephrine and vasopressin * Insulin aspart sliding scale coverage this AM at stress level 2 did not have much of an effect on his BSG * Increase sliding scale coverage to stress level of 3 * Gave an additional 4 units of insulin aspart with lunch for glucose of 233 * Increase frequency of glucose checks from Q6H to Q4H for better control * Goal BSG <180 in ICU * SCr increasing - with worsening kidney function, insulin has slower clearance * Will need to monitor his requirements once his BSGs more under control and adjust accordingly PLAN FOR INPATIENT GLYCEMIC CONTROL: * Basal insulin * None * Bolus insulin * NovoLog per scale ACHS or Q6hrs while NPO * Goal Range: Low 120 mg/dL - High 160 mg/dL * Correction Factor: 30 mg/dL/unit * Nutritional / Prandial insulin per carb ratio of 1 unit per -- grams CHO consumed
[2025-10-19] MEDS ORDERED: PIPERACILLIN/TAZOBACTAM 4.5 GM/100 ML BAG IV SCH (14:45)
--- NOTE | 2025-10-19 16:01 | Billing Data ---
Date of Service October 19, 2025 Coding Level of Care Code 73011 CRITICAL CARE 1ST 30-74M Time Spent (min) 38
[2025-10-19] MEDS: HALOPERIDOL LACTATE 5 MG/ML 1 ML VIAL IV STA (16:27)
[2025-10-19] MEDS: ACETAMINOPHEN 1,000 MG/100 ML VIAL IV PRN (16:32)
--- NOTE | 2025-10-19 22:49 | Electrocardiogram Report ---
Test Reason : Blood Pressure : */* mmHG Vent. Rate : 82 BPM Atrial Rate : 82 BPM P-R Int : 182 ms QRS Dur : 88 ms QT Int : 384 ms P-R-T Axes : 43 -2 59 degrees QTcB Int : 448 ms Sinus rhythm with Premature supraventricular complexes Otherwise normal ECG When compared with ECG of 16-Oct-2025 08:59, Premature supraventricular complexes are now Present Confirmed by Jaquan Dubois ([id number]) on 10/19/2025 10:48:52 PM Referred By: REFERRED SELF Confirmed By: Jaquan Dubois
[2025-10-20 05:27] LABS: Hematocrit (blood only) 22.8 % (42.0-52.0); Hemoglobin 8.2 g/dL (14.0-18.0); Mean Corpuscular Hemoglobin 31.4 pg (25.0-34.0); Mean Corpuscular Volume 87.4 fL (80.0-100.0); Platelet Count 110 K/uL (130-400); RDW Standard Deviation 45.3 fL (36.4-46.3); Red Blood Count 2.61 M/uL (4.70-6.10); White Blood Count 3.99 K/ul (4.8-10.8)
[2025-10-20 05:52] LABS: Anion Gap 7.0 (3-11); Blood Urea Nitrogen 26.0 mg/dl (6-23); Calcium 7.9 mg/dl (8.6-10.3); Carbon Dioxide 25.0 mmol/L (21-32); Chloride 106.0 mmol/L (98-107); Creatinine Clr Calc Pharmacy 78.8 ml/min; Glucose 131.0 mg/dl (70-99(Fasting)); Magnesium 1.8 mg/dl (1.7-2.4); Potassium 3.1 mmol/L (3.5-5.1); Sodium 138.0 mmol/L (136-145); Triglycerides 114.0 mg/dl (0-150)
--- NOTE | 2025-10-20 07:30 | Hospitalist Progress Note ---
Date of Service October 20, 2025 Assessment & Plan (1) Port-A-Cath in place: (2) Malignant tumor of base of tongue: (3) MGUS (monoclonal gammopathy of unknown significance): (4) Small bowel ischemia: (5) Shock: Plan In summary this is a 80-year-old male who was initially admitted for recurrent syncopal episodes, found to have a small bowel obstruction subsequently developing ischemic small bowel requiring surgical resection. 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 suspect this is secondary to surgical intervention and consumption; returned to the operative suite on 10/18 for abdominal washout, small bowel anastomosis and closure; patient removed their NG tube in the afternoon on 10/19, without apparent traumatic injury; at this time there is no sincere evidence for an infectious component however the patient is being empirically treated with Zosyn at General Surgery's request for 7 days total - Continue Zosyn 4.5 g IV every 8 hours through 10/22 PEG to gravity General Surgery and investigator internal affairs consulted #Subacute protein calorie malnutrition Prior to the patient's hospitalization, there was noted progressive weight loss and malnutrition associated with their malignancy and ongoing treatment; during his hospitalization, they have remained NPO for an extended duration without established enteric or parenteral alternative nutrition; at this time, it is essential to initiate some form of nutrition to facilitate adequate healing and improve outcomes; PPN and TPN options were reviewed, and relative risks of each considered; based on the nutritional needs of the patient, PPN would be inadequate at this time - Pharmacy and Nutrition consulted for assistance with initiating TPN #Hospital acquired hyperactive delirium Increased frequency of episodic agitation since extubation, likely consequential of the patient's critical illness and continued degree of illness; optimize nonpharmacologic interventions with redirection and reassurance, minimizing disturbance for the patient as much as possible though obviously is limited by the need for continuous telemetry and close monitoring as he recovers; may also be related to urinary retention, given their Montaño catheter was pulled the same day with subsequent development of this condition - If there is need for pharmacologic intervention, administer Zyprexa 2.5 mg IM as needed; ideally we can resume his home Seroquel prescription as soon as use of his PEG is allowed - Avoid typical antipsychotics #Multifactorial Shock, Resolved Most likely related to hypovolemia in the setting of iatrogenic fluid losses with an abdominal intervention, previous wound VAC Remains volume depleted, would recommend reinstitution of intravenous fluids given the patient's improved hemodynamics and surgical resolution No longer requiring vasopressors - Continue stress dose hydrocortisone, deescalated to every 12 hours by investigator internal affairs on 10/20 #Mechanical ventilation, resolved Extubated 10/19 without complication #Acute kidney injury, resolved // Prerenal and insensible fluid losses Baseline normal renal function; with improved hemodynamic stability, the patient's urine output has improved, remains adequate, and renal function has returned towards the patient's baseline - Montaño catheter discontinued 10/19 and exchanged for external male catheter - Intake and output measures every shift #Hypovolemic hyponatremia, resolved Normal serum sodium at initial presentation with progressive decrease, improving -Follow daily RFP and Magnesium -Continue to assess volume needs with initiation of TPN as above #Syncopal episodes, 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 "syncope"; previously has been seen to have episodes of supraventricular tachycardia which has been observed during his current hospitalization and correlated with a witnessed presyncopal event; based on cardiology 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 which they suspect is worsened given the patient's acute illness even prior to the events that it began on 10/16 TTE without significant change from previous assessment Maintain serum potassium greater than 4, magnesium greater than 2 No indication for systemic anticoagulation with respect to this condition at this time Long-term consideration for ablation per cardiology recommendations, at this time to continue amiodarone IV for short-term resolution of symptoms #Major depression disorder // Insomnia Previously established on Seroquel, held given their NPO status; resume as soon as PEG use is allowed by surgery #Oral HPV associated squamous cell carcinoma Previously established condition undergoing active radiation and chemotherapy; due for chemotherapy on 10/17 though likely will not be performed given the patient's acute illness DVT ppx: Continue heparin 5000 U SQ twice daily GI ppx: continue pantoprazole 40 mg IV BID Admission and Anticipated Discharge Date Admission Date: October 13, 2025 Subjective Mr. Mott is a 80-year-old male whose active medical conditions include HPV positive oral squamous cell carcinoma undergoing radiation and chemotherapy treatment in addition to MGUS, peripheral neuropathy, major depressive disorder, among other chronic conditions who presented to the [facility] due to recurrent episodes of altered consciousness in addition to recurrent episodes of abdominal pain. No acute overnight events; removed NG tube in the afternoon on 10/19, this provider was not notified. Additionally attempted to pull Montaño catheter, subseq uently was removed by nursing staff and replaced with external male catheter. Successful extubation in the morning 10/19. The patient is alert, oriented to self, place, and time. He can be reoriented after multiple reminders, but quickly forgets the recent conversation. He endorses suprapubic discomfort as well as some mild superficial discomfort around his abdominal surgical incision. Review of Systems Review of Systems: Review of constitutional, cardiovascular, pulmonary, gastrointestinal, genitourinary, musculoskeletal systems was unremarkable except for pertinent positive and negative findings discussed above Physical Exam Physical Exam: General: Elderly male in no acute distress, mild cachectic change Vital Signs: Reviewed HEENT: Status post extubation, no evidence of posterior oropharyngeal trauma; NG tube was self removed on 10/19 without evidence of nasal trauma Neck: Trachea midline; pigmentary changes to the anterior neck secondary to radiation therapy Pulmonary: Symmetric chest wall excursion without restriction; slightly diminished air movement in the bases, otherwise clear to auscultation Cardiovascular: Regular rate and rhythm without murmur, rub, or gallop; S1 and S2 normal; left radial pulse and bilateral posterior tibial pulse 2+ with brisk capillary refill; no notable lower extremity edema; mild right greater than left upper extremity edema Gastrointestinal: Midline abdominal incision without evidence of oozing or dehiscence; infrequent bowel sounds with normal pitch; nondistended abdomen without rigidity; PEG connected to bag, draining to gravity yielding forest- green bilious output, low volume Genitourinary: external male catheter in place Neurologic: CN II-XII grossly intact; no focal neurologic changes; intermittently confused, but able to be reoriented without pharmacologic intervention Results & Data Results & Data Vital Signs (Past 12 Hours) Vital Signs Temp Pulse Resp BP Pulse Ox O2 Del Method 10/20/25 03:22 36.8 C 10/20/25 03:00 133/62 10/20/25 03:00 133/62 10/20/25 03:00 133/62 10/20/25 03:00 133/62 10/20/25 03:00 133/62 10/20/25 03:00 81 21 99 10/20/25 02:00 107/68 10/20/25 02:00 107/68 10/20/25 02:00 107/68 10/20/25 02:00 107/68 10/20/25 02:00 107/68 10/20/25 02:00 80 25 H 100 10/20/25 01:00 104 H 23 100 10/20/25 01:00 117/97 10/20/25 01:00 117/97 10/20/25 01:00 117/97 10/20/25 01:00 117/97 10/20/25 01:00 117/97 10/20/25 00:00 105/76 10/20/25 00:00 105/76 10/20/25 00:00 105/76 10/20/25 00:00 105/76 10/20/25 00:00 105/76 10/20/25 00:00 36.2 C L 77 20 93 10/19/25 23:40 72 10/19/25 23:01 104/63 10/19/25 23:01 104/63 10/19/25 23:01 104/63 10/19/25 23:01 104/63 10/19/25 23:01 104/63 10/19/25 23:00 36.1 C L 77 29 H 100 10/19/25 22:00 115/64 10/19/25 22:00 115/64 10/19/25 22:00 115/64 10/19/25 22:00 115/64 10/19/25 22:00 115/64 10/19/25 22:00 36.3 C L 80 20 100 10/19/25 21:00 113/63 10/19/25 21:00 113/63 10/19/25 21:00 113/63 10/19/25 21:00 36.4 C L 26 H 100 10/19/25 21:00 113/63 10/19/25 20:00 120/57 L 10/19/25 20:00 120/57 L 10/19/25 20:00 120/57 L 10/19/25 20:00 120/57 L 10/19/25 20:00 36.6 C 129 H 22 93 10/19/25 20:00 Room Air Laboratory Results Leukopenic, Hgb 8.2 Serum potassium 3.2. phosphorus 2.1 PG Care Time/CCT Total # of Minutes Spent Total Time Spent with Patient: Total time spent is greater than 50% in coordination of care (as documented) at patient's floor/unit and/or counseling patient: Coding Level of Care Code 55801 SUB INP/OBS CARE 3/50MIN Diagnoses Port-A-Cath in place Z95.828 Malignant tumor of base of tongue C01 MGUS (monoclonal gammopathy of unknown significance) D47.2 Small bowel ischemia K55.9 Shock R57.9
--- NOTE | 2025-10-20 08:10 | Critical Care Progress Note ---
Date of Service October 20, 2025 Assessment & Plan (1) Small bowel obstruction: (2) PEG (percutaneous endoscopic gastrostomy) status: Plan Neuro CAM-negative --ICU delirium Consider haloperidol, QTc 465 on 02/14/2025 #Syncope - Per , hx of 35-40 syncopal episodes with loss of consciousness in past few months - Etiology unclear. Considering possibility of absence seizures with autonomic dysfunction - continue Keppra - CT head 10/13/2025 negative Cardiovascular # S/p hypotension/Shock - Hydrocortisone 50mcg every 12 - Shock likely related to GI etiology, ischemic bowel - Low suspicion for cardiogenic etiology. 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 Patient taken twice on the same day to the OR due to suspected intra-abdominal bleeding, however upon reexploration, no active bleeding was found. - Taken back to OR 10/18 for anastomosis, closed abdomen - Tylenol IV 1g q8 prn pain - Protonix 40mg BID IV Pulmonary #Previously ventilator dependent/Extubated - Previously sedated and on mechanical ventilator post-surgical procedure, extubated 10/19/2025 Renal #Acute KARRI --> improving - Likely secondary to hypotension and decreased perfusion - Creatinine plateau on 10/18, continuing to downtrend, continue to monitor labs - Goal K>4, Mg>2. Supplement as needed. 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 - Pt refused surgery - On chemo and radiation therapy #Normocytic anemia - Continue to monitor H&H, stable - Transfuse prn, received total 5 units of blood this admission #New Onset Thrombocytopenia - Etiology could be consumption related from multiple surgeries and bleeding - Continue to trend Infectious Disease #Shock - No suspicion for infectious etiology at this time, continue Zosyn for empiric coverage, 4.5 mg q8h - Continue to trend CBC #Leukopenia - Upon admission - Possibly secondary to cancer tx - Monitor for sepsis - Fungal smear shows no fungal growth, culture pending Endo #Elevated glucose levels - Upon admission - likely stress induced, anticipate will increase further due to steroid dosing - Patient previously on insulin drip, however glucose levels dropped to 80s overnight 10/17 - Currently on sliding scale insulin, continue to monitor Thyroid labs wnl. MSK No MSK concerns at this time. Psych #MDD/Anxiety - on Quetiapine and Olanzapine at home, held --Prophylaxis VTE: IPC GI: Pantoprazole Lines: Left-sided port Diet: N.p.o. Plan: In/out: -1.4 L, urine output 2375, total 10 L positive since coming to the hospital Potassium magnesium and phosphorus being replaced Continue with Zosyn for total of 4 more days. Continue with hydrocortisone 50 mg every 12 Still n.p.o., would recommend surgery to make the decision whether the patient can be fed in the near future Consider resuming DVT prophylaxis given the H&H is stable Stable to be downgrade to medical floor Please note the above document was generated using voice recognition software. It may contain grammatical, syntax or spelling errors.Any formal questions or concerns about the content, text or information contained within the body of this dictation should be directly addressed to the provider for clarification. Admission and Anticipated Discharge Date Admission Date: October 13, 2025 Subjective Patient seen and examined at bedside. No acute distress, no adverse events overnight He was little bit delirious late last evening yesterday for which he got haloperidol Complain of generalized pain Saturating well on room air Has been off vasopressors Still complaining of abdominal pain/discomfort No flatulence, no bowel movement Review of Systems 2 Review of Systems: All systems reviewed & are unremarkable except as noted in Subjective Physical Exam 2 Physical Exam: Constitutional: No acute distress HEENT: EOMI, PERRLA Respiratory system: Good air entry bilaterally, no wheeze, no rhonchi, no crackles CVS: S1-S2 positive, no murmurs or gallops Abdomen: Soft, nondistended, decreased bowel sounds x4, positive PEG Extremities: +2 pulses bilaterally radialis/ dorsalis pedis, no cyanosis, no edema Neuro: Awake alert oriented to self and time Psych: Normal mood and affect G/U: No Montaño Skin: no rashes, warm and dry Lymphatic: no cervical or axillary lymphadenopathy Results & Data Results & Data Vital Signs (Past 12 Hours) Vital Signs Temp Pulse Pulse Resp BP BP Pulse Ox 10/20/25 08:01 36.3 C L 76 18 137/67 100 10/20/25 07:54 10/20/25 06:48 77 10/20/25 03:22 36.8 C 10/20/25 03:00 133/62 10/20/25 03:00 133/62 10/20/25 03:00 133/62 10/20/25 03:00 133/62 10/20/25 03:00 133/62 10/20/25 03:00 81 21 99 10/20/25 02:00 107/68 10/20/25 02:00 107/68 10/20/25 02:00 107/68 10/20/25 02:00 107/68 10/20/25 02:00 107/68 10/20/25 02:00 80 25 H 100 10/20/25 01:00 104 H 23 100 10/20/25 01:00 117/97 10/20/25 01:00 117/97 10/20/25 01:00 117/97 10/20/25 01:00 117/97 10/20/25 01:00 117/97 10/20/25 00:00 105/76 10/20/25 00:00 105/76 10/20/25 00:00 105/76 10/20/25 00:00 105/76 10/20/25 00:00 105/76 10/20/25 00:00 36.2 C L 77 20 93 10/19/25 23:40 72 10/19/25 23:01 104/63 10/19/25 23:01 104/63 10/19/25 23:01 104/63 10/19/25 23:01 104/63 10/19/25 23:01 104/63 10/19/25 23:00 36.1 C L 77 29 H 100 10/19/25 22:00 115/64 10/19/25 22:00 115/64 10/19/25 22:00 115/64 10/19/25 22:00 115/64 10/19/25 22:00 115/64 10/19/25 22:00 36.3 C L 80 20 100 10/19/25 21:00 113/63 10/19/25 21:00 113/63 10/19/25 21:00 113/63 10/19/25 21:00 36.4 C L 26 H 100 10/19/25 21:00 113/63 O2 Del Method 10/20/25 08:01 Room Air 10/20/25 07:54 Room Air 10/20/25 06:48 10/20/25 03:22 10/20/25 03:00 10/20/25 03:00 10/20/25 03:00 10/20/25 03:00 10/20/25 03:00 10/20/25 03:00 10/20/25 02:00 10/20/25 02:00 10/20/25 02:00 10/20/25 02:00 10/20/25 02:00 10/20/25 02:00 10/20/25 01:00 10/20/25 01:00 10/20/25 01:00 10/20/25 01:00 10/20/25 01:00 10/20/25 01:00 10/20/25 00:00 10/20/25 00:00 10/20/25 00:00 10/20/25 00:00 10/20/25 00:00 10/20/25 00:00 10/19/25 23:40 10/19/25 23:01 10/19/25 23:01 10/19/25 23:01 10/19/25 23:01 10/19/25 23:01 10/19/25 23:00 10/19/25 22:00 10/19/25 22:00 10/19/25 22:00 10/19/25 22:00 10/19/25 22:00 10/19/25 22:00 10/19/25 21:00 10/19/25 21:00 10/19/25 21:00 10/19/25 21:00 10/19/25 21:00 Laboratory Results 10/20/25 04:35 10/20/25 04:35 Coding Level of Care Code 03161 SUB INP/OBS CARE 2/35MIN Diagnoses Small bowel obstruction K56.609 PEG (percutaneous endoscopic gastrostomy) status Z93.1
[2025-10-20] MEDS: POTASSIUM PHOSPHATE 30 MMOL in SODIUM CHLORIDE 0.9% 500 ML IV ONE (08:47)
[2025-10-20] MEDS: MAGNESIUM SULFATE / D5W 1 GM/100 ML BAG IV SCH (08:52)
[2025-10-20] MEDS ORDERED: METOPROLOL TARTRATE 1 MG/ML VIAL IV SCH (09:00)
--- NOTE | 2025-10-20 10:01 | Surgery Progress Note ---
Date of Service October 20, 2025 Assessment & Plan (1) H/O abdominal surgery: Plan: Status post laparotomy with small bowel resection left in discontinuity with temporary abdominal closure, POD #2 washout with small bowel anastomosis and abdominal closure. Extubated and off pressors- awake. Pt did remove NG tube last night. Continue PEG tube to gravity. Continue antibiotics Recommend PPN. Per Dr. Maria- Would hesitate to use TPN through his port due to increased risk of fungal infections Appreciate medicine and ICU care of this patient Patient seen and examine with Dr. Araya. (2) History of resection of small bowel: Admission and Anticipated Discharge Date Admission Date: October 13, 2025 Subjective Patient awake and resting in bed. Reports that he is passing flatus. He denies any abdominal pain or nausea. Per nursing, patient did remove NG tube last night- there was minimal output (150cc) prior to him removing it. Physical Exam Constitutional: WD/WN, vitals as above Gastrointestinal (Abdomen): Inspection/Auscultation: + abdominal surgical incision (Dressing in place, clean dry and intact) Percussion/Palpation: + abdomen tender (Minimal tenderness palpation) and abdomen soft; no guarding and abdomen not rigid PEG tube in place Results & Data Vital Signs (Past 12 Hours) Vital Signs Temp Pulse Pulse Resp BP BP Pulse Ox 10/20/25 08:01 36.3 C L 76 18 137/67 100 10/20/25 07:54 10/20/25 06:48 77 10/20/25 03:22 36.8 C 10/20/25 03:00 133/62 10/20/25 03:00 133/62 10/20/25 03:00 133/62 10/20/25 03:00 133/62 10/20/25 03:00 133/62 10/20/25 03:00 81 21 99 10/20/25 02:00 107/68 10/20/25 02:00 107/68 10/20/25 02:00 107/68 10/20/25 02:00 107/68 10/20/25 02:00 107/68 10/20/25 02:00 80 25 H 100 10/20/25 01:00 104 H 23 100 10/20/25 01:00 117/97 10/20/25 01:00 117/97 10/20/25 01:00 117/97 10/20/25 01:00 117/97 10/20/25 01:00 117/97 10/20/25 00:00 105/76 10/20/25 00:00 105/76 10/20/25 00:00 105/76 10/20/25 00:00 105/76 10/20/25 00:00 105/76 10/20/25 00:00 36.2 C L 77 20 93 10/19/25 23:40 72 10/19/25 23:01 104/63 10/19/25 23:01 104/63 10/19/25 23:01 104/63 10/19/25 23:01 104/63 10/19/25 23:01 104/63 10/19/25 23:00 36.1 C L 77 29 H 100 10/19/25 22:00 115/64 10/19/25 22:00 115/64 10/19/25 22:00 115/64 10/19/25 22:00 115/64 10/19/25 22:00 115/64 10/19/25 22:00 36.3 C L 80 20 100 O2 Del Method 10/20/25 08:01 Room Air 10/20/25 07:54 Room Air 10/20/25 06:48 10/20/25 03:22 10/20/25 03:00 10/20/25 03:00 10/20/25 03:00 10/20/25 03:00 10/20/25 03:00 10/20/25 03:00 10/20/25 02:00 10/20/25 02:00 10/20/25 02:00 10/20/25 02:00 10/20/25 02:00 10/20/25 02:00 10/20/25 01:00 10/20/25 01:00 10/20/25 01:00 10/20/25 01:00 10/20/25 01:00 10/20/25 01:00 10/20/25 00:00 10/20/25 00:00 10/20/25 00:00 10/20/25 00:00 10/20/25 00:00 10/20/25 00:00 10/19/25 23:40 10/19/25 23:01 10/19/25 23:01 10/19/25 23:01 10/19/25 23:01 10/19/25 23:01 10/19/25 23:00 10/19/25 22:00 10/19/25 22:00 10/19/25 22:00 10/19/25 22:00 10/19/25 22:00 10/19/25 22:00 PG Care Time/CCT Total # of Minutes Spent Total Time Spent with Patient: Total time spent is greater than 50% in coordination of care (as documented) at patient's floor/unit and/or counseling patient: Coding Level of Care Code 24781 Post Operative Follow-Up Diagnoses H/O abdominal surgery Z98.890 History of resection of small bowel Z90.49
[2025-10-20] MEDS: POTASSIUM PHOS 3 MMOL/1 ML INFUSION IV STA (14:39)
[2025-10-20] MEDS: ACETAMINOPHEN 1,000 MG/100 ML VIAL IV SCH (15:22)
[2025-10-20] MEDS: ACETAMINOPHEN 1000 MG/100 ML IV IV ONE (15:23)
[2025-10-20] MEDS: AA 8%/D14W 1L 1,032 ML in Central TPN bag 0 ML IV SCH (16:54)
[2025-10-20] MEDS: INSULIN ASPART PER UNIT CHARGE SC SCH (17:55)
[2025-10-20] MEDS: HYDROCORTISONE SOD 50 MG in SYRINGE 0 ML IV SCH (19:47)
[2025-10-20] MEDS: LANTUS PER UNIT CHARGE SC SCH (19:47)
[2025-10-20] MEDS: HEPARIN SOD 5,000 UNIT/0.5 ML VIAL SQ SCH (20:38)
[2025-10-21 05:09] LABS: Hematocrit (blood only) 23.3 % (42.0-52.0); Hemoglobin 8.1 g/dL (14.0-18.0); Mean Corpuscular Hemoglobin 30.7 pg (25.0-34.0); Mean Corpuscular Volume 88.3 fL (80.0-100.0); Platelet Count 138 K/uL (130-400); RDW Standard Deviation 44.7 fL (36.4-46.3); Red Blood Count 2.64 M/uL (4.70-6.10); White Blood Count 2.98 K/ul (4.8-10.8)
[2025-10-21 05:30] LABS: Anion Gap 6.0 (3-11); Blood Urea Nitrogen 15.0 mg/dl (6-23); Calcium 7.6 mg/dl (8.6-10.3); Carbon Dioxide 30.0 mmol/L (21-32); Chloride 105.0 mmol/L (98-107); Creatinine Clr Calc Pharmacy 114.6 ml/min; Glucose 180.0 mg/dl (70-99(Fasting)); Magnesium 1.5 mg/dl (1.7-2.4); Potassium 2.4 mmol/L (3.5-5.1); Sodium 141.0 mmol/L (136-145)
[2025-10-21] MEDS: POTASSIUM CHLORIDE / WTR 10 MEQ/100 ML PLCT IV SCH (06:25)
[2025-10-21] MEDS: MAGNESIUM SULFATE / D5W 1 GM/100 ML BAG IV SCH (06:25)
--- NOTE | 2025-10-21 09:30 | Surgery Progress Note ---
Date of Service October 21, 2025 Assessment & Plan (1) H/O abdominal surgery: Plan: Status post laparotomy with small bowel resection left in discontinuity with temporary abdominal closure, POD #3 washout with small bowel anastomosis and abdominal closure. Vital signs stable- afebrile. H and H stable. Ok to start trickle feeds today. Continue antibiotics. Patient seen and examine with Dr. Araya. (2) History of resection of small bowel: Admission and Anticipated Discharge Date Admission Date: October 13, 2025 Supervising Physician Co-Signing Physician Notes Start trickle feeds today Continue parenteral nutrition Subjective Patient awake and resting in bed. Reports that he is passing flatus and moving his bowels. He denies any abdominal pain or nausea. Review of Systems Constitutional: as per Subjective / HPI; no fever and no chills Respiratory: no cough and no dyspnea Gastrointestinal: no abdominal pain, no nausea and no vomiting Physical Exam Constitutional: WD/WN, vitals as above Gastrointestinal (Abdomen): Inspection/Auscultation: + abdominal surgical incision (Dressing in place, clean dry and intact- magaly in place. PEG tube) Percussion/Palpation: + abdomen tender (Minimal tenderness palpation) and abdomen soft; no guarding and abdomen not rigid PEG tube in place Results & Data Vital Signs (Past 12 Hours) Vital Signs Temp Pulse Pulse Resp BP Pulse Ox O2 Del Method 10/21/25 07:27 36.7 C 64 20 120/67 97 Room Air 10/21/25 06:00 72 20 101/61 97 Room Air 10/21/25 04:00 36.9 C 71 22 99/49 L 97 Room Air 10/21/25 02:00 78 22 112/61 95 Room Air 10/21/25 00:00 36.9 C 79 21 112/56 L 95 Room Air 10/20/25 22:00 80 20 111/69 96 Room Air PG Care Time/CCT Total # of Minutes Spent Total Time Spent with Patient: Total time spent is greater than 50% in coordination of care (as documented) at patient's floor/unit and/or counseling patient: Coding Level of Care Code 70249 Post Operative Follow-Up Diagnoses H/O abdominal surgery Z98.890 History of resection of small bowel Z90.49
--- NOTE | 2025-10-21 10:22 | Hospitalist Progress Note ---
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 #Ischemic small bowel s/p resection // Acute blood loss anemia, stable Patient initially presented and found to have small bowel obstruction; acute progression of symptoms and found to have frankly ischemic small bowel in the afternoon on 10/16 requiring surgical intervention, with a repeat operative intervention in the senior application software engineer of 10/17 due to concern of post operative bleeding which was not found at that time; in total required 4 units PRBC from 10/16 through 10/17; postoperative anemia and thrombocytopenia noted, suspect this was secondary to surgical intervention and consumption; returned to the operative suite on 10/18 for abdominal washout, small bowel anastomosis and closure; since that time, anemia has remained stable, likely consequential of nutritional deficiencies inhibiting reconstitution of their blood count; patient removed their NG tube in the afternoon on 10/19, without apparent traumatic injury; at this time there is no sincere evidence for an infectious component fernando sharda the patient is being empirically treated with Zosyn at General Surgery's request through 10/23 (7 day course) - Follow CBC without differential, daily - Continue Zosyn 4.5 g IV every 8 hours through 10/23 PEG to gravity, trickle feeds OK per General Surgery 10/21 General Surgery consulted #Subacute protein calorie malnutrition // Hypophosphatemia // Hypokalemia // Hypomagnesemia Prior to the patient's hospitalization, there was noted progressive weight loss and malnutrition associated with their malignancy and ongoing treatment; during his hospitalization, they have remained NPO for an extended duration without established enteric or parenteral alternative nutrition; at this time, it is essential to initiate some form of nutrition to facilitate adequate healing and improve outcomes; PPN and TPN options were reviewed, and relative risks of each considered; based on the nutritional needs of the patient, PPN would be inadequate at this time; TPN initiated 10/20 with low measures given the patient's risk of refeeding syndrome; noted significant electrolyte changes in the morning of 10/21 namely hypokalemia, hypomagnesemia, and hypophosphatemia; at this time, measures are not quite to the severity of refeeding syndrome, and the onset of change is rather quick for this condition (usually manifesting 48 to 72 hours after initiation of intake); these changes discussed with Pharmacy, who agree to reassess electrolyte measures at 1230 hrs. and determine TPN plan at that time - Potassium Chloride 10 mEq IV, 6x doses, ordered by overnight resident phys icioscar via chest port - Start Thiamine 100 mg IV daily - Additional Mg and Phos replacement to be determined based on 1230 hrs. lab assessment - Follow BMP, Mg, Phos daily - Pharmacy and Nutrition consulted #Hospital acquired hyperactive delirium // Major depression disorder // Insomnia Increased frequency of episodic agitation since extubation, likely consequential of the patient's critical illness and continued degree of illness; optimize nonpharmacologic interventions with redirection and reassurance, minimizing disturbance for the patient as much as possible though obviously is limited by the need for continuous telemetry and close monitoring as he recovers; urine output appears adequate with external catheter, no suspicion for urinary retention at this time; bowel movements have been appropriate in the post- operative course, not suspecting constipation as a role; the patient responded very well to Zyprexa in the evening on 10/20, chosen given its similar effects to his prescribed Seroquel which has been held as he is NPO/without PEG use - Start Zyprexa 5 mg IM at bedtime as therapeutic substitute for home Seroquel - Ideally we can resume his home Seroquel prescription as soon as use of his PEG is allowed #Syncopal episodes, 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 "syncope"; previously has been seen to have epi sodes of supraventricular tachycardia which has been observed during his current hospitalization and correlated with a witnessed presyncopal event; based on cardiology 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 which they suspect is worsened given the patient's acute illness even prior to the events that it began on 10/16 TTE without significant change from previous assessment Maintain serum potassium greater than 4, magnesium greater than 2 No indication for systemic anticoagulation with respect to this condition at this time Long-term consideration for ablation per cardiology recommendations #Multifactorial Shock, Resolved Most likely related to hypovolemia in the setting of iatrogenic fluid losses with an abdominal intervention, previous wound VAC Remains volume depleted, would recommend reinstitution of intravenous fluids given the patient's improved hemodynamics and surgical resolution No longer requiring vasopressors - Continue wean of hydrocortisone, appears to have been started given the patient's degree of shock at the time of his acute event on 10/16, but unclear in review of documentation #Oral HPV associated squamous cell carcinoma, stage III Previously established condition undergoing active radiation and chemotherapy; due for chemotherapy on 10/17 though likely will not be performed given the patient's acute illness DVT ppx: Continue heparin 5000 U SQ twice daily GI ppx: continue pantoprazole 40 mg IV BID Admission and Anticipated Discharge Date Admission Date: October 13, 2025 Subjective Mr. 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 No acute overnight events; appears more restful today, asking appropriate questions; endorses some mild abdominal pain, similar to 10/20 Review of Systems Review of Systems: Review of constitutional, cardiovascular, pulmonary, gastrointestinal, genitourinary, musculoskeletal systems was unremarkable except for pertinent positive and negative findings discussed above Physical Exam Physical Exam: General: Elderly male in no acute distress, mild cachectic changes noted Vital Signs: Reviewed HEENT: dry mucous membranes Neck: Trachea midline; pigmentary changes to the anterior neck secondary to radiation therapy Pulmonary: Symmetric chest wall excursion without restriction; slightly diminished air movement in the bases, otherwise clear to auscultation Cardiovascular: Regular rate and rhythm without murmur, rub, or gallop; S1 and S2 normal; left radial pulse and bilateral posterior tibial pulse 2+ with brisk capillary refill; no notable lower extremity edema; mild right greater than left upper extremity edema Gastrointestinal: Midline abdominal incision without evidence of oozing or dehiscence; infrequent bowel sounds with normal pitch; nondistended abdomen without rigidity; PEG connected to bag, draining to gravity yielding forest- green bilious output, low volume Genitourinary: external male catheter in place, urine output is without significant sediment, transparent with yellow tinge Neurologic: CN II-XII grossly intact; no focal neurologic changes; intermittently confused, but able to be reoriented without pharmacologic intervention Results & Data Results & Data Vital Signs (Past 12 Hours) Vital Signs Temp Pulse Pulse Resp BP Pulse Ox O2 Del Method 10/21/25 07:27 36.7 C 64 20 120/67 97 Room Air 10/21/25 06:00 72 20 101/61 97 Room Air 10/21/25 04:00 36.9 C 71 22 99/49 L 97 Room Air 10/21/25 02:00 78 22 112/61 95 Room Air 10/21/25 00:00 36.9 C 79 21 112/56 L 95 Room Air Laboratory Results Diminished potassium, magnesium, and phosphorus PG Care Time/CCT Total # of Minutes Spent Total Time Spent with Patient: Total time spent is greater than 50% in coordination of care (as documented) at patient's floor/unit and/or counseling patient: Coding Level of Care Code 92276 SUB INP/OBS CARE 3/50MIN Diagnoses Small bowel ischemia K55.9 Hypophosphatemia E83.39 Hypomagnesemia E83.42 Hypokalemia E87.6 Protein-calorie malnutrition, moderate E44.0 Delirium due to general medical condition F05 Acute blood loss anemia D62 Atrioventricular yanci re-entrant tachycardia (AVNRT) I47.19 Primary tongue squamous cell carcinoma C02.9 Malignant tumor of base of tongue C01 Port-A-Cath in place Z95.828
[2025-10-21] MEDS: THIAMINE HCL 100 MG in SYRINGE 9 ML IV SCH (11:41)
[2025-10-21 12:26] LABS: Anion Gap 5.0 (3-11); Blood Urea Nitrogen 14.0 mg/dl (6-23); Calcium 7.8 mg/dl (8.6-10.3); Carbon Dioxide 30.0 mmol/L (21-32); Chloride 103.0 mmol/L (98-107); Creatinine Clr Calc Pharmacy 128.6 ml/min; Glucose 184.0 mg/dl (70-99(Fasting)); Magnesium 1.8 mg/dl (1.7-2.4); Potassium 2.9 mmol/L (3.5-5.1); Sodium 138.0 mmol/L (136-145)
[2025-10-21] MEDS: INSULIN ASPART PER UNIT CHARGE SC SCH (12:59)
--- NOTE | 2025-10-21 13:18 | Communication Note ---
Date of Service: October 21, 2025 Reassessment of electrolytes concerning for refeeding syndrome. Discussed at length with clinical pharmacist; we are discontinuing current TPN bag, replacing with additional potassium phosphate 30 mmol IV one time. Continue close reassessment with initiation of trickle feeds.
[2025-10-21] MEDS: POTASSIUM PHOSPHATE 30 MMOL in SODIUM CHLORIDE 0.9% 500 ML IV ONE (13:36)
[2025-10-22 07:02] LABS: Hematocrit (blood only) 25.3 % (42.0-52.0); Hemoglobin 9.0 g/dL (14.0-18.0); Mean Corpuscular Hemoglobin 31.8 pg (25.0-34.0); Mean Corpuscular Volume 89.4 fL (80.0-100.0); Platelet Count 169 K/uL (130-400); RDW Standard Deviation 46.0 fL (36.4-46.3); Red Blood Count 2.83 M/uL (4.70-6.10); White Blood Count 2.77 K/ul (4.8-10.8)
--- NOTE | 2025-10-22 07:42 | Surgery Progress Note ---
Date of Service October 22, 2025 Assessment & Plan (1) Small bowel ischemia: Plan Patient is a 80-year-old male who is now status post exploratory laparotomy with small bowel resection due to small bowel ischemia and left in discontinuity on October 16, 2025, required return to the OR later that night for abdominal washout due to concerns for bleeding, but none were found, then had his definitive surgery on October 18, 2025 with exploratory laparotomy, small bowel anastomosis, and fascial closure. Patient appears to be recovering well, has minimal abdominal pain, no nausea or vomiting, was having bowel movements yesterday. Patient does state that he feels hungry, so we feel it would be worthwhile to start trickle tube feeds via his PEG. We did confirm with the patient that he does not take in any oral feedings due to his history of tongue cancer, so we will try to very slowly advance his tube feeds to goal due to his protein calorie malnutrition and inability to tolerate TPN. Okay from a surgical standpoint for pharmacologic DVT prophylaxis with heparin, we agree with continuing Zosyn for 1 more day, plan for discontinuing antibiotics tomorrow, October 23, 2025. Appreciate medicine's assistance with management of his electrolytes, general surgery will continue to follow for now. Admission and Anticipated Discharge Date Admission Date: October 13, 2025 Supervising Physician Co-Signing Physician Notes Patient seen and examined, labs reviewed, agree with above. No significant vents over the weekend. He has had bowel movements. Minimal abdominal pain. Started tube feeds this morning and appears to be tolerating so far. On exam he is afebrile with stable vitals. His abdomen is soft, incision with magaly in place, no infection or hernia. Appropriately tender to palpation. Nondistended. Moderate leukocytopenia and anemia, creatinine normalized. Continue to advance tube feeds to goal. Complete 7-day course of IV antibiotics from date of surgery. Ambulate, out of bed to chair, I-S, PT/OT, DVT prophylaxis. Subjective Patient currently states that he feels well, denies any abdominal pain, denies any nausea or vomiting, states that he was passing flatus and had a bowel movement yesterday, no bowel movement today. Patient does mention that he has been out of bed and walking with a walker and physical therapy, no other complaints at this time. Over the weekend, TPN was started, however he had significant electrolyte abnormalities concerning for refeeding syndrome, so TPN was stopped. It does not appear that trickle tube feeds have been started yet. Physical Exam Physical Exam: Gen: patient awake and alert, resting comfortably in bed in NAD CV: RRR PULM: Nonlabored breathing Abd: Abd soft, non-tender, non-distended, midline incision with magaly in place, no surrounding erythema, warmth, swelling, or increased tenderness to palpation ext: no edema to bilateral lower ext, SCDs in place, non-tender, feet warm and well perfused Results & Data Vital Signs (Past 12 Hours) Vital Signs Temp Pulse Pulse Resp BP Pulse Ox O2 Del Method 10/22/25 07:28 36.5 C 51 L 18 107/63 98 Room Air 10/22/25 03:15 36.7 C 59 L 19 116/65 96 Room Air 10/22/25 03:07 Room Air 10/21/25 22:48 36.7 C 63 19 134/66 98 Room Air 10/21/25 21:59 67 PG Care Time/CCT Total # of Minutes Spent Total Time Spent with Patient: Total time spent is greater than 50% in coordination of care (as documented) at patient's floor/unit and/or counseling patient: Coding [place] [address] Post Operative Follow-Up Patient Type Established Medical Decision Making Straight Forward Diagnoses Small bowel ischemia K55.9
[2025-10-22 07:49] LABS: Anion Gap 7.0 (3-11); Blood Urea Nitrogen 11.0 mg/dl (6-23); Calcium 7.7 mg/dl (8.6-10.3); Carbon Dioxide 33.0 mmol/L (21-32); Chloride 101.0 mmol/L (98-107); Creatinine Clr Calc Pharmacy 131.9 ml/min; Glucose 107.0 mg/dl (70-99(Fasting)); Magnesium 1.4 mg/dl (1.7-2.4); Potassium 2.9 mmol/L (3.5-5.1); Sodium 141.0 mmol/L (136-145)
[2025-10-22] MEDS ORDERED: POTASSIUM CHLORIDE / WTR 10 MEQ/100 ML PLCT IV SCH (09:15)
[2025-10-22] MEDS: POTASSIUM CHLORIDE / WTR 20 MEQ/100 ML PLCT IV SCH ×2 (09:26→13:53)
[2025-10-22] MEDS: MAGNESIUM SULFATE / D5W 1 GM/100 ML BAG IV SCH ×2 (09:30→13:14)
[2025-10-22] MEDS ORDERED: PEPTAMEN 1.5 CAL 1,000 ML BAG PEG SCH (10:15)
--- NOTE | 2025-10-22 11:00 | Pharmacy Report ---
Pharmacy Glycemic Short Note 2 - Date of Service October 22, 2025 - Glycemic Short BSG Results (Last 24 hours): 10/21/25 10/21/25 10/21/25 11:57 12:04 18:00 Glucose 184 H POC Glucose 174 H 108 H 10/22/25 10/22/25 10/22/25 00:01 06:03 06:21 Glucose 107 H POC Glucose 121 H 114 H OUTPATIENT ANTIDIABETIC REGIMEN: * None * HbA1c: 6.0% (10/17/2025) ASSESSMENT: 10/22: * BSGs within goal the last 48h - [phone]/dL. Received 1 unit of bolus insulin yesterday. * TPN initiated on 10/20 and held yesterday due to significant electrolyte abnormalities. Continues on hydrocortisone 50mg IV q12h. Trickle feeds to begin today. * BID scaled Lantus ordered when TPN began to be given if BSG >200. Novolog q6 with correction only. 10/19 * Patient extubated, steroids tapering to q8h today then q12h tomorrow, vasopressin discontinued. TPN starting 10/20. * Will switch Novolog from q4h to q6h. Will slightly loosen correction factor. * Regimen may need to be adjusted when TPN starts - will monitor and adjust over the weekend prn 10/18: * Patient returned to OR 10/18 AM for abdominal washout, anastomosis of bowel, and abdominal closure * Still remains NPO for now * Remains on stress dose steroids and 2 pressors * Blood glucose values have ranged from 160-253 in past 24 hours * Adjustment to CF of 25 and additional lunch insulin seemed to help bring glucose back within range yesterday evening * 183 value this AM was not treated with insulin due to patient being in OR * Given the overnight BSGs are within range and only one BSG >180 this AM not able to be treated, will continue current regimen of sliding scale insulin only * Continue to monitor PO status and overall clinical status, adjust as needed 10/17: * Neil is a 80 year old male who presents to the hospital on 10/13/25 with SBO * Overnight 10/17, he was taken to OR emergently for ex-lap due to suspected intra-abdominal hemorrhage * Bowel left in discontinuity, will need to return to OR likely within the next few days per surgery for abdomen closure * Patient expected to be NPO for prolonged period of time * BSGs have ranged up to from 172-268 over past 24 hours * Was initiated on insulin drip 10/16 at 2.6 units/hr from 1600 until ~2200 * Glucose of 88 around 0000, appears it was turned off at that time * Insulin drip order discontinued this AM around 0600 by manager human resources * BSGs likely elevated secondary to critical illness, steroid use * Steroids: dexamethasone 8mg x1 (10/16 @1700), hydrocortisone 100mg (10/16 @1340), hydrocortisone 50mg Q6H (ongoing stress dose steroids) * Patient on multiple pressors: norepinephrine and vasopressin * Insulin aspart sliding scale coverage this AM at stress level 2 did not have much of an effect on his BSG * Increase sliding scale coverage to stress level of 3 * Gave an additional 4 units of insulin aspart with lunch for glucose of 233 * Increase frequency of glucose checks from Q6H to Q4H for better control * Goal BSG <180 in ICU * SCr increasing - with worsening kidney function, insulin has slower clearance * Will need to monitor his requirements once his BSGs more under control and adjust accordingly PLAN FOR INPATIENT GLYCEMIC CONTROL: * Basal insulin * Lantus 0/6 units SQ BID if BSG >200mg/dL. * Bolus insulin * NovoLog per scale ACHS or Q6hrs while NPO * Goal Range: Low 120 mg/dL - High 160 mg/dL * Correction Factor: 30 mg/dL/unit * Nutritional / Prandial insulin per carb ratio of 1 unit per -- grams CHO consumed
[2025-10-22] MEDS: TUBE FEEDING WATER FLUSH GT SCH (11:02)
[2025-10-22] MEDS: PEPTAMEN 1.5 CAL 1,000 ML BAG PEG PRN (11:57)
[2025-10-22 12:39] LABS: Anion Gap 5.0 (3-11); Blood Urea Nitrogen 12.0 mg/dl (6-23); Calcium 7.7 mg/dl (8.6-10.3); Carbon Dioxide 32.0 mmol/L (21-32); Chloride 103.0 mmol/L (98-107); Creatinine Clr Calc Pharmacy 150.7 ml/min; Glucose 108.0 mg/dl (70-99(Fasting)); Magnesium 1.8 mg/dl (1.7-2.4); Potassium 3.3 mmol/L (3.5-5.1); Sodium 140.0 mmol/L (136-145)
--- NOTE | 2025-10-22 14:04 | Pharmacy Report ---
Pharmacy PN Follow-up Note - Date of Service October 22, 2025 - Subjective Patient is currently on day #2 of TPN for ischemic small bowel s/p resection/prolonged NPO. - Objective Height & Weight (Last Documented) Height 5 ft 11 in Weight 73.5 kg Diet Order(s) 10/13/25 18:25 NPO Intake & Ouput (24hrs) 10/21/25 10/22/25 10/23/25 06:59 06:59 06:59 Intake Total 1310 / 1310 2454.699 / 2454.699 569.166 / 569.166 Output Total 2354 / 2354 2500 / 2500 500 / 500 Balance -1044 / -1044 -45.301 / -45.301 69.166 / 69.166 Selected Laboratory Results 10/22/25 10/22/25 06:21 11:51 Sodium 141 140 Potassium 2.9 L 3.3 L Chloride 101 103 Carbon Dioxide 33 H 32 Anion Gap 7 5 BUN 11 12 Creatinine 0.48 L 0.42 L BUN/Creatinine Ratio 22.9 H 28.6 H Glucose 107 H 108 H Calcium 7.7 L 7.7 L Phosphorus 2.9 D 2.8 Magnesium 1.4 L 1.8 - Assessment & Plan Assessment: Appreciate dietary recommendations for macronutrients. Significant electrolyte abnormalities yesterday (10/21)- TPN held and lytes repleted. K and Mg low again this AM and now receiving additional repletion IV outside of TPN. D/w hospitalist - will resume TPN today. Resume at 573kcal/day (~8kcal/kg), advance slowly with close monitoring of electrolytes. Repeat labs ordered for 1800 tonight per hospitalist. Tube feeds initiated today at trickle. Plan: * For Day #2 of TPN administration, the following will be ordered: * Macronutrients: * Amino Acids: 58 grams/day * Dextrose: 101 grams/day * Lipids: - grams/day * Micronutrients: * TPN electrolytes: - mL/day Contains 35 mEq Na, 20 mEq K, 4.5 mEq Ca, 5 mEq Mg, 35 mEq Cl, 29.5 mEq Acetate per 20 mL * Sodium phosphate: - mMol/day * Sodium chloride: 70 mEq/day * Sodium acetate: - mEq/day * Potassium phosphate: 24 mMol/day * Potassium chloride: 20 mEq/day * Potassium acetate: - mEq/day * Magnesium sulfate: 8.12 mEq/day * Calcium gluconate: - mEq/day * Multivitamins: 10 mL/day * Trace elements: 1 mL/day * Thiamine: 100 mg/day * Folic Acid: - mg/day * Total volume of 780 mL will be infused over 24 hours and will provide 573 kcal/day * Labs will be ordered per PN protocol. * Pharmacy will follow and adjust PN orders on a daily basis. Thank you!
[2025-10-22 20:23] LABS: Anion Gap 5.0 (3-11); Blood Urea Nitrogen 13.0 mg/dl (6-23); Calcium 8.2 mg/dl (8.6-10.3); Carbon Dioxide 32.0 mmol/L (21-32); Chloride 103.0 mmol/L (98-107); Creatinine Clr Calc Pharmacy 150.7 ml/min; Glucose 141.0 mg/dl (70-99(Fasting)); Magnesium 2.0 mg/dl (1.7-2.4); Potassium 3.4 mmol/L (3.5-5.1); Sodium 140.0 mmol/L (136-145)
[2025-10-22] MEDS: POTASSIUM CHLORIDE / WTR 10 MEQ/100 ML PLCT IV SCH (21:18)
--- NOTE | 2025-10-23 00:34 | Hospitalist Progress Note ---
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 #Ischemic small bowel s/p resection // Acute blood loss anemia, stable Patient initially presented and found to have small bowel obstruction; acute progression of symptoms and found to have frankly ischemic small bowel in the afternoon on 10/16 requiring surgical intervention, with a repeat operative intervention in the aluminum sheet cutter of 10/17 due to concern of post operative bleeding which was not found at that time; in total required 4 units PRBC from 10/16 through 10/17; postoperative anemia and thrombocytopenia noted, suspect this was secondary to surgical intervention and consumption; returned to the operative suite on 10/18 for abdominal washout, small bowel anastomosis and closure; since that time, anemia has remained stable, likely consequential of nutritional deficiencies inhibiting reconstitution of their blood count; patient removed their NG tube in the afternoon on 10/19, without apparent traumatic injury; at this time there is no sincere evidence for an infectious component fernando sharda the patient is being empirically treated with Zosyn at General Surgery's request through 10/23 (7 day course) - Follow CBC without differential, daily - Continue Zosyn 4.5 g IV every 8 hours through 10/23 PEG to gravity, trickle feeds OK per General Surgery 10/21 General Surgery consulted: -hemoglobin stable #Subacute protein calorie malnutrition // Hypophosphatemia // Hypokalemia // Hypomagnesemia Prior to the patient's hospitalization, there was noted progressive weight loss and malnutrition associated with their malignancy and ongoing treatment; during his hospitalization, they have remained NPO for an extended duration without established enteric or parenteral alternative nutrition; at this time, it is essential to initiate some form of nutrition to facilitate adequate healing and improve outcomes; PPN and TPN options were reviewed, and relative risks of each considered; based on the nutritional needs of the patient, PPN would be inadequate at this time; TPN initiated 10/20 with low measures given the patient's risk of refeeding syndrome; noted significant electrolyte changes in the morning of 10/21 namely hypokalemia, hypomagnesemia, and hypophosphatemia; at this time, measures are not quite to the severity of refeeding syndrome, and the onset of change is rather quick for this condition (usually manifesting 48 to 72 hours after initiation of intake); these changes discussed with Pharmacy, who agree to reassess electrolyte measures at 1230 hrs. and determine TPN plan at that time - Potassium Chloride 10 mEq IV, 6x doses, ordered by overnight resident physician via chest port - Start Thiamine 100 mg IV daily - Patient continue to require addtional potassium and mag. Patient received 80 meq of potatssium today in addition to TPN, also ordered multiple grams of mag. - Follow BMP, Mg, Phos daily - Pharmacy and Nutrition consulted #Hospital acquired hyperactive delirium // Major depression disorder // Insomnia Increased frequency of episodic agitation since extubation, likely consequential of the patient's critical illness and continued degree of illness; optimize nonpharmacologic interventions with redirection and reassurance, minimizing disturbance for the patient as much as possible though obviously is limited by the need for continuous telemetry and close monitoring as he recovers; urine output appears adequate with external catheter, no suspicion for urinary retention at this time; bowel movements have been appropriate in the post- operative course, not suspecting constipation as a role; the patient responded very well to Zyprexa in the evening on 10/20, chosen given its similar effects to his prescribed Seroquel which has been held as he is NPO/without PEG use - Start Zyprexa 5 mg IM at bedtime as therapeutic substitute for home Seroquel - Ideally we can resume his home Seroquel prescription as soon as use of his PEG is allowed #Syncopal episodes, 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 "syncope"; previously has been seen to have episodes of supraventricular tachycardia which has been observed during his current hospitalization and correlated with a witnessed presyncopal event; based on cardiology 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 which they suspect is worsened given the patient's acute illness even prior to the events that it began on 10/16 TTE without significant change from previous assessment Maintain serum potassium greater than 4, magnesium greater than 2 No indication for systemic anticoagulation with respect to this condition at this time Long-term consideration for ablation per cardiology recommendations #Multifactorial Shock, Resolved Most likely related to hypovolemia in the setting of iatrogenic fluid losses with an abdominal intervention, previous wound VAC Remains volume depleted, would recommend reinstitution of intravenous fluids given the patient's improved hemodynamics and surgical resolution No longer requiring vasopressors - Continue wean of hydrocortisone, appears to have been started given the patient's degree of shock at the time of his acute event on 10/16, but unclear in review of documentation #Oral HPV associated squamous cell carcinoma, stage III Previously established condition undergoing active radiation and chemotherapy; due for chemotherapy on 10/17 though likely will not be performed given the patient's acute illness DVT ppx: Continue heparin 5000 U SQ twice daily GI ppx: continue pantoprazole 40 mg IV BID Admission and Anticipated Discharge Date Admission Date: October 13, 2025 Subjective 80 yo male reports no new symptoms. Passing gas. Physical Exam Physical Exam: Gen: patient resting comfortably in bed in NAD CV: RRR PULM: Nonlabored breathing Abd: Abd soft, non-tender, non-distended, midline incision with magaly in place, no surrounding erythema, warmth, swelling, or increased tenderness to palpation ext: no edema to bilateral lower ext, SCDs in place, non-tender, feet warm and well perfused Results & Data Results & Data Vital Signs (Past 12 Hours) Vital Signs Temp Pulse Pulse Resp BP Pulse Ox O2 Del Method 10/22/25 23:00 36.8 C 72 19 123/69 95 Room Air 10/22/25 21:32 Room Air 10/22/25 19:31 36.5 C 72 19 132/68 98 Room Air 10/22/25 15:41 67 10/22/25 15:23 36.4 C L 64 18 127/69 99 Room Air PG Care Time/CCT Total # of Minutes Spent Total Time Spent with Patient: Total time spent is greater than 50% in coordination of care (as documented) at patient's floor/unit and/or counseling patient: Coding Level of Care Code 22129 SUB INP/OBS CARE 3/50MIN Diagnoses Small bowel ischemia K55.9 Hypophosphatemia E83.39 Hypomagnesemia E83.42 Hypokalemia E87.6 Protein-calorie malnutrition, moderate E44.0 Delirium due to general medical condition F05 Acute blood loss anemia D62 Atrioventricular yanci re-entrant tachycardia (AVNRT) I47.19 Primary tongue squamous cell carcinoma C02.9 Malignant tumor of base of tongue C01 Port-A-Cath in place Z95.828
[2025-10-23 06:49] LABS: Hematocrit (blood only) 23.6 % (42.0-52.0); Hemoglobin 8.2 g/dL (14.0-18.0); Mean Corpuscular Hemoglobin 31.5 pg (25.0-34.0); Mean Corpuscular Volume 90.8 fL (80.0-100.0); Platelet Count 192 K/uL (130-400); RDW Standard Deviation 47.4 fL (36.4-46.3); Red Blood Count 2.60 M/uL (4.70-6.10); White Blood Count 3.16 K/ul (4.8-10.8)
[2025-10-23 07:16] LABS: Anion Gap 4.0 (3-11); Blood Urea Nitrogen 14.0 mg/dl (6-23); Calcium 7.7 mg/dl (8.6-10.3); Carbon Dioxide 32.0 mmol/L (21-32); Chloride 104.0 mmol/L (98-107); Creatinine Clr Calc Pharmacy 146.8 ml/min; Glucose 188.0 mg/dl (70-99(Fasting)); Magnesium 1.7 mg/dl (1.7-2.4); Potassium 3.7 mmol/L (3.5-5.1); Sodium 140.0 mmol/L (136-145)
--- NOTE | 2025-10-23 08:30 | Surgery Progress Note ---
Date of Service October 23, 2025 Assessment & Plan (1) Small bowel ischemia: Plan Patient is a 80-year-old male who is now status post exploratory laparotomy with small bowel resection due to small bowel ischemia and left in discontinuity on October 16, 2025, required return to the OR later that night for abdominal washout due to concerns for bleeding, but none were found, then had his definitive surgery on October 18, 2025 with exploratory laparotomy, small bowel anastomosis, and fascial closure. Patient appears to be recovering well, has minimal abdominal pain, no nausea or vomiting, was having bowel movements yesterday. Patient does state that he feels hungry, so we feel it would be worthwhile to start trickle tube feeds via his PEG. We did confirm with the patient that he does not take in any oral feedings due to his history of tongue cancer, so we will try to very slowly advance his tube feeds to goal due to his protein calorie malnutrition and inability to tolerate TPN. Okay from a surgical standpoint for pharmacologic DVT prophylaxis with heparin, we agree with continuing Zosyn for 1 more day, plan for discontinuing antibiotics tomorrow, October 23, 2025. Appreciate medicine's assistance with management of his electrolytes, general surgery will continue to follow for now. 10/23/2025 - doing well, advance TF as tolerated. continuing to follow Admission and Anticipated Discharge Date Admission Date: October 13, 2025 Subjective doing well, tolerating tube feeds at 10; BM yesterday; passing flatus Physical Exam Physical Exam: Gen: patient awake and alert, resting comfortably in bed in NAD CV: RRR PULM: Nonlabored breathing Abd: Abd soft, non-tender, non-distended, midline incision with magaly in place, no surrounding erythema, warmth, swelling, or increased tenderness to palpation ext: no edema to bilateral lower ext, SCDs in place, non-tender, feet warm and well perfused Results & Data Vital Signs (Past 12 Hours) Vital Signs Temp Pulse Pulse Resp BP Pulse Ox O2 Del Method 10/23/25 07:45 Room Air 10/23/25 07:14 36.5 C 65 18 142/73 H 97 Room Air 10/23/25 02:52 36.8 C 71 19 133/76 98 Room Air 10/22/25 23:00 36.8 C 72 19 123/69 95 Room Air 10/22/25 21:58 77 12/22/25 21:32 Room Air
--- NOTE | 2025-10-23 08:30 | Surgery Progress Note ---
Date of Service October 23, 2025 Assessment & Plan (1) Small bowel ischemia: Plan: -80ym s/p ex-lap with small bowel resection due to small bowel ischemia and left in discontinuity on 10/16, required return to the OR later that night for abdominal washout due to concerns for bleeding, then return to the OR on 10/18/25 for exlap, small bowel anastomosis, and fascial closure. -Today labs shows WBC 3.1, Hbg 8.2, K 3.7, Vitals are stable -Pt appears to be doing well. He denies pain and reports + bowel function -TEN currently running at 10cc/hr, we are okay with slowly advancing towards goal -Recommend 7 days total abx from surgical date -Encourage ambulation, OOB to chair, I-S, PT/OT, DVT prophylaxis. Admission and Anticipated Discharge Date Admission Date: October 13, 2025 Supervising Physician Co-Signing Physician Notes Patient discussed with BARTOLO, labs reviewed, agree with above. Status post small bowel resection with temporary abdominal closure followed by reexploration with anastomosis and abdominal closure. Tolerated tube feeds so far, continues to report bowel function. WBC still low, electrolytes improving. Okay to advance tube feeds to goal over the next day. [place] out 10 to 14 days from surgery. Subjective Patient is feeling well. Denies abdominal pain, nausea/vomiting. He reports + ongoing bowel function. He tells me he did get out of bed yesterday. Tolerating TEN at 10cc/hour rate. Physical Exam Physical Exam: awake, no distress Respiratory: normal respiratory effort Gastrointestinal (Abdomen): Inspection/Auscultation: + abdominal surgical incision (c/d/i with midline magaly, no signs of infection ); abdomen not distended Percussion/Palpation: abdomen soft; abdomen nontender + PEG tube Results & Data Vital Signs (Past 12 Hours) Vital Signs Temp Pulse Pulse Resp BP Pulse Ox O2 Del Method 10/23/25 07:45 Room Air 10/23/25 07:14 97.7 F 65 18 142/73 H 97 Room Air 10/23/25 02:52 98.2 F 71 19 133/76 98 Room Air 10/22/25 23:00 98.2 F 72 19 123/69 95 Room Air 10/22/25 21:58 77 10/22/25 21:32 Room Air PG Care Time/CCT Total # of Minutes Spent Total Time Spent with Patient: Total time spent is greater than 50% in coordination of care (as documented) at patient's floor/unit and/or counseling patient: Coding Level of Care Code 17314 Post Operative Follow-Up Diagnoses Small bowel ischemia K55.9
[2025-10-23] MEDS: MAGNESIUM SULFATE / D5W 1 GM/100 ML BAG IV ONE (09:23)
[2025-10-23] MEDS: TUBE FEEDING WATER FLUSH GT SCH (11:20)
[2025-10-23 19:04] LABS: Anion Gap 6.0 (3-11); Blood Urea Nitrogen 17.0 mg/dl (6-23); Calcium 7.9 mg/dl (8.6-10.3); Carbon Dioxide 29.0 mmol/L (21-32); Chloride 107.0 mmol/L (98-107); Creatinine Clr Calc Pharmacy 153.9 ml/min; Glucose 187.0 mg/dl (70-99(Fasting)); Magnesium 1.6 mg/dl (1.7-2.4); Potassium 3.5 mmol/L (3.5-5.1); Sodium 142.0 mmol/L (136-145)
--- NOTE | 2025-10-23 23:56 | Hospitalist Progress Note ---
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 #Ischemic small bowel s/p resection // Acute blood loss anemia, stable Patient initially presented and found to have small bowel obstruction; acute progression of symptoms and found to have frankly ischemic small bowel in the afternoon on 10/16 requiring surgical intervention, with a repeat operative intervention in the operations manager of 10/17 due to concern of post operative bleeding which was not found at that time; in total required 4 units PRBC from 10/16 through 10/17; postoperative anemia and thrombocytopenia noted, suspect this was secondary to surgical intervention and consumption; returned to the operative suite on 10/18 for abdominal washout, small bowel anastomosis and closure; since that time, anemia has remained stable, likely consequential of nutritional deficiencies inhibiting reconstitution of their blood count; patient removed their NG tube in the afternoon on 10/19, without apparent traumatic injury; at this time there is no sincere evidence for an infectious component fernando sharda the patient is being empirically treated with Zosyn at General Surgery's request through 10/23 (7 day course) - Follow CBC without differential, daily - Continue Zosyn 4.5 g IV every 8 hours through 10/23 Increasing tube feeds, will continue TPN today for one more day and then remain on tube feeds General Surgery consulted: -hemoglobin stable #Subacute protein calorie malnutrition // Hypophosphatemia // Hypokalemia // Hypomagnesemia Prior to the patient's hospitalization, there was noted progressive weight loss and malnutrition associated with their malignancy and ongoing treatment; during his hospitalization, they have remained NPO for an extended duration without established enteric or parenteral alternative nutrition; at this time, it is essential to initiate some form of nutrition to facilitate adequate healing and improve outcomes; PPN and TPN options were reviewed, and relative risks of each considered; based on the nutritional needs of the patient, PPN would be inadequate at this time; TPN initiated 10/20 with low measures given the patient's risk of refeeding syndrome; noted significant electrolyte changes in the morning of 10/21 namely hypokalemia, hypomagnesemia, and hypophosphatemia; at this time, measures are not quite to the severity of refeeding syndrome, and the onset of change is rather quick for this condition (usually manifesting 48 to 72 hours after initiation of intake); these changes discussed with Pharmacy, who agree to reassess electrolyte measures at 1230 hrs. and determine TPN plan at that time - Potassium Chloride 10 mEq IV, 6x doses, ordered by overnight resident physician via chest port - Start Thiamine 100 mg IV daily - Patient continue to require additional potassium and mag on 10/23. - Monitoring BMP in the afternoon the past 2 days in addition to the AM to replensih - Follow BMP, Mg, Phos daily - Pharmacy and Nutrition consulted #Hospital acquired hyperactive delirium // Major depression disorder // Insomnia Increased frequency of episodic agitation since extubation, likely consequential of the patient's critical illness and continued degree of illness; optimize nonpharmacologic interventions with redirection and reassurance, minimizing disturbance for the patient as much as possible though obviously is limited by the need for continuous telemetry and close monitoring as he recovers; urine output appears adequate with external catheter, no suspicion for urinary retention at this time; bowel movements have been appropriate in the post- operative course, not suspecting constipation as a role; the patient responded very well to Zyprexa in the evening on 10/20, chosen given its similar effects to his prescribed Seroquel which has been held as he is NPO/without PEG use - Start Zyprexa 5 mg IM at bedtime as therapeutic substitute for home Seroquel - Ideally we can resume his home Seroquel prescription as soon as use of his PEG is allowed -Appears improved on 10/23 #Syncopal episodes, 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 "syncope"; previously has been seen to have episodes of supraventricular tachycardia which has been observed during his current hospitalization and correlated with a witnessed presyncopal event; based on cardiology 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 which they suspect is worsened given the patient's acute illness even prior to the events that it began on 10/16 TTE without significant change from previous assessment Maintain serum potassium greater than 4, magnesium greater than 2 No indication for systemic anticoagulation with respect to this condition at this time Long-term consideration for ablation per cardiology recommendations #Multifactorial Shock, Resolved Most likely related to hypovolemia in the setting of iatrogenic fluid losses with an abdominal intervention, previous wound VAC Remains volume depleted, would recommend reinstitution of intravenous fluids given the patient's improved hemodynamics and surgical resolution No longer requiring vasopressors - Continue wean of hydrocortisone, appears to have been started given the patient's degree of shock at the time of his acute event on 10/16, but unclear in review of documentation #Oral HPV associated squamous cell carcinoma, stage III Previously established condition undergoing active radiation and chemotherapy; due for chemotherapy on 10/17 though likely will not be performed given the patient's acute illness DVT ppx: Continue heparin 5000 U SQ twice daily GI ppx: continue pantoprazole 40 mg IV BID Admission and Anticipated Discharge Date Admission Date: October 13, 2025 Subjective 80 yo male reports having multiple BMs Physical Exam Physical Exam: Gen: patient resting comfortably in bed in NAD CV: RRR PULM: Nonlabored breathing Abd: Abd soft, non-tender, non-distended, midline incision with magaly in place, no surrounding erythema, warmth, swelling, or increased tenderness to palpation ext: no edema to bilateral lower ext, SCDs in place, non-tender, feet warm and well perfused Results & Data Results & Data Vital Signs (Past 12 Hours) Vital Signs Temp Pulse Pulse Pulse Resp BP BP 10/23/25 23:23 36.3 C L 65 18 129/64 10/23/25 21:00 10/23/25 19:31 36.3 C L 66 16 137/68 10/23/25 15:27 36.3 C L 69 20 135/69 10/23/25 14:50 59 L Pulse Ox O2 Del Method O2 Del Method 10/23/25 23:23 96 Room Air 10/23/25 21:00 Room Air 10/23/25 19:31 98 Room Air 10/23/25 15:27 98 Room Air 10/23/25 14:50 PG Care Time/CCT Total # of Minutes Spent Total Time Spent with Patient: Total time spent is greater than 50% in coordination of care (as documented) at patient's floor/unit and/or counseling patient: Coding Level of Care Code 16735 SUB INP/OBS CARE 3/50MIN Diagnoses Small bowel ischemia K55.9 Hypophosphatemia E83.39 Hypomagnesemia E83.42 Hypokalemia E87.6 Protein-calorie malnutrition, moderate E44.0 Delirium due to general medical condition F05 Acute blood loss anemia D62 Atrioventricular yanci re-entrant tachycardia (AVNRT) I47.19 Primary tongue squamous cell carcinoma C02.9 Malignant tumor of base of tongue C01 Port-A-Cath in place Z95.828
[2025-10-24] MEDS: POTASSIUM CHLORIDE / WTR 20 MEQ/100 ML PLCT IV SCH (00:17)
[2025-10-24] MEDS: MAGNESIUM SULFATE / D5W 1 GM/100 ML BAG IV SCH (00:18)
[2025-10-24 06:01] LABS: Hematocrit (blood only) 24.7 % (42.0-52.0); Hemoglobin 8.4 g/dL (14.0-18.0); Mean Corpuscular Hemoglobin 31.3 pg (25.0-34.0); Mean Corpuscular Volume 92.2 fL (80.0-100.0); Platelet Count 214 K/uL (130-400); RDW Standard Deviation 48.4 fL (36.4-46.3); Red Blood Count 2.68 M/uL (4.70-6.10); White Blood Count 4.10 K/ul (4.8-10.8)
[2025-10-24 06:29] LABS: Anion Gap 4.0 (3-11); Blood Urea Nitrogen 18.0 mg/dl (6-23); Calcium 8.0 mg/dl (8.6-10.3); Carbon Dioxide 30.0 mmol/L (21-32); Chloride 106.0 mmol/L (98-107); Creatinine Clr Calc Pharmacy 150.3 ml/min; Glucose 254.0 mg/dl (70-99(Fasting)); Magnesium 1.9 mg/dl (1.7-2.4); Potassium 4.4 mmol/L (3.5-5.1); Sodium 140.0 mmol/L (136-145)
--- NOTE | 2025-10-24 07:29 | Hospitalist Progress Note ---
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 #Ischemic small bowel s/p resection // Acute blood loss anemia, stable Patient initially presented and found to have small bowel obstruction; acute progression of symptoms and found to have frankly ischemic small bowel in the afternoon on 10/16 requiring surgical intervention, with a repeat operative intervention in the apprentice cosmetologist of 10/17 due to concern of post operative bleeding which was not found at that time; in total required 4 units PRBC from 10/16 through 10/17; postoperative anemia and thrombocytopenia noted, suspect this was secondary to surgical intervention and consumption; returned to the operative suite on 10/18 for abdominal washout, small bowel anastomosis and closure; since that time, anemia has remained stable, likely consequential of nutritional deficiencies inhibiting reconstitution of their blood count; patient removed their NG tube in the afternoon on 10/19, without apparent traumatic injury - Follow CBC without differential, daily - Completed Zosyn 4.5 g IV every 8 hours through 10/23 Increasing tube feeds General Surgery consulted #Subacute protein calorie malnutrition // Hypophosphatemia // Hypokalemia // Hypomagnesemia Prior to the patient's hospitalization, there was noted progressive weight loss and malnutrition associated with their malignancy and ongoing treatment; during his hospitalization, they have remained NPO for an extended duration without established enteric or parenteral alternative nutrition; at this time, it is essential to initiate some form of nutrition to facilitate adequate healing and improve outcomes; PPN and TPN options were reviewed, and relative risks of each considered; based on the nutritional needs of the patient, PPN would be inadequate at this time; TPN initiated 10/20 with low measures given the patient's risk of refeeding syndrome; electrolytes continue to remain stable - Continue Thiamine 100 mg IV daily - Discontinue TPN 10/24 - Continue tube feeds - Follow BMP, Mg, Phos daily - Pharmacy and Nutrition consulted #Hospital acquired hyperactive delirium // Major depression disorder // Insomnia Increased frequency of episodic agitation since extubation, likely consequential of the patient's critical illness and continued degree of illness; optimize nonpharmacologic interventions with redirection and reassurance, minimizing disturbance for the patient as much as possible though obviously is limited by the need for continuous telemetry and close monitoring as he recovers; urine output appears adequate with external catheter, no suspicion for urinary retention at this time; bowel movements have been appropriate in the post- operative course, not suspecting constipation as a role; the patient responded very well to Zyprexa in the evening on 10/20, chosen given its similar effects to his prescribed Seroquel which has been held as he is NPO/without PEG use - Stop Zyprexa 5 mg IM at bedtime - Start Seroquel 25 mg crushed via PEG #Syncopal episodes, 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 "syncope"; previously has been seen to have episodes of supraventricular tachycardia which has been observed during his current hospitalization and correlated with a witnessed presyncopal event; based on cardiology 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 which they suspect is worsened given the patient's acute illness even prior to the events that it began on 10/16 TTE without significant change from previous assessment Maintain serum potassium greater than 4, magnesium greater than 2 No indication for systemic anticoagulation with respect to this condition at this time Long-term consideration for ablation per cardiology recommendations #Multifactorial Shock, Resolved Most likely related to hypovolemia in the setting of iatrogenic fluid losses with an abdominal intervention, previous wound VAC Remains volume depleted, would recommend reinstitution of intravenous fluids given the patient's improved hemodynamics and surgical resolution No longer requiring vasopressors - Continue wean of hydrocortisone, appears to have been started given the patient's degree of shock at the time of his acute event on 10/16, but unclear in review of documentation #Oral HPV associated squamous cell carcinoma, stage III Previously established condition undergoing active radiation and chemotherapy; due for chemotherapy on 10/17 though likely will not be performed given the patient's acute illness DVT ppx: Continue heparin 5000 U SQ twice daily GI ppx: continue pantoprazole 40 mg IV BID Admission and Anticipated Discharge Date Admission Date: October 13, 2025 Subjective Mr. 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 No acute overnight events; appears more restful today Review of Systems Review of Systems: Review of constitutional, cardiovascular, pulmonary, gastrointestinal, genitourinary, musculoskeletal systems was unremarkable except for pertinent positive and negative findings discussed above Physical Exam Physical Exam: General: Elderly male in no acute distress, mild cachectic changes noted Vital Signs: Reviewed HEENT: tacky mucous membranes Neck: Trachea midline; pigmentary changes to the anterior neck secondary to radiation therapy Pulmonary: Symmetric chest wall excursion without restriction; slightly diminished air movement in the bases, otherwise clear to auscultation Cardiovascular: Regular rate and rhythm without murmur, rub, or gallop; S1 and S2 normal; left radial pulse and bilateral posterior tibial pulse 2+ with brisk capillary refill; no notable lower extremity edema; mild right greater than left upper extremity edema Gastrointestinal: Midline abdominal incision without evidence of oozing or dehiscence; infrequent bowel sounds with normal pitch; nondistended abdomen without rigidity; PEG connected to trickle feeds Genitourinary: external male catheter in place, urine output is without significant sediment, transparent with yellow tinge Neurologic: CN II-XII grossly intact; no focal neurologic changes; alert and oriented to self, place, time and circumstance Results & Data Results & Data Vital Signs (Past 12 Hours) Vital Signs Temp Pulse Pulse Resp BP BP Pulse Ox 10/24/25 02:51 36.3 C L 65 18 134/71 98 10/23/25 23:23 36.3 C L 65 18 129/64 96 10/23/25 21:53 65 10/23/25 21:00 10/23/25 19:31 36.3 C L 66 16 137/68 98 O2 Del Method O2 Del Method 10/24/25 02:51 Room Air 10/23/25 23:23 Room Air 10/23/25 21:53 10/23/25 21:00 Room Air 10/23/25 19:31 Room Air Laboratory Results Initial lab assessment drawn via port which had TPN infusion; repeat laboratory assessment with K 3.7, Mg 1.7, Phos 2.7 PG Care Time/CCT Total # of Minutes Spent Total Time Spent with Patient: Total time spent is greater than 50% in coordination of care (as documented) at patient's floor/unit and/or counseling patient: Coding Level of Care Code 63795 SUB INP/OBS CARE 2/35MIN Diagnoses Small bowel ischemia K55.9 Hypophosphatemia E83.39 Hypomagnesemia E83.42 Hypokalemia E87.6 Protein-calorie malnutrition, moderate E44.0 Delirium due to general medical condition F05 Acute blood loss anemia D62 Atrioventricular yanci re-entrant tachycardia (AVNRT) I47.19 Primary tongue squamous cell carcinoma C02.9 Malignant tumor of base of tongue C01 Port-A-Cath in place Z95.828
--- NOTE | 2025-10-24 10:44 | Pharmacy Report ---
Pharmacy Glycemic Short Note 2 - Date of Service October 24, 2025 - Glycemic Short BSG Results (Last 24 hours): 10/23/25 10/23/25 10/23/25 12:07 18:06 18:25 Glucose 187 H POC Glucose 148 H 140 H 10/24/25 10/24/25 10/24/25 00:05 05:35 05:55 Glucose 254 H POC Glucose 165 H 168 H OUTPATIENT ANTIDIABETIC REGIMEN: * None * HbA1c: 6.0% (10/17/2025) ASSESSMENT: 10/24: * TPN stopping today at 1600. Tubefeeds continuing. * Lab draw glucose this AM elevated at 254 mg/dL, but suspicious this may have been drawn from the TPN infusion line. Discussed w Dr. Sahu and AM labs are being repeated. POC was 168 mg/dL and will use that as the number to base glycemic decisions on * No significant changes needed to regimen at this time 10/22: * BSGs within goal the last 48h - [phone]/dL. Received 1 unit of bolus insulin yesterday. * TPN initiated on 10/20 and held yesterday due to significant electrolyte abnormalities. Continues on hydrocortisone 50mg IV q12h. Trickle feeds to begin today. * BID scaled Lantus ordered when TPN began to be given if BSG >200. Novolog q6 with correction only. 10/19 * Patient extubated, steroids tapering to q8h today then q12h tomorrow, vasopre ssin discontinued. TPN starting 10/20. * Will switch Novolog from q4h to q6h. Will slightly loosen correction factor. * Regimen may need to be adjusted when TPN starts - will monitor and adjust over the weekend prn 10/18: * Patient returned to OR 10/18 AM for abdominal washout, anastomosis of bowel, and abdominal closure * Still remains NPO for now * Remains on stress dose steroids and 2 pressors * Blood glucose values have ranged from 160-253 in past 24 hours * Adjustment to CF of 25 and additional lunch insulin seemed to help bring glucose back within range yesterday evening * 183 value this AM was not treated with insulin due to patient being in OR * Given the overnight BSGs are within range and only one BSG >180 this AM not able to be treated, will continue current regimen of sliding scale insulin only * Continue to monitor PO status and overall clinical status, adjust as needed 10/17: * Neil is a 80 year old male who presents to the hospital on 10/13/25 with SBO * Overnight 10/17, he was taken to OR emergently for ex-lap due to suspected intra-abdominal hemorrhage * Bowel left in discontinuity, will need to return to OR likely within the next few days per surgery for abdomen closure * Patient expected to be NPO for prolonged period of time * BSGs have ranged up to from 172-268 over past 24 hours * Was initiated on insulin drip 10/16 at 2.6 units/hr from 1600 until ~2200 * Glucose of 88 around 0000, appears it was turned off at that time * Insulin drip order discontinued this AM around 0600 by roller skates assembler * BSGs likely elevated secondary to critical illness, steroid use * Steroids: dexamethasone 8mg x1 (10/16 @1700), hydrocortisone 100mg (10/16 @1340), hydrocortisone 50mg Q6H (ongoing stress dose steroids) * Patient on multiple pressors: norepinephrine and vasopressin * Insulin aspart sliding scale coverage this AM at stress level 2 did not have much of an effect on his BSG * Increase sliding scale coverage to stress level of 3 * Gave an additional 4 units of insulin aspart with lunch for glucose of 233 * Increase frequency of glucose checks from Q6H to Q4H for better control * Goal BSG <180 in ICU * SCr increasing - with worsening kidney function, insulin has slower clearance * Will need to monitor his requirements once his BSGs more under control and adjust accordingly PLAN FOR INPATIENT GLYCEMIC CONTROL: * Basal insulin * Lantus 5 units SQ BID but only if BSG >200mg/dL * Bolus insulin * NovoLog per scale ACHS or Q6hrs while NPO * Goal Range: Low 120 mg/dL - High 160 mg/dL * Correction Factor: 30 mg/dL/unit * Nutritional / Prandial insulin per carb ratio of 1 unit per -- grams CHO consumed
--- NOTE | 2025-10-24 10:47 | Surgery Progress Note ---
Date of Service October 24, 2025 Assessment & Plan (1) Small bowel ischemia: Plan Patient is a 80-year-old male who is now status post exploratory laparotomy with small bowel resection due to small bowel ischemia and left in discontinuity on October 16, 2025, required return to the OR later that night for abdominal washout due to concerns for bleeding, but none were found, then had his definitive surgery on October 18, 2025 with exploratory laparotomy, small bowel anastomosis, and fascial closure. Patient appears to be recovering well, has minimal abdominal pain, no nausea or vomiting, was having bowel movements yesterday. Patient does state that he feels hungry, so we feel it would be worthwhile to start trickle tube feeds via his PEG. We did confirm with the patient that he does not take in any oral feedings due to his history of tongue cancer, so we will try to very slowly advance his tube feeds to goal due to his protein calorie malnutrition and inability to tolerate TPN. Okay from a surgical standpoint for pharmacologic DVT prophylaxis with heparin, we agree with continuing Zosyn for 1 more day, plan for discontinuing antibiotics tomorrow, October 23, 2025. Appreciate medicine's assistance with management of his electrolytes, general surgery will continue to follow for now. 10/24/2025 - avss no abdominal pain abdomen soft, nontender, incision c/d/i with magaly tolerating tube feeds via PEG + bowel function Continue medical management, case management following for discharge planning, continue PT/OT Admission and Anticipated Discharge Date Admission Date: October 13, 2025 Subjective feeling better today but more tired no abdominal pain no n,v tolerating peg tube feeds passing flatus and having bowel movement urinating without difficulty no chest pain or shortness of breath no fevers or chills Physical Exam Constitutional: + frail appearing; no acute distress, no t ill appearing and not in distress Respiratory: normal respiratory effort, lungs clear to auscultation Cardiovascular: RRR, no murmur, no edema Chest (Breasts): Additional Comments: left central venous line present with dressing, no surrounding erythema Gastrointestinal (Abdomen): Inspection/Auscultation: abdomen normal to inspection and + abdominal surgical incision (c/d/i with magaly); abdomen not distended Percussion/Palpation: abdomen soft; abdomen nontender, no guarding, abdomen not rigid and abdomen not firm PEG tube site without erythema Skin: no rashes, warm and dry Psychiatric: Orientation: alert and oriented x 3 Results & Data Vital Signs (Past 12 Hours) Vital Signs Temp Pulse Pulse Resp BP BP Pulse Ox 10/24/25 09:35 65 10/24/25 07:28 36.5 C 75 18 130/70 97 10/24/25 02:51 36.3 C L 65 18 134/71 98 10/23/25 23:23 36.3 C L 65 18 129/64 96 O2 Del Method 10/24/25 09:35 10/24/25 07:28 Room Air 10/24/25 02:51 Room Air 10/23/25 23:23 Room Air Laboratory Results 10/24/25 10/24/25 10/24/25 Range/Units 10:16 05:55 05:35 WBC 4.10 L (4.8-10.8) K/ul RBC 2.68 L (4.70-6.10) M/uL Hgb 8.4 L (14.0-18.0) g/dL Hct 24.7 L (42.0-52.0) % MCV 92.2 (80.0-100.0) fL MCH 31.3 (25.0-34.0) pg MCHC 34.0 (32.0-36.0) g/dL RDW Std Deviation 48.4 H (36.4-46.3) fL RDW Coeff of Nii 17.2 H (11.5-14.5) % Plt Count 214 (130-400) K/uL MPV 9.6 (9.4-12.4) fL Sodium Pending 140 (136-145) mmol/L Potassium Pending 4.4 D (3.5-5.1) mmol/L Chloride Pending 106 (98-107) mmol/L Carbon Dioxide Pending 30 (21-32) mmol/L Anion Gap Pending 4 (3-11) BUN Pending 18 (6-23) mg/dl Creatinine Pending 0.42 L (0.6-1.4) mg/dl Est Cr Clr Drug Dosing Pending 150.3 ml/min eGFR Pending 110.04 BUN/Creatinine Ratio Pending 42.9 H (10-20) Glucose Pending 254 H (70-99(Fasting)) mg/dl POC Glucose 168 H (70-99) mg/dl Calcium Pending 8.0 L (8.6-10.3) mg/dl Phosphorus Pending 3.2 (2.5-4.9) mg/dl Magnesium Pending 1.9 (1.7-2.4) mg/dl 10/24/25 10/23/25 10/23/25 Range/Units 00:05 18:25 18:06 WBC (4.8-10.8) K/ul RBC (4.70-6.10) M/uL Hgb (14.0-18.0) g/dL Hct (42.0-52.0) % MCV (80.0-100.0) fL MCH (25.0-34.0) pg MCHC (32.0-36.0) g/dL RDW Std Deviation (36.4-46.3) fL RDW Coeff of Nii (11.5-14.5) % Plt Count (130-400) K/uL MPV (9.4-12.4) fL Sodium 142 (136-145) mmol/L Potassium 3.5 (3.5-5.1) mmol/L Chloride 107 (98-107) mmol/L Carbon Dioxide 29 (21-32) mmol/L Anion Gap 6 (3-11) BUN 17 (6-23) mg/dl Creatinine 0.41 L (0.6-1.4) mg/dl Est Cr Clr Drug Dosing 153.9 ml/min eGFR 110.85 BUN/Creatinine Ratio 41.5 H (10-20) Glucose 187 H (70-99(Fasting)) mg/dl POC Glucose 165 H 140 H (70-99) mg/dl Calcium 7.9 L (8.6-10.3) mg/dl Phosphorus 2.7 (2.5-4.9) mg/dl Magnesium 1.6 L (1.7-2.4) mg/dl 10/23/25 Range/Units 12:07 WBC (4.8-10.8) K/ul RBC (4.70-6.10) M/uL Hgb (14.0-18.0) g/dL Hct (42.0-52.0) % MCV (80.0-100.0) fL MCH (25.0-34.0) pg MCHC (32.0-36.0) g/dL RDW Std Deviation (36.4-46.3) fL RDW Coeff of Nii (11.5-14.5) % Plt Count (130-400) K/uL MPV (9.4-12.4) fL Sodium (136-145) mmol/L Potassium (3.5-5.1) mmol/L Chloride (98-107) mmol/L Carbon Dioxide (21-32) mmol/L Anion Gap (3-11) BUN (6-23) mg/dl Creatinine (0.6-1.4) mg/dl Est Cr Clr Drug Dosing ml/min eGFR BUN/Creatinine Ratio (10-20) Glucose (70-99(Fasting)) mg/dl POC Glucose 148 H (70-99) mg/dl Calcium (8.6-10.3) mg/dl Phosphorus (2.5-4.9) mg/dl Magnesium (1.7-2.4) mg/dl
[2025-10-24 11:09] LABS: Anion Gap 6.0 (3-11); Blood Urea Nitrogen 18.0 mg/dl (6-23); Calcium 8.0 mg/dl (8.6-10.3); Carbon Dioxide 31.0 mmol/L (21-32); Chloride 105.0 mmol/L (98-107); Creatinine Clr Calc Pharmacy 153.9 ml/min; Glucose 119.0 mg/dl (70-99(Fasting)); Magnesium 1.7 mg/dl (1.7-2.4); Potassium 3.7 mmol/L (3.5-5.1); Sodium 142.0 mmol/L (136-145)
[2025-10-24] MEDS: POTASSIUM CHLORIDE 20 MEQ/15 ML UDC PEG ONE (13:40)
--- NOTE | 2025-10-25 07:20 | Hospitalist Progress Note ---
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 #Subacute protein calorie malnutrition // Hypophosphatemia // Hypokalemia // Hypomagnesemia Prior to the patient's hospitalization, there was noted progressive weight loss and malnutrition associated with their malignancy and ongoing treatment; during his hospitalization, they have remained NPO for an extended duration without established enteric or parenteral alternative nutrition; at this time, it is essential to initiate some form of nutrition to facilitate adequate healing and improve outcomes; PPN and TPN options were reviewed, and relative risks of each considered; based on the nutritional needs of the patient, PPN would be inadequate at this time; TPN initiated 10/20 with low measures given the patient's risk of refeeding syndrome; diminished magnesium, begin daily replacement as below - Continue Thiamine 100 mg IV daily - Start magnesium 400 mg via PEG twice daily - Discontinued TPN 10/24 - Continue tube feeds - Follow BMP, Mg, Phos daily - Pharmacy and Nutrition consulted #Syncopal episodes, 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 "syncope"; previously has been seen to have episodes of supraventricular tachycardia which has been observed during his current hospitalization and correlated with a witnessed presyncopal event; based on cardiology 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 which they suspect is worsened given the patient's acute illness even prior to the events that it began on 10/16 TTE without significant change from previous assessment Maintain serum potassium greater than 4, magnesium greater than 2 No indication for systemic anticoagulation with respect to this condition at this time Long-term consideration for ablation per cardiology recommendations #Urinary retention Developing over the past 24 hours; patient does not seem to have a prior diagnosis of BPH, though not unreasonable to suspect this is an ongoing condition given his age in addition to recent genitourinary trauma from almost self-removing Montaño catheter on 10/19 -Start tamsulosin 0.4 mg PEG daily #Hospital acquired hyperactive delirium // Major depression disorder // Insomnia Increased frequency of episodic agitation since extubation, likely consequential of the patient's critical illness and continued degree of illness; optimize nonpharmacologic interventions with redirection and reassurance, minimizing disturbance for the patient as much as possible though obviously is limited by the need for continuous telemetry and close monitoring as he recovers; urine output appears adequate with external catheter, no suspicion for urinary retention at this time; bowel movements have been appropriate in the post- operative course, not suspecting constipation as a role; resume home Seroquel on 10/24 - Stop Zyprexa 5 mg IM at bedtime - Start Seroquel 25 mg crushed via PEG #Ischemic small bowel s/p resection // Acute blood loss anemia, stable Patient initially presented and found to have small bowel obstruction; acute progression of symptoms and found to have frankly ischemic small bowel in the afternoon on 10/16 requiring surgical intervention, with a repeat operative intervention in the fiberglass technician of 10/17 due to concern of post operative bleeding which was not found at that time; in total required 4 units PRBC from 10/16 through 10/17; postoperative anemia and thrombocytopenia noted, suspect this was secondary to surgical intervention and consumption; returned to the operative suite on 10/18 for abdominal washout, small bowel anastomosis and closure; since that time, anemia has remained stable, likely consequential of nutritional deficiencies inhibiting reconstitution of their blood count; patient removed their NG tube in the afternoon on 10/19, without apparent traumatic injury - Follow CBC without differential, daily - Completed Zosyn 4.5 g IV every 8 hours through 10/23 Increasing tube feeds General Surgery consulted #Multifactorial Shock, Resolved Most likely related to hypovolemia in the setting of iatrogenic fluid losses with an abdominal intervention, previous wound VAC Remains volume depleted, would recommend reinstitution of intravenous fluids given the patient's improved hemodynamics and surgical resolution No longer requiring vasopressors - Continue wean of hydrocortisone, appears to have been started given the patient's degree of shock at the time of his acute event on 10/16, but unclear in review of documentation #Oral HPV associated squamous cell carcinoma, stage III Previously established condition undergoing active radiation and chemotherapy; due for chemotherapy on 10/17 though likely will not be performed given the patient's acute illness DVT ppx: Continue heparin 5000 U SQ twice daily GI ppx: continue pantoprazole 40 mg IV BID Admission and Anticipated Discharge Date Admission Date: October 13, 2025 Subjective Mr. 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 No acute overnight events; required two separate straight catheterizations due to large volume retention and inability to initiate void Review of Systems Review of Systems: Review of constitutional, cardiovascular, pulmonary, gastrointestinal, genitourinary, musculoskeletal systems was unremarkable except for pertinent positive and negative findings discussed above Physical Exam Physical Exam: General: Elderly male in no acute distress, mild cachectic changes noted Vital Signs: Reviewed HEENT: tacky mucous membranes Neck: Trachea midline; pigmentary changes to the anterior neck secondary to radiation therapy Pulmonary: Symmetric chest wall excursion without restriction; slightly diminished air movement in the bases, otherwise clear to auscultation Cardiovascular: Regular rate and rhythm without murmur, rub, or gallop; S1 and S2 normal; left radial pulse and bilateral posterior tibial pulse 2+ with brisk capillary refill; no notable lower extremity edema; mild right greater than left upper extremity edema Gastrointestinal: Midline abdominal incision without evidence of oozing or dehiscence; infrequent bowel sounds with normal pitch; nondistended abdomen without rigidity; PEG connected to trickle feeds Genitourinary: external male catheter in place, recently underwent one time straight catheterization Neurologic: CN II-XII grossly intact; no focal neurologic changes; alert and oriented to self, place, time and circumstance Results & Data Results & Data Vital Signs (Past 12 Hours) Vital Signs Temp Pulse Pulse Resp BP BP Pulse Ox 10/25/25 03:48 36.6 C 74 16 122/67 95 10/24/25 23:02 36.5 C 73 16 140/70 95 10/24/25 21:31 71 O2 Del Method 10/25/25 03:48 Room Air 10/24/25 23:02 Room Air 10/24/25 21:31 Laboratory Results Serum magnesium 1.3, phosphorous 2.4 PG Care Time/CCT Total # of Minutes Spent Total Time Spent with Patient: Total time spent is greater than 50% in coordination of care (as documented) at patient's floor/unit and/or counseling patient: Coding Level of Care Code 64742 SUB INP/OBS CARE 2/35MIN Diagnoses Small bowel ischemia K55.9 Hypophosphatemia E83.39 Hypomagnesemia E83.42 Hypokalemia E87.6 Protein-calorie malnutrition, moderate E44.0 Urinary retention R33.9 Delirium due to general medical condition F05 Acute blood loss anemia D62 Atrioventricular yanci re-entrant tachycardia (AVNRT) I47.19 Primary tongue squamous cell carcinoma C02.9 Malignant tumor of base of tongue C01 Port-A-Cath in place Z95.828
[2025-10-25 08:08] LABS: Anion Gap 5.0 (3-11); Blood Urea Nitrogen 21.0 mg/dl (6-23); Calcium 7.9 mg/dl (8.6-10.3); Carbon Dioxide 30.0 mmol/L (21-32); Chloride 107.0 mmol/L (98-107); Creatinine Clr Calc Pharmacy 165.3 ml/min; Glucose 128.0 mg/dl (70-99(Fasting)); Magnesium 1.3 mg/dl (1.7-2.4); Potassium 3.6 mmol/L (3.5-5.1); Sodium 142.0 mmol/L (136-145)
--- NOTE | 2025-10-25 11:14 | Surgery Progress Note ---
Date of Service October 25, 2025 Assessment & Plan (1) Small bowel ischemia: Plan: POD #7 doing well having BMs tolerating TF good pain control Admission and Anticipated Discharge Date Admission Date: October 13, 2025 Subjective no complaints pain controlled having BMs tolerating TF Review of Systems Constitutional: no fever and no chills Respiratory: no dyspnea Cardiovascular: no chest pain Gastrointestinal: + abdominal pain; no nausea, no vomiting and no change in bowel habits Neurologic: + generalized weakness Psychiatric: no behavioral changes Physical Exam Constitutional: WD/WN, vitals as above Respiratory: normal respiratory effort Cardiovascular: Rate/Rhythm: regular rate and regular rhythm Gastrointestinal (Abdomen): Inspection/Auscultation: abdomen normal to inspection, normal bowel sounds and + abdominal surgical incision; abdomen not distended Percussion/Palpation: + abdomen tender and abdomen soft Results & Data Vital Signs (Past 12 Hours) Vital Signs Temp Pulse Pulse Pulse Resp BP BP 10/25/25 07:44 36.5 C 76 18 118/65 10/25/25 07:00 74 10/25/25 03:48 36.6 C 74 16 122/67 Pulse Ox O2 Del Method 10/25/25 07:44 98 Room Air 10/25/25 07:00 10/25/25 03:48 95 Room Air
[2025-10-25] MEDS: MAGNESIUM OXIDE 400 MG TAB PEG SCH (11:18)
[2025-10-25] MEDS: TAMSULOSIN HCL 0.4 MG CAP PEG ONE (11:18)
[2025-10-25] MEDS: TAMSULOSIN HCL 0.4 MG CAP PO SCH (21:17)
[2025-10-26] MEDS: HEPARIN 100 UNIT/ML 5ML FLUSH FLUSH PRN (06:14)
[2025-10-26 06:52] LABS: Albumin Level 2.7 gm/dl (3.4-5.0); Anion Gap 5.0 (3-11); Blood Urea Nitrogen 24.0 mg/dl (6-23); Calcium 8.0 mg/dl (8.6-10.3); Carbon Dioxide 30.0 mmol/L (21-32); Chloride 104.0 mmol/L (98-107); Creatinine Clr Calc Pharmacy 142.1 ml/min; Glucose 133.0 mg/dl (70-99(Fasting)); Magnesium 1.1 mg/dl (1.7-2.4); Potassium 4.0 mmol/L (3.5-5.1); Sodium 139.0 mmol/L (136-145)
--- NOTE | 2025-10-26 08:41 | Surgery Progress Note ---
Date of Service October 26, 2025 Assessment & Plan (1) Small bowel ischemia: Plan: -80ym s/p ex-lap with small bowel resection due to small bowel ischemia and left in discontinuity on 10/16, required return to the OR later that night for abdominal washout due to concerns for bleeding, then return to the OR on 10/18/25 for exlap, small bowel anastomosis, and fascial closure - K 4, Cr 0.4. Vitals are stable - Patient appears to be progressing well, tolerating TEN advancement and having + bowel function, pain is controlled - Incisions c/d/i, no infection, recommend staple removal 14 days from 10/18 - Encourage ambulation, OOB to chair, I-S, PT/OT, DVT prophylaxis - d/c planning per medicine, stable from surgical perspective Admission and Anticipated Discharge Date Admission Date: October 13, 2025 Subjective Patient denies pain, nausea/vomiting. Tolerating TEN. + bowel function. Physical Exam Physical Exam: awake, no distress Respiratory: normal respiratory effort Gastrointestinal (Abdomen): Inspection/Auscultation: + abdominal surgical incision (c/d/i with midline magaly, no signs of infection ); abdomen not distended Percussion/Palpation: abdomen soft; abdomen nontender Results & Data Vital Signs (Past 12 Hours) Vital Signs Temp Pulse Pulse Pulse Resp BP Pulse Ox 10/26/25 07:16 98.1 F 72 20 119/62 96 10/26/25 03:25 97.2 F L 78 17 113/66 95 10/25/25 23:14 98.2 F 75 21 135/65 97 10/25/25 22:06 72 10/25/25 21:00 Pulse Ox O2 Del Method O2 Del Method 10/26/25 07:16 Room Air 10/26/25 03:25 Room Air 10/25/25 23:14 Room Air 10/25/25 22:06 10/25/25 21:00 95 Room Air PG Care Time/CCT Total # of Minutes Spent Total Time Spent with Patient: Total time spent is greater than 50% in coordination of care (as documented) at patient's floor/unit and/or counseling patient: Coding Level of Care Code 03050 Post Operative Follow-Up Diagnoses Small bowel ischemia K55.9
--- NOTE | 2025-10-26 09:31 | Pharmacy Report ---
Pharmacy Glycemic Sign Off Nt - Date of Service October 26, 2025 - Assessment & Plan ASSESSMENT: * Pharmacy was consulted by TALISHA Bustos on 10/16/25 for glycemic control and to write orders per [facility] inpatient glycemic control protocol. * Major changes made by pharmacy to antidiabetic regimen include: * Basal/bolus regimen ordered * Patient has been receiving/requiring minimal insulin for adequate glycemic control * BSGs ranging 123-168 mg/dl * Regimen has only required minor adjustments over the past 48hrs to achieve this level of control * Anticipating that current regimen will be appropriate ongoing. PLAN FOR INPATIENT GLYCEMIC CONTROL: No changes needed to current regimen. * Continue basal insulin with Lantus 0-5 units SQ BID * Continue NovoLog per scale ACHS/Q6hrs while NPO * Goal range = 120 160 mg/dl * CF = 30 mg/dl/unit * Hold carb ratio * Pharmacy is signing off of glycemic consult and will no longer be making adjustments to inpatient regimen. Please feel free to re-consult if needed. Thank you.
--- NOTE | 2025-10-26 09:56 | Hospitalist Progress Note ---
Date of Service October 26, 2025 Assessment & Plan (1) Small bowel ischemia: Plan: -s/p ex-lap 10/16 with small bowel resection due to small bowel ischemia,then return to the OR on 10/18/25 for exlap, small bowel anastomosis, Increasing tube feeds General Surgery consulted (2) Syncope: Plan: TTE without significant change from previous assessment Maintain serum potassium greater than 4, magnesium greater than 2 No indication for systemic anticoagulation with respect to this condition at this time Long-term consideration for ablation per cardiology recommendations (3) Protein-calorie malnutrition, moderate: Plan: - Continue tube feeds - Follow BMP, Mg, Phos daily - Pharmacy and Nutrition consulted (4) Urinary retention: Plan: -Start tamsulosin 0.4 mg (5) Delirium due to general medical condition: Plan: - Start Seroquel 25 mg crushed via PEG Plan In summary this is a 80-year-old male who was initially admitted for recurrent syncopal episodes, found to have a small bowel obstruction subsequently developing ischemic small bowel requiring surgical resection. Admission and Anticipated Discharge Date Admission Date: October 13, 2025 Subjective No events overnight. Pt resting comfortably in bed. Review of Systems Review of Systems: CONST: Negative for fever, body aches and chills. HENT: Negative for neck pain/stiffness, headache, congestion, sore throat, swelling. EYES: Negative for discharge/pain or vision changes. RESP: Negative for cough/hemoptysis and shortness of breath. CV: Negative chest pain, difficulty breathing, palpitations. ABD: Negative pain, nausea, vomiting. : Negative increase frequency, dysuria, blood in urine or stool. MUSC: Negative for muscle aches, edema. SKIN: Negative rash, lesions/sores. NEURO: Negative headache, dizziness, weakness. Physical Exam Physical Exam: GENERAL APPEARANCE NAD, activity normal for age, well developed/ well nourished, no cyanosis, pallor, or diaphoresis. EYES lids/conjunctiva normal. EARS/NOSE/THROAT Mucous membranes moist, nares normal, lips/teeth normal uvula midline without oral pharyngeal erythema, exudate or swelling TMs normal bilaterally. No lymphangitis/lymphedema. HEAD/NECK normocephalic atraumatic, no facial trauma, neck is supple. RESPIRATORY respiratory effort normal, speaks in full sentences, no tripod position, no accessory muscle use. Lungs clear to auscultation without rhonchi, wheezes, rales CARDIAC Regular rate and rhythm, no edema. ABDOMINAL Soft, ND/NT. No evidence of fluid wave. No pulsatile masses on exam, rebound tenderness, Arora sign or pain over Mcburney's point. MUSCLES/EXTREMITIES No abnormal range of motion, no swelling. SKIN Warm, pink and dry. No rashes, dermatoses, petechiae or lesions. NEUROLOGICAL Speech is clear and appropriate. Normal level of consciousness. Gait and coordination are normal. 5/5 strength in all extremities. PSYCH Normal mood and affect. Judgement/competence is appropriate Results & Data Results & Data Vital Signs (Past 12 Hours) Vital Signs Temp Pulse Pulse Pulse Resp BP Pulse Ox 10/26/25 07:16 36.7 C 72 20 119/62 96 10/26/25 03:25 36.2 C L 78 17 113/66 95 10/25/25 23:14 36.8 C 75 21 135/65 97 10/25/25 22:06 72 O2 Del Method 10/26/25 07:16 Room Air 10/26/25 03:25 Room Air 10/25/25 23:14 Room Air 10/25/25 22:06 PG Care Time/CCT Total # of Minutes Spent Total Time Spent with Patient: Total time spent is greater than 50% in coordination of care (as documented) at patient's floor/unit and/or counseling patient: Coding Level of Care Code 25071 SUB INP/OBS CARE 2/35MIN Diagnoses Small bowel ischemia K55.9 Syncope R55 Syncope type: unspecified Protein-calorie malnutrition, moderate E44.0 Urinary retention R33.9 Delirium due to general medical condition F05 (2) Syncope Syncope type: unspecified Qualified Code(s): R55 - Syncope and collapse
[2025-10-26] MEDS: SODIUM CHLORIDE 0.65% NA SOLN 45 ML (OCEAN) PRN (13:57)
[2025-10-26 14:12] LABS: Alanine Aminotransferase 18.0 U/L (7-52); Alkaline Phosphatase 91.0 U/L (34-104); Bilirubin,Total 0.4 mg/dl (0.2-1.0); Triglycerides 123.0 mg/dl (0-150)
[2025-10-27 07:09] LABS: Albumin Level 2.7 gm/dl (3.4-5.0); Anion Gap 7.0 (3-11); Blood Urea Nitrogen 25.0 mg/dl (6-23); Calcium 7.9 mg/dl (8.6-10.3); Carbon Dioxide 29.0 mmol/L (21-32); Chloride 101.0 mmol/L (98-107); Creatinine Clr Calc Pharmacy 156.6 ml/min; Glucose 150.0 mg/dl (70-99(Fasting)); Magnesium 1.2 mg/dl (1.7-2.4); Potassium 3.9 mmol/L (3.5-5.1); Sodium 137.0 mmol/L (136-145)
--- NOTE | 2025-10-27 10:31 | Hospitalist Progress Note ---
Date of Service October 27, 2025 Assessment & Plan (1) Small bowel ischemia: Plan: -s/p ex-lap 10/16 with small bowel resection due to small bowel ischemia,then return to the OR on 10/18/25 for exlap, small bowel anastomosis, tube feeds General Surgery consult appreciated - pt stable for d/c from surgical perspective (2) Syncope: Plan: TTE without significant change from previous assessment Maintain serum potassium greater than 4, magnesium greater than 2 No indication for systemic anticoagulation with respect to this condition at this time Long-term consideration for ablation per cardiology recommendations (3) Protein-calorie malnutrition, moderate: Plan: - Continue tube feeds - Follow BMP, Mg, Phos daily - Pharmacy and Nutrition consulted (4) Urinary retention: Plan: -tamsulosin 0.4 mg (5) Delirium due to general medical condition: Plan: - Seroquel 25 mg crushed via PEG Plan In summary this is a 80-year-old male who was initially admitted for recurrent syncopal episodes, found to have a small bowel obstruction subsequently developing ischemic small bowel requiring surgical resection. Awaiting discharge to acute rehab Admission and Anticipated Discharge Date Admission Date: October 13, 2025 Subjective No events overnight. Pt resting comfortable in bed. Review of Systems Review of Systems: CONST: Negative for fever, body aches and chills. HENT: Negative for neck pain/stiffness, headache, congestion, sore throat, swelling. EYES: Negative for discharge/pain or vision changes. RESP: Negative for cough/hemoptysis and shortness of breath. CV: Negative chest pain, difficulty breathing, palpitations. ABD: Negative pain, nausea, vomiting. : Negative increase frequency, dysuria, blood in urine or stool. MUSC: Negative for muscle aches, edema. SKIN: Negative rash, lesions/sores. NEURO: Negative headache, dizziness, weakness. Physical Exam Physical Exam: GENERAL APPEARANCE NAD, activity normal for age, well developed/ well nourished, no cyanosis, pallor, or diaphoresis. EYES lids/conjunctiva normal. EARS/NOSE/THROAT Mucous membranes moist, nares normal, lips/teeth normal uvula midline without oral pharyngeal erythema, exudate or swelling TMs normal bilaterally. No lymphangitis/lymphedema. HEAD/NECK normocephalic atraumatic, no facial trauma, neck is supple. RESPIRATORY respiratory effort normal, speaks in full sentences, no tripod position, no accessory muscle use. Lungs clear to auscultation without rhonchi, wheezes, rales CARDIAC Regular rate and rhythm, no edema. ABDOMINAL Soft, ND/NT. No evidence of fluid wave. No pulsatile masses on exam, rebound tenderness, Arora sign or pain over Mcburney's point. MUSCLES/EXTREMITIES No abnormal range of motion, no swelling. SKIN Warm, pink and dry. No rashes, dermatoses, petechiae or lesions. NEUROLOGICAL Speech is clear and appropriate. Normal level of consciousness. Gait and coordination are normal. 5/5 strength in all extremities. PSYCH Normal mood and affect. Judgement/competence is appropriate Results & Data Results & Data Vital Signs (Past 12 Hours) Vital Signs Temp Pulse Pulse Pulse Resp BP BP 10/27/25 08:16 36.7 C 83 17 147/91 H 10/27/25 07:32 36.9 C 72 23 131/63 10/27/25 03:25 36.7 C 76 20 125/71 10/27/25 00:00 72 10/26/25 23:53 10/26/25 22:34 37.0 C 73 20 124/74 Pulse Ox O2 Del Method 10/27/25 08:16 98 Room Air 10/27/25 07:32 97 Room Air 10/27/25 03:25 96 Room Air 10/27/25 00:00 10/26/25 23:53 Room Air 10/26/25 22:34 96 Room Air PG Care Time/CCT Total # of Minutes Spent Total Time Spent with Patient: Total time spent is greater than 50% in coordination of care (as documented) at patient's floor/unit and/or counseling patient: Coding Level of Care Code 59858 SUB INP/OBS CARE 2/35MIN Diagnoses Small bowel ischemia K55.9 Syncope R55 Syncope type: unspecified Protein-calorie malnutrition, moderate E44.0 Urinary retention R33.9 Delirium due to general medical condition F05 (2) Syncope Syncope type: unspecified Qualified Code(s): R55 - Syncope and collapse
--- NOTE | 2025-10-27 13:02 | Surgery Progress Note ---
Date of Service October 27, 2025 Assessment & Plan (1) Small bowel ischemia: Plan: 80ym s/p ex-lap with small bowel resection due to small bowel ischemia and left in discontinuity on 10/16, required return to the OR later that night for abdominal washout due to concerns for bleeding, then return to the OR on 10/18/25 for exlap, small bowel anastomosis, and fascial closure Vitals are stable Patient continues to do well. He is tolerating TEN advancement and having + bowel function, pain is controlled Incisions c/d/i, no infection, recommend staple removal 14 days from 10/18. Encourage ambulation, OOB to chair, I-S, PT/OT, DVT prophylaxis d/c planning per medicine, stable from surgical perspective Patient seen and examined with Dr. Oconnor. Admission and Anticipated Discharge Date Admission Date: October 13, 2025 Supervising Physician Co-Signing Physician Notes I have seen and examined this patient with the surgical PA. I agree with this plan Subjective Neil is doing well this morning- no new concerns overnight. Review of Systems Constitutional: no fever and no chills Respiratory: no dyspnea Cardiovascular: no chest pain Gastrointestinal: + abdominal pain; no nausea, no vomiting and no change in bowel habits Neurologic: + generalized weakness Psychiatric: no behavioral changes Results & Data Vital Signs (Past 12 Hours) Vital Signs Temp Pulse Pulse Pulse Resp BP BP 10/27/25 11:53 76 10/27/25 11:38 36.5 C 77 19 119/64 10/27/25 08:16 36.7 C 83 17 147/91 H 10/27/25 07:32 36.9 C 72 23 131/63 10/27/25 03:25 36.7 C 76 20 125/71 Pulse Ox O2 Del Method 10/27/25 11:53 10/27/25 11:38 98 Room Air 10/27/25 08:16 98 Room Air 10/27/25 07:32 97 Room Air 10/27/25 03:25 96 Room Air PG Care Time/CCT Total # of Minutes Spent Total Time Spent with Patient: Total time spent is greater than 50% in coordination of care (as documented) at patient's floor/unit and/or counseling patient: Coding Level of Care Code 19688 Post Operative Follow-Up Diagnoses Small bowel ischemia K55.9
[2025-10-28 06:52] LABS: Albumin Level 2.7 gm/dl (3.4-5.0); Anion Gap 5.0 (3-11); Blood Urea Nitrogen 25.0 mg/dl (6-23); Calcium 8.0 mg/dl (8.6-10.3); Carbon Dioxide 29.0 mmol/L (21-32); Chloride 101.0 mmol/L (98-107); Creatinine Clr Calc Pharmacy 144.0 ml/min; Glucose 134.0 mg/dl (70-99(Fasting)); Magnesium 1.2 mg/dl (1.7-2.4); Potassium 3.8 mmol/L (3.5-5.1); Sodium 135.0 mmol/L (136-145)
--- NOTE | 2025-10-28 09:53 | Hospitalist Progress Note ---
Date of Service October 28, 2025 Assessment & Plan (1) Small bowel ischemia: Plan: -s/p ex-lap 10/16 with small bowel resection due to small bowel ischemia,then return to the OR on 10/18/25 for exlap, small bowel anastomosis, tube feeds General Surgery following - pt stable for d/c from surgical perspective (2) Syncope: Plan: TTE without significant change from previous assessment Maintain serum potassium greater than 4, magnesium greater than 2 No indication for systemic anticoagulation with respect to this condition at this time Long-term consideration for ablation per cardiology recommendations (3) Protein-calorie malnutrition, moderate: Plan: - Continue tube feeds - Follow BMP, Mg, Phos daily - Pharmacy and Nutrition consulted (4) Urinary retention: Plan: -tamsulosin 0.4 mg (5) Delirium due to general medical condition: Plan: - Seroquel 25 mg crushed via PEG Plan In summary this is a 80-year-old male who was initially admitted for recurrent syncopal episodes, found to have a small bowel obstruction subsequently developing ischemic small bowel requiring surgical resection. Awaiting discharge to acute rehab Admission and Anticipated Discharge Date Admission Date: October 13, 2025 Subjective No events overnight. Pt resting comfortably in bed. Review of Systems Review of Systems: CONST: Negative for fever, body aches and chills. HENT: Negative for neck pain/stiffness, headache, congestion, sore throat, swelling. EYES: Negative for discharge/pain or vision changes. RESP: Negative for cough/hemoptysis and shortness of breath. CV: Negative chest pain, difficulty breathing, palpitations. ABD: Negative pain, nausea, vomiting. : Negative increase frequency, dysuria, blood in urine or stool. MUSC: Negative for muscle aches, edema. SKIN: Negative rash, lesions/sores. NEURO: Negative headache, dizziness, weakness. Physical Exam Physical Exam: GENERAL APPEARANCE NAD, activity normal for age, well developed/ well nourished, no cyanosis, pallor, or diaphoresis. EYES lids/conjunctiva normal. EARS/NOSE/THROAT Mucous membranes moist, nares normal, lips/teeth normal uvula midline without oral pharyngeal erythema, exudate or swelling TMs normal bilaterally. No lymphangitis/lymphedema. HEAD/NECK normocephalic atraumatic, no facial trauma, neck is supple. RESPIRATORY respiratory effort normal, speaks in full sentences, no tripod position, no accessory muscle use. Lungs clear to auscultation without rhonchi, wheezes, rales CARDIAC Regular rate and rhythm, no edema. ABDOMINAL Soft, ND/NT. No evidence of fluid wave. No pulsatile masses on exam, rebound tenderness, Arora sign or pain over Mcburney's point. MUSCLES/EXTREMITIES No abnormal range of motion, no swelling. SKIN Warm, pink and dry. No rashes, dermatoses, petechiae or lesions. NEUROLOGICAL Speech is clear and appropriate. Normal level of consciousness. Gait and coordination are normal. 5/5 strength in all extremities. PSYCH Normal mood and affect. Judgement/competence is appropriate Results & Data Results & Data Vital Signs (Past 12 Hours) Vital Signs Temp Pulse Pulse Pulse Resp BP Pulse Ox 10/28/25 07:41 66 10/28/25 07:39 10/28/25 07:11 37.1 C 74 23 127/75 96 10/28/25 04:34 36.4 C L 70 18 115/71 97 10/27/25 23:12 36.4 C L 71 18 116/67 95 O2 Del Method 10/28/25 07:41 10/28/25 07:39 Room Air 10/28/25 07:11 Room Air 10/28/25 04:34 Room Air 10/27/25 23:12 Room Air PG Care Time/CCT Total # of Minutes Spent Total Time Spent with Patient: Total time spent is greater than 50% in coordination of care (as documented) at patient's floor/unit and/or counseling patient: Coding Level of Care Code 62165 SUB INP/OBS CARE 2/35MIN Diagnoses Small bowel ischemia K55.9 Syncope R55 Syncope type: unspecified Protein-calorie malnutrition, moderate E44.0 Urinary retention R33.9 Delirium due to general medical condition F05 (2) Syncope Syncope type: unspecified Qualified Code(s): R55 - Syncope and collapse
[2025-10-29 08:34] LABS: Albumin Level 2.7 gm/dl (3.4-5.0); Anion Gap 5.0 (3-11); Blood Urea Nitrogen 23.0 mg/dl (6-23); Calcium 7.8 mg/dl (8.6-10.3); Carbon Dioxide 30.0 mmol/L (21-32); Chloride 100.0 mmol/L (98-107); Creatinine Clr Calc Pharmacy 168.3 ml/min; Glucose 114.0 mg/dl (70-99(Fasting)); Magnesium 1.2 mg/dl (1.7-2.4); Potassium 3.6 mmol/L (3.5-5.1); Sodium 135.0 mmol/L (136-145)
[2025-10-29] MEDS: MAGNESIUM SULFATE / D5W 1 GM/100 ML BAG IV SCH (10:45)
--- NOTE | 2025-10-29 13:35 | Hospitalist Progress Note ---
Date of Service October 29, 2025 Assessment & Plan (1) Small bowel ischemia: Plan: -s/p ex-lap 10/16 with small bowel resection due to small bowel ischemia,then return to the OR on 10/18/25 for exlap, small bowel anastomosis, (2) Protein-calorie malnutrition, moderate: (3) Urinary retention: (4) Delirium due to general medical condition: Plan 80-year-old male who was initially admitted for recurrent syncopal episodes, found to have a small bowel obstruction subsequently developing ischemic small bowel requiring surgical resection. #Small bowel ischemia s/p ex-lap with small bowel resection due to small bowel ischemia and left in discontinuity on 10/16, required return to the OR later that night for abdominal washout due to concerns for bleeding, then return to the OR on 10/18/25 for exlap, small bowel anastomosis, and fascial closure Patient is stable from surgical perspective for discharge As per surgery, staple removal 14 days from 10/18/2025: On November 01, 2025 He is currently on PEG tube feeds He will need follow-up with surgeon Dr. Wan Maria on discharge #Syncope CT head from 10/13/2025 was negative 2D echo from 10/16/2025 shows EF of 65 to 70% with no regional wall motion abnormalities and no gross valvular pathology noted Patient was also noted to have some previous bouts of SVT, he was then placed on amiodarone drip which was eventually stopped and light of bradycardia. He was seen by design maker Dr. Luis Shah during hospital stay, cardiology did not feel patient needed to be anticoagulated, they have recommend ed keeping K greater than 4 mag greater than 2 and will need outpatient follow- up with cardiology for possible SVT ablation at some point Patient also had hypotension which was likely related to ischemic bowel and was started on IV hydrocortisone: Wean hydrocortisone: Decreased to 25 g IV twice daily [employer] Dr. 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 and started patient on Keppra: He will need follow-up with neurology as outpatient #History of squamous cell carcinoma of the tongue, stage III Patient refused surgery in the past He has been on chemo and radiation #Urinary retention Continue Flomax 0.4 mg daily Trial without catheter #Delirium Likely ICU related Improving Continue Seroquel 25 mg nightly and wean slowly on discharge #Anemia Patient has required 5 units of PRBC during hospital stay so far H&H stable Monitor #Hypomagnesemia Magnesium replacement Monitor levels #Moderate protein calorie malnutrition Dietitian following Patient on PEG tube feeds CODE STATUS: DNR/DNI DVT prophylaxis: Heparin subcutaneous Disposition: Patient is medically stable for discharge to [facility] when bed available Admission and Anticipated Discharge Date Admission Date: October 13, 2025 Subjective Patient seen and examined Denies any headache, dizziness, lightheadedness, chest pain, nausea, vomiting, diarrhea, abdominal pain He is tolerating PEG tube feedings He is eager to go to rehab and then transition home Patient lives at home with his Physical Exam Physical Exam: General: No acute distress Psych: Awake and alert HEENT: Anicteric sclera, moist oral mucosa CVS: Regular rate and rhythm Lungs: Bilateral air entry, no wheezing noted Abdomen: Soft, nontender, midline surgical site clean and dry with magaly intact, no rebound, no guarding Ext: No lower extremity edema, no calf tenderness : Montaño catheter in place Neuro: No focal motor deficits noted Results & Data Results & Data Vital Signs (Past 12 Hours) Vital Signs Temp Pulse Pulse Resp BP Pulse Ox O2 Del Method 10/29/25 11:13 36.9 C 69 18 126/63 96 Room Air 10/29/25 07:54 65 10/29/25 07:54 Room Air 10/29/25 07:38 36.6 C 74 18 120/69 97 Room Air 10/29/25 03:03 36.8 C 76 16 127/66 96 Room Air Laboratory Results Laboratory Results - last 24 hr 10/28/25 10/29/25 10/29/25 17:47 00:15 05:56 Sodium Potassium Chloride Carbon Dioxide Anion Gap BUN Creatinine Est Cr Clr Drug Dosing eGFR BUN/Creatinine Ratio Glucose POC Glucose 119 H 144 H 141 H Calcium Phosphorus Magnesium Albumin 10/29/25 10/29/25 07:55 11:52 Sodium 135 L Potassium 3.6 Chloride 100 Carbon Dioxide 30 Anion Gap 5 BUN 23 Creatinine 0.35 L Est Cr Clr Drug Dosing 168.3 eGFR 116.27 BUN/Creatinine Ratio 65.7 H Glucose 114 H POC Glucose 147 H Calcium 7.8 L Phosphorus 3.1 Magnesium 1.2 L Albumin 2.7 L PG Care Time/CCT Total # of Minutes Spent Total Time Spent with Patient: Total time spent is greater than 50% in coordination of care (as documented) at patient's floor/unit and/or counseling patient: Coding Level of Care Code 11801 SUB INP/OBS CARE MIN Diagnoses Small bowel ischemia K55.9 Protein-calorie malnutrition, moderate E44.0 Urinary retention R33.9 Delirium due to general medical condition F05
[2025-10-29] MEDS: POTASSIUM CHLORIDE PWD 20 MEQ PACK GT ONE (20:47)
[2025-10-29] MEDS: HYDROCORTISONE SOD 25 MG in SYRINGE 0 ML IV SCH (20:47)
[2025-10-29] MEDS: LANSOPRAZOLE 15 MG SOLTAB PEG SCH (20:47)
[2025-10-29 23:55] VITALS: RESP 18
[2025-10-30 06:25] LABS: Hematocrit (blood only) 26.2 % (42.0-52.0); Hemoglobin 9.1 g/dL (14.0-18.0); Mean Corpuscular Hemoglobin 32.3 pg (25.0-34.0); Mean Corpuscular Volume 92.9 fL (80.0-100.0); Platelet Count 206 K/uL (130-400); RDW Standard Deviation 58.6 fL (36.4-46.3); Red Blood Count 2.82 M/uL (4.70-6.10); White Blood Count 3.19 K/ul (4.8-10.8)
[2025-10-30 06:41] LABS: Albumin Level 2.7 gm/dl (3.4-5.0); Anion Gap 6.0 (3-11); Blood Urea Nitrogen 20.0 mg/dl (6-23); Calcium 8.2 mg/dl (8.6-10.3); Carbon Dioxide 29.0 mmol/L (21-32); Chloride 100.0 mmol/L (98-107); Creatinine Clr Calc Pharmacy 163.9 ml/min; Glucose 117.0 mg/dl (70-99(Fasting)); Magnesium 1.6 mg/dl (1.7-2.4); Potassium 4.1 mmol/L (3.5-5.1); Sodium 135.0 mmol/L (136-145)
[2025-10-30 07:26] VITALS: TEMP 98.1
[2025-10-30] MEDS: MAGNESIUM OXIDE 400 MG TAB PEG SCH (08:37)
[2025-10-30] MEDS: THIAMINE HCL 100 MG TAB PEG SCH (08:37)
[2025-10-30] MEDS: MULTI VIT W/MINERALS LIQUID 15 ML UDC PEG SCH (08:37)
[2025-10-30] MEDS: TUBE FEEDING WATER FLUSH GT SCH (08:38)
[2025-10-30] MEDS: MAGNESIUM SULFATE / D5W 1 GM/100 ML BAG IV SCH (08:46)
--- NOTE | 2025-10-30 10:31 | Hospitalist Progress Note ---
Date of Service October 30, 2025 Assessment & Plan (1) Small bowel ischemia: Plan: -s/p ex-lap 10/16 with small bowel resection due to small bowel ischemia,then return to the OR on 10/18/25 for exlap, small bowel anastomosis, (2) Protein-calorie malnutrition, moderate: (3) Urinary retention: (4) Delirium due to general medical condition: Plan 80-year-old male who was initially admitted for recurrent syncopal episodes, found to have a small bowel obstruction subsequently developing ischemic small bowel requiring surgical resection. #Small bowel ischemia s/p ex-lap with small bowel resection due to small bowel ischemia and left in discontinuity on 10/16, required return to the OR later that night for abdominal washout due to concerns for bleeding, then return to the OR on 10/18/25 for exlap, small bowel anastomosis, and fascial closure Patient is stable from surgical perspective for discharge As per surgery, staple removal 14 days from 10/18/2025: On November 01, 2025 He is currently on PEG tube feeds He will need follow-up with surgeon Dr. Wan Maria on discharge #Syncope CT head from 10/13/2025 was negative 2D echo from 10/16/2025 shows EF of 65 to 70% with no regional wall motion abnormalities and no gross valvular pathology noted Patient was also noted to have some previous bouts of SVT, he was then placed on amiodarone drip which was eventually stopped and light of bradycardia. He was seen by crabber Dr. Luis Shah during hospital stay, cardiology did not feel patient needed to be anticoagulated, they have recommend ed keeping K greater than 4 mag greater than 2 and will need outpatient follow- up with cardiology for possible SVT ablation at some point Patient also had hypotension which was likely related to ischemic bowel and was started on IV hydrocortisone: Wean hydrocortisone: Decreased to 25 g IV twice daily [employer] Member Dr. 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 and started patient on Keppra: He will need follow-up with neurology as outpatient #History of squamous cell carcinoma of the tongue, stage III Patient refused surgery in the past He has been on chemo and radiation #Urinary retention Continue Flomax 0.4 mg daily Trial without catheter #Delirium Likely ICU related Improving Continue Seroquel 25 mg nightly and wean slowly on discharge #Anemia Patient has required 5 units of PRBC during hospital stay so far H&H stable Monitor #Hypomagnesemia Magnesium replacement Monitor levels #Moderate protein calorie malnutrition Dietitian following Patient on PEG tube feeds CODE STATUS: DNR/DNI DVT prophylaxis: Heparin subcutaneous Disposition: Patient is medically stable for discharge to [facility] when bed available Admission and Anticipated Discharge Date Admission Date: October 13, 2025 Physical Exam Physical Exam: General: No acute distress Psych: Awake and alert HEENT: Anicteric sclera, moist oral mucosa CVS: Regular rate and rhythm Lungs: Bilateral air entry, no wheezing noted Abdomen: Soft, nontender, midline surgical site clean and dry with magaly intact, no rebound, no guarding, PEG in place Ext: No lower extremity edema, no calf tenderness Neuro: No focal motor deficits noted Results & Data Results & Data Vital Signs (Past 12 Hours) Vital Signs Temp Pulse Resp BP BP Pulse Ox O2 Del Method 10/30/25 07:32 Room Air 10/30/25 07:25 36.7 C 73 18 129/72 99 Room Air 10/29/25 23:47 36.4 C L 85 18 126/88 97 Room Air Laboratory Results Laboratory Results - last 24 hr 10/29/25 10/29/25 10/29/25 11:52 18:06 23:50 WBC RBC Hgb Hct MCV MCH MCHC RDW Std Deviation RDW Coeff of Nii Plt Count MPV Sodium Potassium Chloride Carbon Dioxide Anion Gap BUN Creatinine Est Cr Clr Drug Dosing eGFR BUN/Creatinine Ratio Glucose POC Glucose 147 H 133 H 125 H Calcium Phosphorus Magnesium Albumin 10/30/25 10/30/25 06:01 06:03 WBC 3.19 L RBC 2.82 L Hgb 9.1 L Hct 26.2 L MCV 92.9 MCH 32.3 MCHC 34.7 RDW Std Deviation 58.6 H RDW Coeff of Nii 17.5 H Plt Count 206 MPV 9.4 Sodium 135 L Potassium 4.1 Chloride 100 Carbon Dioxide 29 Anion Gap 6 BUN 20 Creatinine 0.36 L Est Cr Clr Drug Dosing 163.9 eGFR 115.29 BUN/Creatinine Ratio 55.6 H Glucose 117 H POC Glucose 121 H Calcium 8.2 L Phosphorus 3.1 Magnesium 1.6 L Albumin 2.7 L PG Care Time/CCT Total # of Minutes Spent Total Time Spent with Patient: Total time spent is greater than 50% in coordination of care (as documented) at patient's floor/unit and/or counseling patient: Coding Diagnoses Small bowel ischemia K55.9 Protein-calorie malnutrition, moderate E44.0 Urinary retention R33.9 Delirium due to general medical condition F05
[2025-10-30 11:01] VITALS: O2SAT 98
--- NOTE | 2025-10-30 14:47 | Discharge Summary ---
Discharge Summary Date of Service October 30, 2025 Principal Dx & Hospital Course #1 = Principal Diagnosis (1) Small bowel ischemia: (2) Protein-calorie malnutrition, moderate: Plan 80-year-old male who was initially admitted for recurrent syncopal episodes, found to have a small bowel obstruction subsequently developing ischemic small bowel requiring surgical resection. #Small bowel ischemia s/p ex-lap with small bowel resection due to small bowel ischemia and left in discontinuity on 10/16, required return to the OR later that night for abdominal washout due to concerns for bleeding, then return to the OR on 10/18/25 for exlap, small bowel anastomosis, and fascial closure Patient is stable from surgical perspective for discharge As per surgery, staple removal 14 days from 10/18/2025: On November 01, 2025 He is currently on PEG tube feeds He will need follow-up with surgeon Dr. Wan Maria on discharge #Syncope CT head from 10/13/2025 was negative 2D echo from 10/16/2025 shows EF of 65 to 70% with no regional wall motion abnormalities and no gross valvular pathology noted Patient was also noted to have some previous bouts of SVT, he was then placed on amiodarone drip which was eventually stopped and light of bradycardia. He was seen by forensic investigator Dr. Luis Shah during hospital stay, cardiology did not feel patient needed to be anticoagulated, they have recommended keeping K greater than 4 mag greater than 2 and will need outpatient follow-up with cardiology for possible SVT ablation at some point Patient also had hypotension which was likely related to ischemic bowel and was started on IV hydrocortisone: Wean hydrocortisone: Decreased to 25 g IV twice daily Agricultural Service Technician Dr. Blair was concerned about absence seizures with automatic dysf unction and started patient on Keppra: He will need follow-up with neurology as outpatient #History of squamous cell carcinoma of the tongue, stage III Outpatient oncologist is Dr. Hall Patient refused surgery in the past He has been on chemo and radiation #Urinary retention Continue Flomax 0.4 mg daily Montaño catheter was removed and patient is urinating without any issues #Delirium Likely ICU related Improving Continue Seroquel 25 mg nightly #Anemia Patient has required 5 units of PRBC during hospital stay so far H&H stable Monitor #Hypomagnesemia Patient received IV and oral magnesium replacement Monitor levels at [facility] facility #Moderate protein calorie malnutrition Patient on PEG tube feeds Aspiration precautions, head of bed at least 45 degrees Patient seen and examined. I have gone over the discharge care plan with the patient and his on the phone including follow-up and answered all the questions. This discharge took greater than 30 minutes to coordinate Admission HPI Per Admitting Provider Pt is a 80y/o M with a PMHx significant for Tongue CA, MGUS, Neuropathy, Asthma, Anxiety, Depression who presented to the ED c/o Syncopal episodes. Pt's notes 5months RELAY CHECKER where the pt would experience episodes where he would fall to the floor; she additionally notes that the patient would often be awake but be unable to recall the episodes after getting up. At that time, pt received a heart monitor that revealed some tachycardia, per pt. Pt notes that he then went to the hospital and it was discovered that he had tongue cancer, resulting in everything being placed on the back burner. Pts notes that the episodes continued for once a week but suddenly worsened today where he had 4 of these episodes in 2 hours. She notes that it is as if a "stun gun" hits him and then when he "comes out of it" that he is often confused and disoriented. She notes that his feet and hands will flick in a slow repetitive movement. Upon further evaluation patient admits to experiencing episodes of nausea and vomiting today especially after episodes of syncope. Patient's notes that patient has been constipated over the past few weeks and so 1 week RELAY CHECKER she had given the patient a Fleet enema in which she had a large bowel movement. Patient has since had increasing abdominal pain. Pt endorses fatigued, insomnia, productive cough, palpitations, dyspnea, nausea & vomiting. Pt denies fever/chills, LUTS, H/A, changes in hearing and vision. Pt was admitted for further evaluation and care Discharge Exam General: No acute distress Psych: Awake and alert HEENT: Anicteric sclera, moist oral mucosa CVS: Regular rate and rhythm Lungs: Bilateral air entry, no wheezing noted Abdomen: Soft, nontender, midline surgical site clean and dry with magaly intact, no rebound, no guarding, PEG tube in place Ext: No lower extremity edema, no calf tenderness Neuro: No focal motor deficits noted Discharge Plan Discharge Items Patient Disposition: Transfer [facility] Reason For Visit: SYNCOPE, SBO Discharge Diagnosis: exploratory laparotomy with small bowel resection and re-anastomosis Condition on Discharge: Fair Activity: Per Instructions section Lifting: No more than 10 pounds Bathing Comment: may shower; no soaking in tubs/pools x 2 weeks Exercise/Sports: Wait until after follow-up appointment Driving/Machine Use: no driving while on narcotics for pain Non-emergency contact: Primary Care Provider, Surgeon, Iap Displays Analyst and Neurologist Call non-emergency contact if: you have any medication questions, your pain is not controlled, your pain is worsening, you have a fever, your temperature is above 101.5, your wound has increased redness, your wound has increased drainage and your wound pain has increased Follow-up/Referrals: Johnny Hall MD [Physician] - Luis Shah MD [Physician] - Wan Maria DO, FACS [Physician] - (Please call to schedule follow up in the office in 2 weeks) Nicolas Huang PA-C [Primary Care Provider] - Diet: Other - See Diet Comment Diet Comment: Patient on tube feeds Addtl Attending Provider Instructions: SPECIAL CARE INSTRUCTIONS from surgery team for patient/SNF: * You have magaly in your midline abdominal incision that should be removed around 14 days from your surgical procedure on November 01, 2025. You may leave your incision open to air * Continue PEG tube feeds as instructed prior to discharge from the hospital * You may shower . NO soaking in pools or baths for 2 weeks * No lifting greater than 10lbs. No strenuous exercise until cleared by surgeon. Light walking is accepted. * No driving while taking narcotic pain medication; wait at least 3 days * No drinking alcohol while taking narcotic pain medication * May use Tylenol over the counter for pain as tolerated. Do not exceed 3grams of Tylenol per 24 hours * Expect some swelling and bruising. Call your doctor if: * Temperature above 101 degrees, nausea/vomiting, fever/chills * Pain not relieved by pain medicine ordered * There is increased drainage or redness from any incision * You have any unanswered questions or concerns [phone]. FOLLOW UP VISIT: If not already scheduled, please call the office for a follow-up visit. Office DISCHARGE INSTRUCTION TO PATIENT/FAMILY/SNF: Follow-up with your primary care provider within 1 week regarding: Posthospital discharge, medication review, medication refills and follow-up on all your medical problems Please take all your discharge medications, discharge information and discharge instructions to all your doctors appointments. Out of bed to chair 3 times a day Head of bed at at least 45 degrees during tube feeds Labs at [facility] ON 11/01/2025: CBC, CMP, MG, VITAMIN D Please follow-up with cardiology as outpatient after discharge from [facility] Please follow-up with surgery team Please follow-up with neurology as outpatient. You were started on Keppra by the physics technician care team for suspicion of seizures. Please do not drive until you are cleared by neurology Pending Studies at Discharge: Yes Studies:: surgical pathology Stand-Alone Forms: My [facility] Skilled Items Patient informed of condition?: Yes DNR: Yes Discharge Level of Care: Skilled Communicable Disease: No Discharge Prognosis: Stable Lines: None Urinary Catheter: No Medications and DC Order Prescriptions: New insulin aspart U-100 [Novolog U-100 Insulin aspart] 100 unit/mL Solution 1 unit SC Q6 5 Days Qty: 0.2 0RF Peptamen 1.5 0.068 gram- 1.5 kcal/mL Liquid 1 ea PEG DAILY PRN (Reason: tube feeds) 10 Days Qty: 10 0RF lansoprazole [Prevacid SoluTab] 15 mg Tablet,Disintegrat, Delay Rel 15 mg PEG BID 10 Days Qty: 20 0RF magnesium oxide 400 mg (241.3 mg magnesium) Tablet 800 mg PEG BID Qty: 10 0RF heparin, porcine (PF) 5,000 unit/0.5 mL Syringe 5,000 unit subcut Q12 4 Days Qty: 4 0RF tamsulosin 0.4 mg Capsule 0.4 mg PO HS 30 Days Qty: 30 0RF levetiracetam [Keppra] 100 mg/mL Solution 1,000 mg PEG Q12H 10 Days Qty: 200 0RF thiamine HCl (vitamin B1) 100 mg Tablet 100 mg PEG QAM Qty: 10 0RF uujvujuo-yvk-gdjwxjo gluconate [Liquid Multivitamin] 9 mg iron/ 15 mL (15 mL) Liquid 15 ml PEG QAM Qty: 750 0RF Tube Feeding Water Flush 100 ml G-tube QID 10 Days 0RF Continued quetiapine [Seroquel] 25 mg tablet 25 mg PO HS prochlorperazine maleate 10 mg tablet 10 mg PO DAILY PRN (Reason: Nausea And Vomiting) olanzapine 2.5 mg tablet 2.5 mg PO DAILY PRN (Reason: Chemo) ondansetron 8 mg tablet,disintegrating 8 mg translingual DAILY PRN (Reason: Nausea And Vomiting) Discontinued sucralfate 100 mg/mL suspension 10 ml PO ACHS Rx Instructions: swish in mouth and swallow; use after food/drink [id number] Tablet 1 tab PO QAM Hold Instructions: Resume on 07/25/25. diphenhydramine-acetaminophen [Tylenol PM Extra Strength] 25-500 mg Tablet 2 tab PO HS PRN (Reason: Sleep) nystatin 100,000 unit/mL suspension 5 ml PO QID PRN (Reason: THRUSH) Rx Instructions: swish and swallow Discharge Orders: Discharge Order (Routine); Ordered 10/30/25 Ordered By: Perez Collier Admission Data Admit Date/Time: 10/13/25 21:23 Attending Provider: Perez Collier Admit Provider: Riki Silva Primary Care Provider: Nicolas Huang Other Providers: Vahid Kemp; Jensen Centeno; Daniel Lopez; Anderson Page; Abhi Morocho; Elroy Hirsch; Rodger Contreras; Sea Dawkins Jr; Jaquan Dubois; Summer Potts; Kaley Hightower; Luis Shah; Luis Abrams; Sherry Villafuerte; Juancarlos Moore; Beryl Knight; Juancarlos Najera; Navin Muller; Louie Mueller; Lasha Mora; Soto Mcdonough; Patty Vincent; Clarissa Hassan; Venu Blair ketan Hospital Stay Data Consultations 10/13/25 16:29 ED Decision to Admit Stat 10/13/25 21:58 Consult Gastroenterology Routine 10/16/25 06:55 Consult Cardiology Routine 10/16/25 11:13 Consult Agricultural Service Technician Routine Procedures Performed Operation Date: 10/18/25 07:30 Actual Procedures p Abdominal Washout, Small Bowel Anastomosis and Closure(Not Applicable) - Wan Maria, DO, FACS Diagnostic Imagining Performed 10/13/25 15:03 CT angio chest PE protocol Stat CT cervical spine wo con Stat CT head/brain wo con Stat 10/13/25 19:23 CT abd pelvis IV con only Stat 10/16/25 00:44 CT Abd and Pelvis [CT abd pelvis IV con only] Stat 10/16/25 15:51 US point of care ultrasound Urgent 10/16/25 16:15 CT Abd and Pelvis [CT abd pelvis IV con only] Stat Pending Results Patient Have Any Pending Studies at Discharge: Yes Discharge Instructions Given to Patient (Per Discharging Provider) SPECIAL CARE INSTRUCTIONS from surgery team for patient/SNF: * You have magaly in your midline abdominal incision that should be removed around 14 days from your surgical procedure on November 01, 2025. You may leave your incision open to air * Continue PEG tube feeds as instructed prior to discharge from the hospital * You may shower . NO soaking in pools or baths for 2 weeks * No lifting greater than 10lbs. No strenuous exercise until cleared by surgeon. Light walking is accepted. * No driving while taking narcotic pain medication; wait at least 3 days * No drinking alcohol while taking narcotic pain medication * May use Tylenol over the counter for pain as tolerated. Do not exceed 3grams of Tylenol per 24 hours * Expect some swelling and bruising. Call your doctor if: * Temperature above 101 degrees, nausea/vomiting, fever/chills * Pain not relieved by pain medicine ordered * There is increased drainage or redness from any incision * You have any unanswered questions or concerns [phone]. FOLLOW UP VISIT: If not already scheduled, please call the office for a follow-up visit. Office DISCHARGE INSTRUCTION TO PATIENT/FAMILY/SNF: Follow-up with your primary care provider within 1 week regarding: Posthospital discharge, medication review, medication refills and follow-up on all your medical problems Please take all your discharge medications, discharge information and discharge instructions to all your doctors appointments. Out of bed to chair 3 times a day Head of bed at at least 45 degrees during tube feeds Labs at SN[facility] ON 11/01/2025: CBC, CMP, MG, VITAMIN D Please follow-up with cardiology as outpatient after discharge from SNF Please follow-up with surgery team Please follow-up with neurology as outpatient. You were started on Keppra by the physics technician care team for suspicion of seizures. Please do not drive until you are cleared by neurology Total Time Total Time Spent Total Time Spent (In Minutes): 40 minutes Coding Level of Care Code 55385 INP/OBS DISCH >30 MIN Diagnoses Small bowel ischemia K55.9 Protein-calorie malnutrition, moderate E44.0
[2025-10-30 15:11] VITALS: BP 132/75; PULSE 74
== END 2025-10-30 16:58 | DRG 329 ==
LOC: ED 14:52 → SUATTDRO 21:23 → 2S 21:23 → 1E 10-16 12:44 → 2S 10-21 06:49